=== PATIENT | female | born 1950 | race Caucasian/White ===

== ENCOUNTER 2022-03-19 15:45 | Emergency (ER) | payer MEDICARE, SELFPAY ==
--- NOTE | ~2022-03-19 | XR_ITS ---
XR knee LT 3V 03/19/2022 17:13 Indication: Left knee pain after fall Procedure: 3 views left knee Comparison: No prior studies for comparison. Findings: No acute fracture or traumatic malalignment. There is severe osteoarthritis of the left kne e, most advanced in the patellofemoral and lateral compartments. There is a large amount of soft tiss ue swelling anteriorly above the knee. There is extensive atherosclerosis. Impression: 1: No acute fracture. Reviewed, dictated and finalized at location A. Impression: 1: No acute fracture.
[2022-03-19 15:51] VITALS: BP 132/83; PULSE 108; RESP 14; TEMP 36.2; O2SAT 100
--- NOTE | 2022-03-19 16:53 | ED.LOWEXIN ---
HPI - Extremity Injury (Lower) General Chief Complaint: Extremity Injury, Lower Stated Complaint: Left Knee Pain Time Seen by Provider: 03/19/22 16:51 Source: patient and family Mode of arrival: ambulatory Limitations: no limitations History of Present Illness HPI Narrative: Patient is 71 years old white female presents to the ED with left knee pain started last night. Patient reports having a fall off a rolling chair 1 week ago, flipped over and landed on her left knee. Patient denies other injuries. Related Data Allergies Allergy/AdvReac Type Severity Reaction Status Date / Time No Known Allergies Allergy Verified 07/13/21 10:15 Review of Systems Review of Systems: All systems reviewed & are unremarkable except as noted in HPI and below PMFSH Past Medical History Medical History Age-related macular degeneration Essential (primary) hypertension Psychophysiological insomnia Type 2 diabetes mellitus with hyperglycemia Vitamin D deficiency, unspecified Surgical History Surgical History H/O hysterectomy for benign disease Hx of cholecystectomy Family History Family History Mother Hypertension Family history of Alzheimer's disease Family history of type 1 diabetes mellitus Father Family history of lymphoma History of kidney disease Social History Social History Social History: Second hand tobacco smoke exposure: No Alcohol intake: never Substance use: never Substance use type: does not use Additional living arrangements comments: pt lives with granddaughter and granddaughter Gender identity (if verbalized by the patient): Female Sexual Orientation (if Verbalized by the Patient): Straight or Heterosexual Exam Narrative: General appearance: Well-developed, well-nourished Skin: Normal color Head: Normocephalic, nontraumatic Eyes: Clear conjunctiva Vascular: Normal peripheral pulses, normal capillary refill. Musculoskeletal: Normal range of motion, nontender back Neurologic: Alert and oriented ?3, Course Course Emergency Course: X-ray showed no acute abnormality, left knee sprain/strain is my concern. Vital Signs Vital signs: Vital Signs Temperature 36.2 C L 03/19/22 15:51 Pulse Rate 108 H 03/19/22 15:51 Respiratory Rate 14 03/19/22 15:51 Blood Pressure 132/83 03/19/22 15:51 Pulse Oximetry 100 03/19/22 15:51 Oxygen Delivery Room Air 03/19/22 15:51 Temperature 36.2 C L 03/19/22 15:51 Pulse Rate 108 H 03/19/22 15:51 Respiratory Rate 14 03/19/22 15:51 Blood Pressure 132/83 03/19/22 15:51 Pulse Oximetry 100 03/19/22 15:51 Oxygen Delivery Room Air 03/19/22 15:51 MDM - Extremity Injury (Lower) Differential Diagnosis Differential diagnosis: Likely ankle sprain and strain and acute internal derangement of knee Imaging Data Radiologist's impression: Impressions Knee X-Ray 03/19/22 17:13 Impression: 1: No acute fracture. Critical Care Time Critical Care Time Critical Care Time: No Discharge Plan Discharge Clinical Impression: Sprain of knee Patient Disposition: Home, Self-Care Condition: Stable Instructions: Antibiotic Form, Knee Sprain (DC), Knee Immobilizer (ED) Additional Instructions: Return if symptoms are worsening , call your family physician for appointment, take Tylenol as as needed for aches and pain, continue home medications. Prescriptions: New meloxicam 7.5 mg tablet 7.5 mg PO DAILY Qty: 10 0RF No Action alprazolam 0.5 mg tablet 0.5 mg PO DAILY Qty: 30 2RF am
[2022-03-19] MEDS: HYDROcodone/acetaminophen (*CRX) 5-325 MG TABLET 1 TAB PO (17:26)
[2022-03-19 18:31] VITALS: BP 144/62; PULSE 79; RESP 18; O2SAT 97
== END 2022-03-19 18:34 | disposition home or self-care (01) ==
PROVIDERS: Emergency Provider Emergency Medicine; PCP Family Medicine
DX: S83.92XA Sprain of unspecified site of left knee, initial encounter (principal); I10 Essential (primary) hypertension; E11.9 Type 2 diabetes mellitus without complications; W07.XXXA Fall from chair, initial encounter
CPT/HCPCS: 73562; 99283; A9270

== ENCOUNTER 2022-11-23 09:44 | Emergency (ER) | payer MEDICARE, SELFPAY ==
[2022-11-23 09:48] VITALS: BP 148/62; PULSE 112; RESP 16; TEMP 36.1; O2SAT 99
--- NOTE | 2022-11-23 10:41 | ED.EXTPRO ---
HPI - Extremity Problem General Chief complaint: Extremity Problem,Nontraumatic Stated complaint: blister, hx of DM Time Seen by Provider: 11/23/22 10:30 History of Present Illness HPI Narrative: 72-year-old female with a history of diabetes, on metformin and glipizide, here for evaluation of a area of skin breakdown to her left lateral foot that she first noticed 2 days ago. Denies trauma to the foot. She has covered the area with a Band-Aid without improvement.. PCP is Dr. Holliday. Denies fevers, chills, nausea, vomiting or systemic symptoms. Denies history of neuropathy. Related Data Allergies Allergy/AdvReac Type Severity Reaction Status Date / Time No Known Allergies Allergy Verified 11/08/22 10:30 Review of Systems Review of Systems: Gen.: Denies fevers or chills Eyes: Denies eye pain or visual change ENT: Denies congestion Respiratory: Denies shortness of breath or cough CV: Denies chest pain or palpitations GI: Denies abdominal pain nausea, emesis or diarrhea denies burning, urgency, frequency or hematuria Musculoskeletal: Denies back pain or muscle pain Neuro: Denies numbness, tingling, weakness or focal weakness Skin: Reports ulcer to left foot. Except as documented, all other systems reviewed and negative [facility] Past Medical History Medical History Age-related macular degeneration Essential (primary) hypertension Psychophysiological insomnia Type 2 diabetes mellitus with hyperglycemia Vitamin D deficiency, unspecified Surgical History Surgical History H/O hysterectomy for benign disease Hx of cholecystectomy Family History Family History Mother Hypertension Family history of Alzheimer's disease Family history of type 1 diabetes mellitus Diabetes mellitus Father Family history of lymphoma History of kidney disease Hypertension Grandparent Breast cancer Social History Social History Social History: Smoking status: Never smoker Second hand tobacco smoke exposure: No Alcohol intake: never Substance use: never Substance use type: does not use Living arrangements: with family Additional living arrangements comments: pt lives with granddaughter and granddaughter Occupation/Education: retired Gender identity (if verbalized by the patient): Female Sexual Orientation (if Verbalized by the Patient): Straight or Heterosexual Exam Narrative: Gen: Alert, oriented, no acute distress. Eyes: EOMI, no icterus Pulm: Respirations even and unlabored, symmetric thorax expansion, no audible stridor or visible cyanosis CV: Strong DP and PT pulses bilaterally. GI: No distension, no voluntary/involuntary guarding Neuro: AOx4, moves all extremities without apparent difficulty or weakness, follows commands MSK: Sensation intact to entirety of foot. Full range of motion. Skin: Patient has a 1 x 1 cm ulceration with pink granulation tissue present to the lateral aspect of the left fifth digit of the foot with no surrounding erythema, no malodorous discharge. She does have a small area of skin breakdown to the plantar aspect of her left left fifth digit. Psych: Normal mood/affect, insight/judgement good, adequate fund of knowledge, recent/remote memory intact Course Vital Signs Vital signs: Vital Signs Temperature 97.0 F L 11/23/22 09:48 Pulse Rate 112 H 11/23/22 09:48 Respiratory Rate 16 11/23/22 09:48 Blood Pressure 148/62 H 11/23/22 09:48 Pulse Oximetry 99 11/23/22 09:48 Oxygen Delivery Room Air 11/23/22 09:48 Temperature 97.0 F L 11/23/22 09:48 Pulse Rate 112 H 11/23/22 09:48 Respiratory Rate 16 11/23/22 09:48 Blood Pressure 148/62 H 11/23/22 09:48 Pulse Oximetry 99 11/23/22 09:48 Oxygen Delivery R
[2022-11-23 10:48] LABS: Glucose Point of Care 114 mg/dl (65-105)
--- NOTE | 2022-11-23 11:32 | PC.NURSE ---
called pharmacy for topical medication ordered
[2022-11-23] MEDS: SILVERGEL (ELTA) 45 ML 1 APPLIC TOPICAL (11:56)
== END 2022-11-23 12:00 | disposition home or self-care (01) ==
PROVIDERS: Emergency Provider Physician Assistant; PCP Family Medicine
DX: E11.621 Type 2 diabetes mellitus with foot ulcer (principal); L97.521 Non-pressure chronic ulcer of other part of left foot limited to breakdown of skin; H35.30 Unspecified macular degeneration; I10 Essential (primary) hypertension; E55.9 Vitamin D deficiency, unspecified; Z90.710 Acquired absence of both cervix and uterus; Z79.84 Long term (current) use of oral hypoglycemic drugs
CPT/HCPCS: 82948; 99283; A9270

== ENCOUNTER 2025-01-03 17:14 | Emergency (ER) | payer MEDICARE, SELFPAY ==
--- NOTE | ~2025-01-03 | XR_ITS ---
CHEST RADIOGRAPH CLINICAL HISTORY: fatigue . COMPARISON: 10/02/2011 TECHNIQUE: Single portable view of the chest. FINDINGS The cardiomediastinal silhouette is unremarkable. Blunting of the bilateral costophrenic sulci identified suggesting small bilateral pleural effusions. Increased interstitial markings are identified bilaterally, findings suggesting mild pulmonary vascul ar congestion. The lungs are otherwise clear. IMPRESSION: Mild pulmonary vascular congestion with small bilateral pleural effusions Reviewed, dictated and finalized at location A.
[2025-01-03 17:24] VITALS: BP 128/61; PULSE 140; RESP 18; TEMP 36; O2SAT 99
--- NOTE | 2025-01-03 17:28 | ECG_ITS ---
Test Date: 2025-01-03 20:11:46 Measurements Intervals Nunda Rate: 114 P: -13 IN: 162 QRS: -11 QRSD: 79 T: 45 QT: 301 QTc: 415 Interpretive Statements SINUS TACHYCARDIA LOW QRS VOLTAGE IN PRECORDIAL LEADS [QRS DEFLECTION < 1.0 mV IN CHEST LEADS] POSSIBLE ANTERIOR MYOCARDIAL INFARCTION , PROBABLY OLD [30 ms Q WAVE IN V3/V4, OR R < 0.2 mV IN V4] INFERIOR MYOCARDIAL INFARCTION , PROBABLY OLD [40+ ms Q WAVE AND/OR ST/T ABNORMALITY IN II/aVF] No previous ECG available for comparison Electronically Signed On 01-04-2025 16:50:40 CDT by Mallory Quick M.D.
--- NOTE | 2025-01-03 17:29 | ED.GENADULT ---
HPI - General Adult General Chief complaint: Unspecified <Marily Carranza PA-C - Last Filed: 01/03/25 17:30> Stated complaint: Nauseated, feeling very tired, sugars high <Marily Carranza PA-C - Last Filed: 01/03/25 17:30> Time Seen by Provider: 01/03/25 20:18 <Marily Carranza PA-C - Last Filed: 01/03/25 17:30> Focused HPI: 74-year-old female with history of diabetes and hypertension presents with her daughter at bedside for 1 month of fatigue, nausea and dry heaving. Over the past few days symptoms have worsened which is why the patient presented to the ER today. She reports decreased p.o. intake. Also having rhinorrhea. Denies fever, cough or congestion, chest pain or shortness of breath, abdominal pain, diarrhea, dysuria or hematuria. Does have bilateral lower extremity edema but states this is unchanged from baseline. Denies history of CHF. GENERAL: Well-appearing, well-nourished, and in no acute distress. HEAD: Normocephalic, atraumatic. CHEST: Clear to auscultation. ?No respiratory distress. Bilateral lower extremity edema HEART: Regular rate and rhythm.? NEURO: ?Alert and oriented x3. Patient screened in triage and initial orders placed.? ?Additional care and disposition to be based upon?diagnostic testing and treatment. <Marily Carranza PA-C - Last Filed: 01/03/25 17:30> History of Present Illness HPI narrative: Agree with the HPI above and also like to add that patient recently had medication changes including previously being on Tuesday RO in September for last few months and then switch to Jardiance 2 weeks ago as she was not tolerating the nauseousness and epigastric burning pain with GERD. She states that she feels like she is nauseous all the time and her regular doctor ordered labs yesterday which show iron deficiency anemia for which she was started iron supplements. Has a PCP appointment tomorrow morning. <Bahman Turner MD - Last Filed: 01/03/25 23:26> Related Data Allergies/adverse reactions: Allergies Allergy/AdvReac Type Severity Reaction Status Date / Time No Known Allergies Allergy Verified 01/03/25 17:17 <Marily Carranza PA-C - Last Filed: 01/03/25 17:30> Review of Systems Review of Systems: As reviewed above in HPI <Bahman Turner MD - Last Filed: 01/03/25 23:26> [facility] Past Medical History Medical History: Medical History Age-related macular degeneration Essential (primary) hypertension Psychophysiological insomnia Type 2 diabetes mellitus with hyperglycemia Vitamin D deficiency, unspecified <Marily Carranza PA-C - Last Filed: 01/03/25 17:30> Surgical History Surgical History: Surgical History Hx of cholecystectomy H/O hysterectomy for benign disease <Marily Carranza PA-C - Last Filed: 01/03/25 17:30> Family History Family History: Family History Mother Hypertension Family history of Alzheimer's disease Family history of type 1 diabetes mellitus Diabetes mellitus Father Family history of lymphoma History of kidney disease Hypertension Grandparent Breast cancer <Marily Carranza PA-C - Last Filed: 01/03/25 17:30> Social History Social History: Social History Social History: Smoking status: Never smoker Second hand tobacco smoke exposure: No Alcohol intake: never Substance use: never Substance use type: does not use Do You Feel Safe in your Home?: Yes Lack of Transportation: No Lack of Food: Never True Current Housing: I Have Housing Concerned About Future Housing: No Difficulty Paying Gas/Electric Bills: No Difficulty Paying for Meds: No Currently Unemployed: YES Education: Don't Know Difficulty w/ Childcare or Family Care: No Living arrangements: with family Additional living arrangements comments: pt lives with granddaughter and granddaughter Occupation/Education: retired Gender identity (if verbalized by the patient): Female Sexual Orientation (if Verbalized by the Patient): Straight or Heterosexual <Marily Carranza PA-C - Last Filed: 01/03/25 17:30> Exam Narrative: GENERAL: Overall well-appearing, not in any distress, well nourished. HEAD: [Normocephalic, atraumatic.] EYES: [PERRLA and EOMI.] ENT: Nares clear, no rhinorrhea or epistaxis. Mucous membranes moist. NECK: Supple. CHEST: [Clear to auscultation. No respiratory distress.] HEART: [Regular rate and rhythm]. No murmur heard. [Normal peripheral pulses.] ABDOMEN: [Soft, nondistended], [nontender], [No rigidity or guarding] EXTREMITIES: Normal range of motion. [No edema.] SKIN: Warm, dry, no rash. NEURO: [No focal deficits]. Alert and oriented [x3.] PSYCH: [Normal mood and affect.] <Bahman Turner MD - Last Filed: 01/03/25 23:26> Course Vital Signs Vital signs: Vital Signs Temperature 36.0 C L 01/03/25 17:24 Pulse Rate 140 H 01/03/25 17:24 Respiratory Rate 18 01/03/25 17:24 Blood Pressure 128/61 01/03/25 17:24 Pulse Oximetry 99 01/03/25 17:24 Oxygen Delivery Room Air 01/03/25 17:24 Temperature 36.0 C L 01/03/25 17:24 Pulse Rate 95 01/03/25 20:04 Respiratory Rate 20 01/03/25 20:05 Blood Pressure 111/66 01/03/25 20:04 Pulse Oximetry 98 01/03/25 20:33 Oxygen Delivery Room Air 01/03/25 20:33 <Marily Carranza PA-C - Last Filed: 01/03/25 17:30> Vital Signs Temperature 36.0 C L 01/03/25 17:24 Pulse Rate 140 H 01/03/25 17:24 Respiratory Rate 18 01/03/25 17:24 Blood Pressure 128/61 01/03/25 17:24 Pulse Oximetry 99 01/03/25 17:24 Oxygen Delivery Room Air 01/03/25 17:24 Temperature 36.0 C L 01/03/25 17:24 Pulse Rate 95 01/03/25 20:04 Respiratory Rate 20 01/03/25 20:05 Blood Pressure 111/66 01/03/25 20:04 Pulse Oximetry 98 01/03/25 20:33 Oxygen Delivery Room Air 01/03/25 20:33 <Bahman Turner MD - Last Filed: 01/03/25 23:26> Medical Decision Making MDM Narrative Medical decision making narrative: 74-year-old female presenting to the emergency department for ?feeling like crap ?patient states that she has been feeling tired these last few months and recently had medication changes including previously being on Mon General for several months and then switch to Jardiance as she was not tolerating the side effects. She had outpatient labs done 2 days ago by her PCP that shows an MADY and anemia that she was prescribed iron pills for. She has an outpatient PCP appointment tomorrow morning. Patient came to the ER today as she wanted to make sure she was okay. Patient has no specific complaints aside from some mild nausea but she states she has been constantly nauseous for months. Denies any vomiting, abdominal pain, back pain, fever, chills, chest pain, shortness a breath, worsening leg swelling. Only medication change has been the Jardiance recently. No urinary complaints or diarrhea. Suspect probably that patient has some component of intolerance to medications as is her Jardiance in could be having MADY versus urinary tract infection. Electrolyte disturbances or anemia could also be causing this. Workup ordered including CBC, CMP, EKG, chest x-ray. BNP and flu swabs were obtained. Chest x-ray ordered. Patient was given a fluid bolus and 4 Zofran. Workup shows a leukocytosis of 16.8 which is slightly higher than 2 days ago on outpatient labs. Hemoglobin has improved to 11.2 with normal platelets. Electrolyte panel shows some dehydration and MADY from her labs several days ago. She has chronic kidney disease at baseline and slight worsening today with an elevated BUN of 58 and creatinine 2.34. No urinary complaints and she still urinating easily. Likely secondary to from Jardiance and intravascular depletion. She was given a fluid bolus and re-evaluated. Glucose acceptable 174. LFTs mildly elevated. Negative viral panel. Chest x-ray shows no pneumonia, mild small pleural effusions noted. EKG shows no evidence of hyperkalemia, no ectopy or acute occlusive event. Given patient is overall very well-appearing with normal vital signs without any tachycardia, fever or hypoxia and her historical features consistent with an MADY likely secondary to medication such as Jardiance I believe she can be safely discharged home especially given that she has a PCP appointment tomorrow morning who can evaluate her closely and provide further input and recommendations for care. Patient felt comfortable with this plan of care, urinalysis pending and she will be discharged home with close follow-up instructions and return precautions. Urinalysis shows urinary infection however patient is presently asymptomatic. Will treat with oral antibiotics. patient started on Bactrim and sent home with prescription medications and instructions to follow-up with the doctor in the morning. <Bahman Turner MD - Last Filed: 01/03/25 23:26> Medical Records Medical records reviewed: Yes I reviewed the external patient's medical records. <Bahman Turner MD - Last Filed: 01/03/25 23:26> Vital Signs Vital Signs: Vital Signs Temperature 36.0 C L 01/03/25 17:24 Pulse Rate 140 H 01/03/25 17:24 Respiratory Rate 18 01/03/25 17:24 Blood Pressure 128/61 01/03/25 17:24 Pulse Oximetry 99 01/03/25 17:24 Oxygen Delivery Room Air 01/03/25 17:24 Temperature 36.0 C L 01/03/25 17:24 Pulse Rate 95 01/03/25 20:04 Respiratory Rate 20 01/03/25 20:05 Blood Pressure 111/66 01/03/25 20:04 Pulse Oximetry 98 01/03/25 20:33 Oxygen Delivery Room Air 01/03/25 20:33 <Marily Carranza PA-C - Last Filed: 01/03/25 17:30> Vital Signs Temperature 36.0 C L 01/03/25 17:24 Pulse Rate 140 H 01/03/25 17:24 Respiratory Rate 18 01/03/25 17:24 Blood Pressure 128/61 01/03/25 17:24 Pulse Oximetry 99 01/03/25 17:24 Oxygen Delivery Room Air 01/03/25 17:24 Temperature 36.0 C L 01/03/25 17:24 Pulse Rate 95 01/03/25 20:04 Respiratory Rate 20 01/03/25 20:05 Blood Pressure 111/66 01/03/25 20:04 Pulse Oximetry 98 01/03/25 20:33 Oxygen Delivery Room Air 01/03/25 20:33 <Bahman Turner MD - Last Filed: 01/03/25 23:26> Lab Data Lab results reviewed: Yes I reviewed the patient's lab results. <Bahman Turner MD - Last Filed: 01/03/25 23:26> Result diagrams: 01/03/25 20:32 01/03/25 20:32 <Marily Carranza PA-C - Last Filed: 01/03/25 17:30> Labs: Lab Results 01/03/25 01/03/25 01/03/25 Range/Units 19:55 20:32 22:34 WBC 16.8 H (4.5-10.0) K/mm3 RBC 4.22 (4.2-5.4) M/mm3 Hgb 11.2 L (12.0-15.0) g/dL Hct 35.1 L (37.0-47.0) % MCV 83.2 (80-100) fl MCH 26.5 (26-34) pg MCHC 31.9 L (32-36) g/dl RDW 22.0 H (11.5-14.5) % Plt Count 372 (150-375) k/mm3 MPV 11.1 H (7.4-10.4) fl Immature Gran % (Auto) 0.6 H (0-0.5) % Neut % (Auto) 90.7 H (45.5-73.1) % Lymph % (Auto) 3.7 L (18.3-44.2) % [place] % (Auto) 4.8 (2.6-8.5) % Eos % (Auto) 0.0 (0-4.4) % Baso % (Auto) 0.2 (0.2-1.2) % Lymph # (Auto) 0.62 L (0.9-3.2) K/mm3 [place] # (Auto) 0.8 H (0.1-0.6) K/mm3 Eos # (Auto) 0.0 (0-0.3) K/mm3 Baso # (Auto) 0.0 (0.0-0.1) K/mm3 Abs Immat Gran (auto) 0.10 H (0.00-0.031) K/mm3 Absolute Neuts (auto) 15.3 H (1.3-6.7) K/mm3 Absolute Nucleated RBC 0.000 (0.0-0.012) K/mm3 Nucleated RBC % 0.0 (0.0-0.2) % Sodium 133 L (137-145) mmol/L Potassium 5.3 H (3.4-5.0) mmol/L Chloride 103 (98-107) mmol/L Carbon Dioxide 18 L (22-30) mmol/L Anion Gap 12 (4-12) mmol/L BUN 58 H (7-17) mg/dL Creatinine 2.34 H (0.7-1.0) mg/dL Estim Creat Clear Calc 28 ml/min Estimated GFR 20 L (59 - ) Glucose 174 H (65-110) mg/dL Calcium 8.9 (8.4-10.2) mg/dL Magnesium 1.5 L (1.6-2.3) mg/dL Total Bilirubin 1.5 H (0.2-1.3) mg/dL AST 83 H (14-36) U/L ALT 29 (6-35) U/L Alkaline Phosphatase 345 H (38-126) U/L NT-Pro-B Natriuret Pep 2320 H (19.9-100) pg/mL Total Protein 7.0 (6.3-8.2) g/dL Albumin 3.5 (3.5-5.1) g/dL Urine Color Yellow (Yellow) Urine Appearance Cloudy H (Clear) Urine pH 5.0 (5.0-9.0) Ur Specific [place] 1.015 (1.001-1.035) Urine Protein Trace (Negative) mg/dL Urine Glucose (UA) 1+ H (Negative) mg/dL Urine Ketones Trace H (Negative) mg/dL Ur Blood (Man) Negative (Negative) Urine Nitrate Negative (Negative) Urine Bilirubin Negative (Negative) Urine Urobilinogen 1.0 (<2.0) mg/dL Leukocyte Esterase Rfl 3+ H (Negative) ABE/UL Urine RBC 0-2 (0-2) /hpf Urine WBC 51-100 H (0-3) /hpf Ur Squamous Epith Cells Moderate (Few) /hpf Urine Bacteria 2+ H /hpf Urine Casts 3-5 Influenza A (RT-PCR) Negative (Negative) Influenza B (RT-PCR) Negative (Negative) RSV (RT-PCR) Negative (Negative) SARS-CoV-2 RNA (RT-PCR) Negative (Negative) <Marily Carranza PA-C - Last Filed: 01/03/25 17:30> Lab Results 01/03/25 01/03/25 01/03/25 Range/Units 19:55 20:32 22:34 WBC 16.8 H (4.5-10.0) K/mm3 RBC 4.22 (4.2-5.4) M/mm3 Hgb 11.2 L (12.0-15.0) g/dL Hct 35.1 L (37.0-47.0) % MCV 83.2 (80-100) fl MCH 26.5 (26-34) pg MCHC 31.9 L (32-36) g/dl RDW 22.0 H (11.5-14.5) % Plt Count 372 (150-375) k/mm3 MPV 11.1 H (7.4-10.4) fl Immature Gran % (Auto) 0.6 H (0-0.5) % Neut % (Auto) 90.7 H (45.5-73.1) % Lymph % (Auto) 3.7 L (18.3-44.2) % [place] % (Auto) 4.8 (2.6-8.5) % Eos % (Auto) 0.0 (0-4.4) % Baso % (Auto) 0.2 (0.2-1.2) % Lymph # (Auto) 0.62 L (0.9-3.2) K/mm3 [place] # (Auto) 0.8 H (0.1-0.6) K/mm3 Eos # (Auto) 0.0 (0-0.3) K/mm3 Baso # (Auto) 0.0 (0.0-0.1) K/mm3 Abs Immat Gran (auto) 0.10 H (0.00-0.031) K/mm3 Absolute Neuts (auto) 15.3 H (1.3-6.7) K/mm3 Absolute Nucleated RBC 0.000 (0.0-0.012) K/mm3 Nucleated RBC % 0.0 (0.0-0.2) % Sodium 133 L (137-145) mmol/L Potassium 5.3 H (3.4-5.0) mmol/L Chloride 103 (98-107) mmol/L Carbon Dioxide 18 L (22-30) mmol/L Anion Gap 12 (4-12) mmol/L BUN 58 H (7-17) mg/dL Creatinine 2.34 H (0.7-1.0) mg/dL Estim Creat Clear Calc 28 ml/min Estimated GFR 20 L (59 - ) Glucose 174 H (65-110) mg/dL Calcium 8.9 (8.4-10.2) mg/dL Magnesium 1.5 L (1.6-2.3) mg/dL Total Bilirubin 1.5 H (0.2-1.3) mg/dL AST 83 H (14-36) U/L ALT 29 (6-35) U/L Alkaline Phosphatase 345 H (38-126) U/L NT-Pro-B Natriuret Pep 2320 H (19.9-100) pg/mL Total Protein 7.0 (6.3-8.2) g/dL Albumin 3.5 (3.5-5.1) g/dL Urine Color Yellow (Yellow) Urine Appearance Cloudy H (Clear) Urine pH 5.0 (5.0-9.0) Ur Specific [place] 1.015 (1.001-1.035) Urine Protein Trace (Negative) mg/dL Urine Glucose (UA) 1+ H (Negative) mg/dL Urine Ketones Trace H (Negative) mg/dL Ur Blood (Man) Negative (Negative) Urine Nitrate Negative (Negative) Urine Bilirubin Negative (Negative) Urine Urobilinogen 1.0 (<2.0) mg/dL Leukocyte Esterase Rfl 3+ H (Negative) ABE/UL Urine RBC 0-2 (0-2) /hpf Urine WBC 51-100 H (0-3) /hpf Ur Squamous Epith Cells Moderate (Few) /hpf Urine Bacteria 2+ H /hpf Urine Casts 3-5 Influenza A (RT-PCR) Negative (Negative) Influenza B (RT-PCR) Negative (Negative) RSV (RT-PCR) Negative (Negative) SARS-CoV-2 RNA (RT-PCR) Negative (Negative) <Bahman Turner MD - Last Filed: 01/03/25 23:26> Imaging Data Attestation: I personally reviewed and interpreted this imaging study as follows: <Bahman Turner MD - Last Filed: 01/03/25 23:26> My impression: Impressions Chest X-Ray 01/03/25 18:06 IMPRESSION: Mild pulmonary vascular congestion with small bilateral pleural effusions <Bahman Turner MD - Last Filed: 01/03/25 23:26> Discharge Plan Discharge Clinical Impression: Acute kidney injury, Urinary tract infection <Marily Carranza PA-C - Last Filed: 01/03/25 17:30> Patient Disposition: Home, Self-Care <Marily Carranza PA-C - Last Filed: 01/03/25 17:30> Condition: Stable <Marily Carranza PA-C - Last Filed: 01/03/25 17:30> Instructions: Antibiotic Form, Acute Kidney Injury (DC), Urinary Tract Infection in Older Adults (ED) <aMrily Carranza PA-C - Last Filed: 01/03/25 17:30> Additional Instructions: You have an acute kidney injury which is likely secondary to your medication use and a combination of potential dehydration. Jardiance is known for causing kidney injuries as well as urinary infections in diabetic patients. We will treat you for a UTI with Bactrim. If you start developing any fevers, back pain, lightheadedness, dizziness, abdominal pain or any other concerns return to the emergency department otherwise keep your appointment tomorrow morning with your doctor for further discussion and recommendations on medication changes and treatment plans. <Marily Carranza PA-C - Last Filed: 01/03/25 17:30> Patient Language: Algerian <Marily Carranza PA-C - Last Filed: 01/03/25 17:30> Prescriptions: New sulfamethoxazole-trimethoprim [Bactrim DS] 800-160 mg tablet 1 tablet PO Q12H Qty: 14 0RF No Action amlodipine 10 mg tablet 10 mg PO DAILY Qty: 90 3RF chlorthalidone 25 mg tablet 25 mg PO DAILY Qty: 90 3RF glipizide 5 mg tablet 10 mg PO BID 90 Days Qty: 360 3RF lisinopril 40 mg tablet 40 mg PO DAILY Qty: 90 3RF tramadol 50 mg tablet 50 mg PO Q6H PRN (Reason: pain) Qty: 20 0RF alprazolam 0.5 mg tablet 0.25 mg PO DAILY Qty: 90 1RF ondansetron HCl 4 mg tablet 4 mg PO Q8H PRN (Reason: nausea and vomiting) Qty: 20 2RF metformin 1,000 mg tablet 500 mg PO BID Qty: 90 1RF Jardiance 10 mg tablet 10 mg PO DAILY Qty: 90 2RF tizanidine 4 mg tablet 4 mg PO TID PRN (Reason: muscle spasticity) Qty: 30 1RF <Marily Carranza PA-C - Last Filed: 01/03/25 17:30> Follow-up/Referrals: Ayah Carver, [facility] [Primary Care Provider] - <Marily Carranza PA-C - Last Filed: 01/03/25 17:30> Time of Disposition: 23:25 <Marily Carranza PA-C - Last Filed: 01/03/25 17:30> 23:25 <Bahman Turner MD - Last Filed: 01/03/25 23:26>
[2025-01-03 20:04] VITALS: BP 111/66; PULSE 95; RESP 20; O2SAT 98
[2025-01-03 20:05] VITALS: RESP 20; O2SAT 98
[2025-01-03 20:33] VITALS: O2SAT 98
[2025-01-03 20:37] LABS: Influenza A QL RT-PCR Negative (Negative); Influenza B QL RT-PCR Negative (Negative); RSV RNA, RT-PCR Negative (Negative); SARS-CoV-2 RNA PCR Negative (Negative)
[2025-01-03 20:39] LABS: Basophils Percent Auto 0.2 % (0.2-1.2); Hematocrit 35.1 % (37.0-47.0); Hemoglobin 11.2 g/dL (12.0-15.0); Immature Granulocyte Percent A 0.6 % (0-0.5); Lymphocytes Absolute Auto 0.62 K/mm3 (0.9-3.2); Lymphocytes Percent Auto 3.7 % (18.3-44.2); Mean Corpuscular HGB Conc 31.9 g/dl (32-36); Mean Corpuscular Hemoglobin 26.5 pg (26-34); Mean Corpuscular Volume 83.2 fl (80-100); Mean Platelet Volume 11.1 fl (7.4-10.4); Monocytes Absolute Auto 0.8 K/mm3 (0.1-0.6); Monocytes Percent Auto 4.8 % (2.6-8.5); Neutrophils Absolute Auto 15.3 K/mm3 (1.3-6.7); Neutrophils Percent Auto 90.7 % (45.5-73.1); Platelet Count Result 372 k/mm3 (150-375); Red Blood Count 4.22 M/mm3 (4.2-5.4); White Blood Count 16.8 K/mm3 (4.5-10.0)
[2025-01-03 20:50] LABS: Alanine Aminotransferase 29 U/L (6-35); Albumin Level 3.5 g/dL (3.5-5.1); Alkaline Phosphatase 345 U/L (38-126); Anion Gap 12 mmol/L (4-12); Aspartate Amino Transferase 83 U/L (14-36); Bilirubin,Total 1.5 mg/dL (0.2-1.3); Blood Urea Nitrogen 58 mg/dL (7-17); Calcium 8.9 mg/dL (8.4-10.2); Carbon Dioxide 18 mmol/L (22-30); Chloride 103 mmol/L (98-107); Estimated CRCL calculation 28 ml/min; Estimated Glomerular Filt Rate 20; Glucose 174 mg/dL (65-110); Magnesium 1.5 mg/dL (1.6-2.3); Potassium 5.3 mmol/L (3.4-5.0); Sodium 133 mmol/L (137-145)
[2025-01-03 20:58] LABS: NT Pro B Type Natriuretic Pept 2320 pg/mL (19.9-100)
[2025-01-03] MEDS: ONDANSETRON INJ 4 MG/2 ML VIAL IV PUSH (21:43)
[2025-01-03] MEDS: LACTATED RINGERS 1,000 ML 999 ML IV CONT (21:44)
[2025-01-03 22:45] LABS: Add Urine Microscopic? YES; Appearance Urine Cloudy (Clear); Bacteria Urine 2+ /hpf; Bilirubin Urine Negative (Negative); Blood Urine Negative (Negative); Color Urine Yellow (Yellow); Glucose Urine UA 1+ mg/dL (Negative); Ketones Urine Trace mg/dL (Negative); Leukocyte Esterase Ur 3+ LEU/UL (Negative); Nitrate Urine Negative (Negative); Protein Urine Trace mg/dL (Negative); RBC Urine 0-2 /hpf (0-2); Specific Grav Ur 1.015 (1.001-1.035); Squamous Epithelial Cell Urine Moderate /hpf (Few); WBC Urine 51-100 /hpf (0-3)
[2025-01-03] MEDS: SULFAMETHOXAZOLE/TRIMETHOPRIM 800/160 MG DS TABLET 1 TAB PO (23:33)
[2025-01-03] MEDS: ONDANSETRON HCL ODT 4 MG TABLET PO (23:37)
== END 2025-01-04 00:14 | disposition home or self-care (01) ==
PROVIDERS: Physician Assistant; Emergency Provider Student in an Organized Health Care Education/Training Program; PCP Nurse Practitioner Family
DX: N17.9 Acute kidney failure, unspecified (principal); N39.0 Urinary tract infection, site not specified; Z20.822 Contact with and (suspected) exposure to COVID-19; I12.9 Hypertensive chronic kidney disease with stage 1 through stage 4 chronic kidney disease, or unspecified chronic kidney disease; E11.22 Type 2 diabetes mellitus with diabetic chronic kidney disease; N18.9 Chronic kidney disease, unspecified; E55.9 Vitamin D deficiency, unspecified; D50.9 Iron deficiency anemia, unspecified; H35.30 Unspecified macular degeneration; Z79.84 Long term (current) use of oral hypoglycemic drugs; Z79.899 Other long term (current) drug therapy; R00.0 Tachycardia, unspecified; R94.31 Abnormal electrocardiogram [ECG] [EKG]
CPT/HCPCS: 36415; 71045; 80053; 81001; 83735; 83880; 85025; 87637; 93005; 96361; 96374; 96376; 99284; A9270; J2405; J7120

== ENCOUNTER 2025-01-04 11:26 | Observation (INO) | payer MEDICARE, SELFPAY ==
[2025-01-04] VITALS (10 sets, daily range): BP systolic 123–155; BP diastolic 52–70; PULSE 94–111; RESP 14–20; TEMP 36.4–36.6; O2SAT 94–97; BMI 46.0
--- NOTE | ~2025-01-04 | US_ITS ---
Limited Abdominal Sonogram: Real-time sonographic imaging of the right upper quadrant was performed. Clinical History: Transaminitis Findings: The liver appears markedly heterogeneous, with somewhat nodular contour. Main portal vein demonstrates normal direction of flow. The gallbladder is absent, compatible prior cholecystectomy. T he common bile duct measures 8 mm. The visualized pancreas, aorta, and IVC are unremarkable. Impression: Markedly heterogeneous hepatic parenchyma with subtle nodular contour. Findings could reflect cirrhos is, however underlying mass lesions are not excluded. Recommend contrast enhanced CT or hepatic MR to better assess for possibility of underlying hepatic neoplastic/metastatic disease. Reviewed, dictated and finalized at [facility]. Impression: Markedly heterogeneous hepatic parenchyma with subtle nodular contour. Findings could reflect cirrhosis, however underlying mass lesions are not excluded. Rec ommend contrast enhanced CT or hepatic MR to better assess for possibility of u nderlying hepatic neoplastic/metastatic disease.
--- NOTE | ~2025-01-04 | XR_ITS ---
EXAMINATION: XR chest 2V DATE: 01/04/2025 15:17 INDICATION: Weakness. TECHNIQUE: Frontal and lateral views of the chest were obtained on 3 radiographs. COMPARISON: Chest single view 01/03/2025, CT abdomen and pelvis 10/03/2011 FINDINGS: Sensitivity is decreased by obesity. There is no pneumonia, pleural effusion, or pneumothor ax. The heart size is normal. There are prominent pericardial fat pads. IMPRESSION: 1. No acute cardiopulmonary disease. Reviewed, dictated and finalized at location [facility].
--- NOTE | 2025-01-04 14:41 | ED_ITS ---
HPI - Recheck/Abnormal Lab/Rx General Chief Complaint: Recheck/Abnormal Lab/Rx <Emily Gayle PA-C - Last Filed: 01/04/25 18:26> Stated Complaint: cough, weakness, abnormal labs <Emily Gayle PA-C - Last Filed: 01/04/25 18:26> Time Seen by Provider: 01/04/25 14:41 <Emily Gayle PA-C - Last Filed: 01/04/25 18:26> Focused HPI: This is a 74 year old female that presents to the ER for fatigue. This has been worsening over the last week. She was seen in the ER last night and diagnosed with a UTI. She followed up with her PCP who prompted her to be seen in the ER again. GENERAL: Well-appearing, well-nourished, and in no acute distress. HEAD: Normocephalic, atraumatic. CHEST: Clear to auscultation. ?No respiratory distress. HEART: Regular rate and rhythm.? NEURO: ?Alert and oriented x3. Patient screened in triage and initial orders placed.? ?Additional care and disposition to be based upon?diagnostic testing and treatment. <Emily Gayle PA-C - Last Filed: 01/04/25 18:26> Source: patient and family <Dirk Ramsay MD - Last Filed: 01/04/25 17:42> Mode of arrival: wheelchair <Dirk Ramsay MD - Last Filed: 01/04/25 17:42> Limitations: no limitations <Dirk Ramsay MD - Last Filed: 01/04/25 17:42> History of Present Illness HPI narrative: 74-year-old with a history of hypertension, hypertension, CKD here with the complaints of generalized weakness, nausea which is been ongoing for quite some time. Patient was seen last night in the ER and was diagnosed with urinary tract infection. Patient daughter who the the bedside states that they did see her primary doctor this morning for a follow-up and was advised to go to the ER as she has fluid buildup in her lungs and her legs. Patient however denies having any shortness of breath or chest pain. <Dirk Ramsay MD - Last Filed: 01/04/25 17:42> Related Data Allergies/Adverse Reactions: Allergies Allergy/AdvReac Type Severity Reaction Status Date / Time No Known Allergies Allergy Verified 01/04/25 11:28 <Emily Gayle PA-C - Last Filed: 01/04/25 18:26> Review of Systems 2 Review of Systems: All systems reviewed & are unremarkable except as noted in HPI and below <Dirk Ramsay MD - Last Filed: 01/04/25 17:42> Constitutional: Constitutional: Reports no additional constitutional complaints <Dirk Ramsay MD - Last Filed: 01/04/25 17:42> Eyes: Eyes: Reports no additional eye complaints <Dirk Ramsay MD - Last Filed: 01/04/25 17:42> ENT: Reports system reviewed and no additional complaints, except as documented <Dirk Ramsay MD - Last Filed: 01/04/25 17:42> Cardiovascular: Cardiovascular: Reports no additional cardiovascular complaints <Dirk Ramsay MD - Last Filed: 01/04/25 17:42> Respiratory: Respiratory: Reports no additional respiratory complaints < Dirk Ramsay MD - Last Filed: 01/04/25 17:42> Gastrointestinal: Gastrointestinal: Reports no additional gastrointestinal complaints <Dirk Ramsay MD - Last Filed: 01/04/25 17:42> Musculoskeletal: Musculoskeletal: Reports no additional musculoskeletal complaints <Dirk Ramsay MD - Last Filed: 01/04/25 17:42> Integumentary/Breasts: Skin/Breast: Reports system reviewed and no additional complaints, except as docu <Dirk Ramsay MD - Last Filed: 01/04/25 17:42> Neurologic: Reports system reviewed and no additional complaints, except as documented <Dirk Ramsay MD - Last Filed: 01/04/25 17:42> Psychiatric: Psychiatric: Reports no additional psychiatric complaints < Dirk Ramsay MD - Last Filed: 01/04/25 17:42> PMFSH Past Medical History Medical History: Medical History Age-related macular degeneration Essential (primary) hypertension Psychophysiological insomnia Type 2 diabetes mellitus with hyperglycemia Vitamin D deficiency, unspecified <Emily Gayle PA-C - Last Filed: 01/04/25 18:26> Surgical History Surgical History: Surgical History Hx of cholecystectomy H/O hysterectomy for benign disease <Emily Gayle PA-C - Last Filed: 01/04/25 18:26> Family History Family History: Family History Mother Hypertension Family history of Alzheimer's disease Family history of type 1 diabetes mellitus Diabetes mellitus Father Family history of lymphoma History of kidney disease Hypertension Grandparent Breast cancer <Emily Gayle PA-C - Last Filed: 01/04/25 18:26> Social History Social History: Social History Social History: Smoking status: Never smoker Second hand tobacco smoke exposure: No Alcohol intake: never Substance use: never Substance use type: does not use Do You Feel Safe in your Home?: Yes Lack of Transportation: No Lack of Food: Never True Current Housing: I Have Housing Concerned About Future Housing: No Difficulty Paying Gas/Electric Bills: No Difficulty Paying for Meds: No Currently Unemployed: YES Education: Don't Know Difficulty w/ Childcare or Family Care: No Living arrangements: with family Additional living arrangements comments: pt lives with granddaughter and granddaughter Occupation/Education: retired Gender identity (if verbalized by the patient): Female Sexual Orientation (if Verbalized by the Patient): Straight or Heterosexual <Emily Gayle PA-C - Last Filed: 01/04/25 18:26> Exam 2 Narrative: GENERAL: Well-appearing, well-nourished, and in no acute distress. HEAD: Normocephalic, atraumatic. EYES: PERRLA and EOMI. ENT: Nares clear, no rhinorrhea or epistaxis. Mucous membranes moist. NECK: Supple. CHEST: Clear to auscultation. No respiratory distress. HEART: Regular rate and rhythm. No murmur heard. Normal peripheral pulses. ABDOMEN: Soft, nontender, nondistended, normal active bowel sounds. EXTREMITIES: Normal range of motion. No edema. SKIN: Warm, dry, no rash. NEURO: No focal deficits. Alert and oriented x3. PSYCH: Normal mood and affect. <Dirk Ramsay MD - Last Filed: 01/04/25 17:42> Course Course Emergency Course: Informed patient about the lab work. Agreeable with admission. Discussed with the hospitalist accepted the patient <Dirk Ramsay MD - Last Filed: 01/04/25 17:42> Vital Signs Vital signs: Vital Signs Temperature 97.7 F 01/04/25 11:32 Pulse Rate 108 H 01/04/25 11:32 Respiratory Rate 20 01/04/25 11:32 Blood Pressure 148/52 H 01/04/25 11:32 Pulse Oximetry 97 01/04/25 11:32 Oxygen Delivery Room Air 01/04/25 11:32 Temperature 97.6 F 01/04/25 17:46 Pulse Rate 98 01/04/25 18:01 Respiratory Rate 14 01/04/25 18:01 Blood Pressure 126/52 L 01/04/25 18:01 Pulse Oximetry 96 01/04/25 18:01 Oxygen Delivery Room Air 01/04/25 11:32 <Emily Gayle PA-C - Last Filed: 01/04/25 18:26> Vital Signs Temperature 97.7 F 01/04/25 11:32 Pulse Rate 108 H 01/04/25 11:32 Respiratory Rate 20 01/04/25 11:32 Blood Pressure 148/52 H 01/04/25 11:32 Pulse Oximetry 97 01/04/25 11:32 Oxygen Delivery Room Air 01/04/25 11:32 Temperature 97.6 F 01/04/25 17:46 Pulse Rate 98 01/04/25 18:01 Respiratory Rate 14 01/04/25 18:01 Blood Pressure 126/52 L 01/04/25 18:01 Pulse Oximetry 96 01/04/25 18:01 Oxygen Delivery Room Air 01/04/25 11:32 <Dirk Ramsay MD - Last Filed: 01/04/25 17:42> MDM - Recheck/Abnormal Lab/Rx Medical Records Attestation: I reviewed the patient's medical records. <Dirk Ramsay MD - Last Filed: 01/04/25 17:42> Lab Data Attestation: I reviewed the patient's lab results. <Dirk Ramsay MD - Last Filed: 01/04/25 17:42> Result diagrams: 01/04/25 15:58 01/04/25 15:58 <Emily Gayle PA-C - Last Filed: 01/04/25 18:26> Labs: Lab Results 01/04/25 01/04/25 Range/Units 15:58 18:22 WBC 16.3 H (4.5-10.0) K/mm3 RBC 4.23 (4.2-5.4) M/mm3 Hgb 11.0 L (12.0-15.0) g/dL Hct 35.2 L (37.0-47.0) % MCV 83.2 (80-100) fl MCH 26.0 (26-34) pg MCHC 31.3 L (32-36) g/dl RDW 22.3 H (11.5-14.5) % Plt Count 382 H (150-375) k/mm3 MPV 11.2 H (7.4-10.4) fl Immature Gran % (Auto) 0.5 (0-0.5) % Neut % (Auto) 87.7 H (45.5-73.1) % Lymph % (Auto) 5.5 L (18.3-44.2) % [place] % (Auto) 6.0 (2.6-8.5) % Eos % (Auto) 0.1 (0-4.4) % Baso % (Auto) 0.2 (0.2-1.2) % Lymph # (Auto) 0.89 L (0.9-3.2) K/mm3 [place] # (Auto) 1.0 H (0.1-0.6) K/mm3 Eos # (Auto) 0.0 (0-0.3) K/mm3 Baso # (Auto) 0.0 (0.0-0.1) K/mm3 Abs Immat Gran (auto) 0.08 H (0.00-0.031) K/mm3 Absolute Neuts (auto) 14.3 H (1.3-6.7) K/mm3 Absolute Nucleated RBC 0.000 (0.0-0.012) K/mm3 Band Neutrophils % Not Reportable Nucleated RBC % 0.0 (0.0-0.2) % Platelet Estimate Adequate (Adequate) Hypochromasia 2+ Anisocytosis 1+ Target Cells 1+ Schistocytes None seen Sodium 135 L (137-145) mmol/L Potassium 5.1 H (3.4-5.0) mmol/L Chloride 104 (98-107) mmol/L Carbon Dioxide 17 L (22-30) mmol/L Anion Gap 14 H (4-12) mmol/L BUN 53 H (7-17) mg/dL Creatinine 2.35 H (0.7-1.0) mg/dL Estim Creat Clear Calc 27 ml/min Estimated GFR 20 L (59 - ) Glucose 127 H (65-110) mg/dL POC Capillary Glucose 114 H (65-105) mg/dl Calcium 9.0 (8.4-10.2) mg/dL Total Bilirubin 2.0 H (0.2-1.3) mg/dL AST 103 H (14-36) U/L ALT 36 H (6-35) U/L Alkaline Phosphatase 360 H (38-126) U/L NT-Pro-B Natriuret Pep 2020 H (19.9-100) pg/mL Total Protein 7.0 (6.3-8.2) g/dL Albumin 3.4 L (3.5-5.1) g/dL <Emily Gayle PA-C - Last Filed: 01/04/25 18:26> Lab Results 01/04/25 01/04/25 Range/Units 15:58 18:22 WBC 16.3 H (4.5-10.0) K/mm3 RBC 4.23 (4.2-5.4) M/mm3 Hgb 11.0 L (12.0-15.0) g/dL Hct 35.2 L (37.0-47.0) % MCV 83.2 (80-100) fl MCH 26.0 (26-34) pg MCHC 31.3 L (32-36) g/dl RDW 22.3 H (11.5-14.5) % Plt Count 382 H (150-375) k/mm3 MPV 11.2 H (7.4-10.4) fl Immature Gran % (Auto) 0.5 (0-0.5) % Neut % (Auto) 87.7 H (45.5-73.1) % Lymph % (Auto) 5.5 L (18.3-44.2) % [place] % (Auto) 6.0 (2.6-8.5) % Eos % (Auto) 0.1 (0-4.4) % Baso % (Auto) 0.2 (0.2-1.2) % Lymph # (Auto) 0.89 L (0.9-3.2) K/mm3 [place] # (Auto) 1.0 H (0.1-0.6) K/mm3 Eos # (Auto) 0.0 (0-0.3) K/mm3 Baso # (Auto) 0.0 (0.0-0.1) K/mm3 Abs Immat Gran (auto) 0.08 H (0.00-0.031) K/mm3 Absolute Neuts (auto) 14.3 H (1.3-6.7) K/mm3 Absolute Nucleated RBC 0.000 (0.0-0.012) K/mm3 Band Neutrophils % Not Reportable Nucleated RBC % 0.0 (0.0-0.2) % Platelet Estimate Adequate (Adequate) Hypochromasia 2+ Anisocytosis 1+ Target Cells 1+ Schistocytes None seen Sodium 135 L (137-145) mmol/L Potassium 5.1 H (3.4-5.0) mmol/L Chloride 104 (98-107) mmol/L Carbon Dioxide 17 L (22-30) mmol/L Anion Gap 14 H (4-12) mmol/L BUN 53 H (7-17) mg/dL Creatinine 2.35 H (0.7-1.0) mg/dL Estim Creat Clear Calc 27 ml/min Estimated GFR 20 L (59 - ) Glucose 127 H (65-110) mg/dL POC Capillary Glucose 114 H (65-105) mg/dl Calcium 9.0 (8.4-10.2) mg/dL Total Bilirubin 2.0 H (0.2-1.3) mg/dL AST 103 H (14-36) U/L ALT 36 H (6-35) U/L Alkaline Phosphatase 360 H (38-126) U/L NT-Pro-B Natriuret Pep 2020 H (19.9-100) pg/mL Total Protein 7.0 (6.3-8.2) g/dL Albumin 3.4 L (3.5-5.1) g/dL <Dirk Ramsay MD - Last Filed: 01/04/25 17:42> Imaging Data Radiologist's impression: ITS Impressions Chest X-Ray 01/04/25 15:23 IMPRESSION: 1. No acute cardiopulmonary disease. <Emily Gayle PA-C - Last Filed: 01/04/25 18:26> ECG Data EKG #1: ECG completion date: 01/04/25 <Dirk Ramsay MD - Last Filed: 01/04/25 17:42> ECG completion time: 16:43 <Dirk Ramsay MD - Last Filed: 01/04/25 17:42> EKG Interpretation: bradycardia, no ectopy, non-specific ST changes, no ST changes, normal QRS and normal QT <Dirk Ramsay MD - Last Filed: 01/04/25 17:42> Critical Care Time Critical Care Time Critical Care Time: Yes <Emily Gayle PA-C - Last Filed: 01/04/25 18:26> Total Critical Care Time: 35 <Emily Gayle PA-C - Last Filed: 01/04/25 18:26> Discharge Plan Discharge Clinical Impression: Acute kidney injury <Emily Gayle PA-C - Last Filed: 01/04/25 18:26> Patient Disposition: Still a Patient <CHRIS Edge Last Filed: 01/04/25 18:26> Condition: Stable <CHRIS Edge Last Filed: 01/04/25 18:26> Patient Language: [place] <CHRIS Edge Last Filed: 01/04/25 18:26> Prescriptions: No Action amlodipine 10 mg tablet 10 mg PO DAILY Qty: 90 3RF chlorthalidone 25 mg tablet 25 mg PO DAILY Qty: 90 3RF glipizide 5 mg tablet 10 mg PO BID 90 Days Qty: 360 3RF lisinopril 40 mg tablet 40 mg PO DAILY Qty: 90 3RF sulfamethoxazole-trimethoprim [Bactrim DS] 800-160 mg tablet 1 tablet PO Q12H Qty: 14 0RF alprazolam 0.5 mg tablet 0.25 mg PO DAILY Qty: 90 1RF ondansetron HCl 4 mg tablet 4 mg PO Q8H PRN (Reason: nausea and vomiting) Qty: 20 2RF metformin 1,000 mg tablet 500 mg PO BID Qty: 90 1RF Jardiance 10 mg tablet 10 mg PO DAILY Qty: 90 2RF tizanidine 4 mg tablet 4 mg PO TID PRN (Reason: muscle spasticity) Qty: 30 1RF <Emily Gayle PA-C - Last Filed: 01/04/25 18:26> Follow-up/Referrals: Ayah Carver, [facility] [Primary Care Provider] - <Emily Gayle PA-C - Last Filed: 01/04/25 18:26> Time of Disposition: 17:41 <Emily Gayle PA-C - Last Filed: 01/04/25 18:26> 17:41 <Dirk Ramsay MD - Last Filed: 01/04/25 17:42>
--- NOTE | 2025-01-04 14:43 | ECG_ITS ---
Test Date: 2025-01-04 16:43:28 Measurements Intervals [place] Rate: 100 P: 15 AR: 151 QRS: 24 QRSD: 75 T: 60 QT: 314 QTc: 407 Interpretive Statements SINUS TACHYCARDIA LOW QRS VOLTAGE IN PRECORDIAL LEADS POSSIBLE ANTERIOR MYOCARDIAL INFARCTION , AGE INDETERMINATE Electronically Signed On 01-06-2025 13:51:51 CDT by Duke Snyder D.O
[2025-01-04 16:04] LABS: Basophils Percent Auto 0.2 % (0.2-1.2); Eosinophils Percent Auto 0.1 % (0-4.4); Hematocrit 35.2 % (37.0-47.0); Immature Granulocyte Absolute 0.08 K/mm3 (0.00-0.031); Immature Granulocyte Percent A 0.5 % (0-0.5); Lymphocytes Absolute Auto 0.89 K/mm3 (0.9-3.2); Lymphocytes Percent Auto 5.5 % (18.3-44.2); Mean Corpuscular HGB Conc 31.3 g/dl (32-36); Mean Corpuscular Volume 83.2 fl (80-100); Mean Platelet Volume 11.2 fl (7.4-10.4); Neutrophils Absolute Auto 14.3 K/mm3 (1.3-6.7); Neutrophils Percent Auto 87.7 % (45.5-73.1); Platelet Count Result 382 k/mm3 (150-375); Red Blood Count 4.23 M/mm3 (4.2-5.4); Red Cell Distribution Width 22.3 % (11.5-14.5); White Blood Count 16.3 K/mm3 (4.5-10.0)
[2025-01-04 16:16] LABS: Alanine Aminotransferase 36 U/L (6-35); Albumin Level 3.4 g/dL (3.5-5.1); Alkaline Phosphatase 360 U/L (38-126); Anion Gap 14 mmol/L (4-12); Aspartate Amino Transferase 103 U/L (14-36); Blood Urea Nitrogen 53 mg/dL (7-17); Carbon Dioxide 17 mmol/L (22-30); Chloride 104 mmol/L (98-107); Estimated CRCL calculation 27 ml/min; Estimated Glomerular Filt Rate 20; Glucose 127 mg/dL (65-110); Potassium 5.1 mmol/L (3.4-5.0); Sodium 135 mmol/L (137-145)
[2025-01-04 16:23] LABS: Platelet Estimate Adequate (Adequate)
[2025-01-04 16:24] LABS: Anisocytosis 1+; Hypochromasia 2+; NT Pro B Type Natriuretic Pept 2020 pg/mL (19.9-100); Schistocytes None Seen; Target Cells 1+
[2025-01-04 18:24] LABS: Glucose Point of Care 114 mg/dl (65-105)
[2025-01-04] MEDS: FUROSEMIDE INJ 40 MG/4 ML VIAL IV PUSH (18:47)
--- NOTE | 2025-01-04 19:56 | ADMGEN ---
This patient, Nikki Don, was admitted to Medical Room 258-. Patient/family oriented to hospital policies and general routines including ID bracelet, bed and alarms, visiting hours, pain management, procedures, bathroom and other care routines, personal items, smoking policy, room service/diet, and visiting hours. Information on how to activate the Rapid Response Team has been discussed. Patient/Family are encouraged to report perceived risks to care and to ask questions if they do not understand what they are told or what they should do.
--- NOTE | 2025-01-04 20:28 | P.HP_ITS ---
H&P: HPI History of Present Illness Date/Time: 01/05/25 03:30 Chief Complaint: Primary provider sent in for diuresis Narrative: 74-year-old female with a past medical history of essential hypertension, chronic kidney disease stage 3, type 2 diabetes mellitus, and morbid obesity who presented to the ER initially on the due to fatigue, nausea and dry heaves. She was diagnosed with UTI and them returned today after visiting primary care physician's office to be evaluated for suspected CHF. However the patient was not good historian and tells me that her symptoms actually started when her diabetic medications were changed. She stated that she used to be on metformin and glipizide for her diabetes. But in October she was tried Wegovy. She reported that she developed severe heartburn and nausea with this. After about a month of trying this her symptoms did not improve and her sugars actually climbed. Her metformin was cut in half at the same time. She did not like the side effects of the medication and was subsequently switched to Jardiance in addition to her metformin and glipizide. However she reported that she did not like how she felt on the Jardiance either and was still having high sugars. She reported that ever since she had been feeling weaker than usual. She reports that she has not had much appetite. She reports resolution of her heartburn symptoms with stopping the G LP 1 medication. But her appetite just has not improved. On her labs on the her UA that was cloudy in appearance with trace ketones 3+ leukocyte esterase 51-100 wbc's moderate squamous cells in 3-5 casts. She was not having any increased urinary frequency urgency or dysuria. Patient's labs at that time demonstrated acute on chronic kidney injury and leukocytosis with white count of 16.8. Patient received 1 L IV fluids, Zofran and 1 dose of Bactrim p.o.. Patient was subsequently discharged on Bactrim. Patient's urine culture unfortunately did not reflux due to moderate squamous cells. The patient went to her primary care physician's office for follow-up and was still complaining of fatigue that it worsened over the last week. With persistent generalized weakness and nausea is been going on for quite some time. Primary care prior felt the patient had full fluid buildup in her lungs and increased lower extremity edema. However patient denied having actual shortness of breath or chest pain. Her BMP was around 2000. EKG yesterday demonstrates sinus tachycardia with rate 114 with normal intervals with low voltage QRS in precordial leads possible anterior VT probably old inferior VT probably. EKG demonstrated improved rate of 100 with low-voltage QRS in precordial leads and possible inferior VT probably old. In the ER patient received 1 dose of IV Lasix and chest x-ray although limited study due to the patient's body habitus demonstrated no acute process. She denies any respiratory symptoms. She denies palpitations. She she has chronic lower extremity edema that is unchanged from baseline. She denies dyspnea on exertion. In the ER she had received 1 dose of IV Lasix but then was subsequently placed on normal saline at 75 mL an hour. She reports that since the IV fluids have been started she actually feels significantly better than she has in quite a long time. She thinks that she would feel better if she could have a full meal but she did not get to eat anything yesterday because she was in the ER all day. Information was obtained from review of past medical records and from patient and ER report. Patient is extremely good historian. Review of Systems 2 Review of Systems: 12 systems were reviewed with pertinent positives and negatives per HPI. Except as documented in the HPI, all other systems were reviewed and are negative. [facility] Past Medical History Medical History (Updated 01/05/25 @ 00:00 by Marissa Rasheed) Dyslipidemia CKD (chronic kidney disease) Type 2 diabetes mellitus Age-related macular degeneration Essential (primary) hypertension Psychophysiological insomnia Vitamin D deficiency, unspecified Surgical History Surgical History (Updated 01/05/25 @ 04:20 by Johana Howell DO) Status post cataract extraction of both eyes with insertion of intraocular lens Hx of cholecystectomy H/O hysterectomy for benign disease Family History Family History Mother Hypertension Family history of Alzheimer's disease Family history of type 1 diabetes mellitus Diabetes mellitus Father Family history of lymphoma History of kidney disease Hypertension Grandparent Breast cancer Social History Social History (Updated 01/05/25 @ 04:19 by Johana Howell DO) Social History: She is . She recently saw older home of 50 or 50 years to her granddaughter and grandson in law. But she now lives with them and takes care of her [id number] great grandchild 5 days a week. She states she will drink 1 beer about every other month. She is a lifelong nonsmoker and does not use illicit substances. She ambulates with a walker. 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 Code status: Full code Surrogate decision maker: Jenn France (daughter) Smoking status: Never smoker Second hand tobacco smoke exposure: No Alcohol intake: current Drinks per week: 1 Substance use: never Substance use type: does not use Do You Feel Safe in your Home?: Yes Lack of Transportation: No Lack of Food: Never True Current Housing: I Have Housing Concerned About Future Housing: No Difficulty Paying Gas/Electric Bills: No Difficulty Paying for Meds: No Currently Unemployed: No Education: High School Diploma/GED Difficulty w/ Childcare or Family Care: No Living arrangements: with family Additional living arrangements comments: pt lives with granddaughter and granddaughter Occupation/Education: retired Gender identity (if verbalized by the patient): Female Sexual Orientation (if Verbalized by the Patient): Straight or Heterosexual Spiritual care concerns: No Meds Home Medications and Allergies Home Medications ?Medication ?Instructions ?Recorded ?Confirmed ?Type amlodipine 10 mg tablet 10 mg PO DAILY #90 tabs 05/29/24 01/04/25 Rx chlorthalidone 25 mg tablet 25 mg PO DAILY #90 tabs 05/29/24 01/04/25 Rx glipizide 5 mg tablet 10 mg (2 x 5 mg) PO BID 90 days 05/29/24 01/04/25 Rx #360 tabs lisinopril 40 mg tablet 40 mg PO DAILY #90 tabs 05/29/24 01/04/25 Rx ondansetron HCl 4 mg tablet 4 mg PO Q8H PRN nausea and 10/22/24 01/04/25 Rx vomiting #20 tabs metformin 1,000 mg tablet 500 mg (1/2 x 1,000 mg) PO BID #90 11/15/24 01/04/25 Rx tabs tizanidine 4 mg tablet 4 mg PO TID PRN muscle spasticity 12/28/24 01/04/25 Rx #30 tabs sulfamethoxazole 800 1 tablet PO Q12H #14 tabs 01/03/25 01/04/25 Rx mg-trimethoprim 160 mg tablet (Bactrim DS) alprazolam 0.5 mg tablet 0.25 mg PO HS insomnia 01/04/25 01/04/25 History Allergies Allergy/AdvReac Type Severity Reaction Status Date / Time No Known Allergies Allergy Verified 01/04/25 11:28 Vital Signs Vital Signs - 24 hr 01/04/25 11:32 01/04/25 16:02 01/04/25 16:24 Temperature 97.7 F Pulse Rate 108 H 96 Respiratory Rate 20 16 15 Blood Pressure 148/52 H 124/70 Pulse Oximetry 97 95 97 Oxygen Delivery Room Air 01/04/25 16:31 01/04/25 17:30 01/04/25 17:46 Temperature 97.8 F 97.7 F 97.6 F Pulse Rate 94 97 95 Respiratory Rate 14 17 16 Blood Pressure 123/59 L 124/64 126/58 L Pulse Oximetry 94 96 97 Oxygen Delivery 01/04/25 18:01 01/04/25 18:16 Temperature 97.9 F Pulse Rate 98 96 Respiratory Rate 14 14 Blood Pressure 126/52 L 126/56 L Pulse Oximetry 96 96 Oxygen Delivery Exam 2 Narrative: Weight 133.5 kg BMI 46.1 Const: Other: Morbidly obese, no acute distress, appears stated age HENMT: Other: Mucous membranes are moist, no oral pharyngeal erythema, crowded posterior oropharynx Eyes: Other: Pupils are equal and reactive, evidence of bilateral lens replacement, no scleral icterus Neck: Other: Large neck circumference, no JVD Resp: Other: Clear to auscultation bilaterally, no increased work of breathing Cardio: Other: Regular rate, regular rhythm, 2+ bilateral radial pedal pulses GI: Other: Soft, obese, nontender, normoactive bowel sounds Skin: Other: No pallor, non jaundice, normal temperature to touch Neuro: Other: Alert oriented, speech is clear, no facial asymmetry, patient was able to sit up in bed stand at bedside in ambulate with her walker unassisted, no localizing neurologic deficits noted during conversation Extrem: Other: 1+ pitting edema at ankles, 5/5 strength bilateral upper and lower extremities Psych: Other: Appropriate mood and affect, pleasant and cooperative, judgment and insight intact H&P: Results Labs Labs: Laboratory Tests 01/04/25 15:58 01/04/25 15:58 01/04/25 01/04/25 15:58 18:22 WBC 16.3 H RBC 4.23 Hgb 11.0 L Hct 35.2 L MCV 83.2 MCH 26.0 MCHC 31.3 L RDW 22.3 H Plt Count 382 H MPV 11.2 H Immature Gran % (Auto) 0.5 Neut % (Auto) 87.7 H Lymph % (Auto) 5.5 L Storey % (Auto) 6.0 Eos % (Auto) 0.1 Baso % (Auto) 0.2 Lymph # (Auto) 0.89 L [place]y # (Auto) 1.0 H Eos # (Auto) 0.0 Baso # (Auto) 0.0 Abs Immat Gran (auto) 0.08 H Absolute Neuts (auto) 14.3 H Absolute Nucleated RBC 0.000 Band Neutrophils % Not Reportable Nucleated RBC % 0.0 Platelet Estimate Adequate Hypochromasia 2+ Anisocytosis 1+ Target Cells 1+ Schistocytes None seen Sodium 135 L Potassium 5.1 H Chloride 104 Carbon Dioxide 17 L Anion Gap 14 H BUN 53 H Creatinine 2.35 H Estim Creat Clear Calc 27 Estimated GFR 20 L Glucose 127 H POC Capillary Glucose 114 H Calcium 9.0 Total Bilirubin 2.0 H AST 103 H ALT 36 H Alkaline Phosphatase 360 H NT-Pro-B Natriuret Pep 2020 H Total Protein 7.0 Albumin 3.4 L Impressions Chest X-Ray 01/04/25 15:23 IMPRESSION: 1. No acute cardiopulmonary disease. EKG: Personally reviewed All imaging and EKGs personally reviewed and interpreted. And unless stated otherwise agree with radiologic and cardiology interpretation. Assessment and Plan Assessment and plan (1) Acute kidney injury superimposed on stage 3b chronic kidney disease: Code(s): N17.9 - Acute kidney failure, unspecified; N18.32 - Chronic kidney disease, stage 3b Status: Acute (2) Transaminitis: Code(s): R74.01 - Elevation of levels of liver transaminase levels Status: Acute (3) Leukocytosis: Qualifiers: Leukocytosis type: unspecified Qualified Code(s): D72.829 - Elevated white blood cell count, unspecified Code(s): D72.829 - Elevated white blood cell count, unspecified Status: Acute (4) Hypomagnesemia: Code(s): E83.42 - Hypomagnesemia Status: Acute (5) Acute hyperkalemia: Code(s): E87.5 - Hyperkalemia Status: Acute (6) Abnormal urinalysis: Code(s): R82.90 - Unspecified abnormal findings in urine Status: Acute Plan Patient presents with generalized weakness likely due to acute on chronic kidney injury which I suspect is due to combination of recent changes in diabetes medications. If patient likely has some intravascular volume depletion evidence by ketones in her urine on the . She has associated mild hyperkalemia and low serum bicarb as well as mild hyponatremia. Will continue gentle IV fluid hydration and repeat electrolyte panel in a.m.. Patient also had some hypo magnesium in noted on labs from the . 2 g magnesium sulfate rider was provided will repeat magnesium level in a.m.. Will stop Lasix that was initiated in the ER. Will also hold the patient's home chlorthalidone and lisinopril as well as metformin and the addition of recent Bactrim. Patient did receive 2 doses of Bactrim however she denies any actual urinary symptoms at all and her UA was contaminated with squamous cells. I did order a repeat UA with straight catheterization UA WITH REFLUX BUT THIS IS EVIDENTLY CANCELED BY THE LAB as the specimen from the other day had been contaminated with squamous cells and was not eligible for actual culture given the length of time from initial CT collection is specially in the setting of being contaminated with squamous cells. I am going to hold off on giving the patient any antibiotics given her lack of symptoms besides generalized weakness and mild leukocytosis. Will repeat CBC and CMP in a.m.. Will obtain a right upper quadrant ultrasound as a suspect that the transaminitis could be due to medication effect but also given the patient's body habitus there could be a component of hepatic steatosis. Will also check acute hepatitis AB and C panel to rule out the much less likely viral hepatitis. Will continue patient's home glipizide. Will place patient on sliding scale insulin with Accu-Cheks a.c. HS and p.r.n. hypoglycemia protocol. Plan of care was discussed with the patient including fact that she may need to stay for greater than 24 hours but the patient is adamant that she will be going home today because she feels so much better. Patient has been admitted as observation status. Quality VTE Prophylaxis VTE prophylaxis: pharmacologic ordered (Lovenox 30 mg subQ daily.) Hospitalist [facility] Advance Care Plan I have confirmed that the patient's Advanced Care Plan is present, code status is documented, or surrogate decision maker is listed in patient medical record.: Yes Medication Reconciliation I have utilized all available resources to obtain, update and review the patients current medications (includes all prescriptions, OTC, herbals, cannabis, and nutritional supplements).: Yes
[2025-01-04] MEDS: ALPRAZolam (*CRX) 0.25 MG TABLET PO (22:09)
[2025-01-04] MEDS: MAGNESIUM SULF 2 GM/WATER 50ML 2 GM/50 ML BAG IVPB (22:09)
[2025-01-04] MEDS: SODIUM CHLORIDE 0.9% IV 1,000 ML 75 ML IV CONT (22:10)
--- NOTE | 2025-01-05 | ECHO_ITS ---
Patient Info Name: Nikki Don Age: 74 years : 1950 Gender: Female Ht: 67 in Wt: 287 lbs BSA: 2.55 m2 HR: 107 bpm BP: 149 / 61 mmHg Heart Rhythm: Tachycardia Technical Quality: Fair Exam Date: 01/05/2025 12:48 PM Exam Location: Echo Lab Patient Status: Inpatient Admit Date: 01/04/2025 Staff Ordering Physician: Kristan Reeves APRN [employer] Crewmember: Chelsie Hansen RDCS Attending Provider: Luke Garcia MD Referring Physician: Lala TRAYLOR; Exam Type: CA echo doppler color flow Study Info Indications - Elevated BNP. - Lower extremity edema. Complete two-dimensional, color flow and Doppler transthoracic echocardiogram is performed. Summary 1. Complete two-dimensional, color flow and Doppler transthoracic echocardiogram is performed. Recommendations * Suboptimal image quality. Normal LV size, mild LVH, hyperdynamic LV systolic function, ejection fraction more than 70%. Grade 1 diastolic dysfunction. Normal RV size and systolic function. Mild left atrial enlargement. Normal mitral valve structure, no significant MR. Aortic valve not well visualized, no hemodynamically significant stenosis. Unable to assess RVSP due to inadequate TR jet. Left Ventricle Left ventricular chamber dimension is normal. Left ventricular systolic function is normal, estimated at >70%. There is mildly increased left ventricular wall thickness. The left ventricular diastolic function is grade I diastolic dysfunction. Right Ventricle Right ventricular chamber dimension is normal. Right ventricular systolic function is normal. Left Atria Left atrial chamber dimension is mildly enlarged. Right Atria Right atrial chamber dimension is normal. Aortic Valve The aortic valve is normal. There is no aortic valve stenosis. Pulmonic Valve The pulmonic valve is not well visualized. Mitral Valve The mitral valve has normal leaflets. Tricuspid Valve The tricuspid valve leaflets are not well visualized. Pericardium/Pleural The pericardium appears epicardial fat pad. There is trivial pericardial effusion. Inferior Vena Cava Normal inferior vena cava with >50% collapse upon inspiration consistent with normal right atrial pressure, Empty. Aorta The aortic root size at the sinus of Valsalva is normal. Left Ventricular Outflow Tract Name Value Normal LVOT 2D LVOT Diameter 1.9 cm LVOT Doppler LVOT Peak Gradient 4 mmHg LVOT Mean Gradient 2 mmHg LVOT VTI 17 cm LVOT VTI/AV VTI Ratio 0.8 LVOT Stroke Volume 47 ml LVOT CO 4.8 l/min LVOT CI 1.9 l/min/m2 Mitral Valve Name Value Normal MV Doppler MV Decel [place] 311 cm/s2 MV PHT 63 ms MV Area (PHT) 3.5 cm2 4.0-5.0 MV Diastolic Function MV E Peak Velocity 67 cm/s MV A Peak Velocity 107 cm/s MV E/A 0.6 MV Decel Time 216 ms MV Annular TDI MV E/e' (Septal) 6.8 <=8.0 MV E/e' (Lateral) 8.7 <=8.0 MV E/e' (Average) 7.7 Aortic Valve Name Value Normal AV Doppler AV Peak Velocity 123 cm/s AV Peak Gradient 6 mmHg AV Mean Gradient 3 mmHg AV VTI 21 cm AV Area (Cont Eq VTI) 2.3 cm2 >=3.0 AV Area (Cont Eq Art) 2.2 cm2 AV Regurgitation 2D LVOT Area 2.9 cm2 Ventricles Name Value Normal LV Dimensions 2D/MM IVS Diastolic Thickness (2D) 1.1 cm 0.6-1.0 LVID Diastole (2D) 4.4 cm 3.8-5.2 LVIW Diastolic Thickness (2D) 1.0 cm 0.6-0.9 LVID Systole (2D) 3.0 cm 2.2-3.5 LVOT Diameter 1.9 cm LV Mass (2D Cubed) 164.38 g 67.00-162.00 LV Mass Index (2D Cubed) 64 g/m2 43-95 Relative Wall Thickness (2D) 0.46 LV Fractional Shortening/Ejection Fraction 2D/MM LV Fractional Shortening (2D) 33 % 27-45 LV EF (2D Teicholz) 62 % 54-74 LV Diastolic Volume (4C MOD) 79 ml LV EF (4C MOD) 72 % LV Diastolic Volume (2C MOD) 82 ml LV EF (2C MOD) 63 % LV Diastolic Volume (BP MOD) 83 ml 46-106 LV Diastolic Volume Index (BP MOD) 33 ml/m2 29-61 LV Systolic Volume (BP MOD) 27 ml 14-42 LV Systolic Volume Index (BP MOD) 11 ml/m2 8-24 LV EF (BP MOD) 67 % 54-74 LV Diastolic Length (4C) 7.3 cm LV Systolic Length (4C) 5.2 cm LV Stroke Volume (4C MOD) 57 ml Atria Name Value Normal LA Dimensions LA Volume (4C A-L) 95 ml LA Volume (BP A-L) 67 ml RA Dimensions RA Area (4C) 16.5 cm2 <=18.0 Report Signatures
[2025-01-05 02:08] LABS: Glucose Point of Care 189 mg/dl (65-105)
[2025-01-05 04:21] VITALS: BP 149/61; PULSE 107; RESP 20; TEMP 36.8; O2SAT 95
[2025-01-05 04:53] LABS: Add Urine Microscopic? YES; Appearance Urine Clear (Clear); Bacteria Urine None Seen /hpf; Bilirubin Urine Negative (Negative); Blood Urine Non-Hemolyzed Trace (Negative); Color Urine Yellow (Yellow); Glucose Urine UA Negative (Negative); Ketones Urine Negative (Negative); Leukocyte Esterase Ur 1+ LEU/UL (Negative); Need Manual Microscopic Reviewed; Nitrate Urine Negative (Negative); Protein Urine Negative (Negative); RBC Urine 0-2 /hpf (0-2); Specific Grav Ur 1.007 (1.001-1.035); Squamous Epithelial Cell Urine None Seen /hpf (Few); Urobilinogen Urine 0.2 mg/dL (<2.0); WBC Urine 0-5 /hpf (0-3)
[2025-01-05 05:39] LABS: Basophils Percent Auto 0.2 % (0.2-1.2); Eosinophils Percent Auto 0.1 % (0-4.4); Hematocrit 30.2 % (37.0-47.0); Hemoglobin 9.7 g/dL (12.0-15.0); Immature Granulocyte Absolute 0.08 K/mm3 (0.00-0.031); Immature Granulocyte Percent A 0.6 % (0-0.5); Lymphocytes Absolute Auto 0.91 K/mm3 (0.9-3.2); Lymphocytes Percent Auto 6.5 % (18.3-44.2); Mean Corpuscular HGB Conc 32.1 g/dl (32-36); Mean Corpuscular Hemoglobin 26.8 pg (26-34); Mean Corpuscular Volume 83.4 fl (80-100); Monocytes Percent Auto 6.8 % (2.6-8.5); Neutrophils Absolute Auto 12.1 K/mm3 (1.3-6.7); Neutrophils Percent Auto 85.8 % (45.5-73.1); Platelet Count Result 331 k/mm3 (150-375); Red Blood Count 3.62 M/mm3 (4.2-5.4); Red Cell Distribution Width 22.1 % (11.5-14.5); White Blood Count 14.1 K/mm3 (4.5-10.0)
[2025-01-05 05:55] LABS: Alanine Aminotransferase 33 U/L (6-35); Alkaline Phosphatase 313 U/L (38-126); Anion Gap 11 mmol/L (4-12); Aspartate Amino Transferase 82 U/L (14-36); Bilirubin,Total 1.8 mg/dL (0.2-1.3); Blood Urea Nitrogen 53 mg/dL (7-17); Calcium 8.4 mg/dL (8.4-10.2); Carbon Dioxide 19 mmol/L (22-30); Chloride 105 mmol/L (98-107); Estimated CRCL calculation 26 ml/min; Estimated Glomerular Filt Rate 20; Glucose 137 mg/dL (65-110); Potassium 4.8 mmol/L (3.4-5.0); Sodium 135 mmol/L (137-145)
[2025-01-05 06:17] LABS: Anisocytosis 1+; Hypochromasia 2+; Ovalocytes 1+; Platelet Estimate Adequate (Adequate); Target Cells 1+
[2025-01-05 06:18] LABS: Burr Cells 1+; Schistocytes None Seen
[2025-01-05 06:26] LABS: Hepatitis B Surface Antigen Negative (Negative)
[2025-01-05 06:32] LABS: HAV RESULT Negative (Negative); Hepatitis B Core IgM Result Negative (Negative)
[2025-01-05 06:44] LABS: Hepatitis C Virus Antibody Negative (Negative)
[2025-01-05 08:00] VITALS: BP 148/64; PULSE 100; RESP 19; TEMP 36.6; O2SAT 95
[2025-01-05] MEDS: glipiZIDE 5 MG TABLET 10 MG PO ×2 (08:22→17:20)
[2025-01-05] MEDS: ENOXAPARIN 30 MG/0.3 ML SYRINGE SUB-Q (08:23)
[2025-01-05] MEDS: amLODIPine BESYLATE 10 MG TABLET PO (08:23)
[2025-01-05 08:35] LABS: Glucose Point of Care 143 mg/dl (65-105)
[2025-01-05 12:09] LABS: Glucose Point of Care 177 mg/dl (65-105)
[2025-01-05 14:00] VITALS: BP 145/66; PULSE 99; RESP 20; TEMP 36.6; O2SAT 94
--- NOTE | 2025-01-05 14:48 | P.PNIM_ITS ---
Progress Note: A&P Assessment and Plan (1) Acute kidney injury superimposed on stage 3b chronic kidney disease: Code(s): N17.9 - Acute kidney failure, unspecified; N18.32 - Chronic kidney disease, stage 3b Status: Acute (2) Transaminitis: Code(s): R74.01 - Elevation of levels of liver transaminase levels Status: Acute (3) Leukocytosis: Qualifiers: Leukocytosis type: unspecified Qualified Code(s): D72.829 - Elevated white blood cell count, unspecified Code(s): D72.829 - Elevated white blood cell count, unspecified Status: Acute (4) Hypomagnesemia: Code(s): E83.42 - Hypomagnesemia Status: Acute (5) Acute hyperkalemia: Code(s): E87.5 - Hyperkalemia Status: Acute (6) Abnormal urinalysis: Code(s): R82.90 - Unspecified abnormal findings in urine Status: Acute Plan Patient presents with generalized weakness likely due to acute on chronic kidney injury which I suspect is due to combination of recent changes in diabetes medications. If patient likely has some intravascular volume depletion evidence by ketones in her urine on the . She has associated mild hyperkalemia and low serum bicarb as well as mild hyponatremia. Will continue gentle IV fluid hydration and repeat electrolyte. Patient also had some hypo magnesium in noted on labs from the . 2 g magnesium sulfate rider was provided will repeat magnesium level in a.m.. Will stop Lasix that was initiated in the ER. Will also hold the patient's home chlorthalidone and lisinopril as well as metformin and the addition of recent Bactrim. Patient did receive 2 doses of Bactrim however she denies any actual urinary symptoms at all and her UA was contaminated with squamous cells. UA with straight catheterization -right upper quadrant ultrasound as a suspect that the transaminitis could be due to medication effect but also given the patient's body habitus there could be a component of hepatic steatosis. - ambulate with nursing, up to the chair tid with meals. Subjective Date/time seen: 01/05/25 14:48 Interval history: 74-year-old female with a past medical history of essential hypertension, chronic kidney disease stage 3, type 2 diabetes mellitus, and morbid obesity who presented to the ER initially on the due to fatigue, nausea and dry heaves. She was diagnosed with UTI and them returned today after visiting primary care physician's office to be evaluated for suspected CHF. Pt is seen and examined. She is determined that she feels better and wants to go home. She is agreable to stay and have IV fluids and echo completed. Denies any acute issues. Review of Systems Review of Systems: 12 systems were reviewed with pertinent positives and negatives per HPI. Except as documented in the HPI, all other systems were reviewed and are negative. Exam Narrative: Weight 133.5 kg BMI 46.1 Const: Other: Morbidly obese, no acute distress, appears stated age HENMT: Other: Mucous membranes are moist, no oral pharyngeal erythema, crowded posterior oropharynx Eyes: Other: Pupils are equal and reactive, evidence of bilateral lens replacement, no scleral icterus Neck: Other: Large neck circumference, no JVD Resp: Other: Clear to auscultation bilaterally, no increased work of breathing Cardio: Other: Regular rate, regular rhythm, 2+ bilateral radial pedal pulses GI: Other: Soft, obese, nontender, normoactive bowel sounds Skin: Other: No pallor, non jaundice, normal temperature to touch Neuro: Other: Alert oriented, speech is clear, no facial asymmetry, patient was able to sit up in bed stand at bedside in ambulate with her walker unassisted, no localizing neurologic deficits noted during conversation Extrem: Other: 1+ pitting edema at ankles, 5/5 strength bilateral upper and lower extremities Psych: Other: Appropriate mood and affect, pleasant and cooperative, judgment and insight intact Objective Data Vital Signs Vital Signs: Vital Signs - 24 hr 01/04/25 16:02 01/04/25 16:24 01/04/25 16:31 Temperature 97.8 F Pulse Rate 96 94 Respiratory Rate 16 15 14 Blood Pressure 124/70 123/59 L Pulse Oximetry 95 97 94 01/04/25 17:30 01/04/25 17:46 01/04/25 18:01 Temperature 97.7 F 97.6 F Pulse Rate 97 95 98 Respiratory Rate 17 16 14 Blood Pressure 124/64 126/58 L 126/52 L Pulse Oximetry 96 97 96 01/04/25 18:16 01/04/25 20:53 01/04/25 23:32 Temperature 97.9 F 97.7 F 97.7 F Pulse Rate 96 111 H 111 H Respiratory Rate 14 20 20 Blood Pressure 126/56 L 155/59 H 155/59 H Pulse Oximetry 96 96 96 01/05/25 04:21 01/05/25 08:00 Temperature 98.2 F 98 F Pulse Rate 107 H 100 Respiratory Rate 20 19 Blood Pressure 149/61 H 148/64 H Pulse Oximetry 95 95 Intake/Output Intake/Output: Intake & Output 01/02/25 01/03/25 01/04/25 01/05/25 23:59 23:59 23:59 23:59 Intake Total 870 Balance 870 Meds/Results Medications: Active Medications Generic Name Dose Route Start Last Admin Trade Name Freq PRN Reason Stop Dose Admin Acetaminophen 650 mg 01/04/25 17:43 Acetaminophen 325 Mg Tablet PO Q4H PRN Mild Pain (1-3) or Fever Alprazolam 0.25 mg 01/04/25 21:00 01/04/25 22:09 Alprazolam (*Crx) 0.25 Mg Tablet PO 0.25 mg HS MAREK Administration Amlodipine Besylate 10 mg 01/05/25 09:00 01/05/25 08:23 Amlodipine Besylate 10 Mg Tablet PO 10 mg DAILY MAREK Administration Dextrose 12.5 gm 01/04/25 20:50 Dextrose 50% 25 Gm/50 Ml Syringe IV PUSH PRN PRN Hypoglycemia Protocol Enoxaparin Sodium 30 mg 01/05/25 09:00 01/05/25 08:23 Enoxaparin 30 Mg/0.3 Ml Syringe SUB-Q 30 mg DAILY MAREK Administration Glipizide 10 mg 01/05/25 09:00 01/05/25 08:22 Glipizide 5 Mg Tablet PO 10 mg BID MAREK Administration Glucagon 1 mg 01/04/25 20:50 Glucagon For Inj 1 Mg Vial IM PRN PRN Hypoglycemia Protocol Glucose 15 gm 01/04/25 20:50 Glucose Oral Gel 15 Gm Of Glucse In 37.5 Gm Tube PO PRN PRN Hypoglycemia Protocol Sodium Chloride 1,000 mls @ 75 mls/hr 01/04/25 17:45 01/04/25 22:10 Normal Saline Iv IV CONT 75 mls/hr .[id number] MAREK Administration Dextrose 1,000 mls @ 100 mls/hr 01/04/25 20:50 Dextrose 5% 1,000 Ml IVPB PRN PRN Hypoglycemia Protocol Insulin Aspart 2 - 5 units 01/05/25 08:00 01/05/25 12:34 Insulin Aspart (*Bkc) 100 Units/Ml SUB-Q Not Given TIDWM MAREK Protocol Ondansetron HCl 4 mg 01/04/25 17:43 Ondansetron Inj 4 Mg/2 Ml Vial IV PUSH Q4H PRN Nausea Perflutren Lipid Microsphere 0 ml 01/04/25 17:52 Perflutren Lipid Microspheres 1.5 Ml Vial Diluted To 10 Ml Total Volume IV PUSH 01/07/25 17:52 ONCE PRN adequate visualization Protocol Tizanidine HCl 4 mg 01/04/25 20:25 Tizanidine Hcl 4 Mg Tablet PO TID PRN muscle spasticity Radiology Results: ITS Impressions Chest X-Ray 01/04/25 15:23 IMPRESSION: 1. No acute cardiopulmonary disease. Upper Quadrant Ultrasound 01/05/25 09:17 Impression: Markedly heterogeneous hepatic parenchyma with subtle nodular contour. Findings could reflect cirrhosis, however underlying mass lesions are not excluded. Recommend contrast enhanced CT or hepatic MR to better assess for possibility of underlying hepatic neoplastic/metastatic disease. Labs Labs: Laboratory Results - last 24 hr 01/04/25 01/04/25 01/04/25 15:58 18:22 21:17 WBC 16.3 H RBC 4.23 Hgb 11.0 L Hct 35.2 L MCV 83.2 MCH 26.0 MCHC 31.3 L RDW 22.3 H Plt Count 382 H MPV 11.2 H Immature Gran % (Auto) 0.5 Neut % (Auto) 87.7 H Lymph % (Auto) 5.5 L [place] % (Auto) 6.0 Eos % (Auto) 0.1 Baso % (Auto) 0.2 Lymph # (Auto) 0.89 L [place] # (Auto) 1.0 H Eos # (Auto) 0.0 Baso # (Auto) 0.0 Abs Immat Gran (auto) 0.08 H Absolute Neuts (auto) 14.3 H Absolute Nucleated RBC 0.000 Band Neutrophils % Not Reportable Nucleated RBC % 0.0 Platelet Estimate Adequate Hypochromasia 2+ Anisocytosis 1+ Target Cells 1+ Ovalocytes [place] Cells Schistocytes None seen Sodium 135 L Potassium 5.1 H Chloride 104 Carbon Dioxide 17 L Anion Gap 14 H BUN 53 H Creatinine 2.35 H Estim Creat Clear Calc 27 Estimated GFR 20 L Glucose 127 H POC Capillary Glucose 114 H Calcium 9.0 Magnesium Total Bilirubin 2.0 H AST 103 H ALT 36 H Alkaline Phosphatase 360 H NT-Pro-B Natriuret Pep 2020 H Total Protein 7.0 Albumin 3.4 L Urine Color Yellow Urine Appearance Clear Urine pH 5.0 Ur Specific [place] 1.007 Urine Protein Negative Urine Glucose (UA) Negative Urine Ketones Negative Ur Blood (Man) Non-hemolyzed trace H Urine Nitrate Negative Urine Bilirubin Negative Urine Urobilinogen 0.2 Add Ur Microanalysis Reviewed Leukocyte Esterase Rfl 1+ H Urine RBC 0-2 Urine WBC 0-5 Ur Squamous Epith Cells None seen Urine Bacteria None seen Urine Casts 3-5 Hepatitis A IgM Ab Hep Bs Antigen Hep B Core IgM Ab Hepatitis C Ab Screen 01/04/25 01/05/25 01/05/25 23:32 05:16 08:21 WBC 14.1 H RBC 3.62 L Hgb 9.7 L Hct 30.2 L MCV 83.4 MCH 26.8 MCHC 32.1 RDW 22.1 H Plt Count 331 MPV 11.0 H Immature Gran % (Auto) 0.6 H Neut % (Auto) 85.8 H Lymph % (Auto) 6.5 L [place] % (Auto) 6.8 Eos % (Auto) 0.1 Baso % (Auto) 0.2 Lymph # (Auto) 0.91 [place] # (Auto) 1.0 H Eos # (Auto) 0.0 Baso # (Auto) 0.0 Abs Immat Gran (auto) 0.08 H Absolute Neuts (auto) 12.1 H Absolute Nucleated RBC 0.000 Band Neutrophils % Not Reportable Nucleated RBC % 0.0 Platelet Estimate Adequate Hypochromasia 2+ Anisocytosis 1+ Target Cells 1+ Ovalocytes 1+ [place] Cells 1+ Schistocytes None seen Sodium 135 L Potassium 4.8 Chloride 105 Carbon Dioxide 19 L Anion Gap 11 BUN 53 H Creatinine 2.37 H Estim Creat Clear Calc 26 Estimated GFR 20 L Glucose 137 H POC Capillary Glucose 189 H 143 H Calcium 8.4 Magnesium 2.0 Total Bilirubin 1.8 H AST 82 H ALT 33 Alkaline Phosphatase 313 H NT-Pro-B Natriuret Pep Total Protein 6.0 L Albumin 3.0 L Urine Color Urine Appearance Urine pH Ur Specific [place] Urine Protein Urine Glucose (UA) Urine Ketones Ur Blood (Man) Urine Nitrate Urine Bilirubin Urine Urobilinogen Add Ur Microanalysis Leukocyte Esterase Rfl Urine RBC Urine WBC Ur Squamous Epith Cells Urine Bacteria Urine Casts Hepatitis A IgM Ab Negative Hep Bs Antigen Negative Hep B Core IgM Ab Negative Hepatitis C Ab Screen Negative 01/05/25 11:57 WBC RBC Hgb Hct MCV MCH MCHC RDW Plt Count MPV Immature Gran % (Auto) Neut % (Auto) Lymph % (Auto) [place] % (Auto) Eos % (Auto) Baso % (Auto) Lymph # (Auto) [place] # (Auto) Eos # (Auto) Baso # (Auto) Abs Immat Gran (auto) Absolute Neuts (auto) Absolute Nucleated RBC Band Neutrophils % Nucleated RBC % Platelet Estimate Hypochromasia Anisocytosis Target Cells Ovalocytes [place] Cells Schistocytes Sodium Potassium Chloride Carbon Dioxide Anion Gap BUN Creatinine Estim Creat Clear Calc Estimated GFR Glucose POC Capillary Glucose 177 H Calcium Magnesium Total Bilirubin AST ALT Alkaline Phosphatase NT-Pro-B Natriuret Pep Total Protein Albumin Urine Color Urine Appearance Urine pH Ur Specific [place] Urine Protein Urine Glucose (UA) Urine Ketones Ur Blood (Man) Urine Nitrate Urine Bilirubin Urine Urobilinogen Add Ur Microanalysis Leukocyte Esterase Rfl Urine RBC Urine WBC Ur Squamous Epith Cells Urine Bacteria Urine Casts Hepatitis A IgM Ab Hep Bs Antigen Hep B Core IgM Ab Hepatitis C Ab Screen Quality VTE Prophylaxis VTE prophylaxis: pharmacologic ordered (Lovenox 30 mg subQ daily.)
[2025-01-05 16:00] VITALS: BP 121/58; PULSE 97; RESP 19; TEMP 36.4; O2SAT 96
[2025-01-05 17:13] LABS: Glucose Point of Care 245 mg/dl (65-105)
[2025-01-05] MEDS: INSULIN ASPART (*BKC) 100 UNITS/ML SUB-Q (17:20)
[2025-01-05] MEDS: SODIUM CHLORIDE 0.9% IV 1,000 ML 75 ML IV CONT (17:21)
[2025-01-05 19:41] LABS: Glucose Point of Care 222 mg/dl (65-105)
[2025-01-05 20:00] VITALS: PULSE 97; RESP 19; O2SAT 96
[2025-01-05] MEDS: ALPRAZolam (*CRX) 0.25 MG TABLET PO (21:07)
[2025-01-05 22:00] VITALS: BP 130/44; PULSE 90; RESP 18; TEMP 36.8; O2SAT 95
[2025-01-06] VITALS: BP 139/68; PULSE 133; RESP 18; TEMP 36.4; O2SAT 93
[2025-01-06 06:00] VITALS: BP 121/43; PULSE 86; RESP 18; TEMP 36.8; O2SAT 92
[2025-01-06] MEDS: SODIUM CHLORIDE 0.9% IV 1,000 ML 75 ML IV CONT (06:32)
[2025-01-06 08:00] VITALS: BP 128/74; PULSE 70; RESP 17; TEMP 36.5; O2SAT 96
[2025-01-06] MEDS: amLODIPine BESYLATE 10 MG TABLET PO (08:15)
[2025-01-06] MEDS: ENOXAPARIN 30 MG/0.3 ML SYRINGE SUB-Q (08:15)
[2025-01-06] MEDS: glipiZIDE 5 MG TABLET 10 MG PO (08:15)
[2025-01-06 08:19] LABS: Glucose Point of Care 133 mg/dl (65-105)
[2025-01-06 08:30] LABS: Hemoglobin 9.5 g/dL (12.0-15.0); Mean Corpuscular HGB Conc 31.7 g/dl (32-36); Mean Corpuscular Hemoglobin 26.8 pg (26-34); Mean Corpuscular Volume 84.7 fl (80-100); Platelet Count Result 316 k/mm3 (150-375); Red Blood Count 3.54 M/mm3 (4.2-5.4); Red Cell Distribution Width 22.2 % (11.5-14.5); White Blood Count 13.1 K/mm3 (4.5-10.0)
[2025-01-06 08:41] LABS: Alanine Aminotransferase 35 U/L (6-35); Albumin Level 2.7 g/dL (3.5-5.1); Alkaline Phosphatase 307 U/L (38-126); Anion Gap 7 mmol/L (4-12); Aspartate Amino Transferase 78 U/L (14-36); Bilirubin,Total 1.9 mg/dL (0.2-1.3); Blood Urea Nitrogen 46 mg/dL (7-17); Calcium 8.1 mg/dL (8.4-10.2); Carbon Dioxide 22 mmol/L (22-30); Chloride 107 mmol/L (98-107); Estimated CRCL calculation 30 ml/min; Estimated Glomerular Filt Rate 23; Glucose 138 mg/dL (65-110); Potassium 4.8 mmol/L (3.4-5.0); Sodium 136 mmol/L (137-145)
--- NOTE | 2025-01-06 09:44 | PM.DS ---
DS: Admitting Diagnosis Discharge Date 01/06 Admitting Diagnosis need for diuresis DS: Discharge Diagnosis Discharge Diagnosis (1) Acute kidney injury superimposed on stage 3b chronic kidney disease: Code(s): N17.9 - Acute kidney failure, unspecified; N18.32 - Chronic kidney disease, stage 3b Status: Acute (2) Transaminitis: Code(s): R74.01 - Elevation of levels of liver transaminase levels Status: Acute (3) Leukocytosis: Qualifiers: Leukocytosis type: unspecified Qualified Code(s): D72.829 - Elevated white blood cell count, unspecified Code(s): D72.829 - Elevated white blood cell count, unspecified Status: Acute (4) Hypomagnesemia: Code(s): E83.42 - Hypomagnesemia Status: Acute (5) Acute hyperkalemia: Code(s): E87.5 - Hyperkalemia Status: Acute (6) Abnormal urinalysis: Code(s): R82.90 - Unspecified abnormal findings in urine Status: Acute DS: Summary Hospital Course Hospital Course: 74-year-old female with a past medical history of essential hypertension, chronic kidney disease stage 3, type 2 diabetes mellitus, and morbid obesity who presented to the ER initially on the due to fatigue, nausea and dry heaves. She was diagnosed with UTI and them returned today after visiting primary care physician's office to be evaluated for suspected CHF. Patient presents with generalized weakness likely due to acute on chronic kidney injury which is probably due to combination of recent changes in diabetes medications. If patient likely has some intravascular volume depletion evidence by ketones in her urine on the . She has associated mild hyperkalemia and low serum bicarb as well as mild hyponatremia. She received gentle IV fluid hydration and repeat electrolyte. Patient also had some hypo magnesium in noted on labs from the . 2 g magnesium sulfate rider was provided will repeat magnesium level in a.m. We held her Lasix that was initiated in the ER. Will also hold the patient's home chlorthalidone and lisinopril as well as metformin and the addition of recent Bactrim. Patient did receive 2 doses of Bactrim however she denies any actual urinary symptoms at all and her UA was contaminated with squamous cells. UA with straight catheterization -right upper quadrant ultrasound as a suspect that the transaminitis could be due to medication effect but also given the patient's body habitus there could be a component of hepatic steatosis. - ambulate with nursing, up to the chair tid with meals. We ordered Echo-and it was completed. She wants to discuss further diabetic management with her pcp. Her cr/bun improved- so she definitely wants to go home and agreeable to have labs repeated within a week to ensure kidney continues to improve. She will be referred to nephrologists as an oupt for further work up. Abd ultrasound was done: Markedly heterogeneous hepatic parenchyma with subtle nodular contour. Findings could reflect cirrhosis, however underlying mass lesions are not excluded. Recommend contrast enhanced CT or hepatic MR to better assess for possibility of underlying hepatic neoplastic/metastatic disease. she will need to f/u with pcp for furtehr work up as she is not wishing to stay any longer in [facility] for any other work up. Status at Discharge Functional status at discharge: independent ambulation Overall status at discharge: patient is progressing back to baseline Time Spent with Patient Time attestation: Total time spent providing and/or coordinating discharge services: Time spent: Greater than 30 minutes Exam Narrative: Weight 133.5 kg BMI 46.1 Const: Other: Morbidly obese, no acute distress, appears stated age HENMT: Other: Mucous membranes are moist, no oral pharyngeal erythema, crowded posterior oropharynx Eyes: Other: Pupils are equal and reactive, evidence of bilateral lens replacement, no scleral icterus Neck: Other: Large neck circumference, no JVD Resp: Other: Clear to auscultation bilaterally, no increased work of breathing Cardio: Other: Regular rate, regular rhythm, 2+ bilateral radial pedal pulses GI: Other: Soft, obese, nontender, normoactive bowel sounds Skin: Other: No pallor, non jaundice, normal temperature to touch Neuro: Other: Alert oriented, speech is clear, no facial asymmetry, patient was able to sit up in bed stand at bedside in ambulate with her walker unassisted, no localizing neurologic deficits noted during conversation Extrem: Other: 1+ pitting edema at ankles, 5/5 strength bilateral upper and lower extremities Psych: Other: Appropriate mood and affect, pleasant and cooperative, judgment and insight intact DS: Data Data Completed and Pending Completed studies during hospitalization: echo Labs on day of discharge: Labs from last 24 hours 01/06/25 01/06/25 01/05/25 08:18 08:02 19:33 WBC 13.1 H RBC 3.54 L Hgb 9.5 L Hct 30.0 L MCV 84.7 MCH 26.8 MCHC 31.7 L RDW 22.2 H Plt Count 316 MPV 11.0 H Sodium 136 L Potassium 4.8 Chloride 107 Carbon Dioxide 22 Anion Gap 7 BUN 46 H Creatinine 2.10 H Estim Creat Clear Calc 30 Estimated GFR 23 L Glucose 138 H POC Capillary Glucose 133 H 222 H Calcium 8.1 L Total Bilirubin 1.9 H AST 78 H ALT 35 Alkaline Phosphatase 307 H Total Protein 6.0 L Albumin 2.7 L 01/05/25 01/05/25 16:59 11:57 WBC RBC Hgb Hct MCV MCH MCHC RDW Plt Count MPV Sodium Potassium Chloride Carbon Dioxide Anion Gap BUN Creatinine Estim Creat Clear Calc Estimated GFR Glucose POC Capillary Glucose 245 H 177 H Calcium Total Bilirubin AST ALT Alkaline Phosphatase Total Protein Albumin Discharge Plan Discharge Attending physician on discharge: Juan R Love Discharging Clinician: Laura France Patient Disposition: Home, Self-Care Activity: may shower Diet: diabetic Discharge Instructions: You were admitted for acute on chronic kidney injury which is probably due to combination of recent changes in diabetes medications. You also had mild hyperkalemia and low serum bicarb as well as mild hyponatremia- general electrolyte imbalance that could be a result of dehydration, decreased appetite. We were holding your lisinopril and chlorthalidone since your kidney numbers were not at the baseline. Please hold medications for now and have labs repeated and f/u with pcp on further instructions about when to restart meds. Check our BP every morning and keep log. If your BP starts getting worse, please let your PCP know right away. She received gentle IV fluid hydration and repeated electrolyte. We ordered Echo-and it was completed. If results are abnormal- i will call you and let you know. Otherwise, your PCP can request results for review. Please discuss further diabetic management with your pcp. YOur cr/bun (kidney function) improved. However, please have labs repeated within a week to ensure kidney continues to improve. we will refer you to nephrologists as an oupt for further work up. Abd ultrasound was done: Markedly heterogeneous hepatic parenchyma with subtle nodular contour. Findings could reflect cirrhosis, however underlying mass lesions are not excluded. Recommend contrast enhanced CT or hepatic MR to better assess for possibility of underlying hepatic neoplastic/metastatic disease. She will need to f/u with pcp for further work up as she is not wishing to stay any longer in the hospital for any other work up. Patient Instructions: Antibiotic Form Patient Language: Tongan Stand Alone Forms: General Discharge Information Follow-up/Referrals: Ayah Carver, [employer] [Primary Care Provider] - 2 Weeks Jose Astorga MD [Physician] - 2 Weeks (please f/u with nephrology here or any [facility] of your choice) Discharge Medications: Continued amlodipine 10 mg tablet 10 mg PO DAILY Qty: 90 3RF glipizide 5 mg tablet 10 mg PO BID 90 Days Qty: 360 3RF alprazolam 0.5 mg tablet 0.25 mg PO HS Patient Comments: pt. takes at night ondansetron HCl 4 mg tablet 4 mg PO Q8H PRN (Reason: nausea and vomiting) Qty: 20 2RF metformin 1,000 mg tablet 500 mg PO BID Qty: 90 1RF tizanidine 4 mg tablet 4 mg PO TID PRN (Reason: muscle spasticity) Qty: 30 1RF Held chlorthalidone 25 mg tablet 25 mg PO DAILY Qty: 90 3RF Hold Instructions: Resume on 01/13/25. please hold until kidney function improves. pLease f/u with pcp on when to restart. lisinopril 40 mg tablet 40 mg PO DAILY Qty: 90 3RF Hold Instructions: Resume on 01/13/25. hold until your kidney functions improve- please make sure you see PCP for further instructions Discontinued sulfamethoxazole-trimethoprim [Bactrim DS] 800-160 mg tablet 1 tablet PO Q12H Qty: 14 0RF Other Ambulatory Orders: Comprehensive Metabolic Panel (Routine) Timeframe: 1 Week Location: Determined by Patient Ordered By: Laura France Date of admission: 01/04/25 17:43 Primary Care Provider: Ayah Carver Admitting Provider: Luke Garcia Attending physician on admission: Luke Garcia Condition: Stable Quality VTE Prophylaxis VTE prophylaxis: pharmacologic ordered (Lovenox 30 mg subQ daily.) Hospitalist MIPS Heart Failure (Exclusion) Patient has history of Heart Transplant or Left Ventricular Assistive Device?: No IF YES, STOP HERE Heart Failure (Qualifier) Patient has current or prior documentation of LVEF less than or equal to 40%, or mod/servere depressed LVSF?: No IF NO, STOP HERE
== END 2025-01-06 11:45 | disposition home or self-care (01) ==
LOC: ANHED 17:42 → ANH2MED 01-06 10:25
PROVIDERS: Internal Medicine; Nurse Practitioner; Physician Assistant; Admitting Provider Hospitalist; Emergency Provider Family Medicine; PCP Nurse Practitioner Family; Visit Provider General Practice
DX: N17.9 Acute kidney failure, unspecified (principal); E11.22 Type 2 diabetes mellitus with diabetic chronic kidney disease; I12.9 Hypertensive chronic kidney disease with stage 1 through stage 4 chronic kidney disease, or unspecified chronic kidney disease; N18.32 Chronic kidney disease, stage 3b; R82.90 Unspecified abnormal findings in urine; R74.01 Elevation of levels of liver transaminase levels; D72.829 Elevated white blood cell count, unspecified; E87.5 Hyperkalemia; E87.1 Hypo-osmolality and hyponatremia; E83.42 Hypomagnesemia; E66.01 Morbid (severe) obesity due to excess calories; Z68.42 Body mass index [BMI] 45.0-49.9, adult; E78.5 Hyperlipidemia, unspecified; R60.0 Localized edema; H35.30 Unspecified macular degeneration; F51.04 Psychophysiologic insomnia; Z79.84 Long term (current) use of oral hypoglycemic drugs; Z79.899 Other long term (current) drug therapy; Z90.710 Acquired absence of both cervix and uterus; Z90.49 Acquired absence of other specified parts of digestive tract; Z96.1 Presence of intraocular lens; Z98.42 Cataract extraction status, left eye; Z98.41 Cataract extraction status, right eye
CPT/HCPCS: 36415; 71046; 76705; 80053; 80074; 81001; 82948; 83735; 83880; 85025; 85027; 87086; 93005; 93306; 96361; 96365; 96366; 96372; 96375; 99285; A9270; G0378; J1650; J1815; J1940; J3475; J7030

== ENCOUNTER 2025-01-15 13:36 | Inpatient (IN) | payer MEDICARE, SELFPAY ==
[2025-01-15] VITALS (8 sets, daily range): BP systolic 85–124; BP diastolic 43–63; PULSE 84–128; RESP 16–24; TEMP 36.4–36.6; O2SAT 95–99; BMI 47.5
--- NOTE | ~2025-01-15 | NM_ITS ---
EXAMINATION: NM lung vent and perfusion DATE: 01/18/2025 15:26 INDICATION: Tachycardia TECHNIQUE: 38.0 mCi xenon-133 by inhalation and 5.5 mCi Tc-99m MAA by intravenous route. Scintigraph ic images of the chest were obtained. COMPARISON: Chest radiograph dated 01/15/2025 FINDINGS: Assessment on the ventilation images is limited by patient's inability to lay flat in supine position with limited visualization of the left lung. There is relatively homogeneous decreased perfusion act ivity throughout the right lung on the ventilation images with some air trapping at the right lung ba se consistent with obstructive pulmonary disease. There is a moderate-sized perfusion defect at the p osterior basilar segment of the right lower lobe which appears unmatched. There is significant decrea sed activity throughout the right lung on the anterior left anterior oblique projections without evid ent correlate on the remaining projections which appears to correspond to the presence of a large rig ht paracardial fat pad and right anterior mediastinal lipomatosis on CT dated 01/16/2025. No other per fusion defects identified. IMPRESSION: 1. Intermediate probability for pulmonary embolism. Reviewed, dictated and finalized at location B.
--- NOTE | ~2025-01-15 | XR_ITS ---
EXAMINATION: XR chest 2V DATE: 01/15/2025 14:43 INDICATION: Shortness of breath. TECHNIQUE: Frontal and lateral views of the chest were obtained. COMPARISON: Chest 2 views 01/04/2025, CT abdomen and pelvis 10/03/2011 FINDINGS: Sensitivity is decreased by obesity. There is blunting of the posterior costophrenic angles . No pneumothorax. Cardiomegaly is noted. There are prominent pericardial fat pads. IMPRESSION: 1. Blunting of the posterior costophrenic angles, which may be prominent extrapleural fat or tiny ple ural effusions. Reviewed, dictated and finalized at location A. IMPRESSION: 1. Blunting of the posterior costophrenic angles, which may be prominent extrap leural fat or tiny pleural effusions.
--- NOTE | ~2025-01-15 | CT_ITS ---
CT abdomen pelvis wo con Ordering provider: Bib Dumont MD History: 74 years Female with . possible liver lesion . Comparison: October 03, 2011 Technique: CT abdomen and pelvis without IV and without oral contrast. Automated exposure control and iterative reconstruction technique were employed. The dose-length product was 1933.32 mGy-cm. Findings: VISUALIZED LOWER CHEST: Right-sided pleural effusion with adjacent atelectasis. 3 Lymph nodes are see n to the right side of the heart with the largest measures 1.5 cm. UPPER ABDOMINAL ORGANS: Liver: Hepatomegaly. Multiple hypodensities are seen in the liver suggestive of metastatic lesions. T he largest seen in the right lobe of the liver inferiorly. Fluid is seen around the liver. Gallbladder: Status post cholecystectomy. Spleen: Normal. Stomach/duodenum: Normal. Pancreas: Normal. Adrenals: Normal. Kidneys: Normal. PELVIC ORGANS: The bladder is normal. BOWEL AND MESENTERY: Colon: No evidence of diverticulitis. No definite mass is seen.. The appendix is not demonstrated.. Small Bowel: Normal. No obstruction. Peritoneum/mesentery: No free air. Free fluid is seen around the liver, right colic gutter and in the pelvis. Minimal fluid seen around the spleen. No mesenteric lymphadenopathy. RETROPERITONEUM: Mild atheromatous disease of the abdominal aorta. IVC is collapsed which may indicate hypotension. Clinical correlation advised. No retroperitoneal lym phadenopathy. MUSCULOSKELETAL: Superficial soft tissues: Edema in the subcutaneous tissues in the area of the pelvis otherwise, The superficial soft tissues are normal. Bones: Age appropriate degenerative changes of the spine. IMPRESSION: 1. Hepatomegaly with multiple hypodensities suggestive of metastatic lesions. Further evaluation adv ised. 2. Ascites. 3. Small caliber IVC. Clinical correlation for hypotension advised. 4. Minimal right-sided pleural effusion with adjacent atelectasis. Reviewed, dictated and finalized at location A. IMPRESSION: 1. Hepatomegaly with multiple hypodensities suggestive of metastatic lesions. Further evaluation advised. 2. Ascites. 3. Small caliber IVC. Clinical correlation for hypotension advised. 4. Minimal right-sided pleural effusion with adjacent atelectasis.
--- NOTE | ~2025-01-15 | US_ITS ---
EXAMINATION: US biopsy liver DATE: 01/21/2025 14:43 INDICATION: Liver masses. TECHNIQUE: The procedure including the risks, benefits, and alternatives was discussed with the patie nt. Risks discussed included bleeding and infection. The patient understood the risks and agreed to p roceed. The skin overlying the left hepatic lobe was prepped and draped in usual sterile fashion. An esthetic was administered with 1% lidocaine subcutaneously. An 18 gauge core biopsy needle was then used to obtain 3 core biopsy specimens under continuous sonographic guidance. The entry site was lan jamarcus and dressed. There were no immediate complications. FINDINGS: Ultrasound images demonstrate the needle in hypoechoic masses in left hepatic lobe. IMPRESSION: 1. Ultrasound-guided core needle biopsy of hypoechoic masses in left hepatic lobe. Reviewed, dictated and finalized at location A. IMPRESSION: 1. Ultrasound-guided core needle biopsy of hypoechoic masses in left hepatic lo be.
--- NOTE | ~2025-01-15 | US_ITS ---
EXAMINATION: US paracentesis abd w/image DATE: 01/18/2025 14:57 INDICATION: Ascites. TECHNIQUE: The procedure and its risks, benefits, and alternatives were discussed with the patient. P otential risks discussed included bleeding and infection. The skin was prepped and draped in sterile fashion. 1% lidocaine was used for local anesthesia. Under ultrasound guidance, a 5 Fr catheter with trochar was advanced into the ascites in the right lower quadrant. Fluid was aspirated. The catheter was removed, and a dressing was applied. There were no immediate complications. FINDINGS: Ultrasound images demonstrate ascites and the catheter within the fluid. IMPRESSION: 1. Successful ultrasound-guided paracentesis yielding 2000 mL of ubaldo-colored fluid. Reviewed, dictated and finalized at location A.
--- NOTE | ~2025-01-15 | US_ITS ---
EXAMINATION:US venous doppler LE BI INDICATION:Tachycardia TECHNIQUE: Multiple grayscale, color flow and Doppler images of the right and left lower extremity de ep venous systems were obtained and reviewed. COMPARISON:No prior studies for comparison. FINDINGS: The common femoral, superficial femoral and popliteal veins demonstrate normal respiratory variation, augmentation and compressibility. Color flow is also seen within the posterior tibial, pe roneal, greater saphenous and profunda veins. IMPRESSION: 1: No lower extremity deep venous thrombosis. Reviewed, dictated and finalized at location A.
--- NOTE | ~2025-01-15 | US_ITS ---
EXAMINATION: US renal BI DATE: 01/15/2025 20:08 INDICATION: MADY TECHNIQUE: Multiple grayscale and Doppler ultrasound images of the kidneys were obtained. COMPARISON: Ultrasound right upper quadrant 01/05/2025; CT abdomen pelvis 10/03/2011. FINDINGS: The right kidney is difficult to visualize. The right kidney measures 12.4 x 5.9 x 6.0 cm. The left k idney measures 10.6 x 5.0 x 4.4 cm. The kidneys demonstrate normal parenchymal echogenicity. There is no hydronephrosis. The bladder is poorly visualized. Heterogeneous liver parenchyma. IMPRESSION: No hydronephrosis. Somewhat limited visualization of the right kidney. The bladder was not visualized . Heterogeneous liver, liver masses not excluded, recommend contrast CT or hepatic MRI for further gilma acterization. Reviewed, dictated and finalized at [facility]. IMPRESSION: No hydronephrosis. Somewhat limited visualization of the right kidney. The blad jefferson was not visualized. Heterogeneous liver, liver masses not excluded, recommend contrast CT or hepati c MRI for further characterization.
--- NOTE | 2025-01-15 13:43 | ECG_ITS ---
Test Date: 2025-01-15 14:03:31 Measurements Intervals [place] Rate: 87 P: -9 ME: 156 QRS: 8 QRSD: 70 T: 30 QT: 336 QTc: 405 Interpretive Statements SINUS RHYTHM POSSIBLE ANTERIOR MYOCARDIAL INFARCTION , PROBABLY OLD [30 ms Q WAVE IN V3/V4, OR R < 0.2 mV IN V4] Compared to ECG 01/04/2025 16:43:28 Sinus tachycardia no longer present Electronically Signed On 01-15-2025 16:47:02 CDT by Mallory Quick M.D.
--- NOTE | 2025-01-15 13:48 | ED_ITS ---
HPI - Weakness General Chief complaint: Weakness <Connie Palmer APRN - Last Filed: 01/15/25 13:51> Stated complaint: Feeling sick -discharged 01/06/25 Kidney issues <Connie Palmer APRN - Last Filed: 01/15/25 13:51> Time Seen by Provider: 01/15/25 14:33 <Connie Palmer APRN - Last Filed: 01/15/25 13:51> Focused HPI: Patient is a 74 year female presents to the ER with complaints of weakness, fatigue, and dizziness. She reports she was recently admitted to the hospital between January 04 and January 06. Patient reports her kidney levels were in the 20s at that time and she was advised to follow up Nephrology outpatient. She has an outpatient appointment scheduled for February 14, 2025. Patient reports I can not wait that long to feel better. I feel worse every day. She endorses a history of diabetes and high blood pressure. Patient denies chest pain, recent fevers, back pain. GENERAL: Well-appearing, well-nourished, and in no acute distress. HEAD: Normocephalic, atraumatic. CHEST: Clear to auscultation. ?No respiratory distress. HEART: Regular rate and rhythm.? NEURO: ?Alert and oriented x3. Patient screened in triage and initial orders placed.? ?Additional care and disposition to be based upon?diagnostic testing and treatment. <Connie Palmer APRN - Last Filed: 01/15/25 13:51> History of Present Illness HPI Narrative: Agree with the HPI above. Patient has been seen several times these last few weeks for issues with her kidney function and liver function. <Bahman Turner MD - Last Filed: 01/15/25 19:13> Related Data Home medications: Home Medications ?Medication ?Instructions ?Recorded ?Confirmed ?Last Taken ?Type alprazolam 0.5 mg tablet 0.25 mg PO HS insomnia 01/04/25 01/04/25 01/03/25 History <Connie Palmer APRN - Last Filed: 01/15/25 13:51> Allergies/Adverse reactions: Allergies Allergy/AdvReac Type Severity Reaction Status Date / Time No Known Allergies Allergy Verified 01/15/25 13:38 <Connie Palmer APRN - Last Filed: 01/15/25 13:51> Review of Systems 2 Review of Systems: As reviewed above in HPI <Bahman Turner MD - Last Filed: 01/15/25 19:13> [facility] Past Medical History Medical History: Medical History Vitamin D deficiency, unspecified CHF (congestive heart failure) Dyslipidemia CKD (chronic kidney disease) Type 2 diabetes mellitus Age-related macular degeneration Essential (primary) hypertension Psychophysiological insomnia <Connie Palmer APRN - Last Filed: 01/15/25 13:51> Surgical History Surgical History: Surgical History History of tonsillectomy Status post cataract extraction of both eyes with insertion of intraocular lens Hx of cholecystectomy H/O hysterectomy for benign disease <Connie Palmer APRN - Last Filed: 01/15/25 13:51> Family History Family History: Family History Mother Hypertension Family history of Alzheimer's disease Family history of type 1 diabetes mellitus Diabetes mellitus Father Family history of lymphoma History of kidney disease Hypertension Grandparent Breast cancer <Connie Palmer APRN - Last Filed: 01/15/25 13:51> Social History Social History: Social History Social History: She is . She recently saw older home of 50 or 50 years to her granddaughter and grandson in law. But she now lives with them and takes care of her [id number] great grandchild 5 days a week. She states she will drink 1 beer about every other month. She is a lifelong nonsmoker and does not use illicit substances. She ambulates with a walker. 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 Code status: Full code Surrogate decision maker: Jenn France (daughter) Smoking status: Never smoker Second hand tobacco smoke exposure: No Alcohol intake: current Drinks per week: 1 Substance use: never Substance use type: does not use Do You Feel Safe in your Home?: Yes Lack of Transportation: No Lack of Food: Never True Current Housing: I Have Housing Concerned About Future Housing: No Difficulty Paying Gas/Electric Bills: No Difficulty Paying for Meds: No Currently Unemployed: No Education: High School Diploma/GED Difficulty w/ Childcare or Family Care: No Living arrangements: with family Additional living arrangements comments: pt lives with granddaughter and granddaughter Occupation/Education: retired Gender identity (if verbalized by the patient): Female Sexual Orientation (if Verbalized by the Patient): Straight or Heterosexual Spiritual care concerns: No <Connie Palmer APRN - Last Filed: 01/15/25 13:51> Exam 2 Narrative: GENERAL: Obese, not ill-appearing, answer all questions appropriately. HEAD: [Normocephalic, atraumatic.] EYES: [PERRLA and EOMI.] ENT: Nares clear, no rhinorrhea or epistaxis. Mucous membranes moist. NECK: Supple. CHEST: [Clear to auscultation. No respiratory distress.] HEART: [Regular rate and rhythm]. No murmur heard. [Normal peripheral pulses.] ABDOMEN: [Soft, nondistended], [nontender], [No rigidity or guarding] EXTREMITIES: Normal range of motion. [No edema.] SKIN: Warm, dry, no rash. NEURO: [No focal deficits]. Alert and oriented [x3.] PSYCH: [Normal mood and affect.] <Bahman Turner MD - Last Filed: 01/15/25 19:13> Course Vital Signs Vital signs: Vital Signs Temperature 36.6 C 01/15/25 13:42 Pulse Rate 89 01/15/25 13:42 Respiratory Rate 20 01/15/25 13:42 Blood Pressure 85/45 L 01/15/25 13:42 Pulse Oximetry 98 01/15/25 13:42 Oxygen Delivery Room Air 01/15/25 13:42 Temperature 36.6 C 01/15/25 13:42 Pulse Rate 85 01/15/25 18:55 Respiratory Rate 18 01/15/25 18:55 Blood Pressure 98/43 L 01/15/25 18:55 Pulse Oximetry 98 01/15/25 18:55 Oxygen Delivery Room Air 01/15/25 13:42 <Connie Palmer APRN - Last Filed: 01/15/25 13:51> Vital Signs Temperature 36.6 C 01/15/25 13:42 Pulse Rate 89 01/15/25 13:42 Respiratory Rate 20 01/15/25 13:42 Blood Pressure 85/45 L 01/15/25 13:42 Pulse Oximetry 98 01/15/25 13:42 Oxygen Delivery Room Air 01/15/25 13:42 Temperature 36.6 C 01/15/25 13:42 Pulse Rate 85 01/15/25 18:55 Respiratory Rate 18 01/15/25 18:55 Blood Pressure 98/43 L 01/15/25 18:55 Pulse Oximetry 98 01/15/25 18:55 Oxygen Delivery Room Air 01/15/25 13:42 <Bahman Turner MD - Last Filed: 01/15/25 19:13> MDM - Weakness MDM Narrative Medical decision making narrative: 74-year-old female with history of type 2 diabetes, chronic kidney disease, hypertension. She presents today with fatigue and weakness. She was recently hospitalized with renal failure last week. Had improvement after fluids and was discharged home with Nephrology follow-up. Patient was not able to make this appointment yet and today she feels worse. She presents for re- evaluation. She is noted to be slightly hypotensive with blood pressure 85/45. No tachycardia, fever or hypoxia. She is not ill appearing and not any acute distress. She does appear dehydrated and clinically hypovolemic. This could be the source for low blood pressure as she had improvement to the low 100 systolic range with a L of fluid. Laboratory studies were obtained to assess for renal function to make sure that she is not hyperkalemic or having any signs of new renal failure any other electrolyte disturbances, organ injury. Chest x-ray was obtained. EKG ordered. Workup shows a leukocytosis of 14.6 which appears about baseline and in her normal range for the last several evaluations this past few weeks. Hemoglobin of 10.6 was also around her baseline level. Normal platelet count. Coagulation panel within normal limits. Hyperkalemic at 6.1, BUN elevated 62, creatinine 2.23. GFR is low at 21. Glucose 96. LFTs are elevated similar to her prior levels several weeks ago. Negative troponin. Mildly elevated BNP with a low albumin. She was provided fluid bolus and albumin infusion for potential hypovolemia and 3rd spacing. Hyperkalemia cocktail was ordered including insulin, dextrose, calcium gluconate Lokelma. Bicarbonate was also administered. Repeat BM P obtained which shows improvement her potassium to 5.1, BUN improved after fluid resuscitation but she was slightly hypoglycemic at this time without any mental status changes. She was provided ampules of glucose with improvement to 86. Chest x-ray shows some blunting of the costophrenic angles which could be tiny effusions. EKG shows sinus rhythm, no signs of hyperkalemic T-waves or interval anomalies. Patient was frequent re-evaluated and doing better after fluid resuscitation and treatment of her potassium. Spoke to the rodent control worker on-call doctor Guari who agreed with management and will be evaluating her on inpatient basis and also raised concern for potential hepatorenal syndrome given her cirrhosis on previous ultrasound and elevated LFTs with renal dysfunction now. Spoke to the hospitalist turn being covered by the midlevel provider Dottie who accepted the patient to IMU monitored bed. Patient was made aware of the plan as well as family at bedside. <Bahman Turner MD - Last Filed: 01/15/25 19:13> Medical Records Attestation: I reviewed the patient's medical records. <Bahman Turner MD - Last Filed: 01/15/25 19:13> Lab Data Attestation: I reviewed the patient's lab results. <Bahman Turner MD - Last Filed: 01/15/25 19:13> Result diagrams: 01/15/25 14:10 01/15/25 17:17 <Connie Palmer APRN - Last Filed: 01/15/25 13:51> Labs: Lab Results 01/15/25 01/15/25 01/15/25 Range/Units 13:54 14:10 16:12 WBC 14.6 H (4.5-10.0) K/mm3 RBC 3.91 L (4.2-5.4) M/mm3 Hgb 10.6 L (12.0-15.0) g/dL Hct 33.8 L (37.0-47.0) % MCV 86.4 (80-100) fl MCH 27.1 (26-34) pg MCHC 31.4 L (32-36) g/dl RDW 23.6 H (11.5-14.5) % Plt Count 309 (150-375) k/mm3 MPV 10.9 H (7.4-10.4) fl Immature Gran % (Auto) 0.6 H (0-0.5) % Neut % (Auto) 87.1 H (45.5-73.1) % Lymph % (Auto) 5.6 L (18.3-44.2) % Moody % (Auto) 6.3 (2.6-8.5) % Eos % (Auto) 0.3 (0-4.4) % Baso % (Auto) 0.1 L (0.2-1.2) % Lymph # (Auto) 0.82 L (0.9-3.2) K/mm3 Moody # (Auto) 0.9 H (0.1-0.6) K/mm3 Eos # (Auto) 0.0 (0-0.3) K/mm3 Baso # (Auto) 0.0 (0.0-0.1) K/mm3 Abs Immat Gran (auto) 0.09 H (0.00-0.031) K/mm3 Absolute Neuts (auto) 12.7 H (1.3-6.7) K/mm3 Absolute Nucleated RBC 0.000 (0.0-0.012) K/mm3 Band Neutrophils % Not Reportable Nucleated RBC % 0.0 (0.0-0.2) % Platelet Estimate Adequate (Adequate) Anisocytosis 1+ Target Cells 1+ Schistocytes None seen PT 16.1 H (11.1-14.7) Seconds INR 1.2 APTT 31.7 (22.3-36.8) Seconds Sodium 133 L (137-145) mmol/L Potassium 6.1 H* (3.4-5.0) mmol/L Chloride 104 (98-107) mmol/L Carbon Dioxide 17 L (22-30) mmol/L Anion Gap 12 (4-12) mmol/L BUN 62 H D (7-17) mg/dL Creatinine 2.23 H (0.7-1.0) mg/dL Estim Creat Clear Calc 28 ml/min Estimated GFR 21 L (59 - ) Glucose 96 (65-110) mg/dL POC Capillary Glucose 89 75 (65-105) mg/dl Calcium 8.9 (8.4-10.2) mg/dL Magnesium 1.9 (1.6-2.3) mg/dL Total Bilirubin 3.6 H (0.2-1.3) mg/dL AST 105 H (14-36) U/L ALT 34 (6-35) U/L Alkaline Phosphatase 473 H (38-126) U/L Troponin I < 0.012 (0.000-0.034) ng/mL NT-Pro-B Natriuret Pep 1240 H (19.9-100) pg/mL Total Protein 6.0 L (6.3-8.2) g/dL Albumin 2.9 L (3.5-5.1) g/dL <Connie Palmer, SWAGING MACHINE OPERATOR - Last Filed: 01/15/25 13:51> Lab Results 01/15/25 01/15/25 01/15/25 Range/Units 13:54 14:10 16:12 WBC 14.6 H (4.5-10.0) K/mm3 RBC 3.91 L (4.2-5.4) M/mm3 Hgb 10.6 L (12.0-15.0) g/dL Hct 33.8 L (37.0-47.0) % MCV 86.4 (80-100) fl MCH 27.1 (26-34) pg MCHC 31.4 L (32-36) g/dl RDW 23.6 H (11.5-14.5) % Plt Count 309 (150-375) k/mm3 MPV 10.9 H (7.4-10.4) fl Immature Gran % (Auto) 0.6 H (0-0.5) % Neut % (Auto) 87.1 H (45.5-73.1) % Lymph % (Auto) 5.6 L (18.3-44.2) % Moody % (Auto) 6.3 (2.6-8.5) % Eos % (Auto) 0.3 (0-4.4) % Baso % (Auto) 0.1 L (0.2-1.2) % Lymph # (Auto) 0.82 L (0.9-3.2) K/mm3 Moody # (Auto) 0.9 H (0.1-0.6) K/mm3 Eos # (Auto) 0.0 (0-0.3) K/mm3 Baso # (Auto) 0.0 (0.0-0.1) K/mm3 Abs Immat Gran (auto) 0.09 H (0.00-0.031) K/mm3 Absolute Neuts (auto) 12.7 H (1.3-6.7) K/mm3 Absolute Nucleated RBC 0.000 (0.0-0.012) K/mm3 Band Neutrophils % Not Reportable Nucleated RBC % 0.0 (0.0-0.2) % Platelet Estimate Adequate (Adequate) Anisocytosis 1+ Target Cells 1+ Schistocytes None seen PT 16.1 H (11.1-14.7) Seconds INR 1.2 APTT 31.7 (22.3-36.8) Seconds Sodium 133 L (137-145) mmol/L Potassium 6.1 H* (3.4-5.0) mmol/L Chloride 104 (98-107) mmol/L Carbon Dioxide 17 L (22-30) mmol/L Anion Gap 12 (4-12) mmol/L BUN 62 H D (7-17) mg/dL Creatinine 2.23 H (0.7-1.0) mg/dL Estim Creat Clear Calc 28 ml/min Estimated GFR 21 L (59 - ) Glucose 96 (65-110) mg/dL POC Capillary Glucose 89 75 (65-105) mg/dl Calcium 8.9 (8.4-10.2) mg/dL Magnesium 1.9 (1.6-2.3) mg/dL Total Bilirubin 3.6 H (0.2-1.3) mg/dL AST 105 H (14-36) U/L ALT 34 (6-35) U/L Alkaline Phosphatase 473 H (38-126) U/L Troponin I < 0.012 (0.000-0.034) ng/mL NT-Pro-B Natriuret Pep 1240 H (19.9-100) pg/mL Total Protein 6.0 L (6.3-8.2) g/dL Albumin 2.9 L (3.5-5.1) g/dL <Bahman Turner MD - Last Filed: 01/15/25 19:13> Imaging Data Attestation: I personally reviewed and interpreted this imaging study as follows: < Bahman Turner MD - Last Filed: 01/15/25 19:13> My impression: Impressions Chest X-Ray 01/15/25 14:46 IMPRESSION: 1. Blunting of the posterior costophrenic angles, which may be prominent extrapleural fat or tiny pleural effusions. <Bahman Turner MD - Last Filed: 01/15/25 19:13> Critical Care Time Critical Care Time Critical Care Time: Yes <Bahman Turner MD - Last Filed: 01/15/25 19:13> Total Critical Care Time: 35 <Bahman Turner MD - Last Filed: 01/15/25 19:13> Discharge Plan Discharge Clinical Impression: Renal failure, Acute hyperkalemia, Hepatorenal failure, Low serum albumin <Connie Palmer APRN - Last Filed: 01/15/25 13:51> Patient Disposition: Still a Patient <Connie Palmer APRN - Last Filed: 01/15/25 13:51> Condition: Stable <Connie Palmer APRN - Last Filed: 01/15/25 13:51>
[2025-01-15 14:08] LABS: Glucose Point of Care 89 mg/dl (65-105)
[2025-01-15 14:17] LABS: Basophils Percent Auto 0.1 % (0.2-1.2); Eosinophils Percent Auto 0.3 % (0-4.4); Hematocrit 33.8 % (37.0-47.0); Hemoglobin 10.6 g/dL (12.0-15.0); Immature Granulocyte Absolute 0.09 K/mm3 (0.00-0.031); Immature Granulocyte Percent A 0.6 % (0-0.5); Lymphocytes Absolute Auto 0.82 K/mm3 (0.9-3.2); Lymphocytes Percent Auto 5.6 % (18.3-44.2); Mean Corpuscular HGB Conc 31.4 g/dl (32-36); Mean Corpuscular Hemoglobin 27.1 pg (26-34); Mean Corpuscular Volume 86.4 fl (80-100); Mean Platelet Volume 10.9 fl (7.4-10.4); Monocytes Absolute Auto 0.9 K/mm3 (0.1-0.6); Monocytes Percent Auto 6.3 % (2.6-8.5); Neutrophils Absolute Auto 12.7 K/mm3 (1.3-6.7); Neutrophils Percent Auto 87.1 % (45.5-73.1); Platelet Count Result 309 k/mm3 (150-375); Red Blood Count 3.91 M/mm3 (4.2-5.4); Red Cell Distribution Width 23.6 % (11.5-14.5); White Blood Count 14.6 K/mm3 (4.5-10.0)
[2025-01-15 14:35] LABS: Alanine Aminotransferase 34 U/L (6-35); Albumin Level 2.9 g/dL (3.5-5.1); Alkaline Phosphatase 473 U/L (38-126); Anion Gap 12 mmol/L (4-12); Aspartate Amino Transferase 105 U/L (14-36); Bilirubin,Total 3.6 mg/dL (0.2-1.3); Blood Urea Nitrogen 62 mg/dL (7-17); Calcium 8.9 mg/dL (8.4-10.2); Carbon Dioxide 17 mmol/L (22-30); Chloride 104 mmol/L (98-107); Estimated CRCL calculation 28 ml/min; Estimated Glomerular Filt Rate 21; Glucose 96 mg/dL (65-110); Magnesium 1.9 mg/dL (1.6-2.3); Potassium 6.1 mmol/L (3.4-5.0); Sodium 133 mmol/L (137-145)
[2025-01-15 14:39] LABS: NT Pro B Type Natriuretic Pept 1240 pg/mL (19.9-100); Troponin I < 0.012 ng/mL (0.000-0.034)
[2025-01-15 14:41] LABS: Platelet Estimate Adequate (Adequate)
[2025-01-15 14:42] LABS: Anisocytosis 1+; INR 1.2; Prothrombin Time 16.1 Seconds (11.1-14.7); Schistocytes None Seen; Target Cells 1+
[2025-01-15 14:43] LABS: Partial Thromboplastin Time 31.7 Seconds (22.3-36.8)
[2025-01-15] MEDS: LACTATED RINGERS 1,000 ML 999 ML IV CONT ×2 (14:58)
[2025-01-15] MEDS: SODIUM BICARBONATE 8.4% 50 MEQ/50 ML SYRINGE IV PUSH (16:09)
[2025-01-15] MEDS: DEXTROSE 50% 25 GM/50 ML SYRINGE IV PUSH ×2 (16:09→17:40)
[2025-01-15] MEDS: INSULIN HUMAN REGULAR (*BKC) 100 UNITS/ML 10 UNITS IV PUSH (16:10)
[2025-01-15] MEDS: CALCIUM GLUC 1,000 MG/NS 50 ML 1,000 MG/50 ML BAG 100 MG IVPB (16:10)
[2025-01-15 16:17] LABS: Glucose Point of Care 75 mg/dl (65-105)
[2025-01-15 17:36] LABS: Anion Gap 12 mmol/L (4-12); Blood Urea Nitrogen 59 mg/dL (7-17); Calcium 8.9 mg/dL (8.4-10.2); Carbon Dioxide 18 mmol/L (22-30); Chloride 105 mmol/L (98-107); Estimated CRCL calculation 28 ml/min; Estimated Glomerular Filt Rate 21; Glucose 31 mg/dL (65-110); Potassium 5.1 mmol/L (3.4-5.0); Sodium 135 mmol/L (137-145)
[2025-01-15] MEDS: DEXTROSE 50% 25 GM/50 ML SYRINGE (17:41)
--- NOTE | 2025-01-15 17:44 | PC.NURSE ---
Pt glucose 31, pt denies any c/o remains A/O x4. informed and verbal order received
[2025-01-15 18:06] LABS: Add Urine Microscopic? YES; Appearance Urine Cloudy (Clear); Bacteria Urine 3+ /hpf; Bilirubin Urine 1+ (Negative); Blood Urine Negative (Negative); Color Urine Dark Yellow (Yellow); Glucose Urine UA Negative (Negative); Ketones Urine Trace mg/dL (Negative); Leukocyte Esterase Ur 2+ LEU/UL (Negative); Need Manual Microscopic Reviewed; Nitrate Urine Negative (Negative); Non Pathogenic Casts >20; Protein Urine Trace mg/dL (Negative); Specific Grav Ur 1.017 (1.001-1.035); Squamous Epithelial Cell Urine Moderate /hpf (Few); WBC Urine 21-50 /hpf (0-3)
--- NOTE | 2025-01-15 18:11 | PM.IMHP ---
H&P: HPI History of Present Illness Date/Time: 01/15/25 18:11 Chief Complaint: Fatigue, Weakness Narrative: 74 y/o F presents here with fatigue and generalized weakness with PMH of hypertension, dyslipidemia, DM2, and CKD stage 3. The patient presents here from home for further evaluation of generalized weakness and fatigue. She reports this has been ongoing since she had diabetes medication changes in October. She was initially trialed on Wegovy but developed severe heartburn, this resolved with cessation. Then was placed on Jardiance and has developed fatigue since then. She denies accompanying chest pain, nausea, vomiting, diarrhea, dizziness, shortness of breath, dark tarry stools, abdominal pain, urinary symptoms. The patient felt she was too weak to go home. The patient was also recently admitted from 01/04/25-01/06/25 for MADY superimposed on CKD. The patient's lisinopril and chlorthalidone were held and remain on hold. Initial VS at presentation: 97.9? F, HR 89, R 20, 85/45, and 98% on RA. ED workup showed: WBC 14.6, hemoglobin 10.6, INR 1.2, sodium 135, potassium 6.1 (repeat 5.1 post interventions), creatinine 2.23 and GFR 21, magnesium 1.9, CK less than 20, CRP 20.3, albumin 2.9, and UA equivocal for UTI given moderate epithelial cells. CXR showed blunting of the posterior costophrenic angles which may represent prominent extrapleural fat or tiny pleural effusions. Review of Systems Review of Systems: All systems reviewed & are unremarkable except as noted in HPI and below [facility] Past Medical History Medical History Vitamin D deficiency, unspecified CHF (congestive heart failure) Dyslipidemia CKD (chronic kidney disease) Type 2 diabetes mellitus Age-related macular degeneration Essential (primary) hypertension Psychophysiological insomnia Surgical History Surgical History History of tonsillectomy Status post cataract extraction of both eyes with insertion of intraocular lens Hx of cholecystectomy H/O hysterectomy for benign disease Family History Family History Mother Hypertension Family history of Alzheimer's disease Family history of type 1 diabetes mellitus Diabetes mellitus Father Family history of lymphoma History of kidney disease Hypertension Grandparent Breast cancer Social History Social History Social History: She is . She recently saw older home of 50 or 50 years to her granddaughter and grandson in law. But she now lives with them and takes care of her [id number] great grandchild 5 days a week. She states she will drink 1 beer about every other month. She is a lifelong nonsmoker and does not use illicit substances. She ambulates with a walker. 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 Code status: Full code Surrogate decision maker: Jenn France (daughter) Smoking status: Never smoker Second hand tobacco smoke exposure: No Alcohol intake: never Drinks per week: 1 Substance use: never Substance use type: does not use Do You Feel Safe in your Home?: Yes Lack of Transportation: No Lack of Food: Never True Current Housing: I Have Housing Concerned About Future Housing: No Difficulty Paying Gas/Electric Bills: No Difficulty Paying for Meds: No Currently Unemployed: No Education: High School Diploma/GED Difficulty w/ Childcare or Family Care: No Living arrangements: with family Additional living arrangements comments: pt lives with granddaughter and granddaughter Occupation/Education: retired Gender identity (if verbalized by the patient): Female Sexual Orientation (if Verbalized by the Patient): Straight or Heterosexual Spiritual care concerns: No Meds Home Medications and Allergies Home Medications ?Medication ?Instructions ?Recorded ?Confirmed ?Type amlodipine 10 mg tablet 10 mg PO DAILY #90 tabs 05/29/24 01/15/25 Rx chlorthalidone 25 mg tablet 25 mg PO DAILY #90 tabs 05/29/24 01/15/25 Rx glipizide 5 mg tablet 10 mg (2 x 5 mg) PO BID 90 days 05/29/24 01/15/25 Rx #360 tabs lisinopril 40 mg tablet 40 mg PO DAILY #90 tabs 05/29/24 01/15/25 Rx ondansetron HCl 4 mg tablet 4 mg PO Q8H PRN nausea and 10/22/24 01/15/25 Rx vomiting #20 tabs metformin 1,000 mg tablet 500 mg (2 x 1,000 mg) PO BID #90 11/15/24 01/15/25 Rx tabs tizanidine 4 mg tablet 4 mg PO TID PRN muscle spasticity 12/28/24 01/15/25 Rx #30 tabs alprazolam 0.5 mg tablet 0.25 mg PO HS insomnia 01/04/25 01/15/25 History trazodone 50 mg tablet 50 mg PO QHS PRN sleep #60 tabs 01/09/25 01/15/25 Rx Allergies Allergy/AdvReac Type Severity Reaction Status Date / Time No Known Allergies Allergy Verified 01/15/25 13:38 Vital Signs Vital Signs - 24 hr 01/15/25 13:42 01/15/25 13:57 01/15/25 16:50 Temperature 97.9 F Pulse Rate 89 92 Respiratory Rate 20 18 16 Blood Pressure 85/45 L 100/53 L Pulse Oximetry 98 95 98 Oxygen Delivery Room Air Exam Const: General: comfortable and no acute distress Other: , female, obese body habitus HENMT: Face/Nose/Sinus: Normal nares present Mouth: Yes moist mucous membranes Eyes: General: appearance normal, both eyes and all related structures Sclera: sclerae normal Pupils: Equal, round and reactive pupils present EOM: EOMs intact bilaterally Resp: Effort & Inspection: normal respiratory effort Auscultation: clear to auscultation bilaterally Cardio: Rate: regular rate Rhythm: regular rhythm Other: S1-S2 present without murmur, rub, ectopy GI: Other: Abdomen rounded, soft, nontender. Normoactive bowel sounds in all quadrants. Skin: General skin exam: normal color and no rashes or lesions noted Wounds: no wounds Neuro: Speech: normal speech Motor exam (neuro): 5/5 motor strength present throughout Sensory Exam: normal sensation Other: A&O x4 Extrem: General: normal to inspection Psych: Mental Status: mental status grossly normal Affect: normal affect Other: Fair insight and judgment, pleasant H&P: Results Labs Labs: Short CBC 01/15/25 Range/Units 14:10 WBC 14.6 H (4.5-10.0) K/mm3 Hgb 10.6 L (12.0-15.0) g/dL Hct 33.8 L (37.0-47.0) % Plt Count 309 (150-375) k/mm3 BMP 01/15/25 01/15/25 14:10 17:17 Sodium 133 L 135 L Potassium 6.1 H* 5.1 H Chloride 104 105 Carbon Dioxide 17 L 18 L BUN 62 H D 59 H Creatinine 2.23 H 2.23 H Glucose 96 31 L* Calcium 8.9 8.9 Cardiac Enzymes 01/15/25 Range/Units 14:10 Troponin I < 0.012 (0.000-0.034) ng/mL Liver Function 01/15/25 Range/Units 14:10 Total Bilirubin 3.6 H (0.2-1.3) mg/dL AST 105 H (14-36) U/L ALT 34 (6-35) U/L Alkaline Phosphatase 473 H (38-126) U/L Albumin 2.9 L (3.5-5.1) g/dL Urine 01/15/25 Range/Units 17:10 Urine Color Dark yellow (Yellow) Urine Appearance Cloudy H (Clear) Urine pH 5.0 (5.0-9.0) Ur Specific [place] 1.017 (1.001-1.035) Urine Protein Trace (Negative) mg/dL Urine Glucose (UA) Negative (Negative) mg/dL Assessment and Plan Assessment and plan (1) Acute kidney injury superimposed on stage 3b chronic kidney disease: Code(s): N17.9 - Acute kidney failure, unspecified; N18.32 - Chronic kidney disease, stage 3b Status: Acute Assessment and Plan: - labs: Creatinine in 2022 and 2023 ranged from 1.21 to 1.57. Peak creatinine during most recent admission was 2.37 on 01/05. 10/02/2024: Creatinine 1.57, GFR 34, BUN 22 01/01/2025: Creatinine 2.04, GFR 25, BUN 56 01/15/2025: Creatinine 2.23, GFR 21, BUN 62 - check renal ultrasound - add CK, urine sodium, total protein creatinine, urea, urine sodium, CRP - hepatitis panel negative on 01/05/25 - UA equivocal for infection and trace protein, recent UC on 01/04 showed no growth. No current urinary symptoms, reporting fatigue. - bladder scan for postvoid residual - monitor I&Os - continue to hold lisinopril and chlorthalidone, have been held since 01/04 - nephrology consultation, awaiting recs (2) Acute hyperkalemia: Code(s): E87.5 - Hyperkalemia Status: Acute Assessment and Plan: - K 6.1 -> 5.1 In ED given: 2L bolus, calcium, insulin/dextrose, sodium bicarb, and Lokelma - continue to trend (3) Type 2 diabetes mellitus: Qualifiers: Diabetes mellitus complication status: with other specified complication Diabetes mellitus usp insulin use: without usp use Qualified Code(s): E11.69 - Type 2 diabetes mellitus with other specified complication Code(s): E11.9 - Type 2 diabetes mellitus without complications Status: Acute Assessment and Plan: The patient had a hypoglycemic event on 01/15, glucose was noted to be 31 on repeat BMP. Given dextrose 50% 25G with improvement to 86. Unclear if the hypoglycemic event secondary to insulin/dextrose administration for hyperkalemia verses low due to home medications. Most recent medication change in October, initially trialed on Wegovy but developed severe heartburn and nausea. Exchanged to Jardiance, reports fatigue/weakness/poor appetite since initiation. Heartburn resolved with cessation of Wegovy. She reports she stopped taking the Jardiance within the last week. Unsure if she has still been taking her Metformin. - hypoglycemia protocol - POC blood glucose ACHS - home medication: Hold metformin and glipizide in case of need for contrast and patient was hypoglycemic in the ED. Patient did not list Jardiance as a current medication. - correct regimen ordered - high dose TIDWM, based off BMI - A1C 6.1% on 01/01/2025 (4) Essential (primary) hypertension: Code(s): I10 - Essential (primary) hypertension Status: Chronic Assessment and Plan: - chronic, currently soft at 91/61 - hold home medication: amlodipine. Patient has not resumed lisinopril or chlorthalidone, will continue to hold. - monitor Plan Diet: Renal GI Prophylaxis: Not currently indicated DVT Prophylaxis: Lovenox SQ Lines: Peripheral Code Status: Full code Quality VTE Prophylaxis VTE prophylaxis: pharmacologic ordered Hospitalist [facility] Advance Care Plan I have confirmed that the patient's Advanced Care Plan is present, code status is documented, or surrogate decision maker is listed in patient medical record.: Yes Medication Reconciliation I have utilized all available resources to obtain, update and review the patients current medications (includes all prescriptions, OTC, herbals, cannabis, and nutritional supplements).: Yes
[2025-01-15] MEDS: LACTATED RINGERS 1,000 ML 125 ML IV CONT (18:17)
[2025-01-15] MEDS: ALBUMIN HUMAN 25% 25 GM/100 ML 100 ML IVPB (18:17)
[2025-01-15 18:39] LABS: Glucose Point of Care 86 mg/dl (65-105)
[2025-01-15 19:33] LABS: Glucose Point of Care 69 mg/dl (65-105)
[2025-01-15 20:34] LABS: Glucose Point of Care 55 mg/dl (65-105)
[2025-01-15 21:04] LABS: CRP 20.3 mg/dL (<1.0); Creatine Kinase < 20 U/L (30-135)
--- NOTE | 2025-01-15 21:13 | PC.NURSE ---
Daughter Jenn France [phone] Updated on room assignment
[2025-01-15 21:18] LABS: Glucose Point of Care 90 mg/dl (65-105)
--- NOTE | 2025-01-15 21:44 | ADMGEN ---
This patient, Nikki Don, was admitted to IMU Room 214-01. Patient/family oriented to hospital policies and general routines including ID bracelet, bed and alarms, visiting hours, pain management, procedures, bathroom and other care routines, personal items, smoking policy, room service/diet, and visiting hours. Information on how to activate the Rapid Response Team has been discussed. Patient/Family are encouraged to report perceived risks to care and to ask questions if they do not understand what they are told or what they should do.
[2025-01-15 22:04] LABS: Total Protein Urine Random 12 mg/dL; Ur Ttl Prot Creatinine Ratio 0.09 mg/mg (0-0.20)
[2025-01-15 22:07] LABS: Sodium Urine Random 26 meq/L
[2025-01-15 22:14] LABS: Glucose Point of Care 136 mg/dl (65-105)
[2025-01-16] VITALS (16 sets, daily range): BP systolic 96–137; BP diastolic 35–63; PULSE 92–135; RESP 18–24; TEMP 36.4–37; O2SAT 92–98; BMI 47.7
[2025-01-16] MEDS: ALBUMIN HUMAN 25% 25 GM/100 ML 100 ML IVPB ×3 (00:56→12:15)
[2025-01-16] MEDS: traZODone HCL 50 MG TABLET PO ×2 (00:59→20:37)
[2025-01-16 04:37] LABS: Basophils Percent Auto 0.1 % (0.2-1.2); Eosinophils Absolute Auto 0.1 K/mm3 (0-0.3); Eosinophils Percent Auto 0.5 % (0-4.4); Hematocrit 26.6 % (37.0-47.0); Hemoglobin 8.4 g/dL (12.0-15.0); Immature Granulocyte Percent A 0.7 % (0-0.5); Lymphocytes Absolute Auto 1.01 K/mm3 (0.9-3.2); Lymphocytes Percent Auto 7.2 % (18.3-44.2); Mean Corpuscular HGB Conc 31.6 g/dl (32-36); Mean Corpuscular Hemoglobin 27.2 pg (26-34); Mean Corpuscular Volume 86.1 fl (80-100); Mean Platelet Volume 10.9 fl (7.4-10.4); Monocytes Absolute Auto 0.9 K/mm3 (0.1-0.6); Monocytes Percent Auto 6.2 % (2.6-8.5); Neutrophils Percent Auto 85.3 % (45.5-73.1); Platelet Count Result 249 k/mm3 (150-375); Red Blood Count 3.09 M/mm3 (4.2-5.4); Red Cell Distribution Width 23.4 % (11.5-14.5); White Blood Count 14.1 K/mm3 (4.5-10.0)
[2025-01-16 04:52] LABS: Alanine Aminotransferase 27 U/L (6-35); Albumin Level 2.8 g/dL (3.5-5.1); Alkaline Phosphatase 395 U/L (38-126); Anion Gap 10 mmol/L (4-12); Aspartate Amino Transferase 82 U/L (14-36); Bilirubin,Total 3.9 mg/dL (0.2-1.3); Blood Urea Nitrogen 58 mg/dL (7-17); Carbon Dioxide 18 mmol/L (22-30); Chloride 106 mmol/L (98-107); Estimated CRCL calculation 30 ml/min; Estimated Glomerular Filt Rate 22; Glucose 96 mg/dL (65-110); Potassium 5.3 mmol/L (3.4-5.0); Sodium 134 mmol/L (137-145)
[2025-01-16 05:02] LABS: Band Neutrophils Percent 0 % (0-6); Hypochromasia 1+; Platelet Estimate Adequate (Adequate)
[2025-01-16 05:03] LABS: Schistocytes None Seen; Target Cells 1+
[2025-01-16] MEDS: LACTATED RINGERS 1,000 ML 125 ML IV CONT ×2 (05:24→16:36)
[2025-01-16] MEDS: SODIUM ZIRCONIUM CYCLOSILICATE 10 GM POWD.PACK PO (09:19)
[2025-01-16] MEDS: ENOXAPARIN 30 MG/0.3 ML SYRINGE SUB-Q (09:19)
[2025-01-16 09:30] LABS: Glucose Point of Care 91 mg/dl (65-105)
[2025-01-16 12:03] LABS: Glucose Point of Care 101 mg/dl (65-105)
--- NOTE | 2025-01-16 12:56 | P.CONNP_ITS ---
Assessment and Plan Assessment and plan (1) Acute kidney injury: Code(s): N17.9 - Acute kidney failure, unspecified Status: Acute Assessment and Plan: * as noted this year... * creatinine running ~ 1.4 - 1.6mg/dl (in 2022 - 2023) * creatinine ~ 1.2 - 1.3mg/dl (in 2019) * creatinine running 2.0 - 2.4mg/dl since early December 2024 * admission creatinine 2.23mg/dl * possibly related to liver cirrhosis/physiology: * decreased effective circulating volume leading to chronic prerenal azotemia worsened by ascites and need for diuretic therapy... * evaluation to date noted: * renal ultrasound without hydro but limited visualization of right kidney * CPK low * prerenal urine electrolytes * no significant proteinuria * UA suggestive of infection (but culture negative) * lisinopril and chlorthalidone on hold * some improvement noted with trial of IVFs * follow trend of repeat labs and UOP (2) Chronic kidney disease, stage 3b: Code(s): N18.32 - Chronic kidney disease, stage 3b Status: Chronic Assessment and Plan: * creatinine was running ~ 1.4 - 1.6mg/dl (in 2022) and ~ 1.2 - 1.3mg/dl (in 2019) * suspect underlying CKD due to diabetes, hypertension, and age-related change (3) Acute hyperkalemia: Code(s): E87.5 - Hyperkalemia Status: Acute Assessment and Plan: * as noted on admission - K+ 6.1 * s/p medical management (IVF, IV calcium, D50 + IV insulin, IV bicarb and lokelma) * remains on lokelma at this time * follow trend of repeat K+ levels (4) Cirrhosis: Code(s): K74.60 - Unspecified cirrhosis of liver Status: Acute Assessment and Plan: * as suggested by imaging to date: * RUQ showing possible cirrhosis but can not excluding underlying mass (as noted on last hospitalization) * CT of A/P ordered for further evaluation * etiology not clear * possible etiology for #1 (?) * hepatitis panel negative (last hospitalization) * follow-up on pending imaging (5) Liver mass: Code(s): R16.0 - Hepatomegaly, not elsewhere classified Status: Acute Assessment and Plan: * noted/suggested by RUQ ultrasound imaging on last hospitalization * CT imaging ordered for further assessment (6) Anemia: Code(s): D64.9 - Anemia, unspecified Status: Acute Assessment and Plan: * drop in H/H noted * partly related to due to MADY and CKD as well as acute illness * possibly related to IVFs/dilution * previous anemia studies (last admission) with iron deficiency * follow trend of H/H (7) Essential (primary) hypertension: Code(s): I10 - Essential (primary) hypertension Status: Chronic Assessment and Plan: * reasonable control noted * KAMILA-I and chlorthalidone remains on hold * follow trend of hemodynamics (8) Type 2 diabetes mellitus: Qualifiers: Diabetes mellitus complication status: with other specified complication Diabetes mellitus meterman insulin use: without meterman use Qualified Code(s): E11.69 - Type 2 diabetes mellitus with other specified complication Code(s): E11.9 - Type 2 diabetes mellitus without complications Status: Chronic Assessment and Plan: * follow accu-cheks * issues with hypoglycemia noted since hospitalization * recent medication changes noted prior to admission * glycemic control per hospitalist I will continue to follow the patient with you while she remains hospitalized and make further recommendations as deemed necessary. Thank you for allowing me to participate in the care of this patient. L History of Present Illness Reason for Consult Consult date: 01/16/25 Reason for consult: acute renal failure (on chronic kidney versus progression of CKD) Chief Complaint Chief complaint: Fatigue and weakness History of Present Illness Narrative: The patient is a 74-year-old female with a past medical history as outlined below who presented to [facility] emergency her with complaints of weakness and fatigue. It should be noted patient was just recently hospitalized about a week to 10 days ago for similar symptoms thought to be related to her acute kidney injury/acute renal failure on top of her baseline chronic kidney disease as well as concerns for possible new onset liver cirrhosis/liver disease. Her symptoms apparently approved with supportive therapy in the form of IV fluids and medication adjustments although her renal function did not normalize to its baseline and there were some concerns with regard to her underlying liver disease. However, she requested discharge and the tentative plan was for outpatient follow-up with regard to these issues. However, the symptoms seem to recur over the last few days which led to her repeat presentation to the ER. From review of her records and discussion with the patient, she reports the symptoms initially started when she had her diabetes medications adjusted in October of this year. She was initially tried on will go V but developed severe heartburn and this apparently resolved with discontinuation of this medication. And she was placed on Jardiance but then developed the symptoms of fatigue fatigue and weakness that have persisted even after discontinuation of this medication. Her symptoms briefly improved during her hospitalization about 10 days ago with IV fluids and discontinuation of her lisinopril and chlorthalidone. she denies any symptoms of chest pain, shortness of breath, nausea, vomiting, dizziness, lightheadedness, hematochezia, melena, abdominal pain, or dysuria. Workup and evaluation emergency room demonstrated relative hypotension with a systolic BP in the mid 80s otherwise no evidence of tachycardia, tachypnea, or fever. Routine blood tests were significant for white blood cell count of 14.6, hemoglobin 10.6, potassium of 6.1 (which improved to 5.1 with medical management ), creatinine 2.23, magnesium 1.9, CRP of 20.3, albumin of 2.9, and a UA that was somewhat concerning for possible urinary tract infection. Her chest x-ray showed blunting the posterior costophrenic angles which may represent prominent extrapleural fat or tiny pleural effusions. She received 2 L of IV fluids with improvement in her blood pressure and given her constellation of symptoms as well her recent hospitalization little over week ago in association with ongoing evidence of renal dysfunction on top of her baseline kidney disease + recently diagnosed liver issues, she was admitted to the hospital for further evaluation and therapy. Since her admission, her renal function is slightly better but still not back to baseline and she continues to have slightly higher potassium than normal despite ongoing medical therapy. Renal consultation was requested due to her acute kidney injury/acute renal failure on top of her baseline chronic kidney disease. From review of her records, she has had some degree of renal insufficiency that dates back as far as 2019 if not longer. Her creatinine was running around 1.2 - 1.3 mg/dL in then worsened to 1.4 - 1.6 mg/dL in with her most recent labs in December of this year showing a creatinine around 2.0 - 2.4 mg/dL. as already mentioned, this hospital admission was complicated by evidence of hyperkalemia on presentation and even with medical therapy, her potassium still is running on the higher side of. She denies any issues or problems with hematuria or dysuria or CVA/flank pain. Presumably, her underlying renal insufficiency is probably related to her diabetes and hypertension as well as age although the recent deterioration in her kidney function beginning earlier this month is not entirely clear. Currently, at the time my evaluation, she does not appear to be in any acute distress. Review of Systems 2 Review of Systems: As per HPI. [facility] Past Medical History Medical History (Updated 01/27/25 @ 13:31 by Jose Astorga MD) CHF (congestive heart failure) Dyslipidemia Type 2 diabetes mellitus CKD (chronic kidney disease) Age-related macular degeneration Essential (primary) hypertension Psychophysiological insomnia Vitamin D deficiency, unspecified Surgical History Surgical History History of tonsillectomy Status post cataract extraction of both eyes with insertion of intraocular lens Hx of cholecystectomy H/O hysterectomy for benign disease Family History Family History Mother Hypertension Family history of Alzheimer's disease Family history of type 1 diabetes mellitus Diabetes mellitus Father Family history of lymphoma History of kidney disease Hypertension Grandparent Breast cancer Social History Social History Social History: She is . She recently saw older home of 50 or 50 years to her granddaughter and grandson in law. But she now lives with them and takes care of her [id number] great grandchild 5 days a week. She states she will drink 1 beer about every other month. She is a lifelong nonsmoker and does not use illicit substances. She ambulates with a walker. 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 Code status: Full code Surrogate decision maker: Jenn France (daughter) Smoking status: Never smoker Second hand tobacco smoke exposure: No Alcohol intake: never Drinks per week: 1 Substance use: current Substance use type: does not use Other substance usage details: once every 3-4 months Do You Feel Safe in your Home?: Yes Lack of Transportation: No Lack of Food: Never True Current Housing: I Have Housing Concerned About Future Housing: No Difficulty Paying Gas/Electric Bills: No Difficulty Paying for Meds: No Currently Unemployed: No Education: High School Diploma/GED Difficulty w/ Childcare or Family Care: No Living arrangements: with family Additional living arrangements comments: pt lives with granddaughter and granddaughter Occupation/Education: retired Gender identity (if verbalized by the patient): Female Sexual Orientation (if Verbalized by the Patient): Straight or Heterosexual Spiritual care concerns: No Meds Home Medications and Allergies Home Medications ?Medication ?Instructions ?Recorded ?Confirmed ?Type chlorthalidone 25 mg tablet 25 mg PO DAILY #90 tabs 05/29/24 01/26/25 Rx glipizide 5 mg tablet 10 mg (2 x 5 mg) PO BID 90 days 05/29/24 01/26/25 Rx #360 tabs ondansetron HCl 4 mg tablet 4 mg PO Q8H PRN nausea and 10/22/24 01/26/25 Rx vomiting #20 tabs metformin 1,000 mg tablet 500 mg (1/2 x 1,000 mg) PO BID #90 11/15/24 01/26/25 Rx tabs tizanidine 4 mg tablet 4 mg PO TID PRN muscle spasticity 12/28/24 01/26/25 Rx #30 tabs alprazolam 0.5 mg tablet 0.25 mg PO HS insomnia 01/04/25 01/26/25 History trazodone 50 mg tablet 50 mg PO QHS PRN sleep #60 tabs 01/09/25 01/26/25 Rx metoprolol tartrate 25 mg tablet 12.5 mg (1/2 x 25 mg) PO BID #90 01/24/25 01/26/25 Rx tabs docusate sodium 100 mg capsule 100 mg PO DAILY 01/26/25 01/26/25 History ergocalciferol (vitamin D2) 1,250 1,250 mcg PO WEEKLY 01/26/25 01/26/25 History mcg (50,000 unit) capsule (Vitamin D2) polyethylene glycol 3350 17 gram 17 g PO DAILY PRN constipation 01/26/25 01/26/25 History oral powder packet (Miralax) warfarin 3 mg tablet 3 mg PO QPM 01/26/25 01/26/25 History Allergies Allergy/AdvReac Type Severity Reaction Status Date / Time No Known Allergies Allergy Verified 01/15/25 13:38 Vital Signs Vital Signs Temp Pulse Resp BP Pulse Ox O2 Del Method 01/16/25 12:00 135 H 01/16/25 11:38 98.2 F 105 H 22 H 137/57 L 98 01/16/25 10:00 110 H 01/16/25 08:00 104 H 01/16/25 07:32 98.5 F 103 H 18 96/35 L 97 01/16/25 06:00 102 H 01/16/25 04:00 100 01/16/25 03:57 98.3 F 99 22 H 105/44 L 95 01/16/25 03:38 Room Air 01/16/25 02:00 98 01/16/25 00:00 92 01/16/25 00:00 Room Air 01/16/25 00:00 97.6 F 93 22 H 108/40 L 98 01/15/25 22:36 Room Air 01/15/25 22:26 97.5 F L 124 H 24 H 118/56 L 95 01/15/25 22:00 128 H 01/15/25 21:14 116 H 124/63 01/15/25 18:55 85 18 98/43 L 98 01/15/25 18:14 84 16 91/61 L 99 01/15/25 16:50 92 16 100/53 L 98 Exam 2 Narrative: GENERAL APPEARANCE: well developed well nourished female in no acute distress HEENT: normocephalic, atraumatic, normal conjunctiva and sclera, nares patient NECK: no lymphadenopathy, thyromegaly, or JVD MOUTH: normal lips, teeth, and gums CARDIOVASCULAR: RRR, normal S1 and S2, no rub RESPIRATORY: clear to auscultation bilaterally ABDOMEN: obese but soft, nontender, nondistended, positive bowel sounds present EXTREMITIES: no evidence of cyanosis, clubbing, or edema NEUROLOGICAL: alert and oriented x 3; CN II - XII intact bilaterally; no focal deficits noted Results Lab Results 01/22/25 05:05 01/23/25 05:13 Lab results: Most recent lab results Calcium 9.0 mg/dL (8.4-10.2) 01/16/25 04:21 Magnesium 1.9 mg/dL (1.6-2.3) 01/15/25 14:10 Urine Creatinine 135.0 mg/dL 01/15/25 17:10
--- NOTE | 2025-01-16 16:40 | P.PNIM_ITS ---
Progress Note: A&P Assessment and Plan (1) Acute kidney injury superimposed on stage 3b chronic kidney disease: Code(s): N17.9 - Acute kidney failure, unspecified; N18.32 - Chronic kidney disease, stage 3b Status: Acute Assessment and Plan: - labs: Creatinine in 2022 and 2023 ranged from 1.21 to 1.57. Peak creatinine during most recent admission was 2.37 on 01/05. 10/02/2024: Creatinine 1.57, GFR 34, BUN 22 01/01/2025: Creatinine 2.04, GFR 25, BUN 56 01/15/2025: Creatinine 2.23, GFR 21, BUN 62 - Total CK normal. Pamela 26. UA consistent with UTI with 3+ bacteria, 21-50WBC and LE+. - hepatitis panel negative on 01/05/25 - UCx pending. Recent UC on 01/04 showed no growth. No current urinary symptoms, reporting fatigue. - Renal US - showing no hydronephrosis with somewhat limited visualization of the right kidney; bladder not seen. - monitor I&Os - continue to hold lisinopril and chlorthalidone, have been held since 01/04 - nephrology consultation (2) Acute hyperkalemia: Code(s): E87.5 - Hyperkalemia Status: Acute Assessment and Plan: - K 6.1 -> 5.1 In ED given: 2L bolus, calcium, insulin/dextrose, sodium bicarb, and Lokelma Lokelma continued. Continue to trend (3) Type 2 diabetes mellitus: Qualifiers: Diabetes mellitus complication status: with other specified complication Diabetes mellitus long-term insulin use: without long-term use Qualified Code(s): E11.69 - Type 2 diabetes mellitus with other specified complication Code(s): E11.9 - Type 2 diabetes mellitus without complications Status: Acute Assessment and Plan: The patient had a hypoglycemic event on 01/15, glucose was noted to be 31 on repeat BMP. Given dextrose 50% 25G with improvement to 86. Unclear if the hypoglycemic event secondary to insulin/dextrose administration for hyperkalemia verses low due to home medications. Most recent medication change in October, initially trialed on Wegovy but developed severe heartburn and nausea. Exchanged to Jardiance, reports fatigue/weakness/poor appetite since initiation. Heartburn resolved with cessation of Wegovy. She reports she stopped taking the Jardiance within the last week. Unsure if she has still been taking her Metformin. - hypoglycemia protocol - POC blood glucose ACHS - home medication: Hold metformin and glipizide in case of need for contrast and patient was hypoglycemic in the ED. Patient did not list Jardiance as a current medication. - correct regimen ordered - high dose TIDWM, based off BMI - A1C 6.1% on 01/01/2025 (4) Essential (primary) hypertension: Code(s): I10 - Essential (primary) hypertension Status: Chronic Assessment and Plan: - chronic - hold home medication: amlodipine. Patient has not resumed lisinopril or chlorthalidone, will continue to hold. - monitor Plan Possible cirrhosis - RUQ showing possible cirrhosis but can not excluding underlying mass. Can not do CT with contrast so proceed with CT without since she did not want MRI. May need MRI liver to see if she has a mass. DVT Prophylaxis: Lovenox SQ Code Status: Full code Subjective Date/time seen: 01/16/25 16:40 Interval history: 74yo female with CHF, CKD and HTN here for fatigue and weakness. Patient feels better today. No history of alcohol use. No history of blood exposure. She did have blood transfusion in 2010 but nothing prior. Her urine output is still decreased. She denies confusion. No foamy urine. Exam Narrative: AF 98.6 132/63 93 24 98% ra Gen - NARD Chest - CTA bilaterally, nml RR CV - RRR S1/S2. Telemetry showing 1 episode of brief run of SVT versus atrial tachycardia Abd - Soft, NT/ND, Positive BS Ext - +pedal edema. Negative Homans Neuro - Alert and orientedx4. Nonfocal exam. Psych - Nml mood and affect Skin - Warm and dry Objective Data Vital Signs Vital Signs: Vital Signs - 24 hr 01/15/25 16:50 01/15/25 18:14 01/15/25 18:55 Temperature Pulse Rate 92 84 85 Respiratory Rate 16 16 18 Blood Pressure 100/53 L 91/61 L 98/43 L Pulse Oximetry 98 99 98 Oxygen Delivery 01/15/25 21:14 01/15/25 22:00 01/15/25 22:26 Temperature 97.5 F L Pulse Rate 116 H 128 H 124 H Respiratory Rate 24 H Blood Pressure 124/63 118/56 L Pulse Oximetry 95 Oxygen Delivery 01/15/25 22:36 01/16/25 00:00 01/16/25 00:00 Temperature 97.6 F Pulse Rate 93 Respiratory Rate 22 H Blood Pressure 108/40 L Pulse Oximetry 98 Oxygen Delivery Room Air Room Air 01/16/25 00:00 01/16/25 02:00 01/16/25 03:38 Temperature Pulse Rate 92 98 Respiratory Rate Blood Pressure Pulse Oximetry Oxygen Delivery Room Air 01/16/25 03:57 01/16/25 04:00 01/16/25 06:00 Temperature 98.3 F Pulse Rate 99 100 102 H Respiratory Rate 22 H Blood Pressure 105/44 L Pulse Oximetry 95 Oxygen Delivery 01/16/25 07:32 01/16/25 08:00 01/16/25 10:00 Temperature 98.5 F Pulse Rate 103 H 104 H 110 H Respiratory Rate 18 Blood Pressure 96/35 L Pulse Oximetry 97 Oxygen Delivery 01/16/25 11:38 01/16/25 12:00 01/16/25 14:00 Temperature 98.2 F Pulse Rate 105 H 135 H 99 Respiratory Rate 22 H Blood Pressure 137/57 L Pulse Oximetry 98 Oxygen Delivery 01/16/25 16:00 Temperature 98.6 F Pulse Rate 93 Respiratory Rate 24 H Blood Pressure 132/63 Pulse Oximetry 98 Oxygen Delivery Intake/Output Intake/Output: Intake & Output 01/13/25 01/14/25 01/15/25 01/16/25 23:59 23:59 23:59 23:59 Intake Total 2150 2990 Output Total 400 500 Balance 1750 2490 Meds/Results Medications: Active Medications Generic Name Dose Route Start Last Admin Trade Name Freq PRN Reason Stop Dose Admin Alprazolam 0.25 mg 01/16/25 21:00 Alprazolam (*Crx) 0.25 Mg Tablet PO HS MAREK Dextrose 12.5 gm 01/15/25 18:12 Dextrose 50% 25 Gm/50 Ml Syringe IV PUSH PRN PRN Hypoglycemia Protocol Enoxaparin Sodium 30 mg 01/16/25 09:00 01/16/25 09:19 Enoxaparin 30 Mg/0.3 Ml Syringe SUB-Q 30 mg DAILY MAREK Administration Glucagon 1 mg 01/15/25 18:12 Glucagon For Inj 1 Mg Vial IM PRN PRN Hypoglycemia Protocol Glucose 15 gm 01/15/25 18:12 Glucose Oral Gel 15 Gm Of Glucse In 37.5 Gm Tube PO PRN PRN Hypoglycemia Protocol Lactated Ringer's 1,000 mls @ 75 mls/hr 01/15/25 17:05 01/16/25 16:36 Lr - Lactated Ringers Iv IV CONT 125 mls/hr .[id number] MAREK Administration Dextrose 1,000 mls @ 100 mls/hr 01/15/25 18:12 Dextrose 5% 1,000 Ml IVPB PRN PRN Hypoglycemia Protocol Insulin Aspart 4 - 8 units 01/16/25 08:00 01/16/25 12:15 Insulin Aspart (*Bkc) 100 Units/Ml SUB-Q Not Given TIDWM [facility] Protocol Ondansetron HCl 4 mg 01/15/25 17:04 Ondansetron Inj 4 Mg/2 Ml Vial IV PUSH Q4H PRN Nausea Sodium Zirconium Cyclosilicate 10 gm 01/16/25 10:00 01/16/25 09:19 Sodium Zirconium Cyclosilicate 10 Gm Powd.Pack PO 10 gm DAILY@1000 MAREK Administration Trazodone HCl 50 mg 01/16/25 00:01 01/16/25 00:59 Trazodone Hcl 50 Mg Tablet PO 50 mg QHS PRN Administration sleep Radiology Results: ITS Impressions Chest X-Ray 01/15/25 14:46 IMPRESSION: 1. Blunting of the posterior costophrenic angles, which may be prominent extrapleural fat or tiny pleural effusions. Renal Ultrasound 01/15/25 20:46 IMPRESSION: No hydronephrosis. Somewhat limited visualization of the right kidney. The bladder was not visualized. Heterogeneous liver, liver masses not excluded, recommend contrast CT or hepatic MRI for further characterization. Labs Labs: Laboratory Results - last 24 hr 01/15/25 01/15/25 01/15/25 17:10 17:17 18:15 WBC RBC Hgb Hct MCV MCH MCHC RDW Plt Count MPV Immature Gran % (Auto) Neut % (Auto) Lymph % (Auto) [place] % (Auto) Eos % (Auto) Baso % (Auto) Lymph # (Auto) [place] # (Auto) Eos # (Auto) Baso # (Auto) Abs Immat Gran (auto) Absolute Neuts (auto) Absolute Nucleated RBC Band Neutrophils % Nucleated RBC % Platelet Estimate Hypochromasia Target Cells Schistocytes Sodium 135 L Potassium 5.1 H Chloride 105 Carbon Dioxide 18 L Anion Gap 12 BUN 59 H Creatinine 2.23 H Estim Creat Clear Calc 28 Estimated GFR 21 L Glucose 31 L* POC Capillary Glucose 86 Calcium 8.9 Total Bilirubin AST ALT Alkaline Phosphatase Total Creatine Kinase < 20 L C-Reactive Protein 20.3 H Total Protein Albumin Urine Color Dark yellow Urine Appearance Cloudy H Urine pH 5.0 Ur Specific [place] 1.017 Urine Protein Trace Urine Glucose (UA) Negative Urine Ketones Trace H Ur Blood (Man) Negative Urine Nitrate Negative Urine Bilirubin 1+ H Urine Urobilinogen 2.0 H Add Ur Microanalysis Reviewed Leukocyte Esterase Rfl 2+ H Urine RBC 6-10 H Urine WBC 21-50 H Ur Squamous Epith Cells Moderate Urine Bacteria 3+ H Urine Casts >20 U Random Total Protein 12 Ur Random Sodium 26 Urine Creatinine 135.0 Protein/Creat Ratio 2 0.09 01/15/25 01/15/25 01/15/25 19:25 20:32 21:15 WBC RBC Hgb Hct MCV MCH MCHC RDW Plt Count MPV Immature Gran % (Auto) Neut % (Auto) Lymph % (Auto) [place] % (Auto) Eos % (Auto) Baso % (Auto) Lymph # (Auto) [place] # (Auto) Eos # (Auto) Baso # (Auto) Abs Immat Gran (auto) Absolute Neuts (auto) Absolute Nucleated RBC Band Neutrophils % Nucleated RBC % Platelet Estimate Hypochromasia Target Cells Schistocytes Sodium Potassium Chloride Carbon Dioxide Anion Gap BUN Creatinine Estim Creat Clear Calc Estimated GFR Glucose POC Capillary Glucose 69 55 L* 90 Calcium Total Bilirubin AST ALT Alkaline Phosphatase Total Creatine Kinase C-Reactive Protein Total Protein Albumin Urine Color Urine Appearance Urine pH Ur Specific [place] Urine Protein Urine Glucose (UA) Urine Ketones Ur Blood (Man) Urine Nitrate Urine Bilirubin Urine Urobilinogen Add Ur Microanalysis Leukocyte Esterase Rfl Urine RBC Urine WBC Ur Squamous Epith Cells Urine Bacteria Urine Casts U Random Total Protein Ur Random Sodium Urine Creatinine Protein/Creat Ratio 2 01/15/25 01/16/25 01/16/25 22:10 04:21 07:31 WBC 14.1 H RBC 3.09 L Hgb 8.4 L Hct 26.6 L MCV 86.1 MCH 27.2 MCHC 31.6 L RDW 23.4 H Plt Count 249 MPV 10.9 H Immature Gran % (Auto) 0.7 H Neut % (Auto) 85.3 H Lymph % (Auto) 7.2 L [place] % (Auto) 6.2 Eos % (Auto) 0.5 Baso % (Auto) 0.1 L Lymph # (Auto) 1.01 [place] # (Auto) 0.9 H Eos # (Auto) 0.1 Baso # (Auto) 0.0 Abs Immat Gran (auto) 0.10 H Absolute Neuts (auto) 12.0 H Absolute Nucleated RBC 0.000 Band Neutrophils % 0 Nucleated RBC % 0.0 Platelet Estimate Adequate Hypochromasia 1+ Target Cells 1+ Schistocytes None seen Sodium 134 L Potassium 5.3 H Chloride 106 Carbon Dioxide 18 L Anion Gap 10 BUN 58 H Creatinine 2.17 H Estim Creat Clear Calc 30 Estimated GFR 22 L Glucose 96 POC Capillary Glucose 136 H 91 Calcium 9.0 Total Bilirubin 3.9 H AST 82 H ALT 27 Alkaline Phosphatase 395 H Total Creatine Kinase C-Reactive Protein Total Protein 6.0 L Albumin 2.8 L Urine Color Urine Appearance Urine pH Ur Specific [place] Urine Protein Urine Glucose (UA) Urine Ketones Ur Blood (Man) Urine Nitrate Urine Bilirubin Urine Urobilinogen Add Ur Microanalysis Leukocyte Esterase Rfl Urine RBC Urine WBC Ur Squamous Epith Cells Urine Bacteria Urine Casts U Random Total Protein Ur Random Sodium Urine Creatinine Protein/Creat Ratio 2 01/16/25 11:36 WBC RBC Hgb Hct MCV MCH MCHC RDW Plt Count MPV Immature Gran % (Auto) Neut % (Auto) Lymph % (Auto) [place] % (Auto) Eos % (Auto) Baso % (Auto) Lymph # (Auto) [place] # (Auto) Eos # (Auto) Baso # (Auto) Abs Immat Gran (auto) Absolute Neuts (auto) Absolute Nucleated RBC Band Neutrophils % Nucleated RBC % Platelet Estimate Hypochromasia Target Cells Schistocytes Sodium Potassium Chloride Carbon Dioxide Anion Gap BUN Creatinine Estim Creat Clear Calc Estimated GFR Glucose POC Capillary Glucose 101 Calcium Total Bilirubin AST ALT Alkaline Phosphatase Total Creatine Kinase C-Reactive Protein Total Protein Albumin Urine Color Urine Appearance Urine pH Ur Specific [place] Urine Protein Urine Glucose (UA) Urine Ketones Ur Blood (Man) Urine Nitrate Urine Bilirubin Urine Urobilinogen Add Ur Microanalysis Leukocyte Esterase Rfl Urine RBC Urine WBC Ur Squamous Epith Cells Urine Bacteria Urine Casts U Random Total Protein Ur Random Sodium Urine Creatinine Protein/Creat Ratio 2
[2025-01-16 17:04] LABS: Glucose Point of Care 104 mg/dl (65-105)
[2025-01-16 17:29] LABS: Anion Gap 10 mmol/L (4-12); Blood Urea Nitrogen 56 mg/dL (7-17); Calcium 9.2 mg/dL (8.4-10.2); Carbon Dioxide 18 mmol/L (22-30); Chloride 106 mmol/L (98-107); Estimated CRCL calculation 31 ml/min; Estimated Glomerular Filt Rate 23; Glucose 108 mg/dL (65-110); Potassium 5.4 mmol/L (3.4-5.0); Sodium 134 mmol/L (137-145)
[2025-01-16] MEDS: ALPRAZolam (*CRX) 0.25 MG TABLET PO (20:37)
[2025-01-16 21:20] LABS: Glucose Point of Care 139 mg/dl (65-105)
[2025-01-17] VITALS (20 sets, daily range): BP systolic 102–143; BP diastolic 48–70; PULSE 72–141; RESP 22–26; TEMP 36.4–37; O2SAT 94–97
[2025-01-17] MEDS: LACTATED RINGERS 1,000 ML 125 ML IV CONT ×3 (00:44→16:22)
[2025-01-17 04:45] LABS: Basophils Percent Auto 0.1 % (0.2-1.2); Eosinophils Percent Auto 0.3 % (0-4.4); Hematocrit 26.9 % (37.0-47.0); Hemoglobin 8.6 g/dL (12.0-15.0); Immature Granulocyte Absolute 0.09 K/mm3 (0.00-0.031); Immature Granulocyte Percent A 0.6 % (0-0.5); Lymphocytes Absolute Auto 0.82 K/mm3 (0.9-3.2); Lymphocytes Percent Auto 5.7 % (18.3-44.2); Mean Corpuscular Hemoglobin 27.7 pg (26-34); Mean Corpuscular Volume 86.8 fl (80-100); Mean Platelet Volume 10.8 fl (7.4-10.4); Monocytes Absolute Auto 0.9 K/mm3 (0.1-0.6); Monocytes Percent Auto 6.4 % (2.6-8.5); Neutrophils Absolute Auto 12.5 K/mm3 (1.3-6.7); Neutrophils Percent Auto 86.9 % (45.5-73.1); Platelet Count Result 216 k/mm3 (150-375); Red Cell Distribution Width 23.7 % (11.5-14.5); White Blood Count 14.4 K/mm3 (4.5-10.0)
[2025-01-17 05:09] LABS: Anisocytosis 1+; Platelet Estimate Adequate (Adequate); Schistocytes Rare; Target Cells 1+
[2025-01-17 05:24] LABS: Ammonia 35 umol/L (9-30)
[2025-01-17 05:26] LABS: Alanine Aminotransferase 26 U/L (6-35); Albumin Level 2.8 g/dL (3.5-5.1); Alkaline Phosphatase 361 U/L (38-126); Anion Gap 10 mmol/L (4-12); Aspartate Amino Transferase 76 U/L (14-36); Bilirubin Indirect 1.2 mg/dL (0-1.1); Bilirubin,Total 4.7 mg/dL (0.2-1.3); Blood Urea Nitrogen 54 mg/dL (7-17); Calcium 8.8 mg/dL (8.4-10.2); Carbon Dioxide 16 mmol/L (22-30); Chloride 108 mmol/L (98-107); Estimated CRCL calculation 32 ml/min; Estimated Glomerular Filt Rate 24; Glucose 123 mg/dL (65-110); Magnesium 1.7 mg/dL (1.6-2.3); Phosphorus 3.5 mg/dL (2.5-4.5); Potassium 5.2 mmol/L (3.4-5.0); Sodium 134 mmol/L (137-145)
[2025-01-17 06:19] LABS: Vitamin B12 > 1000.0 pg/mL (239-931)
[2025-01-17 08:00] LABS: Glucose Point of Care 98 mg/dl (65-105)
[2025-01-17 08:15] LABS: Eosinophil Urine None Seen % (None Seen)
[2025-01-17] MEDS: SODIUM BICARBONATE TAB 650 MG TABLET 1300 MG PO ×2 (08:20→16:20)
[2025-01-17] MEDS: SODIUM ZIRCONIUM CYCLOSILICATE 10 GM POWD.PACK PO (08:26)
[2025-01-17] MEDS: ENOXAPARIN 30 MG/0.3 ML SYRINGE SUB-Q (08:26)
[2025-01-17 08:28] LABS: Urine Eos QC 2nd Tech Confirmed
[2025-01-17 09:19] LABS: Carcinoembryonic Antigen 29.8 ng/mL (0.0-3.0)
--- NOTE | 2025-01-17 10:07 | P.PNIM_ITS ---
Progress Note: A&P Assessment and Plan (1) Acute kidney injury superimposed on stage 3b chronic kidney disease: Code(s): N17.9 - Acute kidney failure, unspecified; N18.32 - Chronic kidney disease, stage 3b Status: Acute Assessment and Plan: Patient presents with weakness and found to have MADY. Baseline Cr 1.21 to 1.57. 01/15/2025: Creatinine 2.23, GFR 21, BUN 62 Total CK normal. Pamela 26. UA consistent with UTI with 3+ bacteria, 21-50WBC and LE+. UCx negative. Nephrology consulted and appreciate their input Renal US showing no hydronephrosis with somewhat limited visualization of the right kidney; bladder not seen. Holding lisinopril and chlorthalidone (have been held since 01/04) Started on IV fluids. Cr better at 2.0 but becoming fluid overloaded. Metabolic acidosis noted and oral NaBicarb started. Monitor UOP, renal fxn and electrolytes. (2) Acute hyperkalemia: Code(s): E87.5 - Hyperkalemia Status: Acute Assessment and Plan: Potassium 6.1. In ED given: 2L bolus, calcium, insulin/dextrose, sodium bicarb, and Lokelma with benefit. Lokelma continued. Potassium mildly elevated and stable Continue to trend (3) Type 2 diabetes mellitus: Qualifiers: Diabetes mellitus complication status: with other specified complication Diabetes mellitus intermediate school teacher insulin use: without intermediate school teacher use Qualified Code(s): E11.69 - Type 2 diabetes mellitus with other specified complication Code(s): E11.9 - Type 2 diabetes mellitus without complications Status: Acute Assessment and Plan: The patient had a hypoglycemic event on 01/15, glucose was noted to be 31 on repeat BMP. Given dextrose 50% 25G with improvement to 86. Unclear if the hypoglycemic event secondary to insulin/dextrose administration for hyperkalemia verses low due to home medications. Most recent medication change in October, initially trialed on Wegovy but developed severe heartburn and nausea. Exchanged to Jardiance, reports fatigue/weakness/poor appetite since initiation. Heartburn resolved with cessation of Wegovy. She reports she stopped taking the Jardiance within the last week. Unsure if she has still been taking her Metformin. A1c 6.1%. Continue hypoglycemia protocol POC blood glucose ACHS and high dose sliding scale Home medication of metformin and glipizide on hold Follow (4) Essential (primary) hypertension: Code(s): I10 - Essential (primary) hypertension Status: Chronic Assessment and Plan: Patient's blood pressure was reviewed on 01/17 Blood pressure remains well controlled. Will continue to monitor (5) Liver mass: Code(s): R16.0 - Hepatomegaly, not elsewhere classified Status: Acute Assessment and Plan: RUQ showing possible cirrhosis but can not excluding underlying mass. CT without contrast showing hepatomegaly with multiple hypodensities suggestive of metastatic lesions, ascites, small caliber IVC and minimal right-sided pleural effusion with adjacent atelectasis. Small caliber IVC but doubt dehydrated since receiving IV fluids, appears fluid overload and with positive fluid balance. Consider LE DVT decreasing venous return but LE venous doppler negative for DVT. Hepatitis panel negative on 01/05/25 CEA 30. ALP level pending. GI consulted and discussed. Did not recommend colonoscopy but felt MRI of the liver should be the next test. Patient did not want MRI and not sure she would fit in scanner. Will speak with radiology about a CT guided liver biopsy. (6) Cirrhosis: Code(s): K74.60 - Unspecified cirrhosis of liver Status: Acute Assessment and Plan: As above (7) Morbid (severe) obesity due to excess calories: Code(s): E66.01 - Morbid (severe) obesity due to excess calories Status: Acute Assessment and Plan: BMI 48. This is negatively contributing to her evaluation. Plan DVT Prophylaxis: Lovenox SQ Code Status: Full code Subjective Date/time seen: 01/17/25 10:07 Interval history: 74yo female with CHF, CKD and HTN here for fatigue and weakness. No chest pain or shortness of breath. No abd pain. No change in her UOP. No hx of AFib/AFlutter. Left hand edema but had an IV in that arm and was replacd. Colonoscopy in 2010 that was negative but nothing since. Exam Narrative: AF 98.3 124/62 112 24 97% ra Gen - NARD Chest - CTA bilaterally, nml RR CV - Regular, tachycardic. Telemetry showing sinus tachycardia Abd - Soft, obese, NT, +BS Ext - ++pedal edema. 1+ LUE edema Psych - Nml mood and affect Skin - Warm and dry Objective Data Vital Signs Vital Signs: Vital Signs - 24 hr 01/16/25 11:38 01/16/25 12:00 01/16/25 14:00 Temperature 98.2 F Pulse Rate 105 H 135 H 99 Respiratory Rate 22 H Blood Pressure 137/57 L Pulse Oximetry 98 Oxygen Delivery 01/16/25 16:00 01/16/25 16:00 01/16/25 18:00 Temperature 98.6 F Pulse Rate 93 93 100 Respiratory Rate 24 H Blood Pressure 132/63 Pulse Oximetry 98 Oxygen Delivery 01/16/25 20:00 01/16/25 20:00 01/16/25 20:17 Temperature 98.2 F Pulse Rate 127 H 127 H Respiratory Rate 22 H Blood Pressure 131/60 Pulse Oximetry 92 Oxygen Delivery Room Air 01/16/25 22:00 01/17/25 00:00 01/17/25 00:00 Temperature Pulse Rate 114 H 117 H Respiratory Rate Blood Pressure Pulse Oximetry Oxygen Delivery Room Air 01/17/25 00:08 01/17/25 02:00 01/17/25 03:11 Temperature 98.2 F 98.4 F Pulse Rate 117 H 117 H 117 H Respiratory Rate 22 H 22 H Blood Pressure 143/70 H 102/50 L Pulse Oximetry 97 94 Oxygen Delivery 01/17/25 04:00 01/17/25 04:00 01/17/25 06:00 Temperature Pulse Rate 124 H 109 H Respiratory Rate Blood Pressure Pulse Oximetry Oxygen Delivery Room Air 01/17/25 08:00 01/17/25 08:00 Temperature 98.3 F Pulse Rate 135 H 112 H Respiratory Rate 24 H Blood Pressure 124/62 Pulse Oximetry 97 Oxygen Delivery Intake/Output Intake/Output: Intake & Output 01/14/25 01/15/25 01/16/25 01/17/25 23:59 23:59 23:59 23:59 Intake Total 2150 3230 2063.8 Output Total 400 800 350 Balance 1750 2430 1713.8 Meds/Results Medications: Active Medications Generic Name Dose Route Start Last Admin Trade Name Freq PRN Reason Stop Dose Admin Alprazolam 0.25 mg 01/16/25 21:00 01/16/25 20:37 Alprazolam (*Crx) 0.25 Mg Tablet PO 0.25 mg HS MAREK Administration Dextrose 12.5 gm 01/15/25 18:12 Dextrose 50% 25 Gm/50 Ml Syringe IV PUSH PRN PRN Hypoglycemia Protocol Enoxaparin Sodium 30 mg 01/16/25 09:00 01/17/25 08:26 Enoxaparin 30 Mg/0.3 Ml Syringe SUB-Q 30 mg DAILY MAREK Administration Glucagon 1 mg 01/15/25 18:12 Glucagon For Inj 1 Mg Vial IM PRN PRN Hypoglycemia Protocol Glucose 15 gm 01/15/25 18:12 Glucose Oral Gel 15 Gm Of Glucse In 37.5 Gm Tube PO PRN PRN Hypoglycemia Protocol Lactated Ringer's 1,000 mls @ 75 mls/hr 01/15/25 17:05 01/17/25 08:17 Lr - Lactated Ringers Iv IV CONT 125 mls/hr .[id number] MAREK Administration Dextrose 1,000 mls @ 100 mls/hr 01/15/25 18:12 Dextrose 5% 1,000 Ml IVPB PRN PRN Hypoglycemia Protocol Insulin Aspart 4 - 8 units 01/16/25 08:00 01/17/25 08:26 Insulin Aspart (*Bkc) 100 Units/Ml SUB-Q Not Given TIDWM [facility] Protocol Ondansetron HCl 4 mg 01/15/25 17:04 Ondansetron Inj 4 Mg/2 Ml Vial IV PUSH Q4H PRN Nausea Sodium Bicarbonate 1,300 mg 01/17/25 09:00 01/17/25 08:20 Sodium Bicarbonate Tab 650 Mg Tablet PO 1,300 mg BID MAREK Administration Sodium Zirconium Cyclosilicate 10 gm 01/16/25 10:00 01/17/25 08:26 Sodium Zirconium Cyclosilicate 10 Gm Powd.Pack PO 10 gm DAILY@1000 MAREK Administration Trazodone HCl 50 mg 01/16/25 00:01 01/16/25 20:37 Trazodone Hcl 50 Mg Tablet PO 50 mg QHS PRN Administration sleep Radiology Results: ITS Impressions Chest X-Ray 01/15/25 14:46 IMPRESSION: 1. Blunting of the posterior costophrenic angles, which may be prominent extrapleural fat or tiny pleural effusions. Renal Ultrasound 01/15/25 20:46 IMPRESSION: No hydronephrosis. Somewhat limited visualization of the right kidney. The bladder was not visualized. Heterogeneous liver, liver masses not excluded, recommend contrast CT or hepatic MRI for further characterization. Abdomen/Pelvis CT 01/16/25 23:06 IMPRESSION: 1. Hepatomegaly with multiple hypodensities suggestive of metastatic lesions. Further evaluation advised. 2. Ascites. 3. Small caliber IVC. Clinical correlation for hypotension advised. 4. Minimal right-sided pleural effusion with adjacent atelectasis. Labs Labs: Laboratory Results - last 24 hr 01/16/25 01/16/25 01/16/25 11:36 16:47 17:09 WBC RBC Hgb Hct MCV MCH MCHC RDW Plt Count MPV Immature Gran % (Auto) Neut % (Auto) Lymph % (Auto) [place] % (Auto) Eos % (Auto) Baso % (Auto) Lymph # (Auto) [place] # (Auto) Eos # (Auto) Baso # (Auto) Abs Immat Gran (auto) Absolute Neuts (auto) Absolute Nucleated RBC Band Neutrophils % Nucleated RBC % Platelet Estimate Anisocytosis Target Cells Schistocytes Sodium 134 L Potassium 5.4 H Chloride 106 Carbon Dioxide 18 L Anion Gap 10 BUN 56 H Creatinine 2.08 H Estim Creat Clear Calc 31 Estimated GFR 23 L Glucose 108 POC Capillary Glucose 101 104 Calcium 9.2 Phosphorus Magnesium Total Bilirubin Indirect Bilirubin AST ALT Alkaline Phosphatase Ammonia Total Protein Albumin Carcinoembryonic Ag Vitamin B12 Random Cortisol Urine Eosinophils 01/16/25 01/17/25 01/17/25 20:35 04:23 04:30 WBC 14.4 H RBC 3.10 L Hgb 8.6 L Hct 26.9 L MCV 86.8 MCH 27.7 MCHC 32.0 RDW 23.7 H Plt Count 216 MPV 10.8 H Immature Gran % (Auto) 0.6 H Neut % (Auto) 86.9 H Lymph % (Auto) 5.7 L [place] % (Auto) 6.4 Eos % (Auto) 0.3 Baso % (Auto) 0.1 L Lymph # (Auto) 0.82 L [place] # (Auto) 0.9 H Eos # (Auto) 0.0 Baso # (Auto) 0.0 Abs Immat Gran (auto) 0.09 H Absolute Neuts (auto) 12.5 H Absolute Nucleated RBC 0.000 Band Neutrophils % Not Reportable Nucleated RBC % 0.0 Platelet Estimate Adequate Anisocytosis 1+ Target Cells 1+ Schistocytes Rare Sodium 134 L Potassium 5.2 H Chloride 108 H Carbon Dioxide 16 L Anion Gap 10 BUN 54 H Creatinine 2.03 H Estim Creat Clear Calc 32 Estimated GFR 24 L Glucose 123 H POC Capillary Glucose 139 H Calcium 8.8 Phosphorus 3.5 Magnesium 1.7 Total Bilirubin 4.7 H Indirect Bilirubin 1.2 H AST 76 H ALT 26 Alkaline Phosphatase 361 H Ammonia 35 H Total Protein 5.0 L Albumin 2.8 L Carcinoembryonic Ag 29.8 H Vitamin B12 > 1000.0 H Random Cortisol 26.40 Urine Eosinophils 01/17/25 01/17/25 06:24 07:31 WBC RBC Hgb Hct MCV MCH MCHC RDW Plt Count MPV Immature Gran % (Auto) Neut % (Auto) Lymph % (Auto) [place] % (Auto) Eos % (Auto) Baso % (Auto) Lymph # (Auto) [place] # (Auto) Eos # (Auto) Baso # (Auto) Abs Immat Gran (auto) Absolute Neuts (auto) Absolute Nucleated RBC Band Neutrophils % Nucleated RBC % Platelet Estimate Anisocytosis Target Cells Schistocytes Sodium Potassium Chloride Carbon Dioxide Anion Gap BUN Creatinine Estim Creat Clear Calc Estimated GFR Glucose POC Capillary Glucose 98 Calcium Phosphorus Magnesium Total Bilirubin Indirect Bilirubin AST ALT Alkaline Phosphatase Ammonia Total Protein Albumin Carcinoembryonic Ag Vitamin B12 Random Cortisol Urine Eosinophils None seen
--- NOTE | 2025-01-17 10:07 | ECG_ITS ---
Test Date: 2025-01-17 12:10:25 Measurements Intervals Justin Rate: 102 P: 16 TN: 148 QRS: 39 QRSD: 88 T: 56 QT: 320 QTc: 419 Interpretive Statements SINUS TACHYCARDIA LOW QRS VOLTAGE IN PRECORDIAL LEADS [QRS DEFLECTION < 1.0 mV IN CHEST LEADS] POSSIBLE ANTERIOR MYOCARDIAL INFARCTION , PROBABLY OLD [30 ms Q WAVE IN V3/V4, OR R < 0.2 mV IN V4] ABNORMAL RHYTHM ECG Compared to ECG 01/15/2025 14:03:31 Low QRS voltage now present Sinus rhythm no longer present Myocardial infarct finding still present Electronically Signed On 01-17-2025 14:36:25 CDT by Cyrus John M.D.
[2025-01-17 11:43] LABS: Glucose Point of Care 97 mg/dl (65-105)
--- NOTE | 2025-01-17 13:48 | P.PNNP_ITS ---
Progress Note: A&P Assessment and Plan (1) Acute kidney injury: Code(s): N17.9 - Acute kidney failure, unspecified Status: Acute Assessment and Plan: * as noted this year... * creatinine running ~ 1.4 - 1.6mg/dl (in 2022 - 2023) * creatinine ~ 1.2 - 1.3mg/dl (in 2019) * creatinine running 2.0 - 2.4mg/dl since early December 2024 * admission creatinine 2.23mg/dl * possibly related to liver cirrhosis/physiology: * decreased effective circulating volume leading to chronic prerenal azotemia worsened by ascites and need for diuretic therapy... * evaluation to date noted: * renal ultrasound without hydro but limited visualization of right kidney * CPK low * prerenal urine electrolytes * no significant proteinuria * UA suggestive of infection (but culture negative) * lisinopril and chlorthalidone on hold * some improvement noted with trial of IVFs * metabolic acidosis noted - attempting to compensate with sodium bicarbonate * follow trend of repeat labs and UOP (2) Chronic kidney disease, stage 3b: Code(s): N18.32 - Chronic kidney disease, stage 3b Status: Chronic Assessment and Plan: * creatinine was running ~ 1.4 - 1.6mg/dl (in 2022 - 2023) and ~ 1.2 - 1.3mg/dl (in 2019) * suspect underlying CKD due to diabetes, hypertension, and age-related change (3) Acute hyperkalemia: Code(s): E87.5 - Hyperkalemia Status: Acute Assessment and Plan: * as noted on admission - K+ 6.1 * s/p medical management (IVF, IV calcium, D50 + IV insulin, IV bicarb and lokelma) * remains on lokelma at this time * follow trend of repeat K+ levels (4) Cirrhosis: Code(s): K74.60 - Unspecified cirrhosis of liver Status: Acute Assessment and Plan: * as suggested by imaging to date: * RUQ showing possible cirrhosis but can not excluding underlying mass (as noted on last hospital stay) * CT A/P (on 01/16) showing hepatomegaly with multiple hypodensities suggestive of metastatic lesions, ascites, small caliber IVC and minimal right-sided pleural effusion with adjacent atelectasis * etiology not clear * possible etiology for #1 (?) * hepatitis panel negative * GI consultation for further assessment (5) Liver mass: Code(s): R16.0 - Hepatomegaly, not elsewhere classified Status: Acute Assessment and Plan: * noted by imaging (see #4) * GI consultation * further imaging needed versus need for liver biopsy? (6) Anemia: Code(s): D64.9 - Anemia, unspecified Status: Acute Assessment and Plan: * drop in H/H noted * partly related to due to MADY and CKD as well as acute illness * possibly related to IVFs/dilution * previous anemia studies (last admission) with iron deficiency * follow trend of H/H (7) Essential (primary) hypertension: Code(s): I10 - Essential (primary) hypertension Status: Chronic Assessment and Plan: * reasonable control noted * KAMILA-I and chlorthalidone remains on hold * follow trend of hemodynamics (8) Type 2 diabetes mellitus: Qualifiers: Diabetes mellitus complication status: with other specified complication Diabetes mellitus group 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 L Subjective Date/time seen: 01/17/25 13:48 Interval history: Follow-up for acute kidney injury/acute renal failure on chronic kidney disease versus progression of CKD. No acute complaints voiced at the time of my visit other than just not feeling great. No issues/events overnight or earlier this morning; renal function/creatinine a tad better in the last 24 hours although potassium remains slightly elevated; no apparent distress to report. Exam 2 Narrative: General: elderly but WD/WN female in NAD Heart: tachycardic, normal S1 and S2; no rub Lungs: clear anteriorly Abdomen: obese but soft, nontender, nondistended, positive bowel sounds Extremities: no cyanosis or clubbing; 2+ edema Skin: warm and dry Objective Data Vital Signs Vital Signs: Vital Signs Temp Pulse Resp BP Pulse Ox O2 Del Method 01/17/25 12:00 100 01/17/25 11:46 97.8 F 118 H 24 H 128/51 L 96 01/17/25 10:00 119 H 01/17/25 08:00 112 H 01/17/25 08:00 98.3 F 135 H 24 H 124/62 97 01/17/25 06:00 109 H 01/17/25 04:00 124 H 01/17/25 04:00 Room Air 01/17/25 03:11 98.4 F 117 H 22 H 102/50 L 94 01/17/25 02:00 117 H 01/17/25 00:08 98.2 F 117 H 22 H 143/70 H 97 01/17/25 00:00 117 H 01/17/25 00:00 Room Air 01/16/25 22:00 114 H 01/16/25 20:17 98.2 F 127 H 22 H 131/60 92 01/16/25 20:00 127 H 01/16/25 20:00 Room Air Intake/Output Intake/Output: Intake & Output 01/14/25 01/15/25 01/16/25 01/17/25 23:59 23:59 23:59 23:59 Intake Total 2150 3230 3463.8 Output Total 400 800 900 Balance 1750 2430 2563.8 Meds/Results Medications: Active Medications Generic Name Dose Route Start Last Admin Trade Name Freq PRN Reason Stop Dose Admin Alprazolam 0.25 mg 01/16/25 21:00 01/16/25 20:37 Alprazolam (*Crx) 0.25 Mg Tablet PO 0.25 mg HS MAREK Administration Dextrose 12.5 gm 01/15/25 18:12 Dextrose 50% 25 Gm/50 Ml Syringe IV PUSH PRN PRN Hypoglycemia Protocol Enoxaparin Sodium 30 mg 01/16/25 09:00 01/17/25 08:26 Enoxaparin 30 Mg/0.3 Ml Syringe SUB-Q 30 mg DAILY MAREK Administration Glucagon 1 mg 01/15/25 18:12 Glucagon For Inj 1 Mg Vial IM PRN PRN Hypoglycemia Protocol Glucose 15 gm 01/15/25 18:12 Glucose Oral Gel 15 Gm Of Glucse In 37.5 Gm Tube PO PRN PRN Hypoglycemia Protocol Lactated Ringer's 1,000 mls @ 75 mls/hr 01/15/25 17:05 01/17/25 16:22 Lr - Lactated Ringers Iv IV CONT 125 mls/hr .[id number] MAREK Administration Dextrose 1,000 mls @ 100 mls/hr 01/15/25 18:12 Dextrose 5% 1,000 Ml IVPB PRN PRN Hypoglycemia Protocol Insulin Aspart 4 - 8 units 01/16/25 08:00 01/17/25 16:26 Insulin Aspart (*Bkc) 100 Units/Ml SUB-Q Not Given TIDWM MAREK Protocol Ondansetron HCl 4 mg 01/15/25 17:04 Ondansetron Inj 4 Mg/2 Ml Vial IV PUSH Q4H PRN Nausea Sodium Bicarbonate 1,300 mg 01/17/25 09:00 01/17/25 16:20 Sodium Bicarbonate Tab 650 Mg Tablet PO 1,300 mg BID MAREK Administration Sodium Zirconium Cyclosilicate 10 gm 01/16/25 10:00 01/17/25 08:26 Sodium Zirconium Cyclosilicate 10 Gm Powd.Pack PO 10 gm DAILY@1000 MAREK Administration Trazodone HCl 50 mg 01/16/25 00:01 01/16/25 20:37 Trazodone Hcl 50 Mg Tablet PO 50 mg QHS PRN Administration sleep Radiology Results: ITS Impressions Chest X-Ray 01/15/25 14:46 IMPRESSION: 1. Blunting of the posterior costophrenic angles, which may be prominent extrapleural fat or tiny pleural effusions. Renal Ultrasound 01/15/25 20:46 IMPRESSION: No hydronephrosis. Somewhat limited visualization of the right kidney. The bladder was not visualized. Heterogeneous liver, liver masses not excluded, recommend contrast CT or hepatic MRI for further characterization. Abdomen/Pelvis CT 01/16/25 23:06 IMPRESSION: 1. Hepatomegaly with multiple hypodensities suggestive of metastatic lesions. Further evaluation advised. 2. Ascites. 3. Small caliber IVC. Clinical correlation for hypotension advised. 4. Minimal right-sided pleural effusion with adjacent atelectasis. Venous Doppler Study 01/17/25 11:17 IMPRESSION: 1: No lower extremity deep venous thrombosis. Labs Labs: Laboratory Tests 01/17/25 04:30 01/17/25 04:30 Calcium 8.8 Phosphorus 3.5 Magnesium 1.7 Total Bilirubin 4.7 H Indirect Bilirubin 1.2 H AST 76 H ALT 26 Alkaline Phosphatase 361 H Ammonia 35 H Total Protein 5.0 L Albumin 2.8 L Microbiology 01/15/25 17:10 Unspecified Urine Urine Culture - Final
[2025-01-17 15:30] LABS: Glucose Point of Care 113 mg/dl (65-105)
--- NOTE | 2025-01-17 19:36 | P.CONGI_ITS ---
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 Her MELD 3.0 score of 26 reflects a significantly poor prognosis. Imaging is crucial to evaluate for hepatocellular carcinoma which is highly suspected based on her clinical context. Given the renal impairment, a contrast-enhanced CT was not possible. An MRI with contrast is the preferred imaging modality to assess for classic HCC washout patterns. AFP is pending, but its potential for false negatives (up to 40%) must be considered. Elevated CEA is noted, but it lacks specificity for gastrointestinal adenocarcinoma in this patient. We have considered the limitations of MRI due to potential physical constraints or claustrophobia. If MRI is not achievable, a CT-guided biopsy by Interventional Radiology may be considered. However, it is essential to know that the patient's underlying liver dysfunction portends a poor prognosis, regardless of HCC confirmation. Therefore, the primary purpose of a biopsy would be academic. The patient's multifocal malignancy, superimposed on severe cirrhosis, carries a poor prognosis, with limited therapeutic options. Furthermore, her renal failure complicates ascites management, precluding diuretic use. Large-volume paracentesis with albumin replacement is the only palliative strategy for symptomatic ascites in her particlar case. GI Consult Note Consult date/time: 01/17/25 19:36 Reason for consult: Cirrhosis with focal masses HPI: Nikki Don is a 74 year old female with longstanding diabetes, morbid obesity, who was admitted on 01/15 for weakness and fatigue. She is known to have acute on chronic renal failure. an ultrasound performed on 01/05 showed a liver with nodular contour and a CT scan without contrast done on 01/16 due to the presence of renal failure, showed a nodule liver, with moderate ascites, minimal right pleural effusion and multiple hypodense lesions in the liver. Review of Systems 2 Review of Systems: All systems reviewed & are unremarkable except as noted in HPI and below PMFSH Past Medical History Medical History Vitamin D deficiency, unspecified CHF (congestive heart failure) Dyslipidemia CKD (chronic kidney disease) Type 2 diabetes mellitus Age-related macular degeneration Essential (primary) hypertension Psychophysiological insomnia Surgical History Surgical History History of tonsillectomy Status post cataract extraction of both eyes with insertion of intraocular lens Hx of cholecystectomy H/O hysterectomy for benign disease Family History Family History Mother Hypertension Family history of Alzheimer's disease Family history of type 1 diabetes mellitus Diabetes mellitus Father Family history of lymphoma History of kidney disease Hypertension Grandparent Breast cancer Social History Social History Social History: She is . She recently saw older home of 50 or 50 years to her granddaughter and grandson in law. But she now lives with them and takes care of her [id number] great grandchild 5 days a week. She states she will drink 1 beer about every other month. She is a lifelong nonsmoker and does not use illicit substances. She ambulates with a walker. 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 Code status: Full code Surrogate decision maker: Jenn France (daughter) Smoking status: Never smoker Second hand tobacco smoke exposure: No Alcohol intake: never Drinks per week: 1 Substance use: never Substance use type: does not use Do You Feel Safe in your Home?: Yes Lack of Transportation: No Lack of Food: Never True Current Housing: I Have Housing Concerned About Future Housing: No Difficulty Paying Gas/Electric Bills: No Difficulty Paying for Meds: No Currently Unemployed: No Education: High School Diploma/GED Difficulty w/ Childcare or Family Care: No Living arrangements: with family Additional living arrangements comments: pt lives with granddaughter and granddaughter Occupation/Education: retired Gender identity (if verbalized by the patient): Female Sexual Orientation (if Verbalized by the Patient): Straight or Heterosexual Spiritual care concerns: No Meds Home Medications and Allergies Home Medications ?Medication ?Instructions ?Recorded ?Confirmed ?Type amlodipine 10 mg tablet 10 mg PO DAILY #90 tabs 05/29/24 01/15/25 Rx chlorthalidone 25 mg tablet 25 mg PO DAILY #90 tabs 05/29/24 01/15/25 Rx glipizide 5 mg tablet 10 mg (2 x 5 mg) PO BID 90 days 05/29/24 01/15/25 Rx #360 tabs lisinopril 40 mg tablet 40 mg PO DAILY #90 tabs 05/29/24 01/15/25 Rx ondansetron HCl 4 mg tablet 4 mg PO Q8H PRN nausea and 10/22/24 01/15/25 Rx vomiting #20 tabs metformin 1,000 mg tablet 500 mg (1/2 x 1,000 mg) PO BID #90 11/15/24 01/15/25 Rx tabs tizanidine 4 mg tablet 4 mg PO TID PRN muscle spasticity 12/28/24 01/15/25 Rx #30 tabs alprazolam 0.5 mg tablet 0.25 mg PO HS insomnia 01/04/25 01/15/25 History trazodone 50 mg tablet 50 mg PO QHS PRN sleep #60 tabs 01/09/25 01/15/25 Rx Allergies Allergy/AdvReac Type Severity Reaction Status Date / Time No Known Allergies Allergy Verified 01/15/25 13:38 Vital Signs Vital Signs - 24 hr 01/16/25 20:00 01/16/25 20:00 01/16/25 20:17 Temperature 98.2 F Pulse Rate 127 H 127 H Respiratory Rate 22 H Blood Pressure 131/60 Pulse Oximetry 92 Oxygen Delivery Room Air 01/16/25 22:00 01/17/25 00:00 01/17/25 00:00 Temperature Pulse Rate 114 H 117 H Respiratory Rate Blood Pressure Pulse Oximetry Oxygen Delivery Room Air 01/17/25 00:08 01/17/25 02:00 01/17/25 03:11 Temperature 98.2 F 98.4 F Pulse Rate 117 H 117 H 117 H Respiratory Rate 22 H 22 H Blood Pressure 143/70 H 102/50 L Pulse Oximetry 97 94 Oxygen Delivery 01/17/25 04:00 01/17/25 04:00 01/17/25 06:00 Temperature Pulse Rate 124 H 109 H Respiratory Rate Blood Pressure Pulse Oximetry Oxygen Delivery Room Air 01/17/25 08:00 01/17/25 08:00 01/17/25 10:00 Temperature 98.3 F Pulse Rate 135 H 112 H 119 H Respiratory Rate 24 H Blood Pressure 124/62 Pulse Oximetry 97 Oxygen Delivery 01/17/25 11:46 01/17/25 12:00 01/17/25 14:00 Temperature 97.8 F Pulse Rate 118 H 100 95 Respiratory Rate 24 H Blood Pressure 128/51 L Pulse Oximetry 96 Oxygen Delivery 01/17/25 16:00 01/17/25 16:00 01/17/25 18:00 Temperature 97.5 F L Pulse Rate 132 H 138 H 72 Respiratory Rate 26 H Blood Pressure 125/53 L Pulse Oximetry 97 Oxygen Delivery Exam 2 Narrative: Alert and oriented x3, cooperative. Morbidly obese with a very prominent abdominal wall. Unable to palpate any masses due to massive obesity. Extremities: 2+ pedal edema. rest of the examination within normal Results Labs 01/17/25 04:30 01/17/25 04:30 Labs: Short CBC 01/17/25 Range/Units 04:30 WBC 14.4 H (4.5-10.0) K/mm3 Hgb 8.6 L (12.0-15.0) g/dL Hct 26.9 L (37.0-47.0) % Plt Count 216 (150-375) k/mm3 BMP 01/17/25 04:30 Sodium 134 L Potassium 5.2 H Chloride 108 H Carbon Dioxide 16 L BUN 54 H Creatinine 2.03 H Glucose 123 H Calcium 8.8 Liver Function 01/17/25 Range/Units 04:30 Total Bilirubin 4.7 H (0.2-1.3) mg/dL AST 76 H (14-36) U/L ALT 26 (6-35) U/L Alkaline Phosphatase 361 H (38-126) U/L Albumin 2.8 L (3.5-5.1) g/dL
[2025-01-17 20:37] LABS: Glucose Point of Care 111 mg/dl (65-105)
[2025-01-17] MEDS: ALPRAZolam (*CRX) 0.25 MG TABLET PO (20:46)
[2025-01-17 23:56] LABS: Alanine Aminotransferase 29 U/L (6-35); Albumin Level 2.8 g/dL (3.5-5.1); Alkaline Phosphatase 356 U/L (38-126); Anion Gap 9 mmol/L (4-12); Aspartate Amino Transferase 81 U/L (14-36); Blood Urea Nitrogen 52 mg/dL (7-17); Calcium 8.7 mg/dL (8.4-10.2); Carbon Dioxide 20 mmol/L (22-30); Chloride 106 mmol/L (98-107); Estimated CRCL calculation 33 ml/min; Estimated Glomerular Filt Rate 25; Glucose 84 mg/dL (65-110); Potassium 4.7 mmol/L (3.4-5.0); Sodium 135 mmol/L (137-145)
[2025-01-18] VITALS (14 sets, daily range): BP systolic 100–107; BP diastolic 47–53; PULSE 80–141; RESP 16–22; TEMP 36.3–37; O2SAT 94–99; BMI 47.6
--- NOTE | 2025-01-18 | P.PNCROSS_ITS ---
Event Note Event Note Event Note: Event: Was called by bedside nursing that patient's heart rate jumped up to 140s and is sustained. We went ahead and got an EKG which showed sinus tach in the 140s. Review of chart shown that patient has MADY superimposed on chronic kidney disease. Nephrology is following. Lisinopril and Chlorthalidone have been on hold. She does have a low Bicarb level and is currently getting sodium bicarb. She also has been treated for hyperkalemia earlier today. Her potassium level was 6.1 and she was given Lokelma today. Repeat K+ was 5.2. On assessment she denies any shortness of breath or chest pain. She is on room air. She denies any pain in lower extremities with dorsiflexion that would point me in the direction of PE. GI is also on board for workup of potential hepatocellular carcinoma. Exam: General: In no acute distress, well nourished Head: atraumatic, no encephalopathy Neck: supple, no JVD, no adenopathy, trachea midline Cardiac: Normal S1 and S2. Sinus tachycardia on the monitor, No murmur, gallops or friction rubs, peripheral pulses intact. Denies chest pain Respiratory: Lungs clear to auscultation, no adventitious lung sounds, currently on room air, no acute respiratory distress, no use of accessory muscles Gastrointestinal: soft, non-distended, non-tender, normoactive bowel sounds. : voiding without difficulty. Extremities: moves all extremities well, bilateral lower extremity edema left greater than right Skin: clean, dry, intact. No wounds or lesions. Neuro: Alert to voice and oriented x4 Psych: Agitated-likely from awakening her, interactive Plan: * Potassium on lab was 4.7 * Started Metoprolol 12.5mg BID for rate control, first dose now. Reassessment at 0445 AM: * HR now 84-97 * OK to now move out of IMU to med/surg with tele
[2025-01-18] MEDS: METOPROLOL TARTRATE INJ 5 MG/5 ML VIAL IV PUSH (00:25)
[2025-01-18] MEDS: METOPROLOL TARTRATE 12.5 MG TABLET PO ×3 (03:19→20:45)
[2025-01-18 03:53] LABS: Glucose Point of Care 67 mg/dl (65-105)
[2025-01-18 03:53] LABS: Glucose Point of Care 93 mg/dl (65-105)
--- NOTE | 2025-01-18 04:20 | PC.NURSE ---
This patient was transferred to room 259 via bed. All belongings sent with the patient and all questions answered. Report called to Desiree SHERMAN.
[2025-01-18 05:58] LABS: Basophils Percent Auto 0.1 % (0.2-1.2); Eosinophils Absolute Auto 0.1 K/mm3 (0-0.3); Eosinophils Percent Auto 0.4 % (0-4.4); Hematocrit 28.1 % (37.0-47.0); Hemoglobin 8.8 g/dL (12.0-15.0); Immature Granulocyte Absolute 0.13 K/mm3 (0.00-0.031); Immature Granulocyte Percent A 0.9 % (0-0.5); Lymphocytes Absolute Auto 0.88 K/mm3 (0.9-3.2); Lymphocytes Percent Auto 5.9 % (18.3-44.2); Mean Corpuscular HGB Conc 31.3 g/dl (32-36); Mean Corpuscular Hemoglobin 27.3 pg (26-34); Mean Corpuscular Volume 87.3 fl (80-100); Mean Platelet Volume 10.8 fl (7.4-10.4); Monocytes Absolute Auto 1.1 K/mm3 (0.1-0.6); Neutrophils Absolute Auto 12.8 K/mm3 (1.3-6.7); Neutrophils Percent Auto 85.7 % (45.5-73.1); Platelet Count Result 218 k/mm3 (150-375); Red Blood Count 3.22 M/mm3 (4.2-5.4); Red Cell Distribution Width 24.2 % (11.5-14.5); White Blood Count 14.9 K/mm3 (4.5-10.0)
[2025-01-18 06:07] LABS: Alanine Aminotransferase 30 U/L (6-35); Albumin Level 2.7 g/dL (3.5-5.1); Alkaline Phosphatase 366 U/L (38-126); Anion Gap 11 mmol/L (4-12); Aspartate Amino Transferase 84 U/L (14-36); Bilirubin,Total 5.4 mg/dL (0.2-1.3); Blood Urea Nitrogen 49 mg/dL (7-17); Calcium 8.4 mg/dL (8.4-10.2); Carbon Dioxide 19 mmol/L (22-30); Chloride 104 mmol/L (98-107); Estimated CRCL calculation 31 ml/min; Estimated Glomerular Filt Rate 23; Glucose 100 mg/dL (65-110); Magnesium 1.6 mg/dL (1.6-2.3); Phosphorus 3.7 mg/dL (2.5-4.5); Potassium 4.8 mmol/L (3.4-5.0); Sodium 134 mmol/L (137-145)
[2025-01-18] MEDS: LACTATED RINGERS 1,000 ML 75 ML IV CONT (06:08)
[2025-01-18 06:45] LABS: Anisocytosis 1+; Hypochromasia 1+; Ovalocytes 1+; Platelet Estimate Adequate (Adequate); Schistocytes Rare; Target Cells 1+
[2025-01-18 07:58] LABS: Glucose Point of Care 107 mg/dl (65-105)
[2025-01-18] MEDS: SODIUM BICARBONATE TAB 650 MG TABLET 1300 MG PO ×2 (09:24→17:28)
[2025-01-18] MEDS: SODIUM ZIRCONIUM CYCLOSILICATE 10 GM POWD.PACK PO (09:24)
--- NOTE | 2025-01-18 12:21 | P.PNIM_ITS ---
Progress Note: A&P Assessment and Plan (1) Acute kidney injury superimposed on stage 3b chronic kidney disease: Code(s): N17.9 - Acute kidney failure, unspecified; N18.32 - Chronic kidney disease, stage 3b Status: Acute Assessment and Plan: Patient presents with weakness and found to have MADY. Baseline Cr 1.21 to 1.57. 01/15/2025: Creatinine 2.23, GFR 21, BUN 62 Total CK normal. Pamela 26. UA consistent with UTI but UCx negative. Nephrology consulted and appreciate their input Renal US showing no hydronephrosis with somewhat limited visualization of the right kidney; bladder not seen. Holding lisinopril and chlorthalidone (have been held since 01/04) Started on IV fluids. Cr better at 2.0 but becoming fluid overloaded. Metabolic acidosis noted and oral NaBicarb started. Stop IV fluids. Lasix? Monitor UOP, renal fxn and electrolytes. (2) Acute hyperkalemia: Code(s): E87.5 - Hyperkalemia Status: Acute Assessment and Plan: Potassium 6.1. In ED given: 2L bolus, calcium, insulin/dextrose, sodium bicarb, and Lokelma with benefit. Lokelma continued. Potassium normal now. Stop Lokelma Continue to trend (3) Liver mass: Code(s): R16.0 - Hepatomegaly, not elsewhere classified Status: Acute Assessment and Plan: RUQ showing possible cirrhosis but can not excluding underlying mass. CT without contrast showing hepatomegaly with multiple hypodensities suggestive of metastatic lesions, ascites, small caliber IVC and minimal right-sided pleural effusion with adjacent atelectasis. Small caliber IVC but doubt dehydrated since receiving IV fluids, appears fluid overload and with positive fluid balance. Consider LE DVT decreasing venous return but LE venous doppler negative for DVT. Hepatitis panel negative on 01/05/25 CEA 30. ALP level pending. GI consulted and discussed. Did not recommend colonoscopy but felt MRI of the liver should be the next test. Patient did not want MRI and not sure she would fit in scanner. Spoke with radiology and reviewed literature about further evaluation. They did not feel findings consistent with HCC since no cirrhosis and multiple liver lesions. Radiology recommended paracentesis which we will order with appropriate testing including pathology. Radiology also recommended CT guided liver biopsy but ascites is a relative contraindication. Review of literature felt that it is not unreasonable to search for the primary since appearance of liver lesions consistent with mets and she has elevated CEA. Consider colonoscopy but radiology felt liver biopsy was possible despite her size. Discuss with GI about next steps if paracentesis fluid negative for malignancy. (4) Type 2 diabetes mellitus: Qualifiers: Diabetes mellitus complication status: with other specified complication Diabetes mellitus long lines operator insulin use: without assisted use Qualified Code(s): E11.69 - Type 2 diabetes mellitus with other specified complication Code(s): E11.9 - Type 2 diabetes mellitus without complications Status: Acute Assessment and Plan: The patient had a hypoglycemic event on 01/15, glucose was noted to be 31 on repeat BMP. Given dextrose 50% 25G with improvement to 86. Unclear if the hypoglycemic event secondary to insulin/dextrose administration for hyperkalemia verses low due to home medications. Most recent medication change in October, initially trialed on Wegovy but developed severe heartburn and nausea. Exchanged to Jardiance, reports fatigue/weakness/poor appetite since initiation. Heartburn resolved with cessation of Wegovy. She reports she stopped taking the Jardiance within the last week. Unsure if she has still been taking her Met formin. A1c 6.1%. Home medication of metformin and glipizide on hold The patient's blood glucose was reviewed on 01/18 Glucose remains well controlled. Continue AccuCheks covering with sliding scale. Hypoglycemia protocol available as needed. Continue to follow (5) Essential (primary) hypertension: Code(s): I10 - Essential (primary) hypertension Status: Chronic Assessment and Plan: Patient's blood pressure was reviewed on 01/18 Blood pressure remains well controlled. Will continue to monitor (6) Cirrhosis: Code(s): K74.60 - Unspecified cirrhosis of liver Status: Acute Assessment and Plan: Possible cirrhosis. Radiology felt imaging not consistent with cirrhosis. She definitely has evidence of liver dysfunction. (7) Morbid (severe) obesity due to excess calories: Code(s): E66.01 - Morbid (severe) obesity due to excess calories Status: Acute Assessment and Plan: BMI 48. This is negatively contributing to her evaluation. Plan Sinus tachycardia - Patient with episodes of tachycardia. EKG showing sinus tachycardia. Venous doppler negative of DVT in the lower extremity. VQ scan showing moderate sized perfusion defect at the posterior basilar segment RLL. PERC Rule can not exclude PE. Wells Score gives a moderate risk. EKG showing no S wave in I but shows Q wave and flat T wave in III. Echo 01/05/25 showing normal right sided findings. TSH normal. Will stop Lovenox and add Heparin drip. Check limited echo DVT Prophylaxis: Lovenox SQ Code Status: Full code Subjective Date/time seen: 01/18/25 12:21 Interval history: 74yo female with CHF, CKD and HTN here for fatigue and weakness. Sinus tachycardia overnight. Lopressor started. She feels tired. No SOB. No pleurtic CP. No n/v. Exam Narrative: AF 98.1 107/53 126 18 94% ra Gen - NARD Chest - CTA bilaterally, nml RR CV - Regular, tachycardic Abd - Soft, obese, NT, +BS Ext - ++pedal edema Psych - Nml mood and affect Skin - Warm and dry Objective Data Vital Signs Vital Signs: Vital Signs - 24 hr 01/17/25 14:00 01/17/25 16:00 01/17/25 16:00 Temperature 97.5 F L Pulse Rate 95 132 H 138 H Respiratory Rate 26 H Blood Pressure 125/53 L Pulse Oximetry 97 Oxygen Delivery Fraction of Inspired Oxygen 01/17/25 18:00 01/17/25 19:58 01/17/25 20:00 Temperature 98.6 F Pulse Rate 72 99 Respiratory Rate 22 H Blood Pressure 119/48 L Pulse Oximetry 96 Oxygen Delivery Room Air Fraction of Inspired Oxygen 01/17/25 20:00 01/17/25 20:47 01/17/25 21:08 Temperature Pulse Rate 97 125 H Respiratory Rate Blood Pressure Pulse Oximetry 96 Oxygen Delivery Room Air Fraction of Inspired Oxygen 21 01/17/25 22:00 01/17/25 22:30 01/17/25 23:17 Temperature Pulse Rate 98 136 H 141 H Respiratory Rate Blood Pressure Pulse Oximetry Oxygen Delivery Fraction of Inspired Oxygen 01/18/25 00:00 01/18/25 00:25 01/18/25 03:19 Temperature Pulse Rate 141 H 138 H 118 H Respiratory Rate Blood Pressure Pulse Oximetry Oxygen Delivery Fraction of Inspired Oxygen 01/18/25 04:00 01/18/25 04:03 01/18/25 04:18 Temperature 98.6 F Pulse Rate 140 H 119 H 84 Respiratory Rate 22 H Blood Pressure 101/47 L Pulse Oximetry 99 Oxygen Delivery Fraction of Inspired Oxygen 01/18/25 06:00 01/18/25 08:00 01/18/25 09:24 Temperature 98.1 F Pulse Rate 114 H 87 126 H Respiratory Rate 18 Blood Pressure 107/53 L Pulse Oximetry 94 Oxygen Delivery Fraction of Inspired Oxygen Intake/Output Intake/Output: Intake & Output 01/15/25 01/16/25 01/17/25 01/18/25 23:59 23:59 23:59 23:59 Intake Total 2150 3230 4158.0 1455.8 Output Total 400 800 900 450 Balance 1750 2430 3258.0 1005.8 Meds/Results Medications: Active Medications Generic Name Dose Route Start Last Admin Trade Name Freq PRN Reason Stop Dose Admin Alprazolam 0.25 mg 01/16/25 21:00 01/17/25 20:46 Alprazolam (*Crx) 0.25 Mg Tablet PO 0.25 mg HS MAREK Administration Dextrose 12.5 gm 01/15/25 18:12 Dextrose 50% 25 Gm/50 Ml Syringe IV PUSH PRN PRN Hypoglycemia Protocol Enoxaparin Sodium 30 mg 01/16/25 09:00 01/17/25 08:26 Enoxaparin 30 Mg/0.3 Ml Syringe SUB-Q 30 mg DAILY MAREK Administration Glucagon 1 mg 01/15/25 18:12 Glucagon For Inj 1 Mg Vial IM PRN PRN Hypoglycemia Protocol Glucose 15 gm 01/15/25 18:12 Glucose Oral Gel 15 Gm Of Glucse In 37.5 Gm Tube PO PRN PRN Hypoglycemia Protocol Lactated Ringer's 1,000 mls @ 75 mls/hr 01/15/25 17:05 01/18/25 06:08 Lr - Lactated Ringers Iv IV CONT 75 mls/hr .[id number] MAREK Administration Dextrose 1,000 mls @ 100 mls/hr 01/15/25 18:12 Dextrose 5% 1,000 Ml IVPB PRN PRN Hypoglycemia Protocol Insulin Aspart 4 - 8 units 01/16/25 08:00 01/18/25 10:34 Insulin Aspart (*Bkc) 100 Units/Ml SUB-Q Not Given TIDWM MAREK Protocol Metoprolol Tartrate 12.5 mg 01/18/25 01:35 01/18/25 09:24 Metoprolol Tartrate 12.5 Mg Tablet PO 12.5 mg Q12HR MAREK Administration Ondansetron HCl 4 mg 01/15/25 17:04 Ondansetron Inj 4 Mg/2 Ml Vial IV PUSH Q4H PRN Nausea Sodium Bicarbonate 1,300 mg 01/17/25 09:00 01/18/25 09:24 Sodium Bicarbonate Tab 650 Mg Tablet PO 1,300 mg BID MAREK Administration Sodium Zirconium Cyclosilicate 10 gm 01/16/25 10:00 01/18/25 09:24 Sodium Zirconium Cyclosilicate 10 Gm Powd.Pack PO 10 gm DAILY@1000 MAREK Administration Trazodone HCl 50 mg 01/16/25 00:01 01/16/25 20:37 Trazodone Hcl 50 Mg Tablet PO 50 mg QHS PRN Administration sleep Radiology Results: ITS Impressions Chest X-Ray 01/15/25 14:46 IMPRESSION: 1. Blunting of the posterior costophrenic angles, which may be prominent extrapleural fat or tiny pleural effusions. Renal Ultrasound 01/15/25 20:46 IMPRESSION: No hydronephrosis. Somewhat limited visualization of the right kidney. The bladder was not visualized. Heterogeneous liver, liver masses not excluded, recommend contrast CT or hepatic MRI for further characterization. Abdomen/Pelvis CT 01/16/25 23:06 IMPRESSION: 1. Hepatomegaly with multiple hypodensities suggestive of metastatic lesions. Further evaluation advised. 2. Ascites. 3. Small caliber IVC. Clinical correlation for hypotension advised. 4. Minimal right-sided pleural effusion with adjacent atelectasis. Venous Doppler Study 01/17/25 11:17 IMPRESSION: 1: No lower extremity deep venous thrombosis. Labs Labs: Laboratory Results - last 24 hr 01/17/25 01/17/25 01/17/25 15:14 20:19 23:41 WBC RBC Hgb Hct MCV MCH MCHC RDW Plt Count MPV Immature Gran % (Auto) Neut % (Auto) Lymph % (Auto) [place] % (Auto) Eos % (Auto) Baso % (Auto) Lymph # (Auto) [place] # (Auto) Eos # (Auto) Baso # (Auto) Abs Immat Gran (auto) Absolute Neuts (auto) Absolute Nucleated RBC Band Neutrophils % Nucleated RBC % Platelet Estimate Hypochromasia Anisocytosis Target Cells Ovalocytes Schistocytes Sodium 135 L Potassium 4.7 Chloride 106 Carbon Dioxide 20 L Anion Gap 9 BUN 52 H Creatinine 1.98 H Estim Creat Clear Calc 33 Estimated GFR 25 L Glucose 84 POC Capillary Glucose 113 H 111 H Calcium 8.7 Phosphorus Magnesium Total Bilirubin 5.0 H AST 81 H ALT 29 Alkaline Phosphatase 356 H Total Protein 5.0 L Albumin 2.8 L 01/18/25 01/18/25 01/18/25 03:23 03:47 05:50 WBC 14.9 H RBC 3.22 L Hgb 8.8 L Hct 28.1 L MCV 87.3 MCH 27.3 MCHC 31.3 L RDW 24.2 H Plt Count 218 MPV 10.8 H Immature Gran % (Auto) 0.9 H Neut % (Auto) 85.7 H Lymph % (Auto) 5.9 L [place] % (Auto) 7.0 Eos % (Auto) 0.4 Baso % (Auto) 0.1 L Lymph # (Auto) 0.88 L [place] # (Auto) 1.1 H Eos # (Auto) 0.1 Baso # (Auto) 0.0 Abs Immat Gran (auto) 0.13 H Absolute Neuts (auto) 12.8 H Absolute Nucleated RBC 0.000 Band Neutrophils % Not Reportable Nucleated RBC % 0.0 Platelet Estimate Adequate Hypochromasia 1+ Anisocytosis 1+ Target Cells 1+ Ovalocytes 1+ Schistocytes Rare Sodium 134 L Potassium 4.8 Chloride 104 Carbon Dioxide 19 L Anion Gap 11 BUN 49 H Creatinine 2.09 H Estim Creat Clear Calc 31 Estimated GFR 23 L Glucose 100 POC Capillary Glucose 67 93 Calcium 8.4 Phosphorus 3.7 Magnesium 1.6 Total Bilirubin 5.4 H AST 84 H ALT 30 Alkaline Phosphatase 366 H Total Protein 5.0 L Albumin 2.7 L 01/18/25 07:54 WBC RBC Hgb Hct MCV MCH MCHC RDW Plt Count MPV Immature Gran % (Auto) Neut % (Auto) Lymph % (Auto) [place] % (Auto) Eos % (Auto) Baso % (Auto) Lymph # (Auto) [place] # (Auto) Eos # (Auto) Baso # (Auto) Abs Immat Gran (auto) Absolute Neuts (auto) Absolute Nucleated RBC Band Neutrophils % Nucleated RBC % Platelet Estimate Hypochromasia Anisocytosis Target Cells Ovalocytes Schistocytes Sodium Potassium Chloride Carbon Dioxide Anion Gap BUN Creatinine Estim Creat Clear Calc Estimated GFR Glucose POC Capillary Glucose 107 H Calcium Phosphorus Magnesium Total Bilirubin AST ALT Alkaline Phosphatase Total Protein Albumin
--- NOTE | 2025-01-18 12:44 | P.PNNP_ITS ---
Progress Note: A&P Assessment and Plan (1) Acute kidney injury: Code(s): N17.9 - Acute kidney failure, unspecified Status: Acute Assessment and Plan: * relatively stable * as noted this year... * creatinine running ~ 1.4 - 1.6mg/dl (in 2022 - 2023) * creatinine ~ 1.2 - 1.3mg/dl (in 2019) * creatinine running 2.0 - 2.4mg/dl since early December 2024 * admission creatinine 2.23mg/dl * suspect possibly related to recent findings of liver cirrhosis (and associated physiology): * decreased effective circulating volume leading to chronic prerenal azotemia worsened by ascites and need for diuretic therapy... * evaluation to date noted: * renal ultrasound without hydro but limited visualization of right kidney * CPK low * prerenal urine electrolytes * no significant proteinuria * UA suggestive of infection (but culture negative) * lisinopril and chlorthalidone on hold * off IVFs due to concern of volume overload * metabolic acidosis better with sodium bicarbonate * follow trend of repeat labs and UOP (2) Chronic kidney disease, stage 3b: Code(s): N18.32 - Chronic kidney disease, stage 3b Status: Chronic Assessment and Plan: * creatinine was running ~ 1.4 - 1.6mg/dl (in 2022 - 2023) and ~ 1.2 - 1.3mg/dl (in 2019) * suspect underlying CKD due to diabetes, hypertension, and age-related change (3) Acute hyperkalemia: Code(s): E87.5 - Hyperkalemia Status: Acute Assessment and Plan: * as noted on admission - K+ 6.1 * s/p medical management (IVF, IV calcium, D50 + IV insulin, IV bicarb and lokelma) * follow trend of repeat K+ levels (4) Cirrhosis: Code(s): K74.60 - Unspecified cirrhosis of liver Status: Acute Assessment and Plan: * as suggested by imaging to date: * RUQ showing possible cirrhosis but can not excluding underlying mass (as noted on last hospital stay) * CT A/P (on 01/16) showing hepatomegaly with multiple hypodensities suggestive of metastatic lesions, ascites, small caliber IVC and minimal right-sided pleural effusion with adjacent atelectasis * etiology not clear * possible etiology for #1 (?) * hepatitis panel negative * GI following with recommendations noted (5) Liver mass: Code(s): R16.0 - Hepatomegaly, not elsewhere classified Status: Acute Assessment and Plan: * noted by imaging (see #4) * GI following with recommendations noted * follow-up on paracentesis results * if MRI not feasible, possible liver biopsy for definitive diagnosis (6) Anemia: Code(s): D64.9 - Anemia, unspecified Status: Acute Assessment and Plan: * drop in H/H noted * partly related to due to MADY and CKD as well as acute illness * possibly related to IVFs/dilution * previous anemia studies (last admission) with iron deficiency * follow trend of H/H (7) Essential (primary) hypertension: Code(s): I10 - Essential (primary) hypertension Status: Chronic Assessment and Plan: * reasonable control noted * KAMILA-I and chlorthalidone remains on hold * follow trend of hemodynamics (8) Type 2 diabetes mellitus: Qualifiers: Diabetes mellitus jail insulin use: without jail use Diabetes mellitus complication status: with other specified complication Qualified Code(s): E11.69 - Type 2 diabetes mellitus with other specified complication Code(s): E11.9 - Type 2 diabetes mellitus without complications Status: Chronic Assessment and Plan: * follow accu-cheks * issues with hypoglycemia noted since hospitalization * recent medication changes noted prior to admission * glycemic control per hospitalist Will continue to follow. L Subjective Date/time seen: 01/18/25 12:44 Interval history: Follow-up for acute kidney injury/acute renal failure on chronic kidney disease versus progression of CKD. Renal function/creatinine seems relatively stable with improvement in potassium and metabolic acidosis as noted by trend of labs; issues with tachycardia last night with better control with addition of beta ge/metoprolol therapy; results of CT of A/P yesterday noted with plan for ultrasound guided paracentesis (not sure she can get MRI of abdomen given body habitus) and V/Q scan this afternoon; no apparent distress noted at the time of my visit. Exam 2 Narrative: General: elderly but WD/WN female in NAD Heart: tachycardic at times, normal S1 and S2; no rub Lungs: clear anteriorly Abdomen: obese but soft, nontender, nondistended, positive bowel sounds Extremities: no cyanosis or clubbing; 1 - 2+ edema Skin: warm and intact Objective Data Vital Signs Vital Signs: Vital Signs Temp Pulse Resp BP Pulse Ox O2 Del Method FiO2 01/18/25 12:00 97.4 F L 84 16 100/47 L 99 01/18/25 09:24 126 H 01/18/25 08:00 87 01/18/25 06:00 98.1 F 114 H 18 107/53 L 94 01/18/25 04:18 84 01/18/25 04:03 98.6 F 119 H 22 H 101/47 L 99 01/18/25 04:00 140 H 01/18/25 03:19 118 H 01/18/25 00:25 138 H 01/18/25 00:00 141 H 01/17/25 23:17 141 H 01/17/25 22:30 136 H 01/17/25 22:00 98 01/17/25 21:08 125 H 01/17/25 20:47 96 Room Air 21 01/17/25 20:00 97 01/17/25 20:00 Room Air 01/17/25 19:58 98.6 F 99 22 H 119/48 L 96 01/17/25 18:00 72 Intake/Output Intake/Output: Intake & Output 01/15/25 01/16/25 01/17/25 01/18/25 23:59 23:59 23:59 23:59 Intake Total 2150 3230 4158.0 1695.8 Output Total 400 379 561 5710 Balance 1750 2430 3258.0 -754.2 Meds/Results Medications: Active Medications Generic Name Dose Route Start Last Admin Trade Name Freq PRN Reason Stop Dose Admin Alprazolam 0.25 mg 01/16/25 21:00 01/17/25 20:46 Alprazolam (*Crx) 0.25 Mg Tablet PO 0.25 mg HS MAREK Administration Dextrose 12.5 gm 01/15/25 18:12 Dextrose 50% 25 Gm/50 Ml Syringe IV PUSH PRN PRN Hypoglycemia Protocol Enoxaparin Sodium 30 mg 01/16/25 09:00 01/17/25 08:26 Enoxaparin 30 Mg/0.3 Ml Syringe SUB-Q 30 mg DAILY MAREK Administration Glucagon 1 mg 01/15/25 18:12 Glucagon For Inj 1 Mg Vial IM PRN PRN Hypoglycemia Protocol Glucose 15 gm 01/15/25 18:12 Glucose Oral Gel 15 Gm Of Glucse In 37.5 Gm Tube PO PRN PRN Hypoglycemia Protocol Dextrose 1,000 mls @ 100 mls/hr 01/15/25 18:12 Dextrose 5% 1,000 Ml IVPB PRN PRN Hypoglycemia Protocol Insulin Aspart 4 - 8 units 01/16/25 08:00 01/18/25 16:50 Insulin Aspart (*Bkc) 100 Units/Ml SUB-Q Not Given TIDWM MAREK Protocol Metoprolol Tartrate 12.5 mg 01/18/25 01:35 01/18/25 09:24 Metoprolol Tartrate 12.5 Mg Tablet PO 12.5 mg Q12HR MAREK Administration Ondansetron HCl 4 mg 01/15/25 17:04 Ondansetron Inj 4 Mg/2 Ml Vial IV PUSH Q4H PRN Nausea Sodium Bicarbonate 1,300 mg 01/17/25 09:00 01/18/25 09:24 Sodium Bicarbonate Tab 650 Mg Tablet PO 1,300 mg BID MAREK Administration Sodium Zirconium Cyclosilicate 10 gm 01/16/25 10:00 01/18/25 09:24 Sodium Zirconium Cyclosilicate 10 Gm Powd.Pack PO 10 gm DAILY@1000 MAREK Administration Trazodone HCl 50 mg 01/16/25 00:01 01/16/25 20:37 Trazodone Hcl 50 Mg Tablet PO 50 mg QHS PRN Administration sleep Radiology Results: ITS Impressions Chest X-Ray 01/15/25 14:46 IMPRESSION: 1. Blunting of the posterior costophrenic angles, which may be prominent extrapleural fat or tiny pleural effusions. Renal Ultrasound 01/15/25 20:46 IMPRESSION: No hydronephrosis. Somewhat limited visualization of the right kidney. The bladder was not visualized. Heterogeneous liver, liver masses not excluded, recommend contrast CT or hepatic MRI for further characterization. Abdomen/Pelvis CT 01/16/25 23:06 IMPRESSION: 1. Hepatomegaly with multiple hypodensities suggestive of metastatic lesions. Further evaluation advised. 2. Ascites. 3. Small caliber IVC. Clinical correlation for hypotension advised. 4. Minimal right-sided pleural effusion with adjacent atelectasis. Venous Doppler Study 01/17/25 11:17 IMPRESSION: 1: No lower extremity deep venous thrombosis. Paracentesis Ultrasound 01/18/25 15:00 IMPRESSION: 1. Successful ultrasound-guided paracentesis yielding 2000 mL of ubaldo-colored fluid. Pulmonary Perfusion Imaging 01/18/25 16:03 IMPRESSION: 1. Intermediate probability for pulmonary embolism. Labs Labs: Laboratory Tests 01/18/25 05:50 01/18/25 05:50 Calcium 8.4 Phosphorus 3.7 Magnesium 1.6 Total Bilirubin 5.4 H AST 84 H ALT 30 Alkaline Phosphatase 366 H Total Protein 5.0 L Albumin 2.7 L Microbiology 01/15/25 17:10 Unspecified Urine Urine Culture - Final
[2025-01-18 15:29] LABS: Appearance Peritoneal Fluid Cloudy (Clear); Color Peritoneal Fluid Other (Colorless); Source Peritoneal Fluid Peritoneal Fluid
[2025-01-18 15:46] LABS: Nucleated Cells Peritoneal Flu 585 /uL (0-500)
[2025-01-18 15:47] LABS: Eosinophils Peritoneal Fluid 0 %; Lymphocytes Peritoneal Fluid 15 %; Macrophages Peritoneal Fluid 7 %; Mesothelial Cells Peritoneal Fluid 5 %; Monocytes Peritoneal Fluid 9 %; Neutrophils Peritoneal Fluid 64 % (0-25); RBC Peritoneal Fluid 15000 /uL (0-10000)
[2025-01-18 16:50] LABS: Glucose Point of Care 95 mg/dl (65-105)
[2025-01-18] MEDS: HEPARIN SODIUM 5,000 UNITS/ML VIAL 7500 UNITS IV PUSH (18:32)
[2025-01-18] MEDS: HEPARIN SOD/D5W 100 UNITS/ML 25,000 UNITS/250 ML BAG 15 UNITS IV CONT (18:33)
[2025-01-18 18:58] LABS: INR 1.6
[2025-01-18 18:59] LABS: Partial Thromboplastin Time 46.2 Seconds (22.3-36.8)
--- NOTE | 2025-01-18 19:03 | P.PNGI_ITS ---
Progress Note: A&P Assessment and Plan (1) Spontaneous bacterial peritonitis: Code(s): K65.2 - Spontaneous bacterial peritonitis Status: Acute Assessment and Plan: The patient presents with decompensated cirrhosis complicated by ascites and a superimposed spsontaneous bacterial peritonitis . Management will focus on treating the acute infection and managing the ascites. Ceftriaxone 2g IV every 24 hours will be initiated for a 5-day course, along with albumin 1.5 g/kg (maximum 100g) on day 1 and day 3. A repeat paracentesis is planned for day 3, to assess treatment response . Will closely monitor renal function. Given the patient's instability and planned anticoagulation, further diagnostic evaluation of the focal hepatic masses via liver biopsy is currently non viable; this will be re-evaluated after stabilization, but, as discussed yesterday, will not offer therapeutic options even if a neoplasm is diagnosed. Again, at this stage the main goal is to deal with the complications of her liver disease and not with the possible neoplastic component. Subjective Date/time seen: 01/18/25 19:03 Interval history: MRI was tried this morning but patient did not fit in the machine. She had an episode of tachycardia and decompensation, and a pulmonary CT was obtained showing intermediate probability for pulmonary embolism. She is starting heparin drip today. Additionally, she underwent paracentesis, obtaining fluid cellularity fitting criteria for spontaneous bacterial peritonitis (374 PMN/mm3). Exam Narrative: unchanged from yesterday. Objective Data Vital Signs Vital Signs: Vital Signs - 24 hr 01/17/25 19:58 01/17/25 20:00 01/17/25 20:00 Temperature 98.6 F Pulse Rate 99 97 Respiratory Rate 22 H Blood Pressure 119/48 L Pulse Oximetry 96 Oxygen Delivery Room Air Fraction of Inspired Oxygen 01/17/25 20:47 01/17/25 21:08 01/17/25 22:00 Temperature Pulse Rate 125 H 98 Respiratory Rate Blood Pressure Pulse Oximetry 96 Oxygen Delivery Room Air Fraction of Inspired Oxygen 21 01/17/25 22:30 01/17/25 23:17 01/18/25 00:00 Temperature Pulse Rate 136 H 141 H 141 H Respiratory Rate Blood Pressure Pulse Oximetry Oxygen Delivery Fraction of Inspired Oxygen 01/18/25 00:25 01/18/25 03:19 01/18/25 04:00 Temperature Pulse Rate 138 H 118 H 140 H Respiratory Rate Blood Pressure Pulse Oximetry Oxygen Delivery Fraction of Inspired Oxygen 01/18/25 04:03 01/18/25 04:18 01/18/25 06:00 Temperature 98.6 F 98.1 F Pulse Rate 119 H 84 114 H Respiratory Rate 22 H 18 Blood Pressure 101/47 L 107/53 L Pulse Oximetry 99 94 Oxygen Delivery Fraction of Inspired Oxygen 01/18/25 08:00 01/18/25 09:24 01/18/25 14:00 Temperature 97.4 F L Pulse Rate 87 126 H 84 Respiratory Rate 16 Blood Pressure 100/47 L Pulse Oximetry 99 Oxygen Delivery Fraction of Inspired Oxygen 01/18/25 16:00 Temperature Pulse Rate 80 Respiratory Rate Blood Pressure Pulse Oximetry Oxygen Delivery Fraction of Inspired Oxygen Intake/Output Intake/Output: Intake & Output 01/15/25 01/16/25 01/17/25 01/18/25 23:59 23:59 23:59 23:59 Intake Total 2150 3230 4158.0 1815.8 Output Total 400 930 401 9881 Balance 1750 2430 3258.0 -634.2 Meds/Results Medications: Active Medications Generic Name Dose Route Start Last Admin Trade Name Freq PRN Reason Stop Dose Admin Alprazolam 0.25 mg 01/16/25 21:00 01/17/25 20:46 Alprazolam (*Crx) 0.25 Mg Tablet PO 0.25 mg HS MAREK Administration Dextrose 12.5 gm 01/15/25 18:12 Dextrose 50% 25 Gm/50 Ml Syringe IV PUSH PRN PRN Hypoglycemia Protocol Glucagon 1 mg 01/15/25 18:12 Glucagon For Inj 1 Mg Vial IM PRN PRN Hypoglycemia Protocol Glucose 15 gm 01/15/25 18:12 Glucose Oral Gel 15 Gm Of Glucse In 37.5 Gm Tube PO PRN PRN Hypoglycemia Protocol Heparin Sodium (Porcine) 7,500 units 01/18/25 18:14 Heparin Sodium 5,000 Units/Ml Vial IV PUSH PRN PRN aPTT less than 55 seconds Heparin Sodium (Porcine) 3,500 units 01/18/25 18:14 Heparin Sodium 5,000 Units/Ml Vial IV PUSH PRN PRN aPTT 55 - 70 seconds Dextrose 1,000 mls @ 100 mls/hr 01/15/25 18:12 Dextrose 5% 1,000 Ml IVPB PRN PRN Hypoglycemia Protocol Heparin Sodium/Dextrose 25,000 units in 250 mls @ 15 mls/hr 01/18/25 18:15 01/18/25 18:33 Heparin Sodium/D5w 100 Units/Ml IV CONT 1,500 units/hr .[id number] MAREK 15 mls/hr Administration Protocol 1,500 UNITS/HR Ceftriaxone Sodium 2 gm in 100 mls @ 200 mls/hr 01/18/25 19:00 Rocephin 2 Gm/Ns 100 Ml IVPB Q24H [facility] Insulin Aspart 4 - 8 units 01/16/25 08:00 01/18/25 16:50 Insulin Aspart (*Bkc) 100 Units/Ml SUB-Q Not Given TIDWM [facility] Protocol Metoprolol Tartrate 12.5 mg 01/18/25 01:35 01/18/25 09:24 Metoprolol Tartrate 12.5 Mg Tablet PO 12.5 mg Q12HR MAREK Administration Ondansetron HCl 4 mg 01/15/25 17:04 Ondansetron Inj 4 Mg/2 Ml Vial IV PUSH Q4H PRN Nausea Perflutren Lipid Microsphere 0 ml 01/18/25 18:16 Perflutren Lipid Microspheres 1.5 Ml Vial Diluted To 10 Ml Total Volume IV PUSH 01/21/25 18:17 ONCE PRN adequate visualization Protocol Sodium Bicarbonate 1,300 mg 01/17/25 09:00 01/18/25 17:28 Sodium Bicarbonate Tab 650 Mg Tablet PO 1,300 mg BID MAREK Administration Trazodone HCl 50 mg 01/16/25 00:01 01/16/25 20:37 Trazodone Hcl 50 Mg Tablet PO 50 mg QHS PRN Administration sleep Radiology Results: ITS Impressions Chest X-Ray 01/15/25 14:46 IMPRESSION: 1. Blunting of the posterior costophrenic angles, which may be prominent extrapleural fat or tiny pleural effusions. Renal Ultrasound 01/15/25 20:46 IMPRESSION: No hydronephrosis. Somewhat limited visualization of the right kidney. The bladder was not visualized. Heterogeneous liver, liver masses not excluded, recommend contrast CT or hepatic MRI for further characterization. Abdomen/Pelvis CT 01/16/25 23:06 IMPRESSION: 1. Hepatomegaly with multiple hypodensities suggestive of metastatic lesions. Further evaluation advised. 2. Ascites. 3. Small caliber IVC. Clinical correlation for hypotension advised. 4. Minimal right-sided pleural effusion with adjacent atelectasis. Venous Doppler Study 01/17/25 11:17 IMPRESSION: 1: No lower extremity deep venous thrombosis. Paracentesis Ultrasound 01/18/25 15:00 IMPRESSION: 1. Successful ultrasound-guided paracentesis yielding 2000 mL of ubaldo-colored fluid. Pulmonary Perfusion Imaging 01/18/25 16:03 IMPRESSION: 1. Intermediate probability for pulmonary embolism. Labs Labs: Laboratory Results - last 24 hr 01/17/25 01/17/25 01/18/25 20:19 23:41 03:23 WBC RBC Hgb Hct MCV MCH MCHC RDW Plt Count MPV Immature Gran % (Auto) Neut % (Auto) Lymph % (Auto) [place] % (Auto) Eos % (Auto) Baso % (Auto) Lymph # (Auto) [place] # (Auto) Eos # (Auto) Baso # (Auto) Abs Immat Gran (auto) Absolute Neuts (auto) Absolute Nucleated RBC Band Neutrophils % Nucleated RBC % Platelet Estimate Hypochromasia Anisocytosis Target Cells Ovalocytes Schistocytes Sodium 135 L Potassium 4.7 Chloride 106 Carbon Dioxide 20 L Anion Gap 9 BUN 52 H Creatinine 1.98 H Estim Creat Clear Calc 33 Estimated GFR 25 L Glucose 84 POC Capillary Glucose 111 H 67 Calcium 8.7 Phosphorus Magnesium Total Bilirubin 5.0 H AST 81 H ALT 29 Alkaline Phosphatase 356 H Total Protein 5.0 L Albumin 2.8 L Peritoneal Source Peritoneal Color Peritoneal Appearance Peritoneal RBC Periton Nuc Cells Periton Neutrophils Periton Lymphocytes Peritoneal Monocytes Peritoneal Eosinophils Periton Mesothelial Periton Macrophages 01/18/25 01/18/25 01/18/25 03:47 05:50 07:54 WBC 14.9 H RBC 3.22 L Hgb 8.8 L Hct 28.1 L MCV 87.3 MCH 27.3 MCHC 31.3 L RDW 24.2 H Plt Count 218 MPV 10.8 H Immature Gran % (Auto) 0.9 H Neut % (Auto) 85.7 H Lymph % (Auto) 5.9 L [place] % (Auto) 7.0 Eos % (Auto) 0.4 Baso % (Auto) 0.1 L Lymph # (Auto) 0.88 L [place] # (Auto) 1.1 H Eos # (Auto) 0.1 Baso # (Auto) 0.0 Abs Immat Gran (auto) 0.13 H Absolute Neuts (auto) 12.8 H Absolute Nucleated RBC 0.000 Band Neutrophils % Not Reportable Nucleated RBC % 0.0 Platelet Estimate Adequate Hypochromasia 1+ Anisocytosis 1+ Target Cells 1+ Ovalocytes 1+ Schistocytes Rare Sodium 134 L Potassium 4.8 Chloride 104 Carbon Dioxide 19 L Anion Gap 11 BUN 49 H Creatinine 2.09 H Estim Creat Clear Calc 31 Estimated GFR 23 L Glucose 100 POC Capillary Glucose 93 107 H Calcium 8.4 Phosphorus 3.7 Magnesium 1.6 Total Bilirubin 5.4 H AST 84 H ALT 30 Alkaline Phosphatase 366 H Total Protein 5.0 L Albumin 2.7 L Peritoneal Source Peritoneal Color Peritoneal Appearance Peritoneal RBC Periton Nuc Cells Periton Neutrophils Periton Lymphocytes Peritoneal Monocytes Peritoneal Eosinophils Periton Mesothelial Periton Macrophages 01/18/25 01/18/25 14:40 16:47 WBC RBC Hgb Hct MCV MCH MCHC RDW Plt Count MPV Immature Gran % (Auto) Neut % (Auto) Lymph % (Auto) [place] % (Auto) Eos % (Auto) Baso % (Auto) Lymph # (Auto) [place] # (Auto) Eos # (Auto) Baso # (Auto) Abs Immat Gran (auto) Absolute Neuts (auto) Absolute Nucleated RBC Band Neutrophils % Nucleated RBC % Platelet Estimate Hypochromasia Anisocytosis Target Cells Ovalocytes Schistocytes Sodium Potassium Chloride Carbon Dioxide Anion Gap BUN Creatinine Estim Creat Clear Calc Estimated GFR Glucose POC Capillary Glucose 95 Calcium Phosphorus Magnesium Total Bilirubin AST ALT Alkaline Phosphatase Total Protein Albumin Peritoneal Source Peritoneal fluid Peritoneal Color Other Peritoneal Appearance Cloudy [place]itoneal RBC [address]28 H Periton Nuc Cells 585 H Periton Neutrophils 64 H Periton Lymphocytes 15 Peritoneal Monocytes 9 Peritoneal Eosinophils 0 Periton Mesothelial 5 Periton Macrophages 7
[2025-01-18] MEDS: cefTRIAXone 2 GM/NS 100 ML 2 GM/100 ML BAG IVPB (19:38)
[2025-01-18] MEDS: ALPRAZolam (*CRX) 0.25 MG TABLET PO (20:44)
[2025-01-18] MEDS: ALBUMIN HUMAN IVPB (20:52)
[2025-01-18 21:00] LABS: Glucose Point of Care 76 mg/dl (65-105)
--- NOTE | 2025-01-18 23:10 | ECG_ITS ---
Test Date: 2025-01-17 23:17:11 Measurements Intervals [place] Rate: 138 P: -51 IN: 137 QRS: 23 QRSD: 85 T: 30 QT: 273 QTc: 415 Interpretive Statements SINUS TACHYCARDIA LOW QRS VOLTAGE IN PRECORDIAL LEADS [QRS DEFLECTION < 1.0 mV IN CHEST LEADS] POSSIBLE ANTERIOR MYOCARDIAL INFARCTION [30 ms Q WAVE IN V3/V4, OR R < 0.2 mV IN V4], PROBABLY OLD Compared to ECG 01/17/2025 12:10:25 No significant changes Electronically Signed On 01-18-2025 10:43:01 CDT by Mallory Quick M.D.
[2025-01-19] VITALS (10 sets, daily range): BP systolic 112–119; BP diastolic 50–55; PULSE 74–115; RESP 18; TEMP 36.4–37.1; O2SAT 98
--- NOTE | 2025-01-19 | ECHOL_ITS ---
Patient Info Name: Nikki Don Age: 74 years : 1950 Gender: Female Ht: 67 in Wt: 304 lbs BSA: 2.63 m2 HR: 84 bpm BP: 112 / 50 mmHg Heart Rhythm: Sinus Rhythm Technical Quality: Fair Exam Date: 01/19/2025 11:15 AM Exam Location: Echo Lab Patient Status: Inpatient Admit Date: 01/15/2025 Staff Ordering Physician: Bib Dumont MD Certified Paralegal: Chelsie Hansen RDCS Attending Provider: Luke Garcia MD Exam Type: CA echo limited Study Info Indications - Possible PE Limited two-dimensional transthoracic echocardiogram is performed. Summary 1. Left ventricular chamber dimension is normal. 2. Left ventricular systolic function is normal, estimated at 65-70%. 3. There is mildly increased left ventricular wall thickness. 4. The left ventricular diastolic function is grade I diastolic dysfunction. 5. Right ventricular chamber dimension is mildly enlarged. 6. Left atrial chamber dimension is mildly enlarged. 7. There is mild tricuspid valve regurgitation. Left Ventricle Left ventricular chamber dimension is normal. Left ventricular systolic function is normal, estimated at 65-70%. There is mildly increased left ventricular wall thickness. The left ventricular diastolic function is grade I diastolic dysfunction. Right Ventricle Right ventricular chamber dimension is mildly enlarged. Right ventricular systolic function is normal. Left Atria Left atrial chamber dimension is mildly enlarged. Right Atria Right atrial chamber dimension is normal. Atrial Septum Intact interatrial septum visualized by color flow imaging. Aortic Valve There is mild aortic valve sclerosis. There is no aortic valve stenosis. There is trace aortic valve regurgitation. Pulmonic Valve The pulmonic valve is normal. There is no pulmonic valve stenosis. There is trace pulmonic regurgitation. Mitral Valve The mitral valve has thickened leaflets. There is no mitral valve stenosis. There is trace mitral valve regurgitation. Tricuspid Valve The tricuspid valve leaflets are normal. There is no significant tricuspid valve stenosis. There is mild tricuspid valve regurgitation. Pericardium/Pleural The pericardium appears normal. There is no pericardial effusion. Aorta The aortic root size at the sinus of Valsalva is normal. Pulmonic Valve Name Value Normal RVOT Doppler RVOT Peak Gradient 3 mmHg PV Doppler PV Peak Gradient 3 mmHg Tricuspid Valve Name Value Normal TV Regurgitation Doppler TR Peak Velocity 167 cm/s TR Peak Gradient 11 mmHg Ventricles Name Value Normal LV Dimensions 2D/MM IVS Diastolic Thickness (2D) 1.0 cm 0.6-1.0 LVID Diastole (2D) 4.5 cm 3.8-5.2 LVIW Diastolic Thickness (2D) 1.1 cm 0.6-0.9 LVID Systole (2D) 2.8 cm 2.2-3.5 LV Mass (2D Cubed) 169.32 g 67.00-162.00 LV Mass Index (2D Cubed) 64 g/m2 43-95 Relative Wall Thickness (2D) 0.50 LV Fractional Shortening/Ejection Fraction 2D/MM LV Fractional Shortening (2D) 36 % 27-45 LV EF (2D Teicholz) 66 % 54-74 Atria Name Value Normal LA Dimensions LA Volume (4C A-L) 53 ml RA Dimensions RA Area (4C) 17.8 cm2 <=18.0 Report Signatures
[2025-01-19 00:31] LABS: Glucose Point of Care 103 mg/dl (65-105)
[2025-01-19 01:35] LABS: Partial Thromboplastin Time 45.3 Seconds (22.3-36.8)
[2025-01-19] MEDS: HEPARIN SODIUM 5,000 UNITS/ML VIAL 7500 UNITS IV PUSH (01:46)
[2025-01-19 07:03] LABS: Basophils Percent Auto 0.2 % (0.2-1.2); Eosinophils Absolute Auto 0.1 K/mm3 (0-0.3); Eosinophils Percent Auto 0.8 % (0-4.4); Hemoglobin 8.2 g/dL (12.0-15.0); Immature Granulocyte Absolute 0.09 K/mm3 (0.00-0.031); Immature Granulocyte Percent A 0.7 % (0-0.5); Lymphocytes Absolute Auto 1.19 K/mm3 (0.9-3.2); Mean Corpuscular HGB Conc 31.5 g/dl (32-36); Mean Corpuscular Hemoglobin 27.6 pg (26-34); Mean Corpuscular Volume 87.5 fl (80-100); Mean Platelet Volume 10.8 fl (7.4-10.4); Monocytes Absolute Auto 0.8 K/mm3 (0.1-0.6); Monocytes Percent Auto 6.3 % (2.6-8.5); Platelet Count Result 195 k/mm3 (150-375); Red Blood Count 2.97 M/mm3 (4.2-5.4); Red Cell Distribution Width 23.5 % (11.5-14.5); White Blood Count 13.3 K/mm3 (4.5-10.0)
[2025-01-19 07:26] LABS: Partial Thromboplastin Time 90.7 Seconds (22.3-36.8)
[2025-01-19 07:27] LABS: Alanine Aminotransferase 25 U/L (6-35); Albumin Level 3.1 g/dL (3.5-5.1); Alkaline Phosphatase 279 U/L (38-126); Anion Gap 9 mmol/L (4-12); Aspartate Amino Transferase 68 U/L (14-36); Blood Urea Nitrogen 49 mg/dL (7-17); Calcium 8.3 mg/dL (8.4-10.2); Carbon Dioxide 22 mmol/L (22-30); Chloride 106 mmol/L (98-107); Estimated CRCL calculation 32 ml/min; Estimated Glomerular Filt Rate 24; Glucose 49 mg/dL (65-110); Magnesium 1.6 mg/dL (1.6-2.3); Phosphorus 3.7 mg/dL (2.5-4.5); Potassium 4.3 mmol/L (3.4-5.0); Sodium 137 mmol/L (137-145)
[2025-01-19] MEDS: DEXTROSE 50% 25 GM/50 ML SYRINGE IV PUSH ×2 (07:33→08:41)
[2025-01-19 07:36] LABS: Glucose Point of Care 63 mg/dl (65-105)
[2025-01-19 08:07] LABS: Anisocytosis 2+; Hypochromasia 2+; Platelet Estimate Adequate (Adequate); Schistocytes None Seen; Stomatocytes 1+; Target Cells 2+
[2025-01-19 08:37] LABS: Glucose Point of Care 66 mg/dl (65-105)
[2025-01-19] MEDS: METOPROLOL TARTRATE 12.5 MG TABLET PO ×2 (08:43→21:13)
[2025-01-19] MEDS: SODIUM BICARBONATE TAB 650 MG TABLET 1300 MG PO (08:43)
[2025-01-19 09:39] LABS: Glucose Point of Care 128 mg/dl (65-105)
[2025-01-19] MEDS: HEPARIN SOD/D5W 100 UNITS/ML 25,000 UNITS/250 ML BAG 19 UNITS IV CONT (10:00)
--- NOTE | 2025-01-19 11:57 | P.PNNP_ITS ---
Progress Note: A&P Assessment and Plan (1) Acute kidney injury: Code(s): N17.9 - Acute kidney failure, unspecified Status: Acute Assessment and Plan: * relatively stable * as noted this year... * creatinine running ~ 1.4 - 1.6mg/dl (in 2022 - 2023) * creatinine ~ 1.2 - 1.3mg/dl (in 2019) * creatinine running 2.0 - 2.4mg/dl since early December 2024 * admission creatinine 2.23mg/dl * suspect possibly related to recent findings of liver cirrhosis (and associated physiology): * decreased effective circulating volume leading to chronic prerenal azotemia worsened by ascites and need for diuretic therapy... * evaluation to date noted: * renal ultrasound without hydro but limited visualization of right kidney * CPK low * prerenal urine electrolytes * no significant proteinuria * UA suggestive of infection (but culture negative) * lisinopril and chlorthalidone on hold * off IVFs due to concern of volume overload * metabolic acidosis better with sodium bicarbonate * follow trend of repeat labs and UOP (2) Chronic kidney disease, stage 3b: Code(s): N18.32 - Chronic kidney disease, stage 3b Status: Chronic Assessment and Plan: * creatinine was running ~ 1.4 - 1.6mg/dl (in 2022 - 2023) and ~ 1.2 - 1.3mg/dl (in 2019) * suspect underlying CKD due to diabetes, hypertension, and age-related change (3) Acute hyperkalemia: Code(s): E87.5 - Hyperkalemia Status: Acute Assessment and Plan: * resolved/resolving * as noted on admission - K+ 6.1 * s/p medical management (IVF, IV calcium, D50 + IV insulin, IV bicarb and lokelma) * follow trend of repeat K+ levels (4) Cirrhosis: Code(s): K74.60 - Unspecified cirrhosis of liver Status: Acute Assessment and Plan: * as suggested by imaging to date: * RUQ showing possible cirrhosis but can not excluding underlying mass (as noted on last hospital stay) * CT A/P (on 01/16) showing hepatomegaly with multiple hypodensities suggestive of metastatic lesions, ascites, small caliber IVC and minimal right-sided pleural effusion with adjacent atelectasis * etiology not clear * possible etiology for #1 (?) * hepatitis panel negative * GI following with recommendations noted (5) Spontaneous bacterial peritonitis: Code(s): K65.2 - Spontaneous bacterial peritonitis Status: Acute Assessment and Plan: * s/p ultrasound guided paracentesis (on 01/18): * removal of 2 L ascitic fluid * fluid was cloudy with 15K red cells and 585 WBC, 64% PMNs (374) * Gram stain showing no organisms or white blood cells * fluid cultures and cytology pending * remains asymptomatic * on IV antibiotics (6) Pulmonary embolism: Code(s): I26.99 - Other pulmonary embolism without acute cor pulmonale Status: Acute Assessment and Plan: * high suspicion * noted episodes of sinus tachycardia -- iniital EKG showing sinus tachycardia * venous doppler negative of DVT in the lower extremities * VQ scan showing moderate sized perfusion defect at the posterior basilar segment RLL - intermediate probability for PE [place] * Echo on 01/05/25 showing normal right sided findings; repeat limited Echo pending * on heparin gtt (7) Liver mass: Code(s): R16.0 - Hepatomegaly, not elsewhere classified Status: Acute Assessment and Plan: * noted by imaging (see #4) * GI following with recommendations noted * s/p paracentesis with results noted (see #5) * since MRI not feasible, tentatively planning biopsy of hepatic masses for definitive diagnosis (8) Anemia: Code(s): D64.9 - Anemia, unspecified Status: Acute Assessment and Plan: * drop in H/H noted since admission (but has been stable) * partly related to due to MADY and CKD as well as acute illness * possibly related to IVFs/dilution * previous anemia studies (last admission) with iron deficiency * follow trend of H/H (9) Essential (primary) hypertension: Code(s): I10 - Essential (primary) hypertension Status: Chronic Assessment and Plan: * reasonable control noted * KAMILA-I and chlorthalidone remains on hold * follow trend of hemodynamics (10) Type 2 diabetes mellitus: 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 L Subjective Date/time seen: 01/19/25 11:57 Interval history: Follow-up for acute kidney injury/acute renal failure on chronic kidney disease. Renal function/creatinine remains relatively stable with ongoing improvement in potassium and metabolic acidosis; results of paracentesis as well as V/Q noted/reviewed; on heparin gtt and antibiotics as noted; no acute distress noted at the time of my visit. Exam 2 Narrative: General: elderly but WD/WN female in NAD Heart: tachycardic at times, normal S1 and S2; no rub Lungs: clear anteriorly; decrease at bases Abdomen: obese but soft, nontender, nondistended, positive bowel sounds Extremities: no cyanosis or clubbing; 1 - 2+ edema Skin: no rash Objective Data Vital Signs Vital Signs: Vital Signs Temp Pulse Resp BP Pulse Ox O2 Del Method 01/19/25 11:00 76 01/19/25 08:43 115 H 01/19/25 08:00 83 01/19/25 05:34 97.6 F 84 18 112/50 L 98 01/19/25 04:00 82 01/19/25 00:00 77 01/18/25 21:09 98.4 F 91 18 105/51 L 96 01/18/25 20:45 94 01/18/25 20:00 128 H 01/18/25 20:00 Room Air 01/18/25 16:00 80 Intake/Output Intake/Output: Intake & Output 01/16/25 01/17/25 01/18/25 01/19/25 23:59 23:59 23:59 23:59 Intake Total 3230 4158.0 1915.8 1349.5 Output Total 349 606 4878 Balance 2430 3258.0 -534.2 1349.5 Meds/Results Medications: Active Medications Generic Name Dose Route Start Last Admin Trade Name Freq PRN Reason Stop Dose Admin Alprazolam 0.25 mg 01/16/25 21:00 01/18/25 20:44 Alprazolam (*Crx) 0.25 Mg Tablet PO 0.25 mg HS MAREK Administration Dextrose 12.5 gm 01/15/25 18:12 01/19/25 08:41 Dextrose 50% 25 Gm/50 Ml Syringe IV PUSH 12.5 gm PRN PRN Administration Hypoglycemia Protocol Glucagon 1 mg 01/15/25 18:12 Glucagon For Inj 1 Mg Vial IM PRN PRN Hypoglycemia Protocol Glucose 15 gm 01/15/25 18:12 Glucose Oral Gel 15 Gm Of Glucse In 37.5 Gm Tube PO PRN PRN Hypoglycemia Protocol Heparin Sodium (Porcine) 7,500 units 01/18/25 18:14 01/19/25 01:46 Heparin Sodium 5,000 Units/Ml Vial IV PUSH 7,500 units PRN PRN Administration aPTT less than 55 seconds Heparin Sodium (Porcine) 3,500 units 01/18/25 18:14 01/19/25 14:11 Heparin Sodium 5,000 Units/Ml Vial IV PUSH 3,500 units PRN PRN Administration aPTT 55 - 70 seconds Dextrose 1,000 mls @ 100 mls/hr 01/15/25 18:12 Dextrose 5% 1,000 Ml IVPB PRN PRN Hypoglycemia Protocol Heparin Sodium/Dextrose 25,000 units in 250 mls @ 21 mls/hr 01/18/25 18:15 01/19/25 14:11 Heparin Sodium/D5w 100 Units/Ml IV CONT 2,100 units/hr .[id number] MAREK 21 mls/hr Titration Protocol 2,100 UNITS/HR Ceftriaxone Sodium 2 gm in 100 mls @ 200 mls/hr 01/18/25 19:00 01/18/25 20:08 Rocephin 2 Gm/Ns 100 Ml IVPB Infused Q24H MAREK Infusion Albumin Human 400 mls @ 60 mls/hr 01/20/25 21:00 Albutein IVPB 01/21/25 03:39 ONCE ONE Insulin Aspart 4 - 8 units 01/16/25 08:00 01/19/25 12:37 Insulin Aspart (*Bkc) 100 Units/Ml SUB-Q Not Given TIDWM MAREK Protocol Metoprolol Tartrate 12.5 mg 01/18/25 01:35 01/19/25 08:43 Metoprolol Tartrate 12.5 Mg Tablet PO 12.5 mg Q12HR MAREK Administration Ondansetron HCl 4 mg 01/15/25 17:04 Ondansetron Inj 4 Mg/2 Ml Vial IV PUSH Q4H PRN Nausea Perflutren Lipid Microsphere 0 ml 01/18/25 18:16 Perflutren Lipid Microspheres 1.5 Ml Vial Diluted To 10 Ml Total Volume IV PUSH 01/21/25 18:17 ONCE PRN adequate visualization Protocol Trazodone HCl 50 mg 01/16/25 00:01 01/16/25 20:37 Trazodone Hcl 50 Mg Tablet PO 50 mg QHS PRN Administration sleep Radiology Results: ITS Impressions Chest X-Ray 01/15/25 14:46 IMPRESSION: 1. Blunting of the posterior costophrenic angles, which may be prominent extrapleural fat or tiny pleural effusions. Renal Ultrasound 01/15/25 20:46 IMPRESSION: No hydronephrosis. Somewhat limited visualization of the right kidney. The bladder was not visualized. Heterogeneous liver, liver masses not excluded, recommend contrast CT or hepatic MRI for further characterization. Abdomen/Pelvis CT 01/16/25 23:06 IMPRESSION: 1. Hepatomegaly with multiple hypodensities suggestive of metastatic lesions. Further evaluation advised. 2. Ascites. 3. Small caliber IVC. Clinical correlation for hypotension advised. 4. Minimal right-sided pleural effusion with adjacent atelectasis. Venous Doppler Study 01/17/25 11:17 IMPRESSION: 1: No lower extremity deep venous thrombosis. Paracentesis Ultrasound 01/18/25 15:00 IMPRESSION: 1. Successful ultrasound-guided paracentesis yielding 2000 mL of ubaldo-colored fluid. Pulmonary Perfusion Imaging 01/18/25 16:03 IMPRESSION: 1. Intermediate probability for pulmonary embolism. Labs Labs: Laboratory Tests 01/19/25 06:54 01/19/25 06:54 Calcium 8.3 L Phosphorus 3.7 Magnesium 1.6 Total Bilirubin 5.0 H AST 68 H ALT 25 Alkaline Phosphatase 279 H Total Protein 6.0 L Albumin 3.1 L Microbiology 01/18/25 14:37 Ascites Fluid Gram Stain - Final 01/18/25 14:37 Ascites Fluid Anaerobic Culture - Preliminary
[2025-01-19 12:19] LABS: Glucose Point of Care 99 mg/dl (65-105)
--- NOTE | 2025-01-19 13:43 | WPDGIPROGNO ---
Progress Note: A&P Assessment and Plan (1) Cirrhosis: Code(s): K74.60 - Unspecified cirrhosis of liver Status: Acute Assessment and Plan: This patient with advanced cirrhosis is currently on day two of treatment for spontaneous bacterial peritonitis (SBP), receiving ceftriaxone 2g IV every 24 hours, with albumin administered on days 1 and 3. Due to a suspected pulmonary embolism heparin therapy was initiated last evening. We will continue to monitor for SBP response , a follow up paracentesis should be done between days 3 and 4. Cultures are still pending. As previously discussed, definitive diagnosis of hepatic lesions (metastasis vs. hepatocellular carcinoma) remains impossible due to the patient's elevated creatinine, not fitting in MRI, and anticoagulation, precluding liver biopsy. (2) Spontaneous bacterial peritonitis: Code(s): K65.2 - Spontaneous bacterial peritonitis Status: Acute Subjective Date/time seen: 01/19/25 13:43 Interval history: The patient is already on heparin drip and receiving antibiotics and albumin. No acute changes in her status compared to yesterday Exam Narrative: unchanged from ye Objective Data Vital Signs Vital Signs: Vital Signs - 24 hr 01/18/25 14:00 01/18/25 16:00 01/18/25 20:00 Temperature 97.4 F L Pulse Rate 84 80 Respiratory Rate 16 Blood Pressure 100/47 L Pulse Oximetry 99 Oxygen Delivery Room Air 01/18/25 20:00 01/18/25 20:45 01/18/25 21:09 Temperature 98.4 F Pulse Rate 128 H 94 91 Respiratory Rate 18 Blood Pressure 105/51 L Pulse Oximetry 96 Oxygen Delivery 01/19/25 00:00 01/19/25 04:00 01/19/25 05:34 Temperature 97.6 F Pulse Rate 77 82 84 Respiratory Rate 18 Blood Pressure 112/50 L Pulse Oximetry 98 Oxygen Delivery 01/19/25 08:00 01/19/25 08:43 01/19/25 12:00 Temperature Pulse Rate 83 115 H 76 Respiratory Rate Blood Pressure Pulse Oximetry Oxygen Delivery Intake/Output Intake/Output: Intake & Output 01/16/25 01/17/25 01/18/25 01/19/25 23:59 23:59 23:59 23:59 Intake Total 3230 4158.0 1915.8 790 Output Total 633 498 2538 Balance 2430 3258.0 -534.2 790 Meds/Results Medications: Active Medications Generic Name Dose Route Start Last Admin Trade Name Freq PRN Reason Stop Dose Admin Alprazolam 0.25 mg 01/16/25 21:00 01/18/25 20:44 Alprazolam (*Crx) 0.25 Mg Tablet PO 0.25 mg HS MAREK Administration Dextrose 12.5 gm 01/15/25 18:12 01/19/25 08:41 Dextrose 50% 25 Gm/50 Ml Syringe IV PUSH 12.5 gm PRN PRN Administration Hypoglycemia Protocol Glucagon 1 mg 01/15/25 18:12 Glucagon For Inj 1 Mg Vial IM PRN PRN Hypoglycemia Protocol Glucose 15 gm 01/15/25 18:12 Glucose Oral Gel 15 Gm Of Glucse In 37.5 Gm Tube PO PRN PRN Hypoglycemia Protocol Heparin Sodium (Porcine) 7,500 units 01/18/25 18:14 01/19/25 01:46 Heparin Sodium 5,000 Units/Ml Vial IV PUSH 7,500 units PRN PRN Administration aPTT less than 55 seconds Heparin Sodium (Porcine) 3,500 units 01/18/25 18:14 Heparin Sodium 5,000 Units/Ml Vial IV PUSH PRN PRN aPTT 55 - 70 seconds Dextrose 1,000 mls @ 100 mls/hr 01/15/25 18:12 Dextrose 5% 1,000 Ml IVPB PRN PRN Hypoglycemia Protocol Heparin Sodium/Dextrose 25,000 units in 250 mls @ 19 mls/hr 01/18/25 18:15 01/19/25 10:00 Heparin Sodium/D5w 100 Units/Ml IV CONT 1,900 units/hr .[id number] MAREK 19 mls/hr Administration Protocol 1,900 UNITS/HR Ceftriaxone Sodium 2 gm in 100 mls @ 200 mls/hr 01/18/25 19:00 01/18/25 20:08 Rocephin 2 Gm/Ns 100 Ml IVPB Infused Q24H MAREK Infusion Albumin Human 400 mls @ 60 mls/hr 01/20/25 21:00 Albutein IVPB 01/21/25 03:39 ONCE ONE Insulin Aspart 4 - 8 units 01/16/25 08:00 01/19/25 12:37 Insulin Aspart (*Bkc) 100 Units/Ml SUB-Q Not Given TIDWM MAREK Protocol Metoprolol Tartrate 12.5 mg 01/18/25 01:35 01/19/25 08:43 Metoprolol Tartrate 12.5 Mg Tablet PO 12.5 mg Q12HR MAREK Administration Ondansetron HCl 4 mg 01/15/25 17:04 Ondansetron Inj 4 Mg/2 Ml Vial IV PUSH Q4H PRN Nausea Perflutren Lipid Microsphere 0 ml 01/18/25 18:16 Perflutren Lipid Microspheres 1.5 Ml Vial Diluted To 10 Ml Total Volume IV PUSH 01/21/25 18:17 ONCE PRN adequate visualization Protocol Trazodone HCl 50 mg 01/16/25 00:01 01/16/25 20:37 Trazodone Hcl 50 Mg Tablet PO 50 mg QHS PRN Administration sleep Radiology Results: ITS Impressions Chest X-Ray 01/15/25 14:46 IMPRESSION: 1. Blunting of the posterior costophrenic angles, which may be prominent extrapleural fat or tiny pleural effusions. Renal Ultrasound 01/15/25 20:46 IMPRESSION: No hydronephrosis. Somewhat limited visualization of the right kidney. The bladder was not visualized. Heterogeneous liver, liver masses not excluded, recommend contrast CT or hepatic MRI for further characterization. Abdomen/Pelvis CT 01/16/25 23:06 IMPRESSION: 1. Hepatomegaly with multiple hypodensities suggestive of metastatic lesions. Further evaluation advised. 2. Ascites. 3. Small caliber IVC. Clinical correlation for hypotension advised. 4. Minimal right-sided pleural effusion with adjacent atelectasis. Venous Doppler Study 01/17/25 11:17 IMPRESSION: 1: No lower extremity deep venous thrombosis. Paracentesis Ultrasound 01/18/25 15:00 IMPRESSION: 1. Successful ultrasound-guided paracentesis yielding 2000 mL of ubaldo-colored fluid. Pulmonary Perfusion Imaging 01/18/25 16:03 IMPRESSION: 1. Intermediate probability for pulmonary embolism. Labs Labs: Laboratory Results - last 24 hr 01/18/25 01/18/25 01/18/25 14:40 16:47 18:42 WBC RBC Hgb Hct MCV MCH MCHC RDW Plt Count MPV Immature Gran % (Auto) Neut % (Auto) Lymph % (Auto) [place] % (Auto) Eos % (Auto) Baso % (Auto) Lymph # (Auto) [place] # (Auto) Eos # (Auto) Baso # (Auto) Abs Immat Gran (auto) Absolute Neuts (auto) Absolute Nucleated RBC Band Neutrophils % Nucleated RBC % Platelet Estimate Hypochromasia Anisocytosis Target Cells Stomatocytes Schistocytes PT 20.0 H D INR 1.6 APTT 46.2 H Sodium Potassium Chloride Carbon Dioxide Anion Gap BUN Creatinine Estim Creat Clear Calc Estimated GFR Glucose POC Capillary Glucose 95 Calcium Phosphorus Magnesium Total Bilirubin AST ALT Alkaline Phosphatase Total Protein Albumin Peritoneal Source Peritoneal fluid Peritoneal Color Other Peritoneal Appearance Cloudy A Peritoneal RBC 14688 H Periton Nuc Cells 585 H Periton Neutrophils 64 H Periton Lymphocytes 15 Peritoneal Monocytes 9 Peritoneal Eosinophils 0 Periton Mesothelial 5 Periton Macrophages 7 01/18/25 01/18/25 01/19/25 20:49 21:17 01:16 WBC RBC Hgb Hct MCV MCH MCHC RDW Plt Count MPV Immature Gran % (Auto) Neut % (Auto) Lymph % (Auto) [place] % (Auto) Eos % (Auto) Baso % (Auto) Lymph # (Auto) [place] # (Auto) Eos # (Auto) Baso # (Auto) Abs Immat Gran (auto) Absolute Neuts (auto) Absolute Nucleated RBC Band Neutrophils % Nucleated RBC % Platelet Estimate Hypochromasia Anisocytosis Target Cells Stomatocytes Schistocytes PT INR APTT 45.3 H Sodium Potassium Chloride Carbon Dioxide Anion Gap BUN Creatinine Estim Creat Clear Calc Estimated GFR Glucose POC Capillary Glucose 76 103 Calcium Phosphorus Magnesium Total Bilirubin AST ALT Alkaline Phosphatase Total Protein Albumin Peritoneal Source Peritoneal Color Peritoneal Appearance Peritoneal RBC Periton Nuc Cells Periton Neutrophils Periton Lymphocytes Peritoneal Monocytes Peritoneal Eosinophils Periton Mesothelial Periton Macrophages 01/19/25 01/19/25 01/19/25 06:54 07:32 08:15 WBC 13.3 H RBC 2.97 L Hgb 8.2 L Hct 26.0 L MCV 87.5 MCH 27.6 MCHC 31.5 L RDW 23.5 H Plt Count 195 MPV 10.8 H Immature Gran % (Auto) 0.7 H Neut % (Auto) 83.0 H Lymph % (Auto) 9.0 L [place] % (Auto) 6.3 Eos % (Auto) 0.8 Baso % (Auto) 0.2 Lymph # (Auto) 1.19 [place] # (Auto) 0.8 H Eos # (Auto) 0.1 Baso # (Auto) 0.0 Abs Immat Gran (auto) 0.09 H Absolute Neuts (auto) 11.0 H Absolute Nucleated RBC 0.000 Band Neutrophils % Not Reportable Nucleated RBC % 0.0 Platelet Estimate Adequate Hypochromasia 2+ Anisocytosis 2+ Target Cells 2+ Stomatocytes 1+ Schistocytes None seen PT INR APTT 90.7 H Sodium 137 Potassium 4.3 Chloride 106 Carbon Dioxide 22 Anion Gap 9 BUN 49 H Creatinine 1.99 H Estim Creat Clear Calc 32 Estimated GFR 24 L Glucose 49 L* POC Capillary Glucose 63 L 66 Calcium 8.3 L Phosphorus 3.7 Magnesium 1.6 Total Bilirubin 5.0 H AST 68 H ALT 25 Alkaline Phosphatase 279 H Total Protein 6.0 L Albumin 3.1 L Peritoneal Source Peritoneal Color Peritoneal Appearance Peritoneal RBC Periton Nuc Cells Periton Neutrophils Periton Lymphocytes Peritoneal Monocytes Peritoneal Eosinophils Periton Mesothelial Periton Macrophages 01/19/25 01/19/25 09:36 11:56 WBC RBC Hgb Hct MCV MCH MCHC RDW Plt Count MPV Immature Gran % (Auto) Neut % (Auto) Lymph % (Auto) [place] % (Auto) Eos % (Auto) Baso % (Auto) Lymph # (Auto) [place] # (Auto) Eos # (Auto) Baso # (Auto) Abs Immat Gran (auto) Absolute Neuts (auto) Absolute Nucleated RBC Band Neutrophils % Nucleated RBC % Platelet Estimate Hypochromasia Anisocytosis Target Cells Stomatocytes Schistocytes PT INR APTT Sodium Potassium Chloride Carbon Dioxide Anion Gap BUN Creatinine Estim Creat Clear Calc Estimated GFR Glucose POC Capillary Glucose 128 H 99 Calcium Phosphorus Magnesium Total Bilirubin AST ALT Alkaline Phosphatase Total Protein Albumin Peritoneal Source Peritoneal Color Peritoneal Appearance Peritoneal RBC Periton Nuc Cells Periton Neutrophils Periton Lymphocytes Peritoneal Monocytes Peritoneal Eosinophils Periton Mesothelial Periton Macrophages
[2025-01-19 13:56] LABS: Partial Thromboplastin Time 68.9 Seconds (22.3-36.8)
[2025-01-19] MEDS: HEPARIN SODIUM 5,000 UNITS/ML VIAL 3500 UNITS IV PUSH (14:11)
--- NOTE | 2025-01-19 15:40 | P.PNIM_ITS ---
Progress Note: A&P Assessment and Plan (1) Liver mass: Code(s): R16.0 - Hepatomegaly, not elsewhere classified Status: Acute Assessment and Plan: RUQ showing possible cirrhosis but can not exclude underlying mass. CT without contrast showing hepatomegaly with multiple hypodensities suggestive of metastatic lesions, ascites, small caliber IVC and minimal right-sided pleural effusion with adjacent atelectasis. Small caliber IVC but doubt dehydrated since receiving IV fluids, appears fluid overload and with positive fluid balance. LE venous doppler negative for DVT. Hepatitis panel negative on 01/05/25 CEA 30. ALP level pending. GI consulted and appreciate their input. Consider colonoscopy but radiology felt liver biopsy was possible despite her size. Plan for liver biopsy early next week. (2) Pulmonary embolism: Code(s): I26.99 - Other pulmonary embolism without acute cor pulmonale Status: Acute Assessment and Plan: Patient with episodes of sinus tachycardia. EKG showing sinus tachycardia. Venous doppler negative of DVT in the lower extremity. VQ scan showing moderate sized perfusion defect at the posterior basilar segment RLL. PERC Rule can not exclude PE. Wells Score gives a moderate risk. EKG showing no S wave in I but shows Q wave and flat T wave in III. Echo 01/05/25 showing normal right sided findings. TSH normal. Heparin drip started. Check limited echo to assess for right-sided strain. (3) Spontaneous bacterial peritonitis: Code(s): K65.2 - Spontaneous bacterial peritonitis Status: Acute Assessment and Plan: Patient underwent paracentesis 01/18/2025 with removal of 2 L. The fluid was cloudy with 15K red cells and 585 WBC, 64% PMNs (374). Rocephin 2gm started for 5 days. Gram stain showing no organisms or white blood cells. Cultures are pending. Patient remains asymptomatic. Continue IV antibiotics. (4) Acute kidney injury superimposed on stage 3b chronic kidney disease: Code(s): N17.9 - Acute kidney failure, unspecified; N18.32 - Chronic kidney disease, stage 3b Status: Acute Assessment and Plan: Patient presents with weakness and found to have MADY with Cr 2.23. Baseline Cr 1.2-1.6. Total CK normal. Pamela 26. UA consistent with UTI but UCx negative. Nephrology consulted and appreciate their input Renal US showing no hydronephrosis with somewhat limited visualization of the right kidney; bladder not seen. Holding lisinopril and chlorthalidone (have been held since 01/04) Started on IV fluids. Cr better at 2.0 but becoming fluid overloaded. Metabolic acidosis noted and oral NaBicarb started. Currently off IV fluids. Renal function stable with creatinine 2. Metabolic acidosis better. Monitor UOP, renal fxn and electrolytes. (5) Acute hyperkalemia: Code(s): E87.5 - Hyperkalemia Status: Acute Assessment and Plan: Potassium 6.1. In ED given: 2L bolus, calcium, insulin/dextrose, sodium bicarb, and Lokelma with benefit. Lokelma continued. Potassium normalized. Stop Lokelma Continue to trend (6) Type 2 diabetes mellitus: Qualifiers: Diabetes mellitus fpc insulin use: without fpc use Diabetes mellitus complication status: with other specified complication Qualified Code(s): E11.69 - Type 2 diabetes mellitus with other specified complication Code(s): E11.9 - Type 2 diabetes mellitus without complications Status: Acute Assessment and Plan: The patient is eating intermittently. She is glucose instability probably related to her liver disease. A1c 6.1%. Home medication of metformin and glipizide on hold The patient's blood glucose was reviewed on 01/19 and was low this morning at 49 Glucose was treated with hypoglycemia protocol Continue AccuCheks covering with sliding scale. Hypoglycemia protocol available as needed. Continue to follow (7) Essential (primary) hypertension: Code(s): I10 - Essential (primary) hypertension Status: Chronic Assessment and Plan: Patient's blood pressure was reviewed on 01/19 Blood pressure remains well controlled. Will continue to monitor (8) Cirrhosis: Code(s): K74.60 - Unspecified cirrhosis of liver Status: Acute Assessment and Plan: Possible cirrhosis. Radiology felt imaging not consistent with cirrhosis. She definitely has evidence of liver dysfunction. (9) Morbid (severe) obesity due to excess calories: Code(s): E66.01 - Morbid (severe) obesity due to excess calories Status: Acute Assessment and Plan: BMI 48. This is negatively contributing to her evaluation. Plan DVT Prophylaxis: Heparin gtt Code Status: Full code Subjective Date/time seen: 01/19/25 15:40 Interval history: 74yo female with CHF, CKD and HTN here for fatigue and weakness. No CP or palpitations. No abdominal pain. Nausea or vomiting. Not eating well. Exam Narrative: AF 97.6 112/50 76 18 98% ra Gen - NARD Chest - CTA bilaterally, nml RR CV -regular rate and rhythm. S1-S2 telemetry runs narrow complex tachycardia Abd - Soft, obese, NT, +BS Ext - ++pedal edema Psych - Nml mood and affect Skin - Warm and dry Objective Data Vital Signs Vital Signs: Vital Signs - 24 hr 01/18/25 16:00 01/18/25 20:00 01/18/25 20:00 Temperature Pulse Rate 80 128 H Respiratory Rate Blood Pressure Pulse Oximetry Oxygen Delivery Room Air 01/18/25 20:45 01/18/25 21:09 01/19/25 00:00 Temperature 98.4 F Pulse Rate 94 91 77 Respiratory Rate 18 Blood Pressure 105/51 L Pulse Oximetry 96 Oxygen Delivery 01/19/25 04:00 01/19/25 05:34 01/19/25 08:00 Temperature 97.6 F Pulse Rate 82 84 83 Respiratory Rate 18 Blood Pressure 112/50 L Pulse Oximetry 98 Oxygen Delivery 01/19/25 08:43 01/19/25 12:00 Temperature Pulse Rate 115 H 76 Respiratory Rate Blood Pressure Pulse Oximetry Oxygen Delivery Intake/Output Intake/Output: Intake & Output 01/16/25 01/17/25 01/18/25 01/19/25 23:59 23:59 23:59 23:59 Intake Total 3230 4158.0 1915.8 1349.5 Output Total 593 567 8089 Balance 2430 3258.0 -534.2 1349.5 Meds/Results Medications: Active Medications Generic Name Dose Route Start Last Admin Trade Name Freq PRN Reason Stop Dose Admin Alprazolam 0.25 mg 01/16/25 21:00 01/18/25 20:44 Alprazolam (*Crx) 0.25 Mg Tablet PO 0.25 mg HS MAREK Administration Dextrose 12.5 gm 01/15/25 18:12 01/19/25 08:41 Dextrose 50% 25 Gm/50 Ml Syringe IV PUSH 12.5 gm PRN PRN Administration Hypoglycemia Protocol Glucagon 1 mg 01/15/25 18:12 Glucagon For Inj 1 Mg Vial IM PRN PRN Hypoglycemia Protocol Glucose 15 gm 01/15/25 18:12 Glucose Oral Gel 15 Gm Of Glucse In 37.5 Gm Tube PO PRN PRN Hypoglycemia Protocol Heparin Sodium (Porcine) 7,500 units 01/18/25 18:14 01/19/25 01:46 Heparin Sodium 5,000 Units/Ml Vial IV PUSH 7,500 units PRN PRN Administration aPTT less than 55 seconds Heparin Sodium (Porcine) 3,500 units 01/18/25 18:14 01/19/25 14:11 Heparin Sodium 5,000 Units/Ml Vial IV PUSH 3,500 units PRN PRN Administration aPTT 55 - 70 seconds Dextrose 1,000 mls @ 100 mls/hr 01/15/25 18:12 Dextrose 5% 1,000 Ml IVPB PRN PRN Hypoglycemia Protocol Heparin Sodium/Dextrose 25,000 units in 250 mls @ 21 mls/hr 01/18/25 18:15 01/19/25 14:11 Heparin Sodium/D5w 100 Units/Ml IV CONT 2,100 units/hr .[id number] MAREK 21 mls/hr Titration Protocol 2,100 UNITS/HR Ceftriaxone Sodium 2 gm in 100 mls @ 200 mls/hr 01/18/25 19:00 01/18/25 20:08 Rocephin 2 Gm/Ns 100 Ml IVPB Infused Q24H MAREK Infusion Albumin Human 400 mls @ 60 mls/hr 01/20/25 21:00 Albutein IVPB 01/21/25 03:39 ONCE ONE Insulin Aspart 4 - 8 units 01/16/25 08:00 01/19/25 12:37 Insulin Aspart (*Bkc) 100 Units/Ml SUB-Q Not Given TIDWM MAREK Protocol Metoprolol Tartrate 12.5 mg 01/18/25 01:35 01/19/25 08:43 Metoprolol Tartrate 12.5 Mg Tablet PO 12.5 mg Q12HR MAREK Administration Ondansetron HCl 4 mg 01/15/25 17:04 Ondansetron Inj 4 Mg/2 Ml Vial IV PUSH Q4H PRN Nausea Perflutren Lipid Microsphere 0 ml 01/18/25 18:16 Perflutren Lipid Microspheres 1.5 Ml Vial Diluted To 10 Ml Total Volume IV PUSH 01/21/25 18:17 ONCE PRN adequate visualization Protocol Trazodone HCl 50 mg 01/16/25 00:01 01/16/25 20:37 Trazodone Hcl 50 Mg Tablet PO 50 mg QHS PRN Administration sleep Radiology Results: ITS Impressions Chest X-Ray 01/15/25 14:46 IMPRESSION: 1. Blunting of the posterior costophrenic angles, which may be prominent extrapleural fat or tiny pleural effusions. Renal Ultrasound 01/15/25 20:46 IMPRESSION: No hydronephrosis. Somewhat limited visualization of the right kidney. The bladder was not visualized. Heterogeneous liver, liver masses not excluded, recommend contrast CT or hepatic MRI for further characterization. Abdomen/Pelvis CT 01/16/25 23:06 IMPRESSION: 1. Hepatomegaly with multiple hypodensities suggestive of metastatic lesions. Further evaluation advised. 2. Ascites. 3. Small caliber IVC. Clinical correlation for hypotension advised. 4. Minimal right-sided pleural effusion with adjacent atelectasis. Venous Doppler Study 01/17/25 11:17 IMPRESSION: 1: No lower extremity deep venous thrombosis. Paracentesis Ultrasound 01/18/25 15:00 IMPRESSION: 1. Successful ultrasound-guided paracentesis yielding 2000 mL of ubaldo-colored fluid. Pulmonary Perfusion Imaging 01/18/25 16:03 IMPRESSION: 1. Intermediate probability for pulmonary embolism. Labs Labs: Laboratory Results - last 24 hr 01/18/25 01/18/25 01/18/25 14:40 16:47 18:42 WBC RBC Hgb Hct MCV MCH MCHC RDW Plt Count MPV Immature Gran % (Auto) Neut % (Auto) Lymph % (Auto) [place] % (Auto) Eos % (Auto) Baso % (Auto) Lymph # (Auto) [place] # (Auto) Eos # (Auto) Baso # (Auto) Abs Immat Gran (auto) Absolute Neuts (auto) Absolute Nucleated RBC Band Neutrophils % Nucleated RBC % Platelet Estimate Hypochromasia Anisocytosis Target Cells Stomatocytes Schistocytes PT 20.0 H D INR 1.6 APTT 46.2 H Sodium Potassium Chloride Carbon Dioxide Anion Gap BUN Creatinine Estim Creat Clear Calc Estimated GFR Glucose POC Capillary Glucose 95 Calcium Phosphorus Magnesium Total Bilirubin AST ALT Alkaline Phosphatase Total Protein Albumin Peritoneal [place] 05865 H Periton Nuc Cells 585 H Periton Neutrophils 64 H Periton Lymphocytes 15 Peritoneal Monocytes 9 Peritoneal Eosinophils 0 Periton Mesothelial 5 Periton Macrophages 7 01/18/25 01/18/25 01/19/25 20:49 21:17 01:16 WBC RBC Hgb Hct MCV MCH MCHC RDW Plt Count MPV Immature Gran % (Auto) Neut % (Auto) Lymph % (Auto) [place] % (Auto) Eos % (Auto) Baso % (Auto) Lymph # (Auto) [place] # (Auto) Eos # (Auto) Baso # (Auto) Abs Immat Gran (auto) Absolute Neuts (auto) Absolute Nucleated RBC Band Neutrophils % Nucleated RBC % Platelet Estimate Hypochromasia Anisocytosis Target Cells Stomatocytes Schistocytes PT INR APTT 45.3 H Sodium Potassium Chloride Carbon Dioxide Anion Gap BUN Creatinine Estim Creat Clear Calc Estimated GFR Glucose POC Capillary Glucose 76 103 Calcium Phosphorus Magnesium Total Bilirubin AST ALT Alkaline Phosphatase Total Protein Albumin Peritoneal RBC Periton Nuc Cells Periton Neutrophils Periton Lymphocytes Peritoneal Monocytes Peritoneal Eosinophils Periton Mesothelial Periton Macrophages 01/19/25 01/19/25 01/19/25 06:54 07:32 08:15 WBC 13.3 H RBC 2.97 L Hgb 8.2 L Hct 26.0 L MCV 87.5 MCH 27.6 MCHC 31.5 L RDW 23.5 H Plt Count 195 MPV 10.8 H Immature Gran % (Auto) 0.7 H Neut % (Auto) 83.0 H Lymph % (Auto) 9.0 L [place] % (Auto) 6.3 Eos % (Auto) 0.8 Baso % (Auto) 0.2 Lymph # (Auto) 1.19 [place] # (Auto) 0.8 H Eos # (Auto) 0.1 Baso # (Auto) 0.0 Abs Immat Gran (auto) 0.09 H Absolute Neuts (auto) 11.0 H Absolute Nucleated RBC 0.000 Band Neutrophils % Not Reportable Nucleated RBC % 0.0 Platelet Estimate Adequate Hypochromasia 2+ Anisocytosis 2+ Target Cells 2+ Stomatocytes 1+ Schistocytes None seen PT INR APTT 90.7 H Sodium 137 Potassium 4.3 Chloride 106 Carbon Dioxide 22 Anion Gap 9 BUN 49 H Creatinine 1.99 H Estim Creat Clear Calc 32 Estimated GFR 24 L Glucose 49 L* POC Capillary Glucose 63 L 66 Calcium 8.3 L Phosphorus 3.7 Magnesium 1.6 Total Bilirubin 5.0 H AST 68 H ALT 25 Alkaline Phosphatase 279 H Total Protein 6.0 L Albumin 3.1 L Peritoneal RBC Periton Nuc Cells Periton Neutrophils Periton Lymphocytes Peritoneal Monocytes Peritoneal Eosinophils Periton Mesothelial Periton Macrophages 01/19/25 01/19/25 01/19/25 09:36 11:56 13:36 WBC RBC Hgb Hct MCV MCH MCHC RDW Plt Count MPV Immature Gran % (Auto) Neut % (Auto) Lymph % (Auto) [place] % (Auto) Eos % (Auto) Baso % (Auto) Lymph # (Auto) [place] # (Auto) Eos # (Auto) Baso # (Auto) Abs Immat Gran (auto) Absolute Neuts (auto) Absolute Nucleated RBC Band Neutrophils % Nucleated RBC % Platelet Estimate Hypochromasia Anisocytosis Target Cells Stomatocytes Schistocytes PT INR APTT 68.9 H Sodium Potassium Chloride Carbon Dioxide Anion Gap BUN Creatinine Estim Creat Clear Calc Estimated GFR Glucose POC Capillary Glucose 128 H 99 Calcium Phosphorus Magnesium Total Bilirubin AST ALT Alkaline Phosphatase Total Protein Albumin Peritoneal RBC Periton Nuc Cells Periton Neutrophils Periton Lymphocytes Peritoneal Monocytes Peritoneal Eosinophils Periton Mesothelial Periton Macrophages
[2025-01-19 17:00] LABS: Glucose Point of Care 118 mg/dl (65-105)
[2025-01-19] MEDS: cefTRIAXone 2 GM/NS 100 ML 2 GM/100 ML BAG IVPB (18:44)
[2025-01-19 20:49] LABS: Partial Thromboplastin Time 136.4 Seconds (22.3-36.8)
[2025-01-19 20:51] LABS: Glucose Point of Care 193 mg/dl (65-105)
[2025-01-19] MEDS: ALPRAZolam (*CRX) 0.25 MG TABLET PO (21:13)
[2025-01-19] MEDS: HEPARIN SOD/D5W 100 UNITS/ML 25,000 UNITS/250 ML BAG 18 UNITS IV CONT (23:52)
[2025-01-20] VITALS (12 sets, daily range): BP systolic 101–120; BP diastolic 43–53; PULSE 72–102; RESP 17–22; TEMP 36.2–37.2; O2SAT 97–99
[2025-01-20 03:17] LABS: Basophils Percent Auto 0.1 % (0.2-1.2); Eosinophils Absolute Auto 0.1 K/mm3 (0-0.3); Hematocrit 26.9 % (37.0-47.0); Hemoglobin 8.5 g/dL (12.0-15.0); Immature Granulocyte Absolute 0.08 K/mm3 (0.00-0.031); Immature Granulocyte Percent A 0.6 % (0-0.5); Lymphocytes Absolute Auto 1.24 K/mm3 (0.9-3.2); Lymphocytes Percent Auto 8.8 % (18.3-44.2); Mean Corpuscular HGB Conc 31.6 g/dl (32-36); Mean Corpuscular Hemoglobin 27.6 pg (26-34); Mean Corpuscular Volume 87.3 fl (80-100); Mean Platelet Volume 10.9 fl (7.4-10.4); Monocytes Absolute Auto 0.9 K/mm3 (0.1-0.6); Neutrophils Absolute Auto 11.8 K/mm3 (1.3-6.7); Neutrophils Percent Auto 83.5 % (45.5-73.1); Platelet Count Result 176 k/mm3 (150-375); Red Blood Count 3.08 M/mm3 (4.2-5.4); Red Cell Distribution Width 23.6 % (11.5-14.5); White Blood Count 14.2 K/mm3 (4.5-10.0)
[2025-01-20 03:26] LABS: Alanine Aminotransferase 26 U/L (6-35); Albumin Level 2.9 g/dL (3.5-5.1); Alkaline Phosphatase 316 U/L (38-126); Anion Gap 11 mmol/L (4-12); Aspartate Amino Transferase 64 U/L (14-36); Bilirubin,Total 4.8 mg/dL (0.2-1.3); Blood Urea Nitrogen 48 mg/dL (7-17); Calcium 8.1 mg/dL (8.4-10.2); Carbon Dioxide 18 mmol/L (22-30); Chloride 104 mmol/L (98-107); Estimated CRCL calculation 33 ml/min; Estimated Glomerular Filt Rate 25; Glucose 100 mg/dL (65-110); Magnesium 1.7 mg/dL (1.6-2.3); Potassium 4.1 mmol/L (3.4-5.0); Sodium 133 mmol/L (137-145)
[2025-01-20 03:44] LABS: Partial Thromboplastin Time 70.3 Seconds (22.3-36.8)
[2025-01-20 03:47] LABS: Anisocytosis 2+; Platelet Estimate Adequate (Adequate)
[2025-01-20 03:48] LABS: Hypochromasia 2+
[2025-01-20 03:49] LABS: Target Cells 1+
[2025-01-20] MEDS: HEPARIN SODIUM 5,000 UNITS/ML VIAL 3500 UNITS IV PUSH (03:49)
[2025-01-20 03:52] LABS: Helmet Cells 1+
[2025-01-20 03:53] LABS: Schistocytes Rare
[2025-01-20 07:51] LABS: Glucose Point of Care 94 mg/dl (65-105)
[2025-01-20] MEDS: METOPROLOL TARTRATE 12.5 MG TABLET PO ×2 (09:30→21:21)
[2025-01-20 09:56] LABS: Partial Thromboplastin Time 89.2 Seconds (22.3-36.8)
[2025-01-20 11:52] LABS: Glucose Point of Care 140 mg/dl (65-105)
--- NOTE | 2025-01-20 12:25 | WPDGIPROGNO ---
Progress Note: A&P Assessment and Plan (1) Spontaneous bacterial peritonitis: Code(s): K65.2 - Spontaneous bacterial peritonitis Status: Acute Assessment and Plan: Treatment with ceftriaxone and albumin continues for spontaneous bacterial peritonitis, with the patient demonstrating clinical stability. Concurrent management includes anticoagulation for suspected pulmonary embolism, following an intermediate probability CT angiography. A CT-guided biopsy of a selected focal liver mass is planned, but without contrast administration due to renal insufficiency. This procedure will be performed after heparin discontinuation. The purpose of the biopsy is to elucidate the specific etiology of the multifocal hepatic masses, which are highly suspicious for malignancy, rather than to confirm the patient's existing diagnosis of cirrhosis. This information will help prognostication, given the patient's already compromised status due to advanced liver disease. If hepatocellular carcinoma is confirmed there is no treatment that can be offered to the patient given her compromised liver function. (2) Cirrhosis: Code(s): K74.60 - Unspecified cirrhosis of liver Status: Acute Subjective Date/time seen: 01/20/25 12:25 Interval history: Patient comfortable, no changes in her symptomatology. No shortness of breath. Exam Narrative: AF 97.6 112/50 76 18 98% ra Gen - NARD Chest - CTA bilaterally, nml RR CV -regular rate and rhythm. S1-S2 telemetry runs narrow complex tachycardia Abd - Soft, obese, NT, +BS Ext - ++pedal edema Psych - Nml mood and affect Skin - Warm and dry Objective Data Vital Signs Vital Signs: Vital Signs - 24 hr 01/19/25 16:00 01/19/25 20:00 01/19/25 20:00 Temperature Pulse Rate 74 81 Respiratory Rate Blood Pressure Pulse Oximetry Oxygen Delivery Room Air 01/19/25 21:13 01/19/25 21:16 01/20/25 00:00 Temperature 98.7 F Pulse Rate 74 81 72 Respiratory Rate 18 Blood Pressure 119/55 L Pulse Oximetry 98 Oxygen Delivery 01/20/25 04:00 01/20/25 04:25 01/20/25 08:00 Temperature 99 F Pulse Rate 72 72 75 Respiratory Rate 18 Blood Pressure 101/45 L Pulse Oximetry 99 Oxygen Delivery 01/20/25 09:29 01/20/25 09:30 01/20/25 09:30 Temperature Pulse Rate 87 90 Respiratory Rate 17 Blood Pressure 112/50 L Pulse Oximetry 98 Oxygen Delivery Room Air Intake/Output Intake/Output: Intake & Output 01/17/25 01/18/25 01/19/25 01/20/25 23:59 23:59 23:59 23:59 Intake Total 4158.0 1915.8 2650.0 571.4 Output Total 900 2450 1 1 Balance 3258.0 -534.2 2649.0 570.4 Meds/Results Medications: Active Medications Generic Name Dose Route Start Last Admin Trade Name [place] PRN Reason Stop Dose Admin Alprazolam 0.25 mg 01/16/25 21:00 01/19/25 21:13 Alprazolam (*Crx) 0.25 Mg Tablet PO 0.25 mg HS MAREK Administration Dextrose 12.5 gm 01/15/25 18:12 01/19/25 08:41 Dextrose 50% 25 Gm/50 Ml Syringe IV PUSH 12.5 gm PRN PRN Administration Hypoglycemia Protocol Glucagon 1 mg 01/15/25 18:12 Glucagon For Inj 1 Mg Vial IM PRN PRN Hypoglycemia Protocol Glucose 15 gm 01/15/25 18:12 Glucose Oral Gel 15 Gm Of Glucse In 37.5 Gm Tube PO PRN PRN Hypoglycemia Protocol Heparin Sodium (Porcine) 7,500 units 01/18/25 18:14 01/19/25 01:46 Heparin Sodium 5,000 Units/Ml Vial IV PUSH 7,500 units PRN PRN Administration aPTT less than 55 seconds Heparin Sodium (Porcine) 3,500 units 01/18/25 18:14 01/20/25 03:49 Heparin Sodium 5,000 Units/Ml Vial IV PUSH 3,500 units PRN PRN Administration aPTT 55 - 70 seconds Dextrose 1,000 mls @ 100 mls/hr 01/15/25 18:12 Dextrose 5% 1,000 Ml IVPB PRN PRN Hypoglycemia Protocol Heparin Sodium/Dextrose 25,000 units in 250 mls @ 20 mls/hr 01/18/25 18:15 01/20/25 10:36 Heparin Sodium/D5w 100 Units/Ml IV CONT 2,000 units/hr .[id number] MAREK 20 mls/hr Titration Protocol 2,000 UNITS/HR Ceftriaxone Sodium 2 gm in 100 mls @ 200 mls/hr 01/18/25 19:00 01/19/25 18:44 Rocephin 2 Gm/Ns 100 Ml IVPB 01/22/25 19:29 200 mls/hr Q24H MAREK Administration Albumin Human 400 mls @ 60 mls/hr 01/20/25 21:00 Albutein IVPB 01/21/25 03:39 ONCE ONE Insulin Aspart 4 - 8 units 01/16/25 08:00 01/20/25 12:22 Insulin Aspart (*Bkc) 100 Units/Ml SUB-Q Not Given TIDWM MAREK Protocol Metoprolol Tartrate 12.5 mg 01/18/25 01:35 01/20/25 09:30 Metoprolol Tartrate 12.5 Mg Tablet PO 12.5 mg Q12HR MAREK Administration Ondansetron HCl 4 mg 01/15/25 17:04 Ondansetron Inj 4 Mg/2 Ml Vial IV PUSH Q4H PRN Nausea Perflutren Lipid Microsphere 0 ml 01/18/25 18:16 Perflutren Lipid Microspheres 1.5 Ml Vial Diluted To 10 Ml Total Volume IV PUSH 01/21/25 18:17 ONCE PRN adequate visualization Protocol Trazodone HCl 50 mg 01/16/25 00:01 01/16/25 20:37 Trazodone Hcl 50 Mg Tablet PO 50 mg QHS PRN Administration sleep Radiology Results: ITS Impressions Chest X-Ray 01/15/25 14:46 IMPRESSION: 1. Blunting of the posterior costophrenic angles, which may be prominent extrapleural fat or tiny pleural effusions. Renal Ultrasound 01/15/25 20:46 IMPRESSION: No hydronephrosis. Somewhat limited visualization of the right kidney. The bladder was not visualized. Heterogeneous liver, liver masses not excluded, recommend contrast CT or hepatic MRI for further characterization. Abdomen/Pelvis CT 01/16/25 23:06 IMPRESSION: 1. Hepatomegaly with multiple hypodensities suggestive of metastatic lesions. Further evaluation advised. 2. Ascites. 3. Small caliber IVC. Clinical correlation for hypotension advised. 4. Minimal right-sided pleural effusion with adjacent atelectasis. Venous Doppler Study 01/17/25 11:17 IMPRESSION: 1: No lower extremity deep venous thrombosis. Paracentesis Ultrasound 01/18/25 15:00 IMPRESSION: 1. Successful ultrasound-guided paracentesis yielding 2000 mL of ubaldo-colored fluid. Pulmonary Perfusion Imaging 01/18/25 16:03 IMPRESSION: 1. Intermediate probability for pulmonary embolism. Labs Labs: Laboratory Results - last 24 hr 01/19/25 01/19/25 01/19/25 13:36 16:55 20:17 WBC RBC Hgb Hct MCV MCH MCHC RDW Plt Count MPV Immature Gran % (Auto) Neut % (Auto) Lymph % (Auto) [place] % (Auto) Eos % (Auto) Baso % (Auto) Lymph # (Auto) [place] # (Auto) Eos # (Auto) Baso # (Auto) Abs Immat Gran (auto) Absolute Neuts (auto) Absolute Nucleated RBC Band Neutrophils % Nucleated RBC % Platelet Estimate Hypochromasia Anisocytosis Target Cells Helmet Cells Schistocytes APTT 68.9 H 136.4 H Sodium Potassium Chloride Carbon Dioxide Anion Gap BUN Creatinine Estim Creat Clear Calc Estimated GFR Glucose POC Capillary Glucose 118 H Calcium Magnesium Total Bilirubin AST ALT Alkaline Phosphatase Total Protein Albumin 01/19/25 01/20/25 01/20/25 20:38 03:12 07:46 WBC 14.2 H RBC 3.08 L Hgb 8.5 L Hct 26.9 L MCV 87.3 MCH 27.6 MCHC 31.6 L RDW 23.6 H Plt Count 176 MPV 10.9 H Immature Gran % (Auto) 0.6 H Neut % (Auto) 83.5 H Lymph % (Auto) 8.8 L [place] % (Auto) 6.0 Eos % (Auto) 1.0 Baso % (Auto) 0.1 L Lymph # (Auto) 1.24 [place] # (Auto) 0.9 H Eos # (Auto) 0.1 Baso # (Auto) 0.0 Abs Immat Gran (auto) 0.08 H Absolute Neuts (auto) 11.8 H Absolute Nucleated RBC 0.000 Band Neutrophils % Not Reportable Nucleated RBC % 0.0 Platelet Estimate Adequate Hypochromasia 2+ Anisocytosis 2+ Target Cells 1+ Helmet Cells 1+ Schistocytes Rare APTT 70.3 H Sodium 133 L Potassium 4.1 Chloride 104 Carbon Dioxide 18 L Anion Gap 11 BUN 48 H Creatinine 1.96 H Estim Creat Clear Calc 33 Estimated GFR 25 L Glucose 100 POC Capillary Glucose 193 H 94 Calcium 8.1 L Magnesium 1.7 Total Bilirubin 4.8 H AST 64 H ALT 26 Alkaline Phosphatase 316 H Total Protein 6.0 L Albumin 2.9 L 01/20/25 01/20/25 09:37 11:49 WBC RBC Hgb Hct MCV MCH MCHC RDW Plt Count MPV Immature Gran % (Auto) Neut % (Auto) Lymph % (Auto) [place] % (Auto) Eos % (Auto) Baso % (Auto) Lymph # (Auto) [place] # (Auto) Eos # (Auto) Baso # (Auto) Abs Immat Gran (auto) Absolute Neuts (auto) Absolute Nucleated RBC Band Neutrophils % Nucleated RBC % Platelet Estimate Hypochromasia Anisocytosis Target Cells Helmet Cells Schistocytes APTT 89.2 H Sodium Potassium Chloride Carbon Dioxide Anion Gap BUN Creatinine Estim Creat Clear Calc Estimated GFR Glucose POC Capillary Glucose 140 H Calcium Magnesium Total Bilirubin AST ALT Alkaline Phosphatase Total Protein Albumin
--- NOTE | 2025-01-20 12:46 | P.PNNP_ITS ---
Progress Note: A&P Assessment and Plan (1) Acute kidney injury: Code(s): N17.9 - Acute kidney failure, unspecified Status: Acute Assessment and Plan: * relatively stable - suspect new baseline * as noted this year... * creatinine running ~ 1.4 - 1.6mg/dl (in 2022 - 2023) * creatinine ~ 1.2 - 1.3mg/dl (in 2019) * creatinine running 2.0 - 2.4mg/dl since early December 2024 * admission creatinine 2.23mg/dl * suspect possibly related to recent findings of liver cirrhosis (and associated physiology): * decreased effective circulating volume leading to chronic prerenal azotemia worsened by ascites and need for diuretic therapy... * evaluation to date noted: * renal ultrasound without hydro but limited visualization of right kidney * CPK low * prerenal urine electrolytes * no significant proteinuria * UA suggestive of infection (but culture negative) * lisinopril and chlorthalidone on hold * off IVFs due to concern of volume overload * metabolic acidosis better with sodium bicarbonate * follow trend of repeat labs and UOP (2) Chronic kidney disease, stage 3b: Code(s): N18.32 - Chronic kidney disease, stage 3b Status: Chronic Assessment and Plan: * creatinine was running ~ 1.4 - 1.6mg/dl (in 2022 - 2023) and ~ 1.2 - 1.3mg/dl (in 2019) * suspect underlying CKD due to diabetes, hypertension, and age-related change * recent issues with liver disease likely contributing now as well * suspect has new baseline creatinine around 1.9 - 2.1mg/dl (3) Acute hyperkalemia: Code(s): E87.5 - Hyperkalemia Status: Acute Assessment and Plan: * resolved/resolving * as noted on admission - K+ 6.1 * s/p medical management (IVF, IV calcium, D50 + IV insulin, IV bicarb and lokelma) * follow trend of repeat K+ levels (4) Cirrhosis: Code(s): K74.60 - Unspecified cirrhosis of liver Status: Acute Assessment and Plan: * as suggested by imaging to date: * RUQ showing possible cirrhosis but can not excluding underlying mass (as noted on last hospital stay) * CT A/P (on 01/16) showing hepatomegaly with multiple hypodensities suggestive of metastatic lesions, ascites, small caliber IVC and minimal right-sided pleural effusion with adjacent atelectasis * etiology not clear * possible etiology for #1 (?) * hepatitis panel negative * GI following with recommendations noted (5) Spontaneous bacterial peritonitis: Code(s): K65.2 - Spontaneous bacterial peritonitis Status: Acute Assessment and Plan: * s/p ultrasound guided paracentesis (on 01/18): * removal of 2 L ascitic fluid * fluid was cloudy with 15K red cells and 585 WBC, 64% PMNs (374) * Gram stain showing no organisms or white blood cells * fluid cultures and cytology pending * remains asymptomatic * on IV antibiotics (6) Pulmonary embolism: Code(s): I26.99 - Other pulmonary embolism without acute cor pulmonale Status: Acute Assessment and Plan: * high suspicion * noted episodes of sinus tachycardia -- iniital EKG showing sinus tachycardia * venous doppler negative of DVT in the lower extremities * VQ scan showing moderate sized perfusion defect at the posterior basilar segment RLL - intermediate probability for PE [place] * Echo on 01/05/25 showing normal right sided findings; repeat limited Echo pending * on heparin gtt with eventual transition to oral anticoagulation (7) Liver mass: Code(s): R16.0 - Hepatomegaly, not elsewhere classified Status: Acute Assessment and Plan: * noted by imaging (see #4) * GI following with recommendations noted * s/p paracentesis with results noted (see #5) * since MRI not feasible, planning biopsy of hepatic masses for definitive diagnosis (8) Anemia: Code(s): D64.9 - Anemia, unspecified Status: Acute Assessment and Plan: * drop in H/H noted since admission (but has been stable) * partly related to due to MADY and CKD as well as acute illness * possibly related to also IVFs/dilution as well * cannot discount underlying malignancy playing a role (see #7) * previous anemia studies (last admission) with iron deficiency * follow trend of H/H (9) Essential (primary) hypertension: Code(s): I10 - Essential (primary) hypertension Status: Chronic Assessment and Plan: * reasonable control noted * KAMILA-I and chlorthalidone remains on hold * follow trend of hemodynamics (10) Type 2 diabetes mellitus: Qualifiers: Diabetes mellitus terminal worker insulin use: without terminal worker use Diabetes mellitus complication status: with other specified complication Qualified Code(s): E11.69 - Type 2 diabetes mellitus with other specified complication Code(s): E11.9 - Type 2 diabetes mellitus without complications Status: Chronic Assessment and Plan: * follow accu-cheks * issues with hypoglycemia noted since hospitalization * recent medication changes noted prior to admission * glycemic control per hospitalist Will continue to follow. L Subjective Date/time seen: 01/20/25 12:46 Interval history: Follow-up for acute kidney injury/acute renal failure on chronic kidney disease. Renal function/creatinine remains relatively stable at this time (possible new baseline?); no other issues/events overnight or earlier this morning; did not sleep well last night; no other acute complaints voiced when seen. Exam 2 Narrative: General: elderly but WD/WN female in NAD Heart: tachycardic at times, normal S1 and S2; no rub Lungs: clear anteriorly; decrease at bases Abdomen: obese but soft, nontender, nondistended, positive bowel sounds Extremities: no cyanosis or clubbing; 1+ edema Skin: no nodules Objective Data Vital Signs Vital Signs: Vital Signs Temp Pulse Resp BP Pulse Ox O2 Del Method 01/20/25 12:00 75 01/20/25 09:30 Room Air 01/20/25 09:30 90 01/20/25 09:29 87 17 112/50 L 98 01/20/25 08:00 75 01/20/25 04:25 99 F 72 18 101/45 L 99 01/20/25 04:00 72 01/20/25 00:00 72 01/19/25 21:16 98.7 F 81 18 119/55 L 98 01/19/25 21:13 74 01/19/25 20:00 81 01/19/25 20:00 Room Air 01/19/25 16:00 74 Intake/Output Intake/Output: Intake & Output 01/17/25 01/18/25 01/19/25 01/20/25 23:59 23:59 23:59 23:59 Intake Total 4158.0 1915.8 2650.0 855.0 Output Total 900 2450 1 1 Balance 3258.0 -534.2 2649.0 854.0 Meds/Results Medications: Active Medications Generic Name Dose Route Start Last Admin Trade Name Freq PRN Reason Stop Dose Admin Alprazolam 0.25 mg 01/16/25 21:00 01/19/25 21:13 Alprazolam (*Crx) 0.25 Mg Tablet PO 0.25 mg HS MAREK Administration Dextrose 12.5 gm 01/15/25 18:12 01/19/25 08:41 Dextrose 50% 25 Gm/50 Ml Syringe IV PUSH 12.5 gm PRN PRN Administration Hypoglycemia Protocol Glucagon 1 mg 01/15/25 18:12 Glucagon For Inj 1 Mg Vial IM PRN PRN Hypoglycemia Protocol Glucose 15 gm 01/15/25 18:12 Glucose Oral Gel 15 Gm Of Glucse In 37.5 Gm Tube PO PRN PRN Hypoglycemia Protocol Heparin Sodium (Porcine) 7,500 units 01/18/25 18:14 01/19/25 01:46 Heparin Sodium 5,000 Units/Ml Vial IV PUSH 7,500 units PRN PRN Administration aPTT less than 55 seconds Heparin Sodium (Porcine) 3,500 units 01/18/25 18:14 01/20/25 03:49 Heparin Sodium 5,000 Units/Ml Vial IV PUSH 3,500 units PRN PRN Administration aPTT 55 - 70 seconds Dextrose 1,000 mls @ 100 mls/hr 01/15/25 18:12 Dextrose 5% 1,000 Ml IVPB PRN PRN Hypoglycemia Protocol Heparin Sodium/Dextrose 25,000 units in 250 mls @ 20 mls/hr 01/18/25 18:15 01/20/25 14:45 Heparin Sodium/D5w 100 Units/Ml IV CONT 2,000 units/hr .[id number] MAREK 20 mls/hr Administration Protocol 2,000 UNITS/HR Ceftriaxone Sodium 2 gm in 100 mls @ 200 mls/hr 01/18/25 19:00 01/19/25 18:44 Rocephin 2 Gm/Ns 100 Ml IVPB 01/22/25 19:29 200 mls/hr Q24H MAREK Administration Albumin Human 400 mls @ 60 mls/hr 01/20/25 21:00 Albutein IVPB 01/21/25 03:39 ONCE ONE Insulin Aspart 4 - 8 units 01/16/25 08:00 01/20/25 12:22 Insulin Aspart (*Bkc) 100 Units/Ml SUB-Q Not Given TIDWM MAREK Protocol Metoprolol Tartrate 12.5 mg 01/18/25 01:35 01/20/25 09:30 Metoprolol Tartrate 12.5 Mg Tablet PO 12.5 mg Q12HR MAREK Administration Ondansetron HCl 4 mg 01/15/25 17:04 Ondansetron Inj 4 Mg/2 Ml Vial IV PUSH Q4H PRN Nausea Perflutren Lipid Microsphere 0 ml 01/18/25 18:16 Perflutren Lipid Microspheres 1.5 Ml Vial Diluted To 10 Ml Total Volume IV PUSH 01/21/25 18:17 ONCE PRN adequate visualization Protocol Trazodone HCl 50 mg 01/16/25 00:01 01/16/25 20:37 Trazodone Hcl 50 Mg Tablet PO 50 mg QHS PRN Administration sleep Radiology Results: ITS Impressions Chest X-Ray 01/15/25 14:46 IMPRESSION: 1. Blunting of the posterior costophrenic angles, which may be prominent extrapleural fat or tiny pleural effusions. Renal Ultrasound 01/15/25 20:46 IMPRESSION: No hydronephrosis. Somewhat limited visualization of the right kidney. The bladder was not visualized. Heterogeneous liver, liver masses not excluded, recommend contrast CT or hepatic MRI for further characterization. Abdomen/Pelvis CT 01/16/25 23:06 IMPRESSION: 1. Hepatomegaly with multiple hypodensities suggestive of metastatic lesions. Further evaluation advised. 2. Ascites. 3. Small caliber IVC. Clinical correlation for hypotension advised. 4. Minimal right-sided pleural effusion with adjacent atelectasis. Venous Doppler Study 01/17/25 11:17 IMPRESSION: 1: No lower extremity deep venous thrombosis. Paracentesis Ultrasound 01/18/25 15:00 IMPRESSION: 1. Successful ultrasound-guided paracentesis yielding 2000 mL of ubaldo-colored fluid. Pulmonary Perfusion Imaging 01/18/25 16:03 IMPRESSION: 1. Intermediate probability for pulmonary embolism. Labs Labs: Laboratory Tests 01/20/25 03:12 01/20/25 03:12 Calcium 8.1 L Magnesium 1.7 Total Bilirubin 4.8 H AST 64 H ALT 26 Alkaline Phosphatase 316 H Total Protein 6.0 L Albumin 2.9 L Microbiology 01/18/25 14:37 Ascites Fluid Anaerobic Culture - Preliminary 01/18/25 14:37 Ascites Fluid Aerobic Culture - Preliminary 01/18/25 14:37 Ascites Fluid Gram Stain - Final
[2025-01-20] MEDS: HEPARIN SOD/D5W 100 UNITS/ML 25,000 UNITS/250 ML BAG 20 UNITS IV CONT (14:45)
[2025-01-20 17:01] LABS: Glucose Point of Care 187 mg/dl (65-105)
[2025-01-20] MEDS: cefTRIAXone 2 GM/NS 100 ML 2 GM/100 ML BAG IVPB (17:19)
[2025-01-20 18:33] LABS: Partial Thromboplastin Time 107.7 Seconds (22.3-36.8)
--- NOTE | 2025-01-20 19:41 | PM.IMPN ---
Progress Note: A&P Assessment and Plan (1) Liver mass: Code(s): R16.0 - Hepatomegaly, not elsewhere classified Status: Acute Assessment and Plan: RUQ showing possible cirrhosis but can not exclude underlying mass. CT without contrast showing hepatomegaly with multiple hypodensities suggestive of metastatic lesions, ascites, small caliber IVC and minimal right-sided pleural effusion with adjacent atelectasis. Small caliber IVC but doubt dehydrated since receiving IV fluids, appears fluid overload and with positive fluid balance. LE venous doppler negative for DVT. Hepatitis panel negative on 01/05/25 CEA 30. ALP level pending. GI consulted and appreciate their input. Consider colonoscopy but radiology felt liver biopsy was possible despite her size. Spoke with oncology who recommended trying to get biopsy this admission so will order for tomorrow. They will follow her in the clinic after discharge. (2) Pulmonary embolism: Code(s): I26.99 - Other pulmonary embolism without acute cor pulmonale Status: Acute Assessment and Plan: Patient with episodes of sinus tachycardia. EKG showing sinus tachycardia. Venous doppler negative of DVT in the lower extremity. VQ scan showing moderate sized perfusion defect at the posterior basilar segment RLL. PERC Rule can not exclude PE. Wells Score gives a moderate risk. EKG showing no S wave in I but shows Q wave and flat T wave in III. Echo 01/05/25 showing normal right sided findings but limited Echo this admission now showing mildly enlarged RV but normal systolic function. TSH normal. Heparin drip started. Transition to Eliquis when able. (3) Spontaneous bacterial peritonitis: Code(s): K65.2 - Spontaneous bacterial peritonitis Status: Acute Assessment and Plan: Patient underwent paracentesis 01/18/2025 with removal of 2 L. The fluid was cloudy with 15K red cells and 585 WBC, 64% PMNs (374). Rocephin 2gm started for 5 days. Gram stain showing no organisms or white blood cells. Cultures are pending. Patient remains asymptomatic. Continue IV antibiotics. (4) Acute kidney injury superimposed on stage 3b chronic kidney disease: Code(s): N17.9 - Acute kidney failure, unspecified; N18.32 - Chronic kidney disease, stage 3b Status: Acute Assessment and Plan: Patient presents with weakness and found to have MADY with Cr 2.23. Baseline Cr 1.2-1.6. Total CK normal. Pamela 26. UA consistent with UTI but UCx negative. Nephrology consulted and appreciate their input Renal US showing no hydronephrosis with somewhat limited visualization of the right kidney; bladder not seen. Holding lisinopril and chlorthalidone (have been held since 01/04) Started on IV fluids. Cr better at 2.0 but becoming fluid overloaded. Metabolic acidosis noted and oral NaBicarb started. Currently off IV fluids. Renal function stable with creatinine 2 - possibly new baseline. Metabolic acidosis better. Monitor UOP, renal fxn and electrolytes. (5) Acute hyperkalemia: Code(s): E87.5 - Hyperkalemia Status: Acute Assessment and Plan: Potassium 6.1. In ED given: 2L bolus, calcium, insulin/dextrose, sodium bicarb, and Lokelma with benefit. Lokelma continued. Potassium normalized so Lokelma stopped Continue to trend (6) Type 2 diabetes mellitus: Qualifiers: Diabetes mellitus rodent exterminator insulin use: without long-term use Diabetes mellitus complication status: with other specified complication Qualified Code(s): E11.69 - Type 2 diabetes mellitus with other specified complication Code(s): E11.9 - Type 2 diabetes mellitus without complications Status: Acute Assessment and Plan: The patient is eating intermittently. She is glucose instability probably related to her liver disease. A1c 6.1%. Home medication of metformin and glipizide on hold The patient's blood glucose was reviewed on 01/20 Glucose was treated with hypoglycemia protocol Continue AccuCheks covering with sliding scale. Hypoglycemia protocol available as needed. Continue to follow (7) Essential (primary) hypertension: Code(s): I10 - Essential (primary) hypertension Status: Chronic Assessment and Plan: Patient's blood pressure was reviewed on 01/20 Blood pressure remains well controlled. Will continue to monitor (8) Cirrhosis: Code(s): K74.60 - Unspecified cirrhosis of liver Status: Acute Assessment and Plan: Possible cirrhosis. Radiology felt imaging not consistent with cirrhosis. She definitely has evidence of liver dysfunction. (9) Morbid (severe) obesity due to excess calories: Code(s): E66.01 - Morbid (severe) obesity due to excess calories Status: Acute Assessment and Plan: BMI 48. This is negatively contributing to her evaluation. Plan DVT Prophylaxis: Heparin gtt Code Status: Full code Subjective Date/time seen: 01/20/25 19:41 Interval history: 74yo female with CHF, CKD and HTN here for fatigue and weakness. Slept poorly. No CP. No SOB. No problems overnight. No abd pain. Exam Narrative: AF 99.0 120/53 87 22 97% ra Gen - NARD Chest - CTA bilaterally, nml RR CV -regular rate and rhythm. Tele showing rare events of sinus tach Abd - Soft, obese, NT, +BS Ext - 2+ pedal edema Psych - Nml mood and affect Skin - Warm and dry Objective Data Vital Signs Vital Signs: Vital Signs - 24 hr 01/19/25 20:00 01/19/25 20:00 01/19/25 21:13 Temperature Pulse Rate 81 74 Respiratory Rate Blood Pressure Pulse Oximetry Oxygen Delivery Room Air 01/19/25 21:16 01/20/25 00:00 01/20/25 04:00 Temperature 98.7 F Pulse Rate 81 72 72 Respiratory Rate 18 Blood Pressure 119/55 L Pulse Oximetry 98 Oxygen Delivery 01/20/25 04:25 01/20/25 08:00 01/20/25 09:29 Temperature 99 F Pulse Rate 72 75 87 Respiratory Rate 18 17 Blood Pressure 101/45 L 112/50 L Pulse Oximetry 99 98 Oxygen Delivery 01/20/25 09:30 01/20/25 09:30 01/20/25 12:00 Temperature Pulse Rate 90 75 Respiratory Rate Blood Pressure Pulse Oximetry Oxygen Delivery Room Air 01/20/25 14:00 01/20/25 16:00 Temperature Pulse Rate 102 H 87 Respiratory Rate 22 H Blood Pressure 120/53 L Pulse Oximetry 97 Oxygen Delivery Intake/Output Intake/Output: Intake & Output 01/17/25 01/18/25 01/19/25 01/20/25 23:59 23:59 23:59 23:59 Intake Total 4158.0 1915.8 2750.0 2789.0 Output Total 900 2450 1 1 Balance 3258.0 -534.2 2749.0 2788.0 Meds/Results Medications: Active Medications Generic Name Dose Route Start Last Admin Trade Name Freq PRN Reason Stop Dose Admin Alprazolam 0.25 mg 01/16/25 21:00 01/19/25 21:13 Alprazolam (*Crx) 0.25 Mg Tablet PO 0.25 mg HS MAREK Administration Dextrose 12.5 gm 01/15/25 18:12 01/19/25 08:41 Dextrose 50% 25 Gm/50 Ml Syringe IV PUSH 12.5 gm PRN PRN Administration Hypoglycemia Protocol Glucagon 1 mg 01/15/25 18:12 Glucagon For Inj 1 Mg Vial IM PRN PRN Hypoglycemia Protocol Glucose 15 gm 01/15/25 18:12 Glucose Oral Gel 15 Gm Of Glucse In 37.5 Gm Tube PO PRN PRN Hypoglycemia Protocol Heparin Sodium (Porcine) 7,500 units 01/18/25 18:14 01/19/25 01:46 Heparin Sodium 5,000 Units/Ml Vial IV PUSH 7,500 units PRN PRN Administration aPTT less than 55 seconds Heparin Sodium (Porcine) 3,500 units 01/18/25 18:14 01/20/25 03:49 Heparin Sodium 5,000 Units/Ml Vial IV PUSH 3,500 units PRN PRN Administration aPTT 55 - 70 seconds Dextrose 1,000 mls @ 100 mls/hr 01/15/25 18:12 Dextrose 5% 1,000 Ml IVPB PRN PRN Hypoglycemia Protocol Heparin Sodium/Dextrose 25,000 units in 250 mls @ 18 mls/hr 01/18/25 18:15 01/20/25 19:27 Heparin Sodium/D5w 100 Units/Ml IV CONT 1,800 units/hr .[id number] MAREK 18 mls/hr Titration Protocol 1,800 UNITS/HR Ceftriaxone Sodium 2 gm in 100 mls @ 200 mls/hr 01/18/25 19:00 01/20/25 17:49 Rocephin 2 Gm/Ns 100 Ml IVPB 01/22/25 19:29 Infused Q24H MAREK Infusion Albumin Human 400 mls @ 60 mls/hr 01/20/25 21:00 Albutein IVPB 01/21/25 03:39 ONCE ONE Insulin Aspart 4 - 8 units 01/16/25 08:00 01/20/25 17:05 Insulin Aspart (*Bkc) 100 Units/Ml SUB-Q Not Given TIDWM MAREK Protocol Metoprolol Tartrate 12.5 mg 01/18/25 01:35 01/20/25 09:30 Metoprolol Tartrate 12.5 Mg Tablet PO 12.5 mg Q12HR MAREK Administration Ondansetron HCl 4 mg 01/15/25 17:04 Ondansetron Inj 4 Mg/2 Ml Vial IV PUSH Q4H PRN Nausea Perflutren Lipid Microsphere 0 ml 01/18/25 18:16 Perflutren Lipid Microspheres 1.5 Ml Vial Diluted To 10 Ml Total Volume IV PUSH 01/21/25 18:17 ONCE PRN adequate visualization Protocol Trazodone HCl 50 mg 01/16/25 00:01 01/16/25 20:37 Trazodone Hcl 50 Mg Tablet PO 50 mg QHS PRN Administration sleep Radiology Results: ITS Impressions Chest X-Ray 01/15/25 14:46 IMPRESSION: 1. Blunting of the posterior costophrenic angles, which may be prominent extrapleural fat or tiny pleural effusions. Renal Ultrasound 01/15/25 20:46 IMPRESSION: No hydronephrosis. Somewhat limited visualization of the right kidney. The bladder was not visualized. Heterogeneous liver, liver masses not excluded, recommend contrast CT or hepatic MRI for further characterization. Abdomen/Pelvis CT 01/16/25 23:06 IMPRESSION: 1. Hepatomegaly with multiple hypodensities suggestive of metastatic lesions. Further evaluation advised. 2. Ascites. 3. Small caliber IVC. Clinical correlation for hypotension advised. 4. Minimal right-sided pleural effusion with adjacent atelectasis. Venous Doppler Study 01/17/25 11:17 IMPRESSION: 1: No lower extremity deep venous thrombosis. Paracentesis Ultrasound 01/18/25 15:00 IMPRESSION: 1. Successful ultrasound-guided paracentesis yielding 2000 mL of ubaldo-colored fluid. Pulmonary Perfusion Imaging 01/18/25 16:03 IMPRESSION: 1. Intermediate probability for pulmonary embolism. Labs Labs: Laboratory Results - last 24 hr 01/19/25 01/19/25 01/20/25 20:17 20:38 03:12 WBC 14.2 H RBC 3.08 L Hgb 8.5 L Hct 26.9 L MCV 87.3 MCH 27.6 MCHC 31.6 L RDW 23.6 H Plt Count 176 MPV 10.9 H Immature Gran % (Auto) 0.6 H Neut % (Auto) 83.5 H Lymph % (Auto) 8.8 L [place] % (Auto) 6.0 Eos % (Auto) 1.0 Baso % (Auto) 0.1 L Lymph # (Auto) 1.24 [place] # (Auto) 0.9 H Eos # (Auto) 0.1 Baso # (Auto) 0.0 Abs Immat Gran (auto) 0.08 H Absolute Neuts (auto) 11.8 H Absolute Nucleated RBC 0.000 Band Neutrophils % Not Reportable Nucleated RBC % 0.0 Platelet Estimate Adequate Hypochromasia 2+ Anisocytosis 2+ Target Cells 1+ Helmet Cells 1+ Schistocytes Rare APTT 136.4 H 70.3 H Sodium 133 L Potassium 4.1 Chloride 104 Carbon Dioxide 18 L Anion Gap 11 BUN 48 H Creatinine 1.96 H Estim Creat Clear Calc 33 Estimated GFR 25 L Glucose 100 POC Capillary Glucose 193 H Calcium 8.1 L Magnesium 1.7 Total Bilirubin 4.8 H AST 64 H ALT 26 Alkaline Phosphatase 316 H Total Protein 6.0 L Albumin 2.9 L 01/20/25 01/20/25 01/20/25 07:46 09:37 11:49 WBC RBC Hgb Hct MCV MCH MCHC RDW Plt Count MPV Immature Gran % (Auto) Neut % (Auto) Lymph % (Auto) [place] % (Auto) Eos % (Auto) Baso % (Auto) Lymph # (Auto) [place] # (Auto) Eos # (Auto) Baso # (Auto) Abs Immat Gran (auto) Absolute Neuts (auto) Absolute Nucleated RBC Band Neutrophils % Nucleated RBC % Platelet Estimate Hypochromasia Anisocytosis Target Cells Helmet Cells Schistocytes APTT 89.2 H Sodium Potassium Chloride Carbon Dioxide Anion Gap BUN Creatinine Estim Creat Clear Calc Estimated GFR Glucose POC Capillary Glucose 94 140 H Calcium Magnesium Total Bilirubin AST ALT Alkaline Phosphatase Total Protein Albumin 01/20/25 01/20/25 16:53 18:12 WBC RBC Hgb Hct MCV MCH MCHC RDW Plt Count MPV Immature Gran % (Auto) Neut % (Auto) Lymph % (Auto) [place] % (Auto) Eos % (Auto) Baso % (Auto) Lymph # (Auto) [place] # (Auto) Eos # (Auto) Baso # (Auto) Abs Immat Gran (auto) Absolute Neuts (auto) Absolute Nucleated RBC Band Neutrophils % Nucleated RBC % Platelet Estimate Hypochromasia Anisocytosis Target Cells Helmet Cells Schistocytes APTT 107.7 H Sodium Potassium Chloride Carbon Dioxide Anion Gap BUN Creatinine Estim Creat Clear Calc Estimated GFR Glucose POC Capillary Glucose 187 H Calcium Magnesium Total Bilirubin AST ALT Alkaline Phosphatase Total Protein Albumin
[2025-01-20] MEDS: ALPRAZolam (*CRX) 0.25 MG TABLET PO (21:21)
--- NOTE | 2025-01-20 21:48 | PC.NURSE ---
RN unable to establish secondary IV access; traffic warehouse supervisor called to assist in establishing IV and was also unable to initiate access. Patient refusing to allow continued efforts to initiate access at this time and requests vascular access to use ultrasound to establish access. Unable to administer albumin as ordered r/t heparin drip infusing in existing IV port.
[2025-01-21] VITALS (11 sets, daily range): BP systolic 119–137; BP diastolic 44–59; PULSE 75–113; RESP 16–20; TEMP 36.2–36.8; O2SAT 93–98
[2025-01-21 01:50] LABS: Partial Thromboplastin Time 75.3 Seconds (22.3-36.8)
[2025-01-21] MEDS: HEPARIN SOD/D5W 100 UNITS/ML 25,000 UNITS/250 ML BAG 18 UNITS IV CONT (03:33)
[2025-01-21 04:10] LABS: Glucose Point of Care 201 mg/dl (65-105)
[2025-01-21 05:52] LABS: Glucose Point of Care 116 mg/dl (65-105)
[2025-01-21 06:54] LABS: Alpha Fetoprotein Tumor Marker 20.4 ng/mL
[2025-01-21 07:58] LABS: Basophils Percent Auto 0.2 % (0.2-1.2); Eosinophils Absolute Auto 0.1 K/mm3 (0-0.3); Eosinophils Percent Auto 0.8 % (0-4.4); Hematocrit 31.8 % (37.0-47.0); Immature Granulocyte Absolute 0.14 K/mm3 (0.00-0.031); Immature Granulocyte Percent A 0.8 % (0-0.5); Lymphocytes Absolute Auto 1.13 K/mm3 (0.9-3.2); Lymphocytes Percent Auto 6.8 % (18.3-44.2); Mean Corpuscular HGB Conc 31.4 g/dl (32-36); Mean Corpuscular Hemoglobin 27.2 pg (26-34); Mean Corpuscular Volume 86.6 fl (80-100); Mean Platelet Volume 10.8 fl (7.4-10.4); Monocytes Absolute Auto 1.1 K/mm3 (0.1-0.6); Monocytes Percent Auto 6.3 % (2.6-8.5); Neutrophils Absolute Auto 14.1 K/mm3 (1.3-6.7); Neutrophils Percent Auto 85.1 % (45.5-73.1); Platelet Count Result 208 k/mm3 (150-375); Red Blood Count 3.67 M/mm3 (4.2-5.4); Red Cell Distribution Width 23.9 % (11.5-14.5); White Blood Count 16.6 K/mm3 (4.5-10.0)
[2025-01-21 08:37] LABS: Anisocytosis 1+; Hypochromasia 1+; Platelet Estimate Adequate (Adequate); Stomatocytes 1+; Target Cells 1+
[2025-01-21 08:38] LABS: Schistocytes None Seen
[2025-01-21] MEDS: ALBUMIN HUMAN IVPB (08:45)
[2025-01-21 08:47] LABS: Partial Thromboplastin Time 35.3 Seconds (22.3-36.8)
[2025-01-21 09:09] LABS: Alanine Aminotransferase 31 U/L (6-35); Albumin Level 3.1 g/dL (3.5-5.1); Alkaline Phosphatase 449 U/L (38-126); Anion Gap 11 mmol/L (4-12); Aspartate Amino Transferase 64 U/L (14-36); Bilirubin,Total 5.9 mg/dL (0.2-1.3); Blood Urea Nitrogen 49 mg/dL (7-17); Calcium 8.9 mg/dL (8.4-10.2); Carbon Dioxide 21 mmol/L (22-30); Chloride 103 mmol/L (98-107); Estimated CRCL calculation 32 ml/min; Estimated Glomerular Filt Rate 24; Glucose 125 mg/dL (65-110); Sodium 135 mmol/L (137-145)
[2025-01-21 09:10] LABS: Potassium 4.3 mmol/L (3.4-5.0)
[2025-01-21] MEDS: METOPROLOL TARTRATE 12.5 MG TABLET PO ×2 (09:43→20:29)
--- NOTE | 2025-01-21 11:28 | P.PNNP_ITS ---
Progress Note: A&P Assessment and Plan (1) Acute kidney injury: Code(s): N17.9 - Acute kidney failure, unspecified Status: Acute Assessment and Plan: * relatively stable - suspect new baseline... * as noted this year... * creatinine running ~ 1.4 - 1.6mg/dl (in 2022 - 2023) * creatinine ~ 1.2 - 1.3mg/dl (in 2019) * creatinine running 2.0 - 2.4mg/dl since early December 2024 * admission creatinine 2.23mg/dl * suspect possibly related to recent findings of liver cirrhosis (and associated physiology): * decreased effective circulating volume leading to chronic prerenal azotemia worsened by ascites and need for diuretic therapy... * evaluation to date noted: * renal ultrasound without hydro but limited visualization of right kidney * CPK low * prerenal urine electrolytes * no significant proteinuria * UA suggestive of infection (but culture negative) * lisinopril and chlorthalidone on hold * off IVFs due to concern of volume overload * metabolic acidosis better s/p sodium bicarbonate * follow trend of repeat labs and UOP (2) Chronic kidney disease, stage 3b: Code(s): N18.32 - Chronic kidney disease, stage 3b Status: Chronic Assessment and Plan: * creatinine was running ~ 1.4 - 1.6mg/dl (in 2022 - 2023) and ~ 1.2 - 1.3mg/dl (in 2019) * suspect underlying CKD due to diabetes, hypertension, and age-related change * recent issues with liver disease likely contributing now as well * suspect has new baseline creatinine around 1.9 - 2.1mg/dl (3) Acute hyperkalemia: Code(s): E87.5 - Hyperkalemia Status: Acute Assessment and Plan: * resolved/resolving * as noted on admission - K+ 6.1 * s/p medical management (IVF, IV calcium, D50 + IV insulin, IV bicarb and lokelma) * follow trend of repeat K+ levels (4) Cirrhosis: Code(s): K74.60 - Unspecified cirrhosis of liver Status: Acute Assessment and Plan: * as suggested by imaging to date: * RUQ showing possible cirrhosis but can not excluding underlying mass (as noted on last hospital stay) * CT A/P (on 01/16) showing hepatomegaly with multiple hypodensities suggestive of metastatic lesions, ascites, small caliber IVC and minimal right-sided pleural effusion with adjacent atelectasis * etiology not clear * possible etiology for #1 (?) * hepatitis panel negative * GI following with recommendations noted (5) Spontaneous bacterial peritonitis: Code(s): K65.2 - Spontaneous bacterial peritonitis Status: Acute Assessment and Plan: * s/p ultrasound guided paracentesis (on 01/18): * removal of 2 L ascitic fluid * fluid was cloudy with 15K red cells and 585 WBC, 64% PMNs (374) * Gram stain showing no organisms or white blood cells * fluid cultures negative and cytology pending * remains asymptomatic * on IV antibiotics (6) Pulmonary embolism: Code(s): I26.99 - Other pulmonary embolism without acute cor pulmonale Status: Acute Assessment and Plan: * high suspicion * noted episodes of sinus tachycardia -- iniital EKG showing sinus tachycardia * venous doppler negative of DVT in the lower extremities * VQ scan showing moderate sized perfusion defect at the posterior basilar segment RLL - intermediate probability for PE Wells * Echo on 01/05/25 showing normal right sided findings; repeat limited Echo pending * on heparin gtt with eventual transition to oral anticoagulation (7) Liver mass: Code(s): R16.0 - Hepatomegaly, not elsewhere classified Status: Acute Assessment and Plan: * noted by imaging (see #4) * GI following with recommendations noted * s/p paracentesis with results noted (see #5) * since MRI not feasible, plan biopsy of hepatic masses for definitive diagnosis later today (8) Anemia: Code(s): D64.9 - Anemia, unspecified Status: Acute Assessment and Plan: * drop in H/H noted since admission (but has been stable) * partly related to due to MADY and CKD as well as acute illness * possibly related to also IVFs/dilution as well * cannot discount underlying malignancy playing a role (see #7) * previous anemia studies (last admission) with iron deficiency * follow trend of H/H (9) Essential (primary) hypertension: Code(s): I10 - Essential (primary) hypertension Status: Chronic Assessment and Plan: * reasonable control noted * KAMILA-I and chlorthalidone remains on hold * follow trend of hemodynamics (10) Type 2 diabetes mellitus: Qualifiers: Diabetes mellitus jail insulin use: without terminal superintendent use Diabetes mellitus complication status: with other specified complication Qualified Code(s): E11.69 - Type 2 diabetes mellitus with other specified complication Code(s): E11.9 - Type 2 diabetes mellitus without complications Status: Chronic Assessment and Plan: * follow accu-cheks * issues with hypoglycemia noted since hospitalization * recent medication changes noted prior to admission * glycemic control per hospitalist Not much else to add -- will continue to follow from a distance. L Subjective Date/time seen: 01/21/25 11:28 Interval history: Follow-up for acute kidney injury/acute renal failure on chronic kidney disease. Renal function/creatinine remains relatively stable along with potassium and metabolic acidosis; no new issues/events overnight or earlier this morning; no apparent distress noted; tentatively scheduled for ultasound guided biopsy of liver lesions/masses this afternoon. Exam 2 Narrative: General: elderly but WD/WN female in NAD Heart: tachycardic at times, normal S1 and S2; no rub Lungs: clear anteriorly; decrease at bases Abdomen: obese but soft, nontender, nondistended, positive bowel sounds Extremities: no cyanosis or clubbing; 1+ edema Skin: warm and dry Objective Data Vital Signs Vital Signs: Vital Signs Temp Pulse Resp BP Pulse Ox O2 Del Method 01/21/25 09:43 90 01/21/25 08:45 Room Air 01/21/25 08:00 93 01/21/25 05:19 97.9 F 90 16 137/59 L 93 01/21/25 04:00 77 01/21/25 00:00 75 01/20/25 22:00 Room Air 01/20/25 21:21 79 01/20/25 20:42 97.1 F L 79 18 115/43 L 98 01/20/25 20:00 83 Intake/Output Intake/Output: Intake & Output 01/18/25 01/19/25 01/20/25 01/21/25 23:59 23:59 23:59 23:59 Intake Total 1915.8 2750.0 2789.0 1214.2 Output Total 2450 1 1 Balance -534.2 2749.0 2788.0 1214.2 Meds/Results Medications: Active Medications Generic Name Dose Route Start Last Admin Trade Name Freq PRN Reason Stop Dose Admin Alprazolam 0.25 mg 01/16/25 21:00 01/20/25 21:21 Alprazolam (*Crx) 0.25 Mg Tablet PO 0.25 mg HS MAREK Administration Dextrose 12.5 gm 01/15/25 18:12 01/19/25 08:41 Dextrose 50% 25 Gm/50 Ml Syringe IV PUSH 12.5 gm PRN PRN Administration Hypoglycemia Protocol Glucagon 1 mg 01/15/25 18:12 Glucagon For Inj 1 Mg Vial IM PRN PRN Hypoglycemia Protocol Glucose 15 gm 01/15/25 18:12 Glucose Oral Gel 15 Gm Of Glucse In 37.5 Gm Tube PO PRN PRN Hypoglycemia Protocol Heparin Sodium (Porcine) 7,500 units 01/18/25 18:14 01/19/25 01:46 Heparin Sodium 5,000 Units/Ml Vial IV PUSH 7,500 units PRN PRN Administration aPTT less than 55 seconds Heparin Sodium (Porcine) 3,500 units 01/18/25 18:14 01/20/25 03:49 Heparin Sodium 5,000 Units/Ml Vial IV PUSH 3,500 units PRN PRN Administration aPTT 55 - 70 seconds Dextrose 1,000 mls @ 100 mls/hr 01/15/25 18:12 Dextrose 5% 1,000 Ml IVPB PRN PRN Hypoglycemia Protocol Heparin Sodium/Dextrose 25,000 units in 250 mls @ 0 mls/hr 01/18/25 18:15 01/21/25 05:41 Heparin Sodium/D5w 100 Units/Ml IV CONT 0 units/hr .Q0M MAREK 0 mls/hr Titration Protocol 0 UNITS/HR Ceftriaxone Sodium 2 gm in 100 mls @ 200 mls/hr 01/18/25 19:00 01/21/25 18:19 Rocephin 2 Gm/Ns 100 Ml IVPB 01/22/25 19:29 200 mls/hr Q24H MAREK Administration Insulin Aspart 4 - 8 units 01/16/25 08:00 01/21/25 17:03 Insulin Aspart (*Bkc) 100 Units/Ml SUB-Q Not Given TIDWM MAREK Protocol Metoprolol Tartrate 12.5 mg 01/18/25 01:35 01/21/25 09:43 Metoprolol Tartrate 12.5 Mg Tablet PO 12.5 mg Q12HR MAREK Administration Ondansetron HCl 4 mg 01/15/25 17:04 Ondansetron Inj 4 Mg/2 Ml Vial IV PUSH Q4H PRN Nausea Trazodone HCl 50 mg 01/16/25 00:01 01/16/25 20:37 Trazodone Hcl 50 Mg Tablet PO 50 mg QHS PRN Administration sleep Radiology Results: ITS Impressions Chest X-Ray 01/15/25 14:46 IMPRESSION: 1. Blunting of the posterior costophrenic angles, which may be prominent extrapleural fat or tiny pleural effusions. Renal Ultrasound 01/15/25 20:46 IMPRESSION: No hydronephrosis. Somewhat limited visualization of the right kidney. The bladder was not visualized. Heterogeneous liver, liver masses not excluded, recommend contrast CT or hepatic MRI for further characterization. Abdomen/Pelvis CT 01/16/25 23:06 IMPRESSION: 1. Hepatomegaly with multiple hypodensities suggestive of metastatic lesions. Further evaluation advised. 2. Ascites. 3. Small caliber IVC. Clinical correlation for hypotension advised. 4. Minimal right-sided pleural effusion with adjacent atelectasis. Venous Doppler Study 01/17/25 11:17 IMPRESSION: 1: No lower extremity deep venous thrombosis. Paracentesis Ultrasound 01/18/25 15:00 IMPRESSION: 1. Successful ultrasound-guided paracentesis yielding 2000 mL of ubaldo-colored fluid. Pulmonary Perfusion Imaging 01/18/25 16:03 IMPRESSION: 1. Intermediate probability for pulmonary embolism. Labs Labs: Laboratory Tests 01/21/25 07:42 01/21/25 07:42 Calcium 8.9 Total Bilirubin 5.9 H AST 64 H ALT 31 Alkaline Phosphatase 449 H Total Protein 6.0 L Albumin 3.1 L Alpha Fetoprotein Microbiology 01/18/25 14:37 Ascites Fluid Anaerobic Culture - Preliminary 01/18/25 14:37 Ascites Fluid Aerobic Culture - Preliminary
--- NOTE | 2025-01-21 11:29 | PCNFU ---
Nutrition Follow-Up Complete: Potential for inadequate oral intake related to loss of appetite as evidenced by MST2 Adequate PO intake at least 75% meals and supplements - Pt was meeting goal prior to NPO Goal: Pt current nutrition is NPO for liver biopsy. Nutrition recommendation: Resume renal diet when advanced. Nepro BID (420 kcal, 19 g protein) Last recorded weight is 142.1 kg. Bowel Motility: +1 BM 01/21/25 Labs Reviewed: Hgb 10.0, Hct 31.8, Alb 3.1, Na 135, BUN 49, Cre 2.02 Meds Noted: Novolog, Zofran, Albumin Skin: No skin issues Additional Notes: Having liver biopsy today. Resume previous orders. Intakes 90-100% on previous renal diet. Agree with orders. Monitoring intakes, weights, labs, supplement tolerance, output, plan of care Follow up in 5 days
[2025-01-21 11:56] LABS: Glucose Point of Care 125 mg/dl (65-105)
--- NOTE | 2025-01-21 12:27 | PM.IMPN ---
Progress Note: A&P Assessment and Plan (1) Liver mass: Code(s): R16.0 - Hepatomegaly, not elsewhere classified Status: Acute Assessment and Plan: RUQ showing possible cirrhosis but can not exclude underlying mass. CT without contrast showing hepatomegaly with multiple hypodensities suggestive of metastatic lesions, ascites, small caliber IVC and minimal right-sided pleural effusion with adjacent atelectasis. Small caliber IVC but doubt dehydrated since receiving IV fluids, appears fluid overload and with positive fluid balance. LE venous doppler negative for DVT. Hepatitis panel negative on 01/05/25 CEA 30. AFP 20 GI consulted and appreciate their input. Consider colonoscopy but radiology felt liver biopsy was possible despite her size. Spoke with oncology who recommended trying to get biopsy this admission and this was ordered for today. They will follow her in the clinic after discharge. (2) Pulmonary embolism: Code(s): I26.99 - Other pulmonary embolism without acute cor pulmonale Status: Acute Assessment and Plan: Patient with episodes of sinus tachycardia. EKG showing sinus tachycardia. Venous doppler negative of DVT in the lower extremity. VQ scan showing moderate sized perfusion defect at the posterior basilar segment RLL. PERC Rule can not exclude PE. Wells Score gives a moderate risk. EKG showing no S wave in I but shows Q wave and flat T wave in III. Echo 01/05/25 showing normal right sided findings but limited Echo this admission now showing mildly enlarged RV but normal systolic function. TSH normal. Heparin drip started. Transition to Coumdain today since has liver and renal dysfunction. Start low dose. (3) Spontaneous bacterial peritonitis: Code(s): K65.2 - Spontaneous bacterial peritonitis Status: Acute Assessment and Plan: Patient underwent paracentesis 01/18/2025 with removal of 2 L. The fluid was cloudy with 15K red cells and 585 WBC, 64% PMNs (374). Rocephin 2gm started for 5 days. Gram stain showing no organisms or white blood cells. Cultures are NGTD Patient remains asymptomatic. Continue IV antibiotics. (4) Acute kidney injury superimposed on stage 3b chronic kidney disease: Code(s): N17.9 - Acute kidney failure, unspecified; N18.32 - Chronic kidney disease, stage 3b Status: Acute Assessment and Plan: Patient presents with weakness and found to have MADY with Cr 2.23. Baseline Cr 1.2-1.6. Total CK normal. Pamela 26. UA consistent with UTI but UCx negative. Nephrology consulted and appreciate their input Renal US showing no hydronephrosis with somewhat limited visualization of the right kidney; bladder not seen. Holding lisinopril and chlorthalidone (have been held since 01/04) Started on IV fluids. Cr better at 2.0 but becoming fluid overloaded so fluids stopped. Metabolic acidosis noted and oral NaBicarb started. Renal function stable with creatinine 2 - possibly new baseline. Metabolic acidosis better. Monitor UOP, renal fxn and electrolytes. (5) Acute hyperkalemia: Code(s): E87.5 - Hyperkalemia Status: Acute Assessment and Plan: Potassium 6.1. In ED given: 2L bolus, calcium, insulin/dextrose, sodium bicarb, and Lokelma with benefit. Lokelma continued. Potassium normalized so Lokelma stopped Continue to trend (6) Type 2 diabetes mellitus: Qualifiers: Diabetes mellitus complication status: with other specified complication Diabetes mellitus fci insulin use: without terminologist use Qualified Code(s): E11.69 - Type 2 diabetes mellitus with other specified complication Code(s): E11.9 - Type 2 diabetes mellitus without complications Status: Acute Assessment and Plan: The patient is eating intermittently. She has glucose instability probably related to her liver disease. A1c 6.1%. Home medication of metformin and glipizide on hold The patient's blood glucose was reviewed on 01/21 and remains well controlled Continue AccuCheks covering with sliding scale. Hypoglycemia protocol available as needed. Continue to follow (7) Essential (primary) hypertension: Code(s): I10 - Essential (primary) hypertension Status: Chronic Assessment and Plan: Patient's blood pressure was reviewed on 01/21 Blood pressure remains well controlled. Will continue to monitor (8) Cirrhosis: Code(s): K74.60 - Unspecified cirrhosis of liver Status: Acute Assessment and Plan: Possible cirrhosis. Radiology felt imaging not consistent with cirrhosis. She definitely has evidence of liver dysfunction related to the multiple liver elsions. (9) Morbid (severe) obesity due to excess calories: Code(s): E66.01 - Morbid (severe) obesity due to excess calories Status: Acute Assessment and Plan: BMI 48. This is negatively contributing to her evaluation. Plan DVT Prophylaxis: Heparin gtt -> Coumadin Code Status: Full code Subjective Date/time seen: 01/21/25 12:27 Interval history: 74yo female with CHF, CKD and HTN here for fatigue and weakness. Slept well. Feels nervous. Exam Narrative: AF 97.9 137/59 90 16 93% ra Gen - NARD Chest - CTA bilaterally, nml RR CV -regular rate and rhythm. Tele showing rare events of sinus tach Abd - Soft, obese, NT, +BS, flank edema noted. Ext - 2+ pedal edema Psych - Nml mood and affect Skin - Warm and dry Objective Data Vital Signs Vital Signs: Vital Signs - 24 hr 01/20/25 14:00 01/20/25 16:00 01/20/25 20:00 Temperature Pulse Rate 102 H 87 83 Respiratory Rate 22 H Blood Pressure 120/53 L Pulse Oximetry 97 Oxygen Delivery 01/20/25 20:42 01/20/25 21:21 01/20/25 22:00 Temperature 97.1 F L Pulse Rate 79 79 Respiratory Rate 18 Blood Pressure 115/43 L Pulse Oximetry 98 Oxygen Delivery Room Air 01/21/25 00:00 01/21/25 04:00 01/21/25 05:19 Temperature 97.9 F Pulse Rate 75 77 90 Respiratory Rate 16 Blood Pressure 137/59 L Pulse Oximetry 93 Oxygen Delivery 01/21/25 08:00 01/21/25 08:45 01/21/25 09:43 Temperature Pulse Rate 93 90 Respiratory Rate Blood Pressure Pulse Oximetry Oxygen Delivery Room Air Intake/Output Intake/Output: Intake & Output 01/18/25 01/19/25 01/20/25 01/21/25 23:59 23:59 23:59 23:59 Intake Total 1915.8 2750.0 2789.0 734.2 Output Total 2450 1 1 Balance -534.2 2749.0 2788.0 734.2 Meds/Results Medications: Active Medications Generic Name Dose Route Start Last Admin Trade Name Freq PRN Reason Stop Dose Admin Alprazolam 0.25 mg 01/16/25 21:00 01/20/25 21:21 Alprazolam (*Crx) 0.25 Mg Tablet PO 0.25 mg HS MAREK Administration Dextrose 12.5 gm 01/15/25 18:12 01/19/25 08:41 Dextrose 50% 25 Gm/50 Ml Syringe IV PUSH 12.5 gm PRN PRN Administration Hypoglycemia Protocol Glucagon 1 mg 01/15/25 18:12 Glucagon For Inj 1 Mg Vial IM PRN PRN Hypoglycemia Protocol Glucose 15 gm 01/15/25 18:12 Glucose Oral Gel 15 Gm Of Glucse In 37.5 Gm Tube PO PRN PRN Hypoglycemia Protocol Heparin Sodium (Porcine) 7,500 units 01/18/25 18:14 01/19/25 01:46 Heparin Sodium 5,000 Units/Ml Vial IV PUSH 7,500 units PRN PRN Administration aPTT less than 55 seconds Heparin Sodium (Porcine) 3,500 units 01/18/25 18:14 01/20/25 03:49 Heparin Sodium 5,000 Units/Ml Vial IV PUSH 3,500 units PRN PRN Administration aPTT 55 - 70 seconds Dextrose 1,000 mls @ 100 mls/hr 01/15/25 18:12 Dextrose 5% 1,000 Ml IVPB PRN PRN Hypoglycemia Protocol Heparin Sodium/Dextrose 25,000 units in 250 mls @ 0 mls/hr 01/18/25 18:15 01/21/25 05:41 Heparin Sodium/D5w 100 Units/Ml IV CONT 0 units/hr .Q0M MAREK 0 mls/hr Titration Protocol 0 UNITS/HR Ceftriaxone Sodium 2 gm in 100 mls @ 200 mls/hr 01/18/25 19:00 01/20/25 17:49 Rocephin 2 Gm/Ns 100 Ml IVPB 01/22/25 19:29 Infused Q24H MAREK Infusion Albumin Human 400 mls @ 60 mls/hr 01/21/25 09:00 01/21/25 08:45 Albutein IVPB 01/21/25 15:39 60 mls/hr ONCE ONE Administration Insulin Aspart 4 - 8 units 01/16/25 08:00 01/21/25 11:58 Insulin Aspart (*Bkc) 100 Units/Ml SUB-Q Not Given TIDWM [facility] Protocol Metoprolol Tartrate 12.5 mg 01/18/25 01:35 01/21/25 09:43 Metoprolol Tartrate 12.5 Mg Tablet PO 12.5 mg Q12HR MAREK Administration Ondansetron HCl 4 mg 01/15/25 17:04 Ondansetron Inj 4 Mg/2 Ml Vial IV PUSH Q4H PRN Nausea Perflutren Lipid Microsphere 0 ml 01/18/25 18:16 Perflutren Lipid Microspheres 1.5 Ml Vial Diluted To 10 Ml Total Volume IV PUSH 01/21/25 18:17 ONCE PRN adequate visualization Protocol Trazodone HCl 50 mg 01/16/25 00:01 01/16/25 20:37 Trazodone Hcl 50 Mg Tablet PO 50 mg QHS PRN Administration sleep Radiology Results: ITS Impressions Chest X-Ray 01/15/25 14:46 IMPRESSION: 1. Blunting of the posterior costophrenic angles, which may be prominent extrapleural fat or tiny pleural effusions. Renal Ultrasound 01/15/25 20:46 IMPRESSION: No hydronephrosis. Somewhat limited visualization of the right kidney. The bladder was not visualized. Heterogeneous liver, liver masses not excluded, recommend contrast CT or hepatic MRI for further characterization. Abdomen/Pelvis CT 01/16/25 23:06 IMPRESSION: 1. Hepatomegaly with multiple hypodensities suggestive of metastatic lesions. Further evaluation advised. 2. Ascites. 3. Small caliber IVC. Clinical correlation for hypotension advised. 4. Minimal right-sided pleural effusion with adjacent atelectasis. Venous Doppler Study 01/17/25 11:17 IMPRESSION: 1: No lower extremity deep venous thrombosis. Paracentesis Ultrasound 01/18/25 15:00 IMPRESSION: 1. Successful ultrasound-guided paracentesis yielding 2000 mL of ubaldo-colored fluid. Pulmonary Perfusion Imaging 01/18/25 16:03 IMPRESSION: 1. Intermediate probability for pulmonary embolism. Labs Labs: Laboratory Results - last 24 hr 01/17/25 01/20/25 01/20/25 04:30 16:53 18:12 WBC RBC Hgb Hct MCV MCH MCHC RDW Plt Count MPV Immature Gran % (Auto) Neut % (Auto) Lymph % (Auto) [place] % (Auto) Eos % (Auto) Baso % (Auto) Lymph # (Auto) [place] # (Auto) Eos # (Auto) Baso # (Auto) Abs Immat Gran (auto) Absolute Neuts (auto) Absolute Nucleated RBC Band Neutrophils % Nucleated RBC % Platelet Estimate Hypochromasia Anisocytosis Target Cells Stomatocytes Schistocytes APTT 107.7 H Sodium Potassium Chloride Carbon Dioxide Anion Gap BUN Creatinine Estim Creat Clear Calc Estimated GFR Glucose POC Capillary Glucose 187 H Calcium Total Bilirubin AST ALT Alkaline Phosphatase Total Protein Albumin Alpha Fetoprotein 20.4 H 01/20/25 01/21/25 01/21/25 20:45 01:21 05:48 WBC RBC Hgb Hct MCV MCH MCHC RDW Plt Count MPV Immature Gran % (Auto) Neut % (Auto) Lymph % (Auto) [place] % (Auto) Eos % (Auto) Baso % (Auto) Lymph # (Auto) [place] # (Auto) Eos # (Auto) Baso # (Auto) Abs Immat Gran (auto) Absolute Neuts (auto) Absolute Nucleated RBC Band Neutrophils % Nucleated RBC % Platelet Estimate Hypochromasia Anisocytosis Target Cells Stomatocytes Schistocytes APTT 75.3 H Sodium Potassium Chloride Carbon Dioxide Anion Gap BUN Creatinine Estim Creat Clear Calc Estimated GFR Glucose POC Capillary Glucose 201 H 116 H Calcium Total Bilirubin AST ALT Alkaline Phosphatase Total Protein Albumin Alpha Fetoprotein 01/21/25 01/21/25 07:42 11:52 WBC 16.6 H RBC 3.67 L Hgb 10.0 L Hct 31.8 L MCV 86.6 MCH 27.2 MCHC 31.4 L RDW 23.9 H Plt Count 208 MPV 10.8 H Immature Gran % (Auto) 0.8 H Neut % (Auto) 85.1 H Lymph % (Auto) 6.8 L [place] % (Auto) 6.3 Eos % (Auto) 0.8 Baso % (Auto) 0.2 Lymph # (Auto) 1.13 [place] # (Auto) 1.1 H Eos # (Auto) 0.1 Baso # (Auto) 0.0 Abs Immat Gran (auto) 0.14 H Absolute Neuts (auto) 14.1 H Absolute Nucleated RBC 0.000 Band Neutrophils % Not Reportable Nucleated RBC % 0.0 Platelet Estimate Adequate Hypochromasia 1+ Anisocytosis 1+ Target Cells 1+ Stomatocytes 1+ Schistocytes None seen APTT 35.3 Sodium 135 L Potassium 4.3 Chloride 103 Carbon Dioxide 21 L Anion Gap 11 BUN 49 H Creatinine 2.02 H Estim Creat Clear Calc 32 Estimated GFR 24 L Glucose 125 H POC Capillary Glucose 125 H Calcium 8.9 Total Bilirubin 5.9 H AST 64 H ALT 31 Alkaline Phosphatase 449 H Total Protein 6.0 L Albumin 3.1 L Alpha Fetoprotein
--- NOTE | 2025-01-21 15:35 | PCOTNOTE ---
Attempted to see for OT evaluation. Patient declining at this time reporting she doesn't feel like it. Will continue to attempt.
--- NOTE | 2025-01-21 16:04 | P.PNGI_ITS ---
Progress Note: A&P Assessment and Plan (1) Cirrhosis: Code(s): K74.60 - Unspecified cirrhosis of liver Status: Acute Assessment and Plan: The patient is completing treatment for spontaneous bacterial peritonitis with ceftriaxone 2g daily and albumin. A liver biopsy targeting focal masses was performed today, with results pending. 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 Qbm-[id number]-[id number] heparin is the most appropriate anticoagulant according to all guidelines. Direct oral anticoagulants are contr aindicated in patients with cirrhosis Child's C. Warfarin presents a high risk of bleeding due to her coagulopathy and the difficulty in achieving therapeutic INR. The optimal treatment in her particular case may involve a trial of low- dose warfarin ( 2.5mg daily) with careful monitoring. (2) Spontaneous bacterial peritonitis: Code(s): K65.2 - Spontaneous bacterial peritonitis Status: Acute (3) Pulmonary embolism: Code(s): I26.99 - Other pulmonary embolism without acute cor pulmonale Status: Acute Subjective Date/time seen: 01/21/25 16:04 Interval history: The patient obtain her liver biopsy this morning, no complications. She feels well, no abdominal pain. No hemodynamic compromise. Exam Narrative: Physical exami Objective Data Vital Signs Vital Signs: Vital Signs - 24 hr 01/20/25 20:00 01/20/25 20:42 01/20/25 21:21 Temperature 97.1 F L Pulse Rate 83 79 79 Respiratory Rate 18 Blood Pressure 115/43 L Pulse Oximetry 98 Oxygen Delivery 01/20/25 22:00 01/21/25 00:00 01/21/25 04:00 Temperature Pulse Rate 75 77 Respiratory Rate Blood Pressure Pulse Oximetry Oxygen Delivery Room Air 01/21/25 05:19 01/21/25 08:00 01/21/25 08:45 Temperature 97.9 F Pulse Rate 90 93 Respiratory Rate 16 Blood Pressure 137/59 L Pulse Oximetry 93 Oxygen Delivery Room Air 01/21/25 09:43 01/21/25 12:00 01/21/25 14:00 Temperature 97.2 F L Pulse Rate 90 113 H 80 Respiratory Rate 18 Blood Pressure 119/44 L Pulse Oximetry 98 Oxygen Delivery Intake/Output Intake/Output: Intake & Output 01/18/25 01/19/25 01/20/25 01/21/25 23:59 23:59 23:59 23:59 Intake Total 1915.8 2750.0 2789.0 734.2 Output Total 2450 1 1 Balance -534.2 2749.0 2788.0 734.2 Meds/Results Medications: Active Medications Generic Name Dose Route Start Last Admin Trade Name Freq PRN Reason Stop Dose Admin Alprazolam 0.25 mg 01/16/25 21:00 01/20/25 21:21 Alprazolam (*Crx) 0.25 Mg Tablet PO 0.25 mg HS MAREK Administration Dextrose 12.5 gm 01/15/25 18:12 01/19/25 08:41 Dextrose 50% 25 Gm/50 Ml Syringe IV PUSH 12.5 gm PRN PRN Administration Hypoglycemia Protocol Glucagon 1 mg 01/15/25 18:12 Glucagon For Inj 1 Mg Vial IM PRN PRN Hypoglycemia Protocol Glucose 15 gm 01/15/25 18:12 Glucose Oral Gel 15 Gm Of Glucse In 37.5 Gm Tube PO PRN PRN Hypoglycemia Protocol Heparin Sodium (Porcine) 7,500 units 01/18/25 18:14 01/19/25 01:46 Heparin Sodium 5,000 Units/Ml Vial IV PUSH 7,500 units PRN PRN Administration aPTT less than 55 seconds Heparin Sodium (Porcine) 3,500 units 01/18/25 18:14 01/20/25 03:49 Heparin Sodium 5,000 Units/Ml Vial IV PUSH 3,500 units PRN PRN Administration aPTT 55 - 70 seconds Dextrose 1,000 mls @ 100 mls/hr 01/15/25 18:12 Dextrose 5% 1,000 Ml IVPB PRN PRN Hypoglycemia Protocol Heparin Sodium/Dextrose 25,000 units in 250 mls @ 0 mls/hr 01/18/25 18:15 01/21/25 05:41 Heparin Sodium/D5w 100 Units/Ml IV CONT 0 units/hr .Q0M MAREK 0 mls/hr Titration Protocol 0 UNITS/HR Ceftriaxone Sodium 2 gm in 100 mls @ 200 mls/hr 01/18/25 19:00 01/20/25 17:49 Rocephin 2 Gm/Ns 100 Ml IVPB 01/22/25 19:29 Infused Q24H MAREK Infusion Insulin Aspart 4 - 8 units 01/16/25 08:00 01/21/25 11:58 Insulin Aspart (*Bkc) 100 Units/Ml SUB-Q Not Given TIDWM [facility] Protocol Metoprolol Tartrate 12.5 mg 01/18/25 01:35 01/21/25 09:43 Metoprolol Tartrate 12.5 Mg Tablet PO 12.5 mg Q12HR MAREK Administration Ondansetron HCl 4 mg 01/15/25 17:04 Ondansetron Inj 4 Mg/2 Ml Vial IV PUSH Q4H PRN Nausea Perflutren Lipid Microsphere 0 ml 01/18/25 18:16 Perflutren Lipid Microspheres 1.5 Ml Vial Diluted To 10 Ml Total Volume IV PUSH 01/21/25 18:17 ONCE PRN adequate visualization Protocol Trazodone HCl 50 mg 01/16/25 00:01 01/16/25 20:37 Trazodone Hcl 50 Mg Tablet PO 50 mg QHS PRN Administration sleep Radiology Results: ITS Impressions Chest X-Ray 01/15/25 14:46 IMPRESSION: 1. Blunting of the posterior costophrenic angles, which may be prominent extrapleural fat or tiny pleural effusions. Renal Ultrasound 01/15/25 20:46 IMPRESSION: No hydronephrosis. Somewhat limited visualization of the right kidney. The bladder was not visualized. Heterogeneous liver, liver masses not excluded, recommend contrast CT or hepatic MRI for further characterization. Abdomen/Pelvis CT 01/16/25 23:06 IMPRESSION: 1. Hepatomegaly with multiple hypodensities suggestive of metastatic lesions. Further evaluation advised. 2. Ascites. 3. Small caliber IVC. Clinical correlation for hypotension advised. 4. Minimal right-sided pleural effusion with adjacent atelectasis. Venous Doppler Study 01/17/25 11:17 IMPRESSION: 1: No lower extremity deep venous thrombosis. Paracentesis Ultrasound 01/18/25 15:00 IMPRESSION: 1. Successful ultrasound-guided paracentesis yielding 2000 mL of ubaldo-colored fluid. Pulmonary Perfusion Imaging 01/18/25 16:03 IMPRESSION: 1. Intermediate probability for pulmonary embolism. Liver Biopsy Ultrasound 01/21/25 14:45 IMPRESSION: 1. Ultrasound-guided core needle biopsy of hypoechoic masses in left hepatic lobe. Labs Labs: Laboratory Results - last 24 hr 01/17/25 01/20/25 01/20/25 04:30 16:53 18:12 WBC RBC Hgb Hct MCV MCH MCHC RDW Plt Count MPV Immature Gran % (Auto) Neut % (Auto) Lymph % (Auto) [place] % (Auto) Eos % (Auto) Baso % (Auto) Lymph # (Auto) [place] # (Auto) Eos # (Auto) Baso # (Auto) Abs Immat Gran (auto) Absolute Neuts (auto) Absolute Nucleated RBC Band Neutrophils % Nucleated RBC % Platelet Estimate Hypochromasia Anisocytosis Target Cells Stomatocytes Schistocytes APTT 107.7 H Sodium Potassium Chloride Carbon Dioxide Anion Gap BUN Creatinine Estim Creat Clear Calc Estimated GFR Glucose POC Capillary Glucose 187 H Calcium Total Bilirubin AST ALT Alkaline Phosphatase Total Protein Albumin Alpha Fetoprotein 20.4 H 01/20/25 01/21/25 01/21/25 20:45 01:21 05:48 WBC RBC Hgb Hct MCV MCH MCHC RDW Plt Count MPV Immature Gran % (Auto) Neut % (Auto) Lymph % (Auto) [place] % (Auto) Eos % (Auto) Baso % (Auto) Lymph # (Auto) [place] # (Auto) Eos # (Auto) Baso # (Auto) Abs Immat Gran (auto) Absolute Neuts (auto) Absolute Nucleated RBC Band Neutrophils % Nucleated RBC % Platelet Estimate Hypochromasia Anisocytosis Target Cells Stomatocytes Schistocytes APTT 75.3 H Sodium Potassium Chloride Carbon Dioxide Anion Gap BUN Creatinine Estim Creat Clear Calc Estimated GFR Glucose POC Capillary Glucose 201 H 116 H Calcium Total Bilirubin AST ALT Alkaline Phosphatase Total Protein Albumin Alpha Fetoprotein 01/21/25 01/21/25 07:42 11:52 WBC 16.6 H RBC 3.67 L Hgb 10.0 L Hct 31.8 L MCV 86.6 MCH 27.2 MCHC 31.4 L RDW 23.9 H Plt Count 208 MPV 10.8 H Immature Gran % (Auto) 0.8 H Neut % (Auto) 85.1 H Lymph % (Auto) 6.8 L [place] % (Auto) 6.3 Eos % (Auto) 0.8 Baso % (Auto) 0.2 Lymph # (Auto) 1.13 [place] # (Auto) 1.1 H Eos # (Auto) 0.1 Baso # (Auto) 0.0 Abs Immat Gran (auto) 0.14 H Absolute Neuts (auto) 14.1 H Absolute Nucleated RBC 0.000 Band Neutrophils % Not Reportable Nucleated RBC % 0.0 Platelet Estimate Adequate Hypochromasia 1+ Anisocytosis 1+ Target Cells 1+ Stomatocytes 1+ Schistocytes None seen APTT 35.3 Sodium 135 L Potassium 4.3 Chloride 103 Carbon Dioxide 21 L Anion Gap 11 BUN 49 H Creatinine 2.02 H Estim Creat Clear Calc 32 Estimated GFR 24 L Glucose 125 H POC Capillary Glucose 125 H Calcium 8.9 Total Bilirubin 5.9 H AST 64 H ALT 31 Alkaline Phosphatase 449 H Total Protein 6.0 L Albumin 3.1 L Alpha Fetoprotein
[2025-01-21 17:01] LABS: Glucose Point of Care 112 mg/dl (65-105)
[2025-01-21] MEDS: cefTRIAXone 2 GM/NS 100 ML 2 GM/100 ML BAG IVPB (18:19)
[2025-01-21] MEDS: ALPRAZolam (*CRX) 0.25 MG TABLET PO (20:29)
[2025-01-21] MEDS: WARFARIN (*PBKC) 2.5 MG TABLET PO (20:29)
[2025-01-21 21:02] LABS: Glucose Point of Care 118 mg/dl (65-105)
[2025-01-22] VITALS (11 sets, daily range): BP systolic 127–135; BP diastolic 50–61; PULSE 53–130; RESP 13–20; TEMP 36.4–36.6; O2SAT 97–100
[2025-01-22 05:21] LABS: Basophils Percent Auto 0.2 % (0.2-1.2); Eosinophils Absolute Auto 0.1 K/mm3 (0-0.3); Eosinophils Percent Auto 0.7 % (0-4.4); Hematocrit 26.3 % (37.0-47.0); Hemoglobin 8.2 g/dL (12.0-15.0); Immature Granulocyte Percent A 0.8 % (0-0.5); Lymphocytes Absolute Auto 0.94 K/mm3 (0.9-3.2); Lymphocytes Percent Auto 7.3 % (18.3-44.2); Mean Corpuscular HGB Conc 31.2 g/dl (32-36); Mean Corpuscular Hemoglobin 27.2 pg (26-34); Mean Corpuscular Volume 87.4 fl (80-100); Mean Platelet Volume 11.2 fl (7.4-10.4); Monocytes Absolute Auto 0.8 K/mm3 (0.1-0.6); Monocytes Percent Auto 6.5 % (2.6-8.5); Neutrophils Absolute Auto 10.9 K/mm3 (1.3-6.7); Neutrophils Percent Auto 84.5 % (45.5-73.1); Platelet Count Result 168 k/mm3 (150-375); Red Blood Count 3.01 M/mm3 (4.2-5.4); Red Cell Distribution Width 23.9 % (11.5-14.5); White Blood Count 12.9 K/mm3 (4.5-10.0)
[2025-01-22 05:38] LABS: Alanine Aminotransferase 24 U/L (6-35); Alkaline Phosphatase 330 U/L (38-126); Anion Gap 13 mmol/L (4-12); Aspartate Amino Transferase 60 U/L (14-36); Bilirubin,Total 6.4 mg/dL (0.2-1.3); Blood Urea Nitrogen 49 mg/dL (7-17); Calcium 8.6 mg/dL (8.4-10.2); Carbon Dioxide 20 mmol/L (22-30); Chloride 104 mmol/L (98-107); Estimated CRCL calculation 36 ml/min; Estimated Glomerular Filt Rate 27; Glucose 98 mg/dL (65-110); INR 1.7; Potassium 4.1 mmol/L (3.4-5.0); Prothrombin Time 20.3 Seconds (11.1-14.7); Sodium 137 mmol/L (137-145)
[2025-01-22 05:50] LABS: Platelet Estimate Adequate (Adequate)
[2025-01-22 05:51] LABS: Anisocytosis 1+; Hypochromasia 2+; Ovalocytes 1+; Schistocytes None Seen; Target Cells 2+
[2025-01-22 07:57] LABS: Glucose Point of Care 126 mg/dl (65-105)
[2025-01-22] MEDS: METOPROLOL TARTRATE 12.5 MG TABLET PO ×2 (09:42→20:45)
[2025-01-22] MEDS: cefTRIAXone 2 GM/NS 100 ML 2 GM/100 ML BAG IVPB (09:43)
[2025-01-22 11:40] LABS: Glucose Point of Care 129 mg/dl (65-105)
--- NOTE | 2025-01-22 14:46 | P.PNIM_ITS ---
Progress Note: A&P Assessment and Plan (1) Liver mass: Code(s): R16.0 - Hepatomegaly, not elsewhere classified Status: Acute Assessment and Plan: RUQ showing possible cirrhosis but can not exclude underlying mass. CT without contrast showing hepatomegaly with multiple hypodensities suggestive of metastatic lesions, ascites, small caliber IVC and minimal right-sided pleural effusion with adjacent atelectasis. Small caliber IVC but doubt dehydrated since she was receiving IV fluids, appears fluid overload and with positive fluid balance. LE venous doppler negative for DVT. Hepatitis panel negative on 01/05/25 CEA 30. AFP 20. Paracentesis pathology negative for malignancy. GI consulted and appreciate their input. Consider colonoscopy but radiology felt liver biopsy was possible which was performed 01/21. Spoke with oncology who would like to follow her in the clinic after discharge. (2) Pulmonary embolism: Code(s): I26.99 - Other pulmonary embolism without acute cor pulmonale Status: Acute Assessment and Plan: Patient with episodes of tachycardia. EKG showing sinus tachycardia. LE Venous doppler negative of DVT. VQ scan showing moderate sized perfusion defect at the posterior basilar segment RLL. PERC Rule can not exclude PE. Wells Score gives a moderate risk. EKG showing no S wave in I but shows Q wave and flat T wave in III. Echo 01/05/25 showing normal right sided findings but limited Echo this admission now showing mildly enlarged RV but normal systolic function. TSH normal. Heparin drip started. Transitioned to Coumdain since has liver and renal dysfunction. Daily INR. (3) Spontaneous bacterial peritonitis: Code(s): K65.2 - Spontaneous bacterial peritonitis Status: Acute Assessment and Plan: Patient underwent paracentesis 01/18/25 with removal of 2 L. The fluid was cloudy with 15K red cells and 585 WBC, 64% PMNs (374). Rocephin 2gm started for 5 days. Gram stain showing no organisms or white blood cells. Cultures are NGTD Patient remains asymptomatic. Continue IV antibiotics to finish today. (4) Acute kidney injury superimposed on stage 3b chronic kidney disease: Code(s): N17.9 - Acute kidney failure, unspecified; N18.32 - Chronic kidney disease, stage 3b Status: Acute Assessment and Plan: Patient presents with weakness and found to have MADY with Cr 2.23. Baseline Cr 1.2-1.6. Total CK normal. Pamela 26. UA consistent with UTI but UCx negative. Nephrology consulted and appreciate their input Renal US showing no hydronephrosis with somewhat limited visualization of the right kidney; bladder not seen. Holding lisinopril and chlorthalidone (have been held since 01/04) Started on IV fluids. Cr better at 2.0 but becoming fluid overloaded so fluids stopped. Metabolic acidosis noted and oral NaBicarb started. Renal function stable with creatinine now down to 1.8. Metabolic acidosis better. Monitor UOP, renal fxn and electrolytes. (5) Acute hyperkalemia: Code(s): E87.5 - Hyperkalemia Status: Acute Assessment and Plan: Potassium 6.1. In ED given: 2L bolus, calcium, insulin/dextrose, sodium bicarb, and Lokelma with benefit. Lokelma continued. Potassium normalized so Lokelma stopped. Potassium remaining normal. Continue to trend (6) Type 2 diabetes mellitus: Qualifiers: Diabetes mellitus terminal make up operator insulin use: without terminal make up operator use Diabetes mellitus complication status: with other specified complication Qualified Code(s): E11.69 - Type 2 diabetes mellitus with other specified complication Code(s): E11.9 - Type 2 diabetes mellitus without complications Status: Acute Assessment and Plan: The patient is eating intermittently. She has glucose instability probably related to her liver disease. A1c 6.1%. Home medication of metformin and glipizide on hold The patient's blood glucose was reviewed and remains well controlled Continue AccuCheks covering with sliding scale. Hypoglycemia protocol available as needed. Continue to follow (7) Essential (primary) hypertension: Code(s): I10 - Essential (primary) hypertension Status: Chronic Assessment and Plan: Patient's blood pressure was reviewed Blood pressure remains well controlled. Will continue to monitor (8) Cirrhosis: Code(s): K74.60 - Unspecified cirrhosis of liver Status: Acute Assessment and Plan: Possible cirrhosis. Radiology felt imaging not consistent with cirrhosis. She definitely has evidence of liver dysfunction related to the multiple liver lesions. As above (9) Morbid (severe) obesity due to excess calories: Code(s): E66.01 - Morbid (severe) obesity due to excess calories Status: Acute Assessment and Plan: BMI 48. Plan DVT Prophylaxis: Heparin gtt -> Coumadin Code Status: Full code Subjective Date/time seen: 01/22/25 14:46 Interval history: 74yo female with CHF, CKD and HTN here for fatigue and weakness. Walking in room with therapy. +WHIPPLE. Denies significant WHIPPLE at home. No SOB or CP at rest. She lives in a basement walk out and can get to the lower level without walking. Wants now to go to a rehab facility. Exam Narrative: AF 97.8 135/59 81 20 97% ra Gen - NARD Chest - CTA bilaterally, nml RR CV -regular rate and rhythm. Tele showing occas sinus tach Abd - Soft, obese, NT, +BS, flank edema noted. No hematoma around biopsy site Ext - 2+ pedal edema Psych - Nml mood and affect Skin - Warm and dry Objective Data Vital Signs Vital Signs: Vital Signs - 24 hr 01/21/25 16:00 01/21/25 19:32 01/21/25 20:00 Temperature 98.2 F Pulse Rate 81 100 Respiratory Rate 20 Blood Pressure 122/48 L Pulse Oximetry 98 Oxygen Delivery Room Air 01/21/25 20:00 01/21/25 20:29 01/22/25 00:00 Temperature Pulse Rate 97 102 H 79 Respiratory Rate Blood Pressure Pulse Oximetry Oxygen Delivery 01/22/25 03:40 01/22/25 04:00 01/22/25 08:00 Temperature 97.8 F Pulse Rate 110 H 53 L 92 Respiratory Rate 20 Blood Pressure 135/59 L Pulse Oximetry 97 Oxygen Delivery 01/22/25 09:12 01/22/25 09:25 01/22/25 09:42 Temperature Pulse Rate 130 H Respiratory Rate Blood Pressure Pulse Oximetry Oxygen Delivery Room Air Room Air 01/22/25 09:45 01/22/25 12:00 Temperature Pulse Rate 81 Respiratory Rate Blood Pressure Pulse Oximetry Oxygen Delivery Room Air Intake/Output Intake/Output: Intake & Output 01/19/25 01/20/25 01/21/25 01/22/25 23:59 23:59 23:59 23:59 Intake Total 2750.0 2789.0 1214.2 390 Output Total 1 1 2 Balance 2749.0 2788.0 1214.2 388 Meds/Results Medications: Active Medications Generic Name Dose Route Start Last Admin Trade Name Freq PRN Reason Stop Dose Admin Alprazolam 0.25 mg 01/16/25 21:00 01/21/25 20:29 Alprazolam (*Crx) 0.25 Mg Tablet PO 0.25 mg HS MAREK Administration Dextrose 12.5 gm 01/15/25 18:12 01/19/25 08:41 Dextrose 50% 25 Gm/50 Ml Syringe IV PUSH 12.5 gm PRN PRN Administration Hypoglycemia Protocol Glucagon 1 mg 01/15/25 18:12 Glucagon For Inj 1 Mg Vial IM PRN PRN Hypoglycemia Protocol Glucose 15 gm 01/15/25 18:12 Glucose Oral Gel 15 Gm Of Glucse In 37.5 Gm Tube PO PRN PRN Hypoglycemia Protocol Dextrose 1,000 mls @ 100 mls/hr 01/15/25 18:12 Dextrose 5% 1,000 Ml IVPB PRN PRN Hypoglycemia Protocol Insulin Aspart 4 - 8 units 01/16/25 08:00 01/22/25 11:51 Insulin Aspart (*Bkc) 100 Units/Ml SUB-Q Not Given TIDWM MAREK Protocol Metoprolol Tartrate 12.5 mg 01/18/25 01:35 01/22/25 09:42 Metoprolol Tartrate 12.5 Mg Tablet PO 12.5 mg Q12HR MAREK Administration Ondansetron HCl 4 mg 01/15/25 17:04 Ondansetron Inj 4 Mg/2 Ml Vial IV PUSH Q4H PRN Nausea Trazodone HCl 50 mg 01/16/25 00:01 01/16/25 20:37 Trazodone Hcl 50 Mg Tablet PO 50 mg QHS PRN Administration sleep Warfarin Sodium 2.5 mg 01/21/25 19:35 01/21/25 20:29 Warfarin (*Pbkc) 2.5 Mg Tablet PO 2.5 mg DAILY@1700 MAREK Administration Radiology Results: ITS Impressions Chest X-Ray 01/15/25 14:46 IMPRESSION: 1. Blunting of the posterior costophrenic angles, which may be prominent extrapleural fat or tiny pleural effusions. Renal Ultrasound 01/15/25 20:46 IMPRESSION: No hydronephrosis. Somewhat limited visualization of the right kidney. The bladder was not visualized. Heterogeneous liver, liver masses not excluded, recommend contrast CT or hepatic MRI for further characterization. Abdomen/Pelvis CT 01/16/25 23:06 IMPRESSION: 1. Hepatomegaly with multiple hypodensities suggestive of metastatic lesions. Further evaluation advised. 2. Ascites. 3. Small caliber IVC. Clinical correlation for hypotension advised. 4. Minimal right-sided pleural effusion with adjacent atelectasis. Venous Doppler Study 01/17/25 11:17 IMPRESSION: 1: No lower extremity deep venous thrombosis. Paracentesis Ultrasound 01/18/25 15:00 IMPRESSION: 1. Successful ultrasound-guided paracentesis yielding 2000 mL of ubaldo-colored fluid. Pulmonary Perfusion Imaging 01/18/25 16:03 IMPRESSION: 1. Intermediate probability for pulmonary embolism. Liver Biopsy Ultrasound 01/21/25 14:45 IMPRESSION: 1. Ultrasound-guided core needle biopsy of hypoechoic masses in left hepatic lobe. Labs Labs: Laboratory Results - last 24 hr 01/21/25 01/21/25 01/22/25 16:58 19:34 05:05 WBC 12.9 H RBC 3.01 L Hgb 8.2 L Hct 26.3 L MCV 87.4 MCH 27.2 MCHC 31.2 L RDW 23.9 H Plt Count 168 MPV 11.2 H Immature Gran % (Auto) 0.8 H Neut % (Auto) 84.5 H Lymph % (Auto) 7.3 L Menard % (Auto) 6.5 Eos % (Auto) 0.7 Baso % (Auto) 0.2 Lymph # (Auto) 0.94 Menard # (Auto) 0.8 H Eos # (Auto) 0.1 Baso # (Auto) 0.0 Abs Immat Gran (auto) 0.10 H Absolute Neuts (auto) 10.9 H Absolute Nucleated RBC 0.000 Band Neutrophils % Not Reportable Nucleated RBC % 0.0 Platelet Estimate Adequate Hypochromasia 2+ Anisocytosis 1+ Target Cells 2+ Ovalocytes 1+ Schistocytes None seen PT 20.3 H INR 1.7 Sodium 137 Potassium 4.1 Chloride 104 Carbon Dioxide 20 L Anion Gap 13 H BUN 49 H Creatinine 1.80 H Estim Creat Clear Calc 36 Estimated GFR 27 L Glucose 98 POC Capillary Glucose 112 H 118 H Calcium 8.6 Total Bilirubin 6.4 H AST 60 H ALT 24 Alkaline Phosphatase 330 H Total Protein 5.0 L Albumin 3.0 L 01/22/25 01/22/25 07:55 11:36 WBC RBC Hgb Hct MCV MCH MCHC RDW Plt Count MPV Immature Gran % (Auto) Neut % (Auto) Lymph % (Auto) Menard % (Auto) Eos % (Auto) Baso % (Auto) Lymph # (Auto) Menard # (Auto) Eos # (Auto) Baso # (Auto) Abs Immat Gran (auto) Absolute Neuts (auto) Absolute Nucleated RBC Band Neutrophils % Nucleated RBC % Platelet Estimate Hypochromasia Anisocytosis Target Cells Ovalocytes Schistocytes PT INR Sodium Potassium Chloride Carbon Dioxide Anion Gap BUN Creatinine Estim Creat Clear Calc Estimated GFR Glucose POC Capillary Glucose 126 H 129 H Calcium Total Bilirubin AST ALT Alkaline Phosphatase Total Protein Albumin
[2025-01-22 16:51] LABS: Glucose Point of Care 148 mg/dl (65-105)
[2025-01-22] MEDS: WARFARIN (*PBKC) 2.5 MG TABLET PO (17:36)
[2025-01-22 20:16] LABS: Glucose Point of Care 192 mg/dl (65-105)
[2025-01-22 20:31] LABS: Glucose Point of Care 227 mg/dl (65-105)
[2025-01-22] MEDS: ALPRAZolam (*CRX) 0.25 MG TABLET PO (20:46)
[2025-01-22] MEDS: traZODone HCL 50 MG TABLET PO ×2 (20:47→20:50)
[2025-01-23] VITALS: PULSE 75
[2025-01-23 03:52] VITALS: BP 103/48; PULSE 85; RESP 20; TEMP 36.5; O2SAT 99
[2025-01-23 04:00] VITALS: PULSE 79
[2025-01-23 05:38] LABS: INR 1.9; Prothrombin Time 22.2 Seconds (11.1-14.7)
[2025-01-23 05:46] LABS: Alanine Aminotransferase 28 U/L (6-35); Alkaline Phosphatase 377 U/L (38-126); Anion Gap 13 mmol/L (4-12); Aspartate Amino Transferase 82 U/L (14-36); Bilirubin,Total 6.8 mg/dL (0.2-1.3); Blood Urea Nitrogen 53 mg/dL (7-17); Carbon Dioxide 20 mmol/L (22-30); Chloride 103 mmol/L (98-107); Estimated CRCL calculation 33 ml/min; Estimated Glomerular Filt Rate 25; Glucose 153 mg/dL (65-110); Potassium 4.4 mmol/L (3.4-5.0); Sodium 136 mmol/L (137-145)
[2025-01-23 07:59] LABS: Glucose Point of Care 172 mg/dl (65-105)
[2025-01-23 08:00] VITALS: PULSE 81
[2025-01-23 08:51] VITALS: PULSE 86
[2025-01-23] MEDS: METOPROLOL TARTRATE 12.5 MG TABLET PO (08:51)
--- NOTE | 2025-01-23 10:38 | PM.IMPN ---
Progress Note: A&P Assessment and Plan (1) Pulmonary embolism: Code(s): I26.99 - Other pulmonary embolism without acute cor pulmonale Status: Acute (2) Liver mass: Code(s): R16.0 - Hepatomegaly, not elsewhere classified Status: Acute (3) Cirrhosis: Code(s): K74.60 - Unspecified cirrhosis of liver Status: Acute Plan (1) Liver mass: Code(s): R16.0 - Hepatomegaly, not elsewhere classified Status: Acute Assessment and Plan: RUQ showing possible cirrhosis but can not exclude underlying mass. CT without contrast showing hepatomegaly with multiple hypodensities suggestive of metastatic lesions, ascites, small caliber IVC and minimal right-sided pleural effusion with adjacent atelectasis. Small caliber IVC but doubt dehydrated since she was receiving IV fluids, appears fluid overload and with positive fluid balance. LE venous doppler negative for DVT. Hepatitis panel negative on 01/05/25 CEA 30. AFP 20. Paracentesis pathology negative for malignancy. GI consulted and appreciate their input. Consider colonoscopy but radiology felt liver biopsy was possible which was performed 01/21. Spoke with oncology who would like to follow her in the clinic after discharge. (2) Pulmonary embolism: Code(s): I26.99 - Other pulmonary embolism without acute cor pulmonale Status: Acute Assessment and Plan: Patient with episodes of tachycardia. EKG showing sinus tachycardia. LE Venous doppler negative of DVT. VQ scan showing moderate sized perfusion defect at the posterior basilar segment RLL. PERC Rule can not exclude PE. Wells Score gives a moderate risk. EKG showing no S wave in I but shows Q wave and flat T wave in III. Echo 01/05/25 showing normal right sided findings but limited Echo this admission now showing mildly enlarged RV but normal systolic function. TSH normal. Heparin drip started. Transitioned to Coumdain since has liver and renal dysfunction. Daily INR. INR 1.9 today, trending up slowly, increase Coumadin to 3 mg daily from 2.5 mg daily p.o. / (3) Spontaneous bacterial peritonitis: Code(s): K65.2 - Spontaneous bacterial peritonitis Status: Acute Assessment and Plan: Patient underwent paracentesis 01/18/25 with removal of 2 L. The fluid was cloudy with 15K red cells and 585 WBC, 64% PMNs (374). Rocephin 2gm started for 5 days. Gram stain showing no organisms or white blood cells. Cultures are NGTD Patient remains asymptomatic. Continue IV antibiotics to finish today. (4) Acute kidney injury superimposed on stage 3b chronic kidney disease: Code(s): N17.9 - Acute kidney failure, unspecified; N18.32 - Chronic kidney disease, stage 3b Status: Acute Assessment and Plan: Patient presents with weakness and found to have MADY with Cr 2.23. Baseline Cr 1.2-1.6. Total CK normal. Pamela 26. UA consistent with UTI but UCx negative. Nephrology consulted and appreciate their input Renal US showing no hydronephrosis with somewhat limited visualization of the right kidney; bladder not seen. Holding lisinopril and chlorthalidone (have been held since 01/04) Started on IV fluids. Cr better at 2.0 but becoming fluid overloaded so fluids stopped. Metabolic acidosis noted and oral NaBicarb started. Renal function stable with creatinine now down to 1.8. Metabolic acidosis better. Monitor UOP, renal fxn and electrolytes. (5) Acute hyperkalemia: Code(s): E87.5 - Hyperkalemia Status: Acute Assessment and Plan: Potassium 6.1. In ED given: 2L bolus, calcium, insulin/dextrose, sodium bicarb, and Lokelma with benefit. Lokelma continued. Potassium normalized so Lokelma stopped. Potassium remaining normal. Continue to trend (6) Type 2 diabetes mellitus: Qualifiers: Diabetes mellitus chcf insulin use: without intermediate card tender use Diabetes mellitus complication status: with other specified complication Qualified Code(s): E11.69 - Type 2 diabetes mellitus with other specified complication Code(s): E11.9 - Type 2 diabetes mellitus without complications Status: Acute Assessment and Plan: The patient is eating intermittently. She has glucose instability probably related to her liver disease. A1c 6.1%. Home medication of metformin and glipizide on hold The patient's blood glucose was reviewed and remains well controlled Continue AccuCheks covering with sliding scale. Hypoglycemia protocol available as needed. Continue to follow (7) Essential (primary) hypertension: Code(s): I10 - Essential (primary) hypertension Status: Chronic Assessment and Plan: Patient's blood pressure was reviewed Blood pressure remains well controlled. Will continue to monitor (8) Cirrhosis: Code(s): K74.60 - Unspecified cirrhosis of liver Status: Acute Assessment and Plan: Possible cirrhosis. Radiology felt imaging not consistent with cirrhosis. She definitely has evidence of liver dysfunction related to the multiple liver lesions. As above (9) Morbid (severe) obesity due to excess calories: Code(s): E66.01 - Morbid (severe) obesity due to excess calories Status: Acute Assessment and Plan: BMI 48. cash applications coordinator reach out to long term regarding monitor INR. Per transitional care liaison report, long term will monitor INR after discharge I recommends long term to monitor INR daily until INR becomes stable Subjective Date/time seen: 01/23/25 10:38 Interval history: Patient feels better today, denies headache palpitation, shortness breath, chest pain abdomen pain labs reviewed, INR 1.9 Exam Narrative: GENERAL: Pleasant, in no acute distress. Well-nourished. Morbid obesity - EYES: EOMI. Anicteric. - HENT: Moist mucous membranes. - LUNGS: Clear to auscultation bilaterally, no wheezing, rhonchi, or rales. - CARDIOVASCULAR: Regular rate and rhythm. No murmur. No JVD. - ABDOMEN: Soft, non-tender and non-distended. No palpable masses. - EXTREMITIES: No edema. Peripheral pulses 2+. Non-tender. - NEUROLOGIC: No focal neurological deficits. CN II-XII grossly intact. - PSYCHIATRIC: Awake, Alert and oriented x 3. Appropriate mood and affect. - SKIN: No rashes or lesions. Warm. - LYMPH: No cervical lymphadenopathy. Objective Data Vital Signs Vital Signs: Vital Signs - 24 hr 01/22/25 12:00 01/22/25 14:00 01/22/25 16:00 Temperature 97.6 F Pulse Rate 81 84 78 Respiratory Rate 13 Blood Pressure 132/50 L Pulse Oximetry 97 Oxygen Delivery 01/22/25 19:31 01/22/25 20:00 01/22/25 20:45 Temperature 97.7 F Pulse Rate 110 H 93 95 Respiratory Rate 20 Blood Pressure 127/61 Pulse Oximetry 100 Oxygen Delivery 01/22/25 20:52 01/23/25 00:00 01/23/25 03:52 Temperature 97.7 F Pulse Rate 75 85 Respiratory Rate 20 Blood Pressure 103/48 L Pulse Oximetry 99 Oxygen Delivery Room Air 01/23/25 04:00 01/23/25 08:51 01/23/25 08:55 Temperature Pulse Rate 79 86 Respiratory Rate Blood Pressure Pulse Oximetry Oxygen Delivery Room Air Intake/Output Intake/Output: Intake & Output 01/20/25 01/21/25 01/22/25 01/23/25 23:59 23:59 23:59 23:59 Intake Total 2789.0 1214.2 1660 410 Output Total 1 2 Balance 2788.0 1214.2 1658 410 Meds/Results Medications: Active Medications Generic Name Dose Route Start Last Admin Trade Name Freq PRN Reason Stop Dose Admin Alprazolam 0.25 mg 01/16/25 21:00 01/22/25 20:46 Alprazolam (*Crx) 0.25 Mg Tablet PO 0.25 mg HS MAREK Administration Dextrose 12.5 gm 01/15/25 18:12 01/19/25 08:41 Dextrose 50% 25 Gm/50 Ml Syringe IV PUSH 12.5 gm PRN PRN Administration Hypoglycemia Protocol Glucagon 1 mg 01/15/25 18:12 Glucagon For Inj 1 Mg Vial IM PRN PRN Hypoglycemia Protocol Glucose 15 gm 01/15/25 18:12 Glucose Oral Gel 15 Gm Of Glucse In 37.5 Gm Tube PO PRN PRN Hypoglycemia Protocol Dextrose 1,000 mls @ 100 mls/hr 01/15/25 18:12 Dextrose 5% 1,000 Ml IVPB PRN PRN Hypoglycemia Protocol Insulin Aspart 4 - 8 units 01/16/25 08:00 01/23/25 08:47 Insulin Aspart (*Bkc) 100 Units/Ml SUB-Q Not Given TIDWM [facility] Protocol Metoprolol Tartrate 12.5 mg 01/18/25 01:35 01/23/25 08:51 Metoprolol Tartrate 12.5 Mg Tablet PO 12.5 mg Q12HR MAREK Administration Ondansetron HCl 4 mg 01/15/25 17:04 Ondansetron Inj 4 Mg/2 Ml Vial IV PUSH Q4H PRN Nausea Trazodone HCl 50 mg 01/16/25 00:01 01/22/25 20:50 Trazodone Hcl 50 Mg Tablet PO 50 mg QHS PRN Administration sleep Warfarin Sodium 2.5 mg 01/21/25 19:35 01/22/25 17:36 Warfarin (*Pbkc) 2.5 Mg Tablet PO 2.5 mg DAILY@1700 MAREK Administration Radiology Results: ITS Impressions Chest X-Ray 01/15/25 14:46 IMPRESSION: 1. Blunting of the posterior costophrenic angles, which may be prominent extrapleural fat or tiny pleural effusions. Renal Ultrasound 01/15/25 20:46 IMPRESSION: No hydronephrosis. Somewhat limited visualization of the right kidney. The bladder was not visualized. Heterogeneous liver, liver masses not excluded, recommend contrast CT or hepatic MRI for further characterization. Abdomen/Pelvis CT 01/16/25 23:06 IMPRESSION: 1. Hepatomegaly with multiple hypodensities suggestive of metastatic lesions. Further evaluation advised. 2. Ascites. 3. Small caliber IVC. Clinical correlation for hypotension advised. 4. Minimal right-sided pleural effusion with adjacent atelectasis. Venous Doppler Study 01/17/25 11:17 IMPRESSION: 1: No lower extremity deep venous thrombosis. Paracentesis Ultrasound 01/18/25 15:00 IMPRESSION: 1. Successful ultrasound-guided paracentesis yielding 2000 mL of ubaldo-colored fluid. Pulmonary Perfusion Imaging 01/18/25 16:03 IMPRESSION: 1. Intermediate probability for pulmonary embolism. Liver Biopsy Ultrasound 01/21/25 14:45 IMPRESSION: 1. Ultrasound-guided core needle biopsy of hypoechoic masses in left hepatic lobe. Labs Labs: Laboratory Results - last 24 hr 01/22/25 01/22/25 01/22/25 11:36 16:48 19:30 PT INR Sodium Potassium Chloride Carbon Dioxide Anion Gap BUN Creatinine Estim Creat Clear Calc Estimated GFR Glucose POC Capillary Glucose 129 H 148 H 192 H Calcium Total Bilirubin AST ALT Alkaline Phosphatase Total Protein Albumin 01/22/25 01/23/25 01/23/25 20:28 05:13 07:57 PT 22.2 H INR 1.9 Sodium 136 L Potassium 4.4 Chloride 103 Carbon Dioxide 20 L Anion Gap 13 H BUN 53 H Creatinine 1.98 H Estim Creat Clear Calc 33 Estimated GFR 25 L Glucose 153 H POC Capillary Glucose 227 H 172 H Calcium 9.0 Total Bilirubin 6.8 H AST 82 H ALT 28 Alkaline Phosphatase 377 H Total Protein 5.0 L Albumin 3.0 L
[2025-01-23 11:23] LABS: LDH Peritoneal Fluid 220 U/L (<63)
[2025-01-23 11:45] LABS: Glucose Point of Care 185 mg/dl (65-105)
[2025-01-23 11:49] LABS: INR 1.9; Prothrombin Time 22.3 Seconds (11.1-14.7)
[2025-01-23 12:00] VITALS: PULSE 83
--- NOTE | 2025-01-23 12:15 | P.DS_ITS ---
DS: Admitting Diagnosis Discharge Date 01/23/25 Admitting Diagnosis (1) Pulmonary embolism: Code(s): I26.99 - Other pulmonary embolism without acute cor pulmonale Status: Acute (2) Liver mass: Code(s): R16.0 - Hepatomegaly, not elsewhere classified Status: Acute (3) Cirrhosis: Code(s): K74.60 - Unspecified cirrhosis of liver Status: Acute DS: Discharge Diagnosis Discharge Diagnosis (1) Pulmonary embolism: Code(s): I26.99 - Other pulmonary embolism without acute cor pulmonale Status: Acute (2) Liver mass: Code(s): R16.0 - Hepatomegaly, not elsewhere classified Status: Acute (3) Cirrhosis: Code(s): K74.60 - Unspecified cirrhosis of liver Status: Acute DS: Summary Hospital Course Hospital Course: Per H&P, 74 y/o F presents here with fatigue and generalized weakness with PMH of hypertension, dyslipidemia, DM2, and CKD stage 3.The patient presents here from home for further evaluation of generalized weakness and fatigue. She reports this has been ongoing since she had diabetes medication changes in October. She was initially trialed on Wegovy but developed severe heartburn, this resolved with cessation. Then was placed on Jardiance and has developed fatigue since then. She denies accompanying chest pain, nausea, vomiting, diarrhea, dizziness, shortness of breath, dark tarry stools, abdominal pain, urinary symptoms. The patient felt she was too weak to go home. The patient was also recently admitted from 01/04/25-01/06/25 for MADY superimposed on CKD. T he patient's lisinopril and chlorthalidone were held and remain on hold. Initial VS at presentation: 97.9? F, HR 89, R 20, 85/45, and 98% on RA. ED workup showed: WBC 14.6, hemoglobin 10.6, INR 1.2, sodium 135, potassium 6.1 (repeat 5.1 post interventions), creatinine 2.23 and GFR 21, magnesium 1.9, CK less than 20, CRP 20.3, albumin 2.9, and UA equivocal for UTI given moderate epithelial cells. CXR showed blunting of the posterior costophrenic angles which may represent prominent extrapleural fat or tiny pleural effusions. The following med issues have been addressed during hospitalization Liver mass: Code(s): R16.0 - Hepatomegaly, not elsewhere classified Status: Acute Assessment and Plan: RUQ showing possible cirrhosis but can not exclude underlying mass. CT without contrast showing hepatomegaly with multiple hypodensities suggestive of metastatic lesions, ascites, small caliber IVC and minimal right-sided pleural effusion with adjacent atelectasis. Small caliber IVC but doubt dehydrated since she was receiving IV fluids, appears fluid overload and with positive fluid balance. LE venous doppler negative for DVT. Hepatitis panel negative on 01/05/25 CEA 30. AFP 20. Paracentesis pathology negative for malignancy. GI consulted and appreciate their input. Consider colonoscopy but radiology felt liver biopsy was possible which was performed 01/21. Spoke with oncology who would like to follow her in the clinic after discharge. Pulmonary embolism: Code(s): I26.99 - Other pulmonary embolism without acute cor pulmonale Status: Acute Assessment and Plan: Patient with episodes of tachycardia. EKG showing sinus tachycardia. LE Venous doppler negative of DVT. VQ scan showing moderate sized perfusion defect at the posterior basilar segment RLL. PERC Rule can not exclude PE. Wells Score gives a moderate risk. EKG showing no S wave in I but shows Q wave and flat T wave in III. Echo 01/05/25 showing normal right sided findings but limited Echo this admission now showing mildly enlarged RV but normal systolic function. TSH normal. Heparin drip started. Transitioned to Coumdain since has liver and renal dysfunction. Daily INR. INR 1.9 today, trending up slowly, increase Coumadin to 3 mg daily from 2.5 mg daily p.o. / Spontaneous bacterial peritonitis: Code(s): K65.2 - Spontaneous bacterial peritonitis Status: Acute Assessment and Plan: Patient underwent paracentesis 01/18/25 with removal of 2 L. The fluid was cloudy with 15K red cells and 585 WBC, 64% PMNs (374). Rocephin 2gm started for 5 days. Gram stain showing no organisms or white blood cells. Cultures are NGTD Patient remains asymptomatic. Continue IV antibiotics to finish today. Acute kidney injury superimposed on stage 3b chronic kidney disease: Code(s): N17.9 - Acute kidney failure, unspecified; N18.32 - Chronic kidney disease, stage 3b Status: Acute Assessment and Plan: Patient presents with weakness and found to have MADY with Cr 2.23. Baseline Cr 1.2-1.6. Total CK normal. Pamela 26. UA consistent with UTI but UCx negative. Nephrology consulted and appreciate their input Renal US showing no hydronephrosis with somewhat limited visualization of the right kidney; bladder not seen. Holding lisinopril and chlorthalidone (have been held since 01/04) Started on IV fluids. Cr better at 2.0 but becoming fluid overloaded so fluids stopped. Metabolic acidosis noted and oral NaBicarb started. Renal function stable with creatinine now down to baseline. Monitor UOP, renal fxn and electrolytee in half-way Acute hyperkalemia: Code(s): E87.5 - Hyperkalemia Status: Acute Assessment and Plan: Potassium 6.1. In ED given: 2L bolus, calcium, insulin/dextrose, sodium bicarb, and Lokelma with benefit. Lokelma continued. Potassium normalized so Lokelma stopped. Potassium remaining normal. Continue to trend corrected (6) Type 2 diabetes mellitus: Qualifiers: Diabetes mellitus skilled nursing insulin use: without skilled nursing use Diabetes mellitus complication status: with other specified complication Qualified Code(s): E11.69 - Type 2 diabetes mellitus with other specified complication Code(s): E11.9 - Type 2 diabetes mellitus without complications Status: Acute Assessment and Plan: The patient is eating intermittently. She has glucose instability probably related to her liver disease. A1c 6.1%. Home medication of metformin and glipizide on hold The patient's blood glucose was reviewed and remains well controlled Received AccuCheks covering with sliding scale. Hypoglycemia protocol available as needed. resume home meds at dc (7) Essential (primary) hypertension: Code(s): I10 - Essential (primary) hypertension Status: Chronic Assessment and Plan: Patient's blood pressure was reviewed Blood pressure remains well controlled. Continue hold lisinopril and amlodipine on discharge, resume blood pressure per primary care provider if blood pressure bumps up (8) Cirrhosis: Code(s): K74.60 - Unspecified cirrhosis of liver Status: Acute Assessment and Plan: Possible cirrhosis. Radiology felt imaging not consistent with cirrhosis. She definitely has evidence of liver dysfunction related to the multiple liver lesions. As above (9) Morbid (severe) obesity due to excess calories: Code(s): E66.01 - Morbid (severe) obesity due to excess calories Status: Acute Assessment and Plan: BMI 48. senior clinical data coordinator reach out to half-way regarding monitor INR. Per healthcare translator report, half-way will monitor INR after discharge I recommends half-way to monitor INR daily until INR becomes stable Time Spent with Patient Time attestation: Total time spent providing and/or coordinating discharge services: Exam Narrative: GENERAL: Pleasant, in no acute distress. Well-nourished. Morbid obesity - EYES: EOMI. Anicteric. - HENT: Moist mucous membranes. - LUNGS: Clear to auscultation bilateral ly, no wheezing, rhonchi, or rales. - CARDIOVASCULAR: Regular rate and rhyth m. No murmur. No JVD. - ABDOMEN: Soft, non-tender and non-dist ended. No palpable masses. - EXTREMITIES: No edema. Peripheral puls es 2+. Non-tender. - NEUROLOGIC: No focal neurological defi cits. CN II-XII grossly intact. - PSYCHIATRIC: Awake, Alert and oriented x 3. Appropriate mood and affect. - SKIN: No rashes or lesions. Warm. - LYMPH: No cervical lymphadenopathy. DS: Data Data Completed and Pending Completed studies during hospitalization: Pending at discharge 01/18/25 14:40 Cytology [PTH] Routine Labs on day of discharge: Labs from last 24 hours 01/23/25 01/23/25 01/23/25 11:42 11:23 07:57 PT 22.3 H INR 1.9 Sodium Potassium Chloride Carbon Dioxide Anion Gap BUN Creatinine Estim Creat Clear Calc Estimated GFR Glucose POC Capillary Glucose 185 H 172 H Calcium Total Bilirubin AST ALT Alkaline Phosphatase Total Protein Albumin Peritoneal LDH 01/23/25 01/22/25 01/22/25 05:13 20:28 19:30 PT 22.2 H INR 1.9 Sodium 136 L Potassium 4.4 Chloride 103 Carbon Dioxide 20 L Anion Gap 13 H BUN 53 H Creatinine 1.98 H Estim Creat Clear Calc 33 Estimated GFR 25 L Glucose 153 H POC Capillary Glucose 227 H 192 H Calcium 9.0 Total Bilirubin 6.8 H AST 82 H ALT 28 Alkaline Phosphatase 377 H Total Protein 5.0 L Albumin 3.0 L Peritoneal LDH 01/22/25 01/18/25 16:48 14:37 PT INR Sodium Potassium Chloride Carbon Dioxide Anion Gap BUN Creatinine Estim Creat Clear Calc Estimated GFR Glucose POC Capillary Glucose 148 H Calcium Total Bilirubin AST ALT Alkaline Phosphatase Total Protein Albumin Peritoneal LDH 220 H Preliminary micro results at discharge 01/18/25 14:37 Anaerobic Culture - Preliminary Ascites Fluid Discharge Plan Discharge Attending physician on discharge: Luke Garcia Consulting providers: Jose Astorga Discharging Clinician: Luke Garcia Anticipated Discharge Date/Time: 01/23/25 12:23 Patient Disposition: SNF Activity: as tolerated Diet: as tolerated and diabetic Discharge Instructions: She will need scheduled PT/INR Follow-up with Dr Cisneros to discuss liver biopsy results. Patient Instructions: Warfarin (By mouth), Heart Failure (DC), Chronic Kidney Disease (GEN), Hyperkalemia (GEN) Patient Language: Togolese Stand Alone Forms: General Discharge Information Follow-up/Referrals: Ayah Carver, C.O.D. BILLER-C [Primary Care Provider] - (see pcp in one wk) Discharge Medications: New metoprolol tartrate 25 mg tablet 12.5 mg PO BID Qty: 60 0RF warfarin 3 mg tablet 3 mg PO QHS Qty: 30 0RF Continued chlorthalidone 25 mg tablet 25 mg PO DAILY Qty: 90 3RF glipizide 5 mg tablet 10 mg PO BID 90 Days Qty: 360 3RF alprazolam 0.5 mg tablet 0.25 mg PO HS Patient Comments: pt. takes at night ondansetron HCl 4 mg tablet 4 mg PO Q8H PRN (Reason: nausea and vomiting) Qty: 20 2RF metformin 1,000 mg tablet 500 mg PO BID Qty: 90 1RF tizanidine 4 mg tablet 4 mg PO TID PRN (Reason: muscle spasticity) Qty: 30 1RF trazodone 50 mg tablet 50 mg PO QHS PRN (Reason: sleep) Qty: 60 0RF Rx Instructions: may increase to 2 tablets if needed Discontinued amlodipine 10 mg tablet 10 mg PO DAILY Qty: 90 3RF lisinopril 40 mg tablet 40 mg PO DAILY Qty: 90 3RF Date of admission: 01/15/25 17:04 Primary Care Provider: Ayah Carver Admitting Provider: Luke Garcia Attending physician on admission: Luke Garcia Condition: Stable
[2025-01-23 21:23] LABS: Albumin Peritoneal Fluid 1.4 g/dL; Glucose Peritoneal Fluid 105 mg/dL; Total Protein Peritoneal Fluid <3.0 g/dL
== END 2025-01-23 14:15 | DRG 682 ==
LOC: ANHED 14:33 → ANHIMU 18:21 → ANH2MED 01-18 04:48
PROVIDERS: Internal Medicine; Internal Medicine Nephrology; Nurse Practitioner Acute Care; Registered Nurse; Student in an Organized Health Care Education/Training Program; Admitting Provider Hospitalist; Emergency Provider Student in an Organized Health Care Education/Training Program; PCP Nurse Practitioner Family; Visit Provider Hospitalist
DX: N17.9 Acute kidney failure, unspecified (principal); I26.99 Other pulmonary embolism without acute cor pulmonale; K65.2 Spontaneous bacterial peritonitis; C24.0 Malignant neoplasm of extrahepatic bile duct; Z68.42 Body mass index [BMI] 45.0-49.9, adult; I13.0 Hypertensive heart and chronic kidney disease with heart failure and stage 1 through stage 4 chronic kidney disease, or unspecified chronic kidney disease; I50.9 Heart failure, unspecified; K74.60 Unspecified cirrhosis of liver; N18.32 Chronic kidney disease, stage 3b; E87.5 Hyperkalemia; E11.22 Type 2 diabetes mellitus with diabetic chronic kidney disease; E11.649 Type 2 diabetes mellitus with hypoglycemia without coma; E78.5 Hyperlipidemia, unspecified; E55.9 Vitamin D deficiency, unspecified; E66.01 Morbid (severe) obesity due to excess calories; R00.0 Tachycardia, unspecified; H35.30 Unspecified macular degeneration
CPT/HCPCS: 36415; 47000; 49083; 71046; 74176; 76775; 76942; 78582; 80048; 80053; 81001; 82042; 82105; 82140; 82378; 82533; 82550; 82570; 82607; 82945; 82948; 83615; 83735; 83880; 84100; 84156; 84157; 84300; 84484; 85025; 85610; 85730; 85999; 86140; 87070; 87075; 87086; 87205; 88108; 88305; 88307; 88342; 89051; 93005; 93308; 93970; 96361; 96365; 96375; 97110; 97161; 97165; 97530; 99291; A9270; A9540; A9558; J0612; J0696; J1644; J1650; J1815; J7120; P9047

== ENCOUNTER 2025-01-26 15:58 | Inpatient (IN) | payer MEDICARE, SELFPAY ==
[2025-01-26] VITALS (29 sets, daily range): BP systolic 78–106; BP diastolic 32–68; PULSE 77–104; RESP 13–24; TEMP 35.9–36.4; O2SAT 96–100; BMI 48.9
--- NOTE | ~2025-01-26 | US_ITS ---
Renal-Bladder ultrasound Clinical History: Acute renal insufficiency Technique: Real-time sonographic imaging of the kidneys and urinary bladder was performed. Findings: The right kidney measures 10.1 cm in length and the left kidney measures 11.2 cm. There is no hydronephrosis or renal calculus identified. Renal cortical echogenicity is within normal limits. No renal mass lesion is identified. The urinary bladder is not clearly visualized, presumably collapsed with Arnold catheter in place. Incidental note is made of heterogeneous appearing liver with possible multiple hypoechoic masses. Th ere is abdominal pelvic ascites. Impression: No significant renal abnormality. Multiple hypoechoic hepatic masses are compatible with hepatic metastatic disease. Abdominopelvic ascites. Reviewed, dictated and finalized at location . Impression: No significant renal abnormality. Multiple hypoechoic hepatic masses are compatible with hepatic metastatic disea se. Abdominopelvic ascites.
--- NOTE | ~2025-01-26 | XR_ITS ---
EXAMINATION: XR chest 1V portable Exam Date/Time: 01/26/2025 18:10 CDT HISTORY: sob Comparison: 01/15/2025. RESULT: Lines, tubes, and devices: None. Lungs and pleura: Lordotic positioning, low volumes, and rightward rotation. Right hemidiaphragm carla vation. Mild graded opacity in the right lung base. Right costophrenic angle blunting. Lateral displa cement of the peak of the diaphragm. Cardiomediastinal silhouette: Partially obscured, grossly stable. Other: No acute osseous or upper abdominal finding. IMPRESSION: Likely small to moderate subpulmonic right pleural effusion with right basilar atelectasis. Reviewed, dictated and finalized at location K.
--- NOTE | ~2025-01-26 | XR_ITS ---
XR chest PICC line Ordering provider: Hamida Ndiaye MD History: 74 years Female with . picc placement . Comparison: January 26, 2025 FINDINGS: MEDIASTINUM: The cardiac silhouette is slightly enlarged. Right PICC line with the tip overlying the superior vena cava. LUNGS: No pneumothorax. Opacification in the right lung base with minimal pleural effusion. OTHER: No free air under the diaphragm. IMPRESSION: Right basal atelectasis versus pneumonia with mild to moderate pleural effusion. Reviewed, dictated and finalized at location A. IMPRESSION: Right basal atelectasis versus pneumonia with mild to moderate pleural effusion .
--- NOTE | 2025-01-26 17:02 | ECG_ITS ---
Test Date: 2025-01-26 18:36:04 Measurements Intervals [place] Rate: 80 P: -58 [place]: 104 QRS: 50 QRSD: 80 T: 50 QT: 389 QTc: 449 Interpretive Statements SINUS OR ECTOPIC ATRIAL RHYTHM WITH OCCASIONAL SUPRAVENTRICULAR PREMATURE COMPLEXES LOW QRS VOLTAGE IN PRECORDIAL LEADS BASELINE ARTIFACT- I, III, AVR, AVL ABNORMAL ECG Compared to ECG 01/17/2025 23:17:11 HEART RATE HAS DECREASED Electronically Signed On 01-26-2025 20:25:33 CDT by Erick Garcia D.O.
[2025-01-26 17:45] LABS: Add Urine Microscopic? YES; Appearance Urine Turbid (Clear); Bacteria Urine None Seen /hpf; Bilirubin Urine 2+ (Negative); Blood Urine Negative (Negative); Color Urine Dark Yellow (Yellow); Glucose Urine UA Negative (Negative); Ketones Urine Trace mg/dL (Negative); Leukocyte Esterase Ur Trace LEU/UL (Negative); Need Manual Microscopic Reviewed; Nitrate Urine Positive (Negative); Protein Urine 2+ mg/dL (Negative); RBC Urine 21-50 /hpf (0-2); Specific Grav Ur 1.021 (1.001-1.035); Squamous Epithelial Cell Urine Many /hpf (Few); WBC Urine 0-5 /hpf (0-3)
[2025-01-26 18:09] LABS: Basophils Percent Auto 0.2 % (0.2-1.2); Eosinophils Absolute Auto 0.1 K/mm3 (0-0.3); Eosinophils Percent Auto 0.3 % (0-4.4); Hematocrit 29.4 % (37.0-47.0); Hemoglobin 8.9 g/dL (12.0-15.0); Immature Granulocyte Absolute 0.13 K/mm3 (0.00-0.031); Immature Granulocyte Percent A 0.7 % (0-0.5); Lymphocytes Absolute Auto 0.74 K/mm3 (0.9-3.2); Mean Corpuscular HGB Conc 30.3 g/dl (32-36); Mean Corpuscular Hemoglobin 28.3 pg (26-34); Mean Corpuscular Volume 93.3 fl (80-100); Mean Platelet Volume 12.5 fl (7.4-10.4); Monocytes Absolute Auto 0.9 K/mm3 (0.1-0.6); Monocytes Percent Auto 4.7 % (2.6-8.5); Neutrophils Absolute Auto 16.6 K/mm3 (1.3-6.7); Neutrophils Percent Auto 90.1 % (45.5-73.1); Platelet Count Result 173 k/mm3 (150-375); Red Blood Count 3.15 M/mm3 (4.2-5.4); Red Cell Distribution Width 24.8 % (11.5-14.5); White Blood Count 18.4 K/mm3 (4.5-10.0)
[2025-01-26 18:18] LABS: Alanine Aminotransferase 37 U/L (6-35); Albumin Level 2.9 g/dL (3.5-5.1); Alkaline Phosphatase 563 U/L (38-126); Anion Gap 12 mmol/L (4-12); Aspartate Amino Transferase 104 U/L (14-36); Bilirubin,Total 7.6 mg/dL (0.2-1.3); Blood Urea Nitrogen 76 mg/dL (7-17); Calcium 8.6 mg/dL (8.4-10.2); Carbon Dioxide 19 mmol/L (22-30); Chloride 104 mmol/L (98-107); Estimated Glomerular Filt Rate 14; Glucose 67 mg/dL (65-110); Potassium 4.2 mmol/L (3.4-5.0); Sodium 135 mmol/L (137-145)
[2025-01-26 18:28] LABS: NT Pro B Type Natriuretic Pept 2320 pg/mL (19.9-100); Troponin I < 0.012 ng/mL (0.000-0.034)
--- NOTE | 2025-01-26 18:28 | ED_ITS ---
HPI - General Adult General Chief complaint: Shortness of Breath/Dyspnea Stated complaint: dyspnea Time Seen by Provider: 01/26/25 16:58 Source: patient and family Limitations: no limitations History of Present Illness HPI narrative: 74-year-old with a history of hypertension, diabetes, hyperlipidemia, P, was brought in from a [place] with a complains of generalized weakness for past few days. Patient states that she has been in the ER and was admitted to the hospital several times in the last 1 month for the same illness. She presently denies having any cough fever, abdominal pain, nausea vomiting. She states that she is too weak to even to sit up OR to in take few steps. Patient states that she was extremely upset this morning she was unable to walk and got extremely anxious. Related Data Home Medications ?Medication ?Instructions ?Recorded ?Confirmed ?Last Taken ?Type alprazolam 0.5 mg tablet 0.25 mg PO HS insomnia 01/04/25 01/15/25 01/03/25 History Allergies Allergy/AdvReac Type Severity Reaction Status Date / Time No Known Allergies Allergy Verified 01/15/25 13:38 Review of Systems 2 Review of Systems: All systems reviewed & are unremarkable except as noted in HPI and below Constitutional: Constitutional: Reports no additional constitutional complaints Eyes: Eyes: Reports no additional eye complaints ENT: Reports system reviewed and no additional complaints, except as documented Cardiovascular: Cardiovascular: Reports no additional cardiovascular complaints Respiratory: Respiratory: Reports no additional respiratory complaints Gastrointestinal: Gastrointestinal: Reports no additional gastrointestinal complaints Musculoskeletal: Musculoskeletal: Reports no additional musculoskeletal complaints Neurologic: Reports system reviewed and no additional complaints, except as documented [facility] Past Medical History Medical History Vitamin D deficiency, unspecified CHF (congestive heart failure) Dyslipidemia CKD (chronic kidney disease) Type 2 diabetes mellitus Age-related macular degeneration Essential (primary) hypertension Psychophysiological insomnia Surgical History Surgical History History of tonsillectomy Status post cataract extraction of both eyes with insertion of intraocular lens Hx of cholecystectomy H/O hysterectomy for benign disease Family History Family History Mother Hypertension Family history of Alzheimer's disease Family history of type 1 diabetes mellitus Diabetes mellitus Father Family history of lymphoma History of kidney disease Hypertension Grandparent Breast cancer Social History Social History Social History: She is . She recently saw older home of 50 or 50 years to her granddaughter and grandson in law. But she now lives with them and takes care of her [id number] great grandchild 5 days a week. She states she will drink 1 beer about every other month. She is a lifelong nonsmoker and does not use illicit substances. She ambulates with a walker. She was employed at the [employer] office for over 40 years prior to retiring. Code status: Full code Surrogate decision maker: Jenn France (daughter) Smoking status: Never smoker Second hand tobacco smoke exposure: No Alcohol intake: never Drinks per week: 1 Substance use: never Substance use type: does not use Do You Feel Safe in your Home?: Yes Lack of Transportation: No Lack of Food: Never True Current Housing: I Have Housing Concerned About Future Housing: No Difficulty Paying Gas/Electric Bills: No Difficulty Paying for Meds: No Currently Unemployed: No Education: High School Diploma/GED Difficulty w/ Childcare or Family Care: No Living arrangements: with family Additional living arrangements comments: pt lives with granddaughter and granddaughter Occupation/Education: retired Gender identity (if verbalized by the patient): Female Sexual Orientation (if Verbalized by the Patient): Straight or Heterosexual Spiritual care concerns: No Exam 2 Narrative: GENERAL: Well-appearing, obese, and in no acute distress. HEAD: Normocephalic, atraumatic. EYES: PERRLA and EOMI. ENT: Nares clear, no rhinorrhea or epistaxis. Mucous membranes moist. NECK: Supple. CHEST: Clear to auscultation. No respiratory distress. HEART: Regular rate and rhythm. No murmur heard. Normal peripheral pulses. ABDOMEN: Soft, nontender, nondistended, normal active bowel sounds. EXTREMITIES: Normal range of motion. No edema. SKIN: Warm, dry, no rash. NEURO: No focal deficits. Alert and oriented x3. PSYCH: Normal mood and affect. Course Vital Signs Vital signs: Vital Signs Temperature 35.9 C L 01/26/25 16:13 Pulse Rate 79 01/26/25 16:13 Respiratory Rate 20 01/26/25 16:13 Blood Pressure 92/47 L 01/26/25 16:13 Pulse Oximetry 100 01/26/25 16:13 Oxygen Delivery Room Air 01/26/25 16:13 Temperature 35.9 C L 01/26/25 16:13 Pulse Rate 78 01/26/25 16:38 Respiratory Rate 20 01/26/25 16:13 Blood Pressure 92/47 L 01/26/25 16:13 Pulse Oximetry 100 01/26/25 16:13 Oxygen Delivery Room Air 01/26/25 16:13 Medical Decision Making Differential Diagnosis Differential Diagnosis: MADY, CHF, Medical Records Medical records reviewed: Yes I reviewed the external patient's medical records. Vital Signs Vital Signs: Vital Signs Temperature 35.9 C L 01/26/25 16:13 Pulse Rate 79 01/26/25 16:13 Respiratory Rate 20 01/26/25 16:13 Blood Pressure 92/47 L 01/26/25 16:13 Pulse Oximetry 100 01/26/25 16:13 Oxygen Delivery Room Air 01/26/25 16:13 Temperature 35.9 C L 01/26/25 16:13 Pulse Rate 78 01/26/25 16:38 Respiratory Rate 20 01/26/25 16:13 Blood Pressure 92/47 L 01/26/25 16:13 Pulse Oximetry 100 01/26/25 16:13 Oxygen Delivery Room Air 01/26/25 16:13 Lab Data Lab results reviewed: Yes I reviewed the patient's lab results. 01/26/25 18:01 01/26/25 18:01 Labs: Lab Results 01/26/25 01/26/25 Range/Units 17:15 18:01 WBC 18.4 H (4.5-10.0) K/mm3 RBC 3.15 L (4.2-5.4) M/mm3 Hgb 8.9 L (12.0-15.0) g/dL Hct 29.4 L (37.0-47.0) % MCV 93.3 D (80-100) fl MCH 28.3 (26-34) pg MCHC 30.3 L (32-36) g/dl RDW 24.8 H (11.5-14.5) % Plt Count 173 (150-375) k/mm3 MPV 12.5 H (7.4-10.4) fl Immature Gran % (Auto) 0.7 H (0-0.5) % Neut % (Auto) 90.1 H (45.5-73.1) % Lymph % (Auto) 4.0 L (18.3-44.2) % [place] % (Auto) 4.7 (2.6-8.5) % Eos % (Auto) 0.3 (0-4.4) % Baso % (Auto) 0.2 (0.2-1.2) % Lymph # (Auto) 0.74 L (0.9-3.2) K/mm3 [place] # (Auto) 0.9 H (0.1-0.6) K/mm3 Eos # (Auto) 0.1 (0-0.3) K/mm3 Baso # (Auto) 0.0 (0.0-0.1) K/mm3 Abs Immat Gran (auto) 0.13 H (0.00-0.031) K/mm3 Absolute Neuts (auto) 16.6 H (1.3-6.7) K/mm3 Absolute Nucleated RBC 0.000 (0.0-0.012) K/mm3 Band Neutrophils % Not Reportable Nucleated RBC % 0.0 (0.0-0.2) % Platelet Estimate Adequate (Adequate) Hypochromasia 1+ Anisocytosis 2+ Target Cells 1+ Schistocytes None seen PT 71.8 H D (11.1-14.7) Seconds INR 8.8 H* Sodium 135 L (137-145) mmol/L Potassium 4.2 (3.4-5.0) mmol/L Chloride 104 (98-107) mmol/L Carbon Dioxide 19 L (22-30) mmol/L Anion Gap 12 (4-12) mmol/L BUN 76 H D (7-17) mg/dL Creatinine 3.29 H (0.7-1.0) mg/dL Estim Creat Clear Calc Not Reportable Estimated GFR 14 L (59 - ) Glucose 67 (65-110) mg/dL Calcium 8.6 (8.4-10.2) mg/dL Total Bilirubin 7.6 H (0.2-1.3) mg/dL AST 104 H (14-36) U/L ALT 37 H (6-35) U/L Alkaline Phosphatase 563 H (38-126) U/L Troponin I < 0.012 (0.000-0.034) ng/mL NT-Pro-B Natriuret Pep 2320 H (19.9-100) pg/mL Total Protein 6.0 L (6.3-8.2) g/dL Albumin 2.9 L (3.5-5.1) g/dL Urine Color Dark yellow (Yellow) Urine Appearance Turbid H (Clear) Urine pH 5.0 (5.0-9.0) Ur Specific [place] 1.021 (1.001-1.035) Urine Protein 2+ H (Negative) mg/dL Urine Glucose (UA) Negative (Negative) mg/dL Urine Ketones Trace H (Negative) mg/dL Ur Blood (Man) Negative (Negative) Urine Nitrate Positive H (Negative) Urine Bilirubin 2+ H (Negative) Urine Urobilinogen 1.0 (<2.0) mg/dL Add Ur Microanalysis Reviewed Leukocyte Esterase Rfl Trace H (Negative) ABE/UL Urine RBC 21-50 H (0-2) /hpf Urine WBC 0-5 (0-3) /hpf Ur Squamous Epith Cells Many H (Few) /hpf Urine Bacteria None seen /hpf Urine Casts 6-10 Discharge Plan Discharge Clinical Impression: Acute kidney injury, Weakness, Jaundice, Elevated protime Patient Disposition: Still a Patient Condition: Stable Patient Language: Guinean Prescriptions: No Action chlorthalidone 25 mg tablet 25 mg PO DAILY Qty: 90 3RF glipizide 5 mg tablet 10 mg PO BID 90 Days Qty: 360 3RF alprazolam 0.5 mg tablet 0.25 mg PO HS Patient Comments: pt. takes at night ondansetron HCl 4 mg tablet 4 mg PO Q8H PRN (Reason: nausea and vomiting) Qty: 20 2RF metformin 1,000 mg tablet 500 mg PO BID Qty: 90 1RF tizanidine 4 mg tablet 4 mg PO TID PRN (Reason: muscle spasticity) Qty: 30 1RF trazodone 50 mg tablet 50 mg PO QHS PRN (Reason: sleep) Qty: 60 0RF Rx Instructions: may increase to 2 tablets if needed warfarin 3 mg tablet 3 mg PO QHS Qty: 30 0RF metoprolol tartrate 25 mg tablet 12.5 mg PO BID Qty: 90 1RF Follow-up/Referrals: Ayah Carver, EXPERIMENTAL WORKER-C [Primary Care Provider] - Time of Disposition: 18:43
[2025-01-26 18:33] LABS: Prothrombin Time 71.8 Seconds (11.1-14.7)
[2025-01-26 18:34] LABS: Anisocytosis 2+; Hypochromasia 1+; Platelet Estimate Adequate (Adequate); Target Cells 1+
[2025-01-26 18:35] LABS: Schistocytes None Seen
[2025-01-26 18:38] LABS: INR 8.8
[2025-01-26] MEDS: SODIUM CHLORIDE 0.9% IV 1,000 ML 125 ML IV CONT (20:45)
--- NOTE | 2025-01-26 20:48 | PC.NURSE ---
Family requesed Vitamin K meds to be held at this time d/t need for repeat INR/PT to confirm value. Pt states she had normal blood work this morning at nursing facility.
--- NOTE | 2025-01-26 21:11 | ADMGEN ---
This patient, Nikki Don, was admitted to IMU Room 202-. Patient/family oriented to hospital policies and general routines including ID bracelet, bed and alarms, visiting hours, pain management, procedures, bathroom and other care routines, personal items, smoking policy, room service/diet, and visiting hours. Information on how to activate the Rapid Response Team has been discussed. Patient/Family are encouraged to report perceived risks to care and to ask questions if they do not understand what they are told or what they should do.
[2025-01-26 21:59] LABS: Procalcitonin 4.6 ng/mL
[2025-01-26 22:02] LABS: Prothrombin Time 71.4 Seconds (11.1-14.7)
[2025-01-26 22:16] LABS: INR 8.7
[2025-01-26] MEDS: PHYTONADIONE ADULT INJ 10 MG in DEXTROSE 5% IN WATER 50 ML 100 MG IVPB (22:42)
[2025-01-27] VITALS (13 sets, daily range): BP systolic 100–118; BP diastolic 39–61; PULSE 78–127; RESP 16–20; TEMP 36.3–36.6; O2SAT 96–100
--- NOTE | 2025-01-27 00:43 | PM.IMHP ---
H&P: HPI History of Present Illness Date/Time: 01/27/25 00:43 Chief Complaint: Weakness Narrative: A 74-year-old female with PMH CKD, CHF, hypertension, morbid obesity with BMI 49, [id number] diabetes mellitus, vitamin-D deficiency, possible cirrhosis, suspected PE, history of SBP, presents weakness. The patient was recently discharged from [facility] 01/23/2025 a multitude of issues including weakness as her presenting complaint. She was discharged to custodial for half-way and rehab were as she was previously living at home. Patient reports she was doing well for a few days on the day of admission 01/27/2024 the patient became increasingly weak where she then returned to [facility]. ER revealed presenting vital signs of temperature 96.6? F, respiratory rate 20, heart rate 79, 100% SpO2 on room air, blood pressure 92/47. Daughter reports the patient had large volume fluid resuscitation during last admission to wear the patient developed lower extremity edema and at the same time the low blood pressure is new. Albumin is 3.0. White count chronically elevated but this admission presenting with 18.4 with a hemoglobin 8.9 which is her usual, platelets 173, INR 8.8 patient reports it was normal at 2.3 last checked by the custodial. Patient denies any overt bleeding or black stool. BUN 76, serum creatinine 3.29, last discharge was serum creatinine 1.98. Patient reports voiding twice a day. Total bilirubin 7.6, AST 104, ALT 37 high, alkaline phosphatase 563, troponin 0.012, BNP 2320, albumin 2.9. Urinalysis grossly abnormal indicating infection although many squamous cells. A repeat INR was drawn which confirmed supratherapeutic INR, patient given vitamin K 10 mg IV x1, started on normal saline at 125 cc/hour. Review of Systems Review of Systems: All systems reviewed & are unremarkable except as noted in HPI and below (HPI) [facility] Past Medical History Medical History Vitamin D deficiency, unspecified CHF (congestive heart failure) Dyslipidemia CKD (chronic kidney disease) Type 2 diabetes mellitus Age-related macular degeneration Essential (primary) hypertension Psychophysiological insomnia Surgical History Surgical History History of tonsillectomy Status post cataract extraction of both eyes with insertion of intraocular lens Hx of cholecystectomy H/O hysterectomy for benign disease Family History Family History Mother Hypertension Family history of Alzheimer's disease Family history of type 1 diabetes mellitus Diabetes mellitus Father Family history of lymphoma History of kidney disease Hypertension Grandparent Breast cancer Social History Social History Social History: She is . She recently saw older home of 50 or 50 years to her granddaughter and grandson in law. But she now lives with them and takes care of her [id number] great grandchild 5 days a week. She states she will drink 1 beer about every other month. She is a lifelong nonsmoker and does not use illicit substances. She ambulates with a walker. 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 Code status: Full code Surrogate decision maker: Jenn France (daughter) Smoking status: Never smoker Second hand tobacco smoke exposure: No Alcohol intake: never Drinks per week: 1 Substance use: current Substance use type: does not use Other substance usage details: once every 3-4 months Do You Feel Safe in your Home?: Yes Lack of Transportation: No Lack of Food: Never True Current Housing: I Have Housing Concerned About Future Housing: No Difficulty Paying Gas/Electric Bills: No Difficulty Paying for Meds: No Currently Unemployed: No Education: High School Diploma/GED Difficulty w/ Childcare or Family Care: No Living arrangements: with family Additional living arrangements comments: pt lives with granddaughter and granddaughter Occupation/Education: retired Gender identity (if verbalized by the patient): Female Sexual Orientation (if Verbalized by the Patient): Straight or Heterosexual Spiritual care concerns: No Meds Home Medications and Allergies Home Medications ?Medication ?Instructions ?Recorded ?Confirmed ?Type chlorthalidone 25 mg tablet 25 mg PO DAILY #90 tabs 05/29/24 01/26/25 Rx glipizide 5 mg tablet 10 mg (2 x 5 mg) PO BID 90 days 05/29/24 01/26/25 Rx #360 tabs ondansetron HCl 4 mg tablet 4 mg PO Q8H PRN nausea and 10/22/24 01/26/25 Rx vomiting #20 tabs metformin 1,000 mg tablet 500 mg (1/2 x 1,000 mg) PO BID #90 11/15/24 01/26/25 Rx tabs tizanidine 4 mg tablet 4 mg PO TID PRN muscle spasticity 12/28/24 01/26/25 Rx #30 tabs alprazolam 0.5 mg tablet 0.25 mg PO HS insomnia 01/04/25 01/26/25 History trazodone 50 mg tablet 50 mg PO QHS PRN sleep #60 tabs 01/09/25 01/26/25 Rx metoprolol tartrate 25 mg tablet 12.5 mg (1/2 x 25 mg) PO BID #90 01/24/25 01/26/25 Rx tabs docusate sodium 100 mg capsule 100 mg PO DAILY 01/26/25 01/26/25 History ergocalciferol (vitamin D2) 1,250 1,250 mcg PO WEEKLY 01/26/25 01/26/25 History mcg (50,000 unit) capsule (Vitamin D2) polyethylene glycol 3350 17 gram 17 g PO DAILY PRN constipation 01/26/25 01/26/25 History oral powder packet (Miralax) warfarin 3 mg tablet 3 mg PO QPM 01/26/25 01/26/25 History Allergies Allergy/AdvReac Type Severity Reaction Status Date / Time No Known Allergies Allergy Verified 01/15/25 13:38 Vital Signs Vital Signs - 24 hr 01/26/25 16:13 01/26/25 16:17 01/26/25 16:18 Temperature 96.6 F L Pulse Rate 79 83 79 Respiratory Rate 20 18 Blood Pressure 92/47 L 92/47 L Pulse Oximetry 100 100 Oxygen Delivery Room Air 01/26/25 16:20 01/26/25 16:23 01/26/25 16:28 Temperature Pulse Rate 80 83 Respiratory Rate 20 21 H Blood Pressure 81/45 L 81/46 L Pulse Oximetry 99 98 Oxygen Delivery Room Air 01/26/25 16:31 01/26/25 16:38 01/26/25 16:45 Temperature Pulse Rate 82 78 85 Respiratory Rate 24 H 16 Blood Pressure 78/50 L Pulse Oximetry Oxygen Delivery 01/26/25 16:46 01/26/25 17:00 01/26/25 17:03 Temperature Pulse Rate 84 93 81 Respiratory Rate 18 15 17 Blood Pressure 96/61 L 87/52 L Pulse Oximetry Oxygen Delivery 01/26/25 17:16 01/26/25 17:30 01/26/25 17:45 Temperature Pulse Rate 83 79 80 Respiratory Rate 18 18 Blood Pressure Pulse Oximetry Oxygen Delivery 01/26/25 18:00 01/26/25 18:01 01/26/25 18:15 Temperature Pulse Rate 89 82 81 Respiratory Rate 14 19 15 Blood Pressure 98/43 L Pulse Oximetry 100 100 96 Oxygen Delivery 01/26/25 18:16 01/26/25 18:30 01/26/25 18:31 Temperature Pulse Rate 80 79 79 Respiratory Rate 17 21 H 18 Blood Pressure 105/32 L 102/47 L Pulse Oximetry 99 Oxygen Delivery 01/26/25 18:45 01/26/25 18:45 01/26/25 18:46 Temperature Pulse Rate 79 80 79 Respiratory Rate 20 17 Blood Pressure 102/47 L 92/48 L Pulse Oximetry 100 Oxygen Delivery 01/26/25 19:00 01/26/25 19:16 01/26/25 19:31 Temperature Pulse Rate 77 104 H 104 H Respiratory Rate 13 17 19 Blood Pressure 91/41 L 106/68 Pulse Oximetry Oxygen Delivery 01/26/25 21:18 01/26/25 21:30 01/27/25 00:00 Temperature 97.6 F 97.4 F L Pulse Rate 101 H 91 Respiratory Rate 20 20 Blood Pressure 95/40 L 103/61 Pulse Oximetry 97 100 Oxygen Delivery Room Air Exam Const: General: comfortable and no acute distress Other: A&O x3 HENMT: Mouth: Yes moist mucous membranes Eyes: Pupils: Equal, round and reactive pupils present Resp: Effort & Inspection: normal respiratory effort Auscultation: clear to auscultation bilaterally Cardio: Rate: regular rate Rhythm: regular rhythm Skin: Other: Jaundice Extrem: General: edema H&P: Results Labs Labs: Short CBC 01/26/25 Range/Units 18:01 WBC 18.4 H (4.5-10.0) K/mm3 Hgb 8.9 L (12.0-15.0) g/dL Hct 29.4 L (37.0-47.0) % Plt Count 173 (150-375) k/mm3 BMP 01/26/25 18:01 Sodium 135 L Potassium 4.2 Chloride 104 Carbon Dioxide 19 L BUN 76 H D Creatinine 3.29 H Glucose 67 Calcium 8.6 Cardiac Enzymes 01/26/25 Range/Units 18:01 Troponin I < 0.012 (0.000-0.034) ng/mL Liver Function 01/26/25 Range/Units 18:01 Total Bilirubin 7.6 H (0.2-1.3) mg/dL AST 104 H (14-36) U/L ALT 37 H (6-35) U/L Alkaline Phosphatase 563 H (38-126) U/L Albumin 2.9 L (3.5-5.1) g/dL Urine 01/26/25 Range/Units 17:15 Urine Color Dark yellow (Yellow) Urine Appearance Turbid H (Clear) Urine pH 5.0 (5.0-9.0) Ur Specific [place] 1.021 (1.001-1.035) Urine Protein 2+ H (Negative) mg/dL Urine Glucose (UA) Negative (Negative) mg/dL Assessment and Plan Assessment and plan (1) Transaminitis: Code(s): R74.01 - Elevation of levels of liver transaminase levels Status: Acute (2) Jaundice: Code(s): R17 - Unspecified jaundice Status: Acute (3) Acute kidney injury: Code(s): N17.9 - Acute kidney failure, unspecified Status: Acute (4) Supratherapeutic INR: Code(s): R79.1 - Abnormal coagulation profile Status: Acute (5) 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 The patient was recently discharged from [facility] 01/23/2025 a multitude of issues including weakness as her presenting complaint. She was discharged to custodial for half-way and rehab were as she was previously living at home. Patient reports she was doing well for a few days on the day of admission 01/27/2024 the patient became increasingly weak where she then returned to [facility]. ER revealed presenting vital signs of temperature 96.6? F, respiratory rate 20, heart rate 79, 100% SpO2 on room air, blood pressure 92/47. Daughter reports the patient had large volume fluid resuscitation during last admission to wear the patient developed lower extremity edema and at the same time the low blood pressure is new. Albumin is 3.0. White count chronically elevated but this admission presenting with 18.4 with a hemoglobin 8.9 which is her usual, platelets 173, INR 8.8 patient reports it was normal at 2.3 last checked by the custodial. Patient denies any overt bleeding or black stool. BUN 76, serum creatinine 3.29, last discharge was serum creatinine 1.98. Patient reports voiding twice a day. Total bilirubin 7.6, AST 104, ALT 37 high, alkaline phosphatase 563, troponin 0.012, BNP 2320, albumin 2.9. Urinalysis grossly abnormal indicating infection although many squamous cells. A repeat INR was drawn which confirmed supratherapeutic INR, patient given vitamin K 10 mg IV x1, started on normal saline at 125 cc/hour. ----- Unclear etiology to her progressive weakness although liver biopsy performed on 01/21 demonstrating cholangiocarcinoma with extensive scarring in necrosis. Patient notified. Oncology consultation. PT OT evaluations. Ambulate with assistance and fall precautions. Holding [employer] trazodone and tizanidine and Xanax. Received volume resuscitation. Blood pressure improved. Trend renal function. Monitor urine output. Daily weights. Consult Nephrology. Bladder scan. Renal ultrasound. Repeat UA. Holding [employer] chlorthalidone. Treat presumed UTI with ceftriaxone follow urine culture. Procalcitonin elevated at 4. Trend leukocytosis. For supratherapeutic INR patient received vitamin K 10 mg IV x1. No evidence of overt bleeding. Her anemia stable. Trend INR. After admission developed an episode of hypoglycemia. Resolved status post protocol. Continue Accu-Cheks a.c. HS. ----- SCDs. Full code. Diabetic heart healthy diet. Hospitalist [facility] Advance Care Plan I have confirmed that the patient's Advanced Care Plan is present, code status is documented, or surrogate decision maker is listed in patient medical record.: Yes Medication Reconciliation I have utilized all available resources to obtain, update and review the patients current medications (includes all prescriptions, OTC, herbals, cannabis, and nutritional supplements).: Yes
[2025-01-27 00:46] LABS: Glucose Point of Care 39 mg/dl (65-105)
[2025-01-27] MEDS: DEXTROSE 50% 25 GM/50 ML SYRINGE (00:46)
[2025-01-27 01:12] LABS: Glucose Point of Care 101 mg/dl (65-105)
[2025-01-27 01:41] LABS: Glucose Point of Care 68 mg/dl (65-105)
[2025-01-27] MEDS: DEXTROSE 10% 1,000 ML 25 ML IV CONT (01:54)
[2025-01-27] MEDS: GLUCOSE ORAL GEL 15 GM OF GLUCSE IN 37.5 GM TUBE PO ×3 (01:58→16:14)
[2025-01-27 02:18] LABS: Glucose Point of Care 56 mg/dl (65-105)
[2025-01-27 02:34] LABS: Glucose Point of Care 72 mg/dl (65-105)
[2025-01-27 03:08] LABS: Glucose Point of Care 113 mg/dl (65-105)
[2025-01-27 04:37] LABS: Basophils Percent Auto 0.2 % (0.2-1.2); Eosinophils Absolute Auto 0.1 K/mm3 (0-0.3); Eosinophils Percent Auto 0.4 % (0-4.4); Hematocrit 27.2 % (37.0-47.0); Hemoglobin 8.6 g/dL (12.0-15.0); Immature Granulocyte Absolute 0.13 K/mm3 (0.00-0.031); Immature Granulocyte Percent A 0.8 % (0-0.5); Lymphocytes Absolute Auto 0.91 K/mm3 (0.9-3.2); Lymphocytes Percent Auto 5.6 % (18.3-44.2); Mean Corpuscular HGB Conc 31.6 g/dl (32-36); Mean Corpuscular Hemoglobin 28.5 pg (26-34); Mean Corpuscular Volume 90.1 fl (80-100); Mean Platelet Volume 11.6 fl (7.4-10.4); Monocytes Absolute Auto 0.6 K/mm3 (0.1-0.6); Monocytes Percent Auto 3.7 % (2.6-8.5); Neutrophils Absolute Auto 14.6 K/mm3 (1.3-6.7); Neutrophils Percent Auto 89.3 % (45.5-73.1); Platelet Count Result 151 k/mm3 (150-375); Red Blood Count 3.02 M/mm3 (4.2-5.4); Red Cell Distribution Width 24.9 % (11.5-14.5); White Blood Count 16.3 K/mm3 (4.5-10.0)
[2025-01-27 04:47] LABS: Alanine Aminotransferase 34 U/L (6-35); Albumin Level 2.6 g/dL (3.5-5.1); Alkaline Phosphatase 501 U/L (38-126); Anion Gap 15 mmol/L (4-12); Aspartate Amino Transferase 97 U/L (14-36); Bilirubin,Total 6.9 mg/dL (0.2-1.3); Blood Urea Nitrogen 75 mg/dL (7-17); Calcium 8.2 mg/dL (8.4-10.2); Carbon Dioxide 15 mmol/L (22-30); Chloride 106 mmol/L (98-107); Estimated CRCL calculation 21 ml/min; Estimated Glomerular Filt Rate 15; Glucose 73 mg/dL (65-110); Magnesium 1.8 mg/dL (1.6-2.3); Phosphorus 4.6 mg/dL (2.5-4.5); Potassium 3.9 mmol/L (3.4-5.0); Sodium 136 mmol/L (137-145)
[2025-01-27 04:48] LABS: Prothrombin Time 64.8 Seconds (11.1-14.7)
[2025-01-27 04:54] LABS: INR 7.7
[2025-01-27 04:56] LABS: Anisocytosis 1+; Band Neutrophils Percent 0 % (0-6); Hypochromasia 2+; Platelet Estimate Adequate (Adequate); Schistocytes Rare; Smudge Cells PRESENT; Target Cells 1+
[2025-01-27 05:14] LABS: Procalcitonin 4.3 ng/mL
[2025-01-27 08:03] LABS: Glucose Point of Care 54 mg/dl (65-105)
[2025-01-27 08:28] LABS: Glucose Point of Care 55 mg/dl (65-105)
[2025-01-27] MEDS: DEXTROSE 10% 1,000 ML 75 ML IV CONT ×2 (09:06→19:45)
[2025-01-27 10:12] LABS: Glucose Point of Care 103 mg/dl (65-105)
--- NOTE | 2025-01-27 11:20 | P.CONNP_ITS ---
Assessment and Plan Assessment and plan (1) Chronic kidney disease, stage 3b: Code(s): N18.32 - Chronic kidney disease, stage 3b Status: Acute Assessment and Plan: the patient has chronic kidney disease. Her GFR had been ranging in the 30s throughout 2022 and 2023. In the last couple of months it has been ranging in the 20s and now is only 15. Most likely the patient has chronic kidney disease is due to diabetes and hypertension. she has not been evaluated for this. Will do so with serology, immuno fix, and renal ultrasound. (2) Acute kidney failure, unspecified: Code(s): N17.9 - Acute kidney failure, unspecified Status: Acute Assessment and Plan: The patient has acute kidney injury on top of chronic kidney disease. There are several things that could contribute to this. The patient probably is dehydrated. Will check urine electrolytes. She was not eating or drinking at the outpatient rehab facility and continued to take chlorthalidone and so could have dehydration on that basis. the patient had low blood pressure on admission. Usually her blood pressure is higher according to the patient and her daughter, Grecia. The patient has possible cirrhosis with ascites and so could have some pre renal azotemia although I doubt if this is hepatorenal syndrome. The patient did receive antibiotics while here last admission and so could have allergic interstitial nephritis, although she does not have a rash or peripheral eosinophilia. She has not received contrast or other medications that might damage the kidneys. Will see with the ultrasound and electrolytes show. 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 Hematology consult is ordered. (4) Pulmonary embolism: Code(s): I26.99 - Other pulmonary embolism without acute cor pulmonale Status: Acute Assessment and Plan: The patient is on Coumadin for this. (5) Acute hyperkalemia: Code(s): E87.5 - Hyperkalemia Status: Acute Assessment and Plan: This is probably related to her high creatinine. (6) Type 2 diabetes mellitus: Qualifiers: Diabetes mellitus skilled nursing insulin use: without skilled nursing use Diabetes mellitus complication status: with other specified complication Qualified Code(s): E11.69 - Type 2 diabetes mellitus with other specified complication Code(s): E11.9 - Type 2 diabetes mellitus without complications Status: Acute Assessment and Plan: Management per hospitalists (7) Anemia: Code(s): D64.9 - Anemia, unspecified Status: Acute Assessment and Plan: hemoglobin chronically runs in the 8s. The renal insufficiency does not help. Consider Epogen if it starts to drift down words (8) Essential (primary) hypertension: Code(s): I10 - Essential (primary) hypertension Status: Chronic Assessment and Plan: Blood pressure meds are on History of Present Illness Reason for Consult Consult date: 01/27/25 Chief Complaint Chief complaint: MADY, Weakness, Jaundice History of Present Illness Narrative: Nikki is a very pleasant 74-year-old lady who has multiple medical problems including a liver mass which was recently biopsied and found to have cholangiocarcinoma, possible cirrhosis, congestive heart failure, hyperlipidemia, vitamin-D deficiency, hypertension, Recent pulmonary embolism, recent spontaneous bacterial peritonitis, and chronic kidney disease with a baseline creatinine of 1.5-2.0. the patient was admitted to the hospital in late December and discharged on the . There she was found to have a liver mass which was biopsied which is what showed the cholangiocarcinoma. She also had spontaneous bacterial peritonitis and was treated with antibiotics and improved. The patient also had acute kidney injury on admission and was given IV fluids and this improved. Her potassium was high as well and she was treated for this. She was discharged from the hospital on the and went to outpatient rehab to get stronger. However she was not eating and was not drinking at the rehab facility. She continued her diuretics and her other blood pressure pills she then felt poorly and so was brought back to the ER. Here she was evaluated. Her blood pressure was low and her creatinine was higher than before so the patient was admitted. She has been getting some IV fluids. The patient says that she has not had any bloody urine, foamy urine, kidney stones, or bladder infections She has not had any contrast. She denies any diarrhea. No skin rash. Upon discharge on the , her only new medications were metoprolol and warfarin. Review of Systems 2 Constitutional: Constitutional: Reports no additional constitutional complaints Eyes: Eyes: Reports no additional eye complaints ENT: Reports system reviewed and no additional complaints, except as documented Cardiovascular: Cardiovascular: Reports no additional cardiovascular complaints Respiratory: Respiratory: Reports no additional respiratory complaints Gastrointestinal: Gastrointestinal: Reports no additional gastrointestinal complaints Genitourinary: Genitourinary: Reports no additional female genitourinary complaints Musculoskeletal: Musculoskeletal: Reports no additional musculoskeletal complaints Integumentary/Breasts: Skin/Breast: Reports system reviewed and no additional complaints, except as docu Neurologic: Reports system reviewed and no additional complaints, except as documented Psychiatric: Psychiatric: Reports no additional psychiatric complaints Endocrine: Endocrine: Reports no additional endocrine complaints [facility] Past Medical History Medical History CHF (congestive heart failure) Dyslipidemia Type 2 diabetes mellitus CKD (chronic kidney disease) Age-related macular degeneration Essential (primary) hypertension Psychophysiological insomnia Vitamin D deficiency, unspecified Surgical History Surgical History History of tonsillectomy Status post cataract extraction of both eyes with insertion of intraocular lens Hx of cholecystectomy H/O hysterectomy for benign disease Family History Family History Mother Hypertension Family history of Alzheimer's disease Family history of type 1 diabetes mellitus Diabetes mellitus Father Family history of lymphoma History of kidney disease Hypertension Grandparent Breast cancer Social History Social History Social History: She is . She recently saw older home of 50 or 50 years to her granddaughter and grandson in law. But she now lives with them and takes care of her [id number] great grandchild 5 days a week. She states she will drink 1 beer about every other month. She is a lifelong nonsmoker and does not use illicit substances. She ambulates with a walker. 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 Code status: Full code Surrogate decision maker: Jenn France (daughter) Smoking status: Never smoker Second hand tobacco smoke exposure: No Alcohol intake: never Drinks per week: 1 Substance use: current Substance use type: does not use Other substance usage details: once every 3-4 months Do You Feel Safe in your Home?: Yes Lack of Transportation: No Lack of Food: Never True Current Housing: I Have Housing Concerned About Future Housing: No Difficulty Paying Gas/Electric Bills: No Difficulty Paying for Meds: No Currently Unemployed: No Education: High School Diploma/GED Difficulty w/ Childcare or Family Care: No Living arrangements: with family Additional living arrangements comments: pt lives with granddaughter and granddaughter Occupation/Education: retired Gender identity (if verbalized by the patient): Female Sexual Orientation (if Verbalized by the Patient): Straight or Heterosexual Spiritual care concerns: No Meds Home Medications and Allergies Home Medications ?Medication ?Instructions ?Recorded ?Confirmed ?Type chlorthalidone 25 mg tablet 25 mg PO DAILY #90 tabs 05/29/24 01/26/25 Rx glipizide 5 mg tablet 10 mg (2 x 5 mg) PO BID 90 days 05/29/24 01/26/25 Rx #360 tabs ondansetron HCl 4 mg tablet 4 mg PO Q8H PRN nausea and 10/22/24 01/26/25 Rx vomiting #20 tabs metformin 1,000 mg tablet 500 mg (1/2 x 1,000 mg) PO BID #90 11/15/24 01/26/25 Rx tabs tizanidine 4 mg tablet 4 mg PO TID PRN muscle spasticity 12/28/24 01/26/25 Rx #30 tabs alprazolam 0.5 mg tablet 0.25 mg PO HS insomnia 01/04/25 01/26/25 History trazodone 50 mg tablet 50 mg PO QHS PRN sleep #60 tabs 01/09/25 01/26/25 Rx metoprolol tartrate 25 mg tablet 12.5 mg (1/2 x 25 mg) PO BID #90 01/24/25 01/26/25 Rx tabs docusate sodium 100 mg capsule 100 mg PO DAILY 01/26/25 01/26/25 History ergocalciferol (vitamin D2) 1,250 1,250 mcg PO WEEKLY 01/26/25 01/26/25 History mcg (50,000 unit) capsule (Vitamin D2) polyethylene glycol 3350 17 gram 17 g PO DAILY PRN constipation 01/26/25 01/26/25 History oral powder packet (Miralax) warfarin 3 mg tablet 3 mg PO QPM 01/26/25 01/26/25 History Allergies Allergy/AdvReac Type Severity Reaction Status Date / Time No Known Allergies Allergy Verified 01/15/25 13:38 Vital Signs Vital Signs - 24 hr 01/26/25 16:13 01/26/25 16:17 01/26/25 16:18 Temperature 96.6 F L Pulse Rate 79 83 79 Respiratory Rate 20 18 Blood Pressure 92/47 L 92/47 L Pulse Oximetry 100 100 Oxygen Delivery Room Air 01/26/25 16:20 01/26/25 16:23 01/26/25 16:28 Temperature Pulse Rate 80 83 Respiratory Rate 20 21 H Blood Pressure 81/45 L 81/46 L Pulse Oximetry 99 98 Oxygen Delivery Room Air 01/26/25 16:31 01/26/25 16:38 01/26/25 16:45 Temperature Pulse Rate 82 78 85 Respiratory Rate 24 H 16 Blood Pressure 78/50 L Pulse Oximetry Oxygen Delivery 01/26/25 16:46 01/26/25 17:00 01/26/25 17:03 Temperature Pulse Rate 84 93 81 Respiratory Rate 18 15 17 Blood Pressure 96/61 L 87/52 L Pulse Oximetry Oxygen Delivery 01/26/25 17:16 01/26/25 17:30 01/26/25 17:45 Temperature Pulse Rate 83 79 80 Respiratory Rate 18 18 Blood Pressure Pulse Oximetry Oxygen Delivery 01/26/25 18:00 01/26/25 18:01 01/26/25 18:15 Temperature Pulse Rate 89 82 81 Respiratory Rate 14 19 15 Blood Pressure 98/43 L Pulse Oximetry 100 100 96 Oxygen Delivery 01/26/25 18:16 01/26/25 18:30 01/26/25 18:31 Temperature Pulse Rate 80 79 79 Respiratory Rate 17 21 H 18 Blood Pressure 105/32 L 102/47 L Pulse Oximetry 99 Oxygen Delivery 01/26/25 18:45 01/26/25 18:45 01/26/25 18:46 Temperature Pulse Rate 79 80 79 Respiratory Rate 20 17 Blood Pressure 102/47 L 92/48 L Pulse Oximetry 100 Oxygen Delivery 01/26/25 19:00 01/26/25 19:16 01/26/25 19:31 Temperature Pulse Rate 77 104 H 104 H Respiratory Rate 13 17 19 Blood Pressure 91/41 L 106/68 Pulse Oximetry Oxygen Delivery 01/26/25 21:15 01/26/25 21:18 01/26/25 21:30 Temperature 97.6 F Pulse Rate 100 101 H Respiratory Rate 20 Blood Pressure 95/40 L Pulse Oximetry 97 Oxygen Delivery Room Air 01/26/25 22:00 01/27/25 00:00 01/27/25 00:00 Temperature 97.4 F L Pulse Rate 103 H 91 Respiratory Rate 20 Blood Pressure 103/61 Pulse Oximetry 100 Oxygen Delivery Room Air 01/27/25 00:00 01/27/25 02:00 01/27/25 04:00 Temperature 97.9 F Pulse Rate 78 80 92 Respiratory Rate 20 Blood Pressure 100/59 L Pulse Oximetry 96 Oxygen Delivery 01/27/25 04:00 01/27/25 04:00 01/27/25 08:00 Temperature 97.5 F L Pulse Rate 94 127 H Respiratory Rate 18 Blood Pressure 104/52 L Pulse Oximetry 98 Oxygen Delivery Room Air 01/27/25 08:00 01/27/25 08:00 01/27/25 10:00 Temperature Pulse Rate 95 95 Respiratory Rate Blood Pressure Pulse Oximetry Oxygen Delivery Room Air 01/27/25 10:46 Temperature Pulse Rate Respiratory Rate Blood Pressure Pulse Oximetry 98 Oxygen Delivery Room Air Exam 2 Narrative: Exam Narrative: Well developed well-nourished female in no acute distress Skin is warm and dry without rash. She does have some jaundice. Head normocephalic atraumatic Eyes normal sclerae and conjunctivae Mouth normal lips teeth and gums Neck no nodes no thyromegaly no carotid bruits Axillae no nodes Back no CVA tenderness Lungs symmetric and clear to auscultation and percussion Heart regular rate and rhythm without rub or gallop Abdomen bowel sounds positive soft nontender, somewhat large with ascites, no HSM, masses, or bruits. Extremities no cyanosis, clubbing, but 1+ bilateral edema Pulses 2+ equal in radial arteries Psychological not anxious or depressed Neuro alert and oriented x3 motor 5/5 cranial nerves 2-12 intact reflexes 2+ and equal in the biceps and patellar tendons cerebellar normal rapid alternating movements. no asterixis. Results Lab Results 01/27/25 04:01 01/27/25 04:01 Lab results: Most recent lab results Calcium 8.2 mg/dL (8.4-10.2) L 01/27/25 04:01 Phosphorus 4.6 mg/dL (2.5-4.5) H 01/27/25 04:01 Magnesium 1.8 mg/dL (1.6-2.3) 01/27/25 04:01
[2025-01-27 11:42] LABS: Glucose Point of Care 101 mg/dl (65-105)
[2025-01-27 11:57] LABS: Reticulocyte Hemoglobin Conten 31.6 pg (28.2-36.6); Reticulocyte Percent 4.64 % (0.7-4.3); Reticulocytes Absolute 0.14 10^6/uL (0.02-0.10)
[2025-01-27 12:12] LABS: Iron 28 ug/dL (37-170)
[2025-01-27 12:13] LABS: Creatine Kinase < 20 U/L (30-135)
[2025-01-27 12:21] LABS: Complement C3 71 mg/dL (88-165)
[2025-01-27 12:22] LABS: Percent Iron Saturation 23 % (20-50)
[2025-01-27 13:06] LABS: Vitamin B12 > 1000.0 pg/mL (239-931)
[2025-01-27 13:13] LABS: Total Protein Urine Random 62 mg/dL; Ur Ttl Prot Creatinine Ratio 0.34 mg/mg (0-0.20)
[2025-01-27 13:15] LABS: Urea Random Urine 542 MG/DL
[2025-01-27 13:16] LABS: Add Urine Microscopic? YES; Appearance Urine Cloudy (Clear); Bacteria Urine None Seen /hpf; Bilirubin Urine 2+ (Negative); Blood Urine Negative (Negative); Color Urine Dark Yellow (Yellow); Glucose Urine UA Negative (Negative); Ketones Urine Trace mg/dL (Negative); Leukocyte Esterase Ur 1+ LEU/UL (Negative); Mucus Urine Present /lpf; Need Manual Microscopic Reviewed; Nitrate Urine Negative (Negative); Protein Urine 2+ mg/dL (Negative); Specific Grav Ur 1.017 (1.001-1.035); Squamous Epithelial Cell Urine Moderate /hpf (Few)
[2025-01-27 13:18] LABS: Potassium Urine Random 22.7 meq/L; Sodium Urine Random 16 meq/L
--- NOTE | 2025-01-27 13:51 | P.PNIM_ITS ---
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 Ambulate with assistance and fall precautions Liver failure, cirrhosis liver biopsy performed on 01/21 demonstrating cholangiocarcinoma with extensive scarring in necrosis. Oncology consultation. Raymond on CKD: Dehydration Received IV fluid Bladder scan. Renal ultrasound. Repeat UA. Holding [employer] chlorthalidone. Blood pressure improved. Trend renal function. Monitor urine output. Daily weights. Consult Nephrology. Plan for serology, immuno fix, and renal ultrasound, urine electrolytes Hyperkalemia In setting of echo and CKD Improving Continue to monitor Treat presumed UTI with ceftriaxone follow urine culture. supratherapeutic INR patient received vitamin K 10 mg IV x1. No evidence of overt bleeding. Her anemia stable. Trend INR. After admission developed an episode of hypoglycemia. On D 10 W Continue Accu-Cheks a.c. HS. ----- SCDs. Full code. Diabetic heart healthy diet. Subjective Date/time seen: 01/27/25 13:51 Interval history: per hPI: A 74-year-old female with PMH CKD, CHF, hypertension, morbid obesity with BMI 49, cxh-fruactu-caveymffc diabetes mellitus, vitamin-D deficiency, possible cirrhosis, suspected PE, history of SBP, presents weakness. The patient was recently discharged from [facility] 01/23/2025 a multitude of issues including weakness as her presenting complaint. She was discharged to [facility]-way and rehab were as she was previously living at home. Patient reports she was doing well for a few days on the day of admission 01/27/2024 the patient became increasingly weak where she then returned to [facility]. ER revealed presenting vital signs of temperature 96.6? F, respiratory rate 20, heart rate 79, 100% SpO2 on room air, blood pressure 92/47. Daughter reports the patient had large volume fluid resuscitation during last admission to wear the patient developed lower extremity edema and at the same time the low blood pressure is new. Albumin is 3.0. White count chronically elevated but this admission presenting with 18.4 with a hemoglobin 8.9 which is her usual, platelets 173, INR 8.8 patient reports it was normal at 2.3 last checked by the [facility]. Patient denies any overt bleeding or black stool. BUN 76, serum creatinine 3.29, last discharge was serum creatinine 1.98. Patient reports voiding twice a day. Total bilirubin 7.6, AST 104, ALT 37 high, alkaline phosphatase 563, troponin 0.012, BNP 2320, albumin 2.9. Urinalysis grossly abnormal indicating infection although many squamous cells. A repeat INR was drawn which confirmed supratherapeutic INR, patient given vitamin K 10 mg IV x1, started on normal saline at 125 cc/hour. 01/27/25 Patient was seen examined. Complained of Arnold catheter and asking to discontinue that. Denies any chest pain, shortness the braeth. last BM yesterday and was nonbloody. Patient has been diagnosed with cholangiocarcinoma. Oncology team on board. Has worsening kidney function. Nephrology team on board Elevated INR. Received vitamin K. Monitor INR level. No bleeding reported. Hypoglycemia. Continue with D10 W. Patient wanted to be full code Review of Systems Review of Systems: All systems reviewed & are unremarkable except as noted in HPI and below (HPI) Exam Const: General: comfortable and no acute distress Other: A&O x3 HENMT: Mouth: Yes moist mucous membranes Eyes: Pupils: Equal, round and reactive pupils present Resp: Effort & Inspection: normal respiratory effort Auscultation: clear to auscultation bilaterally Cardio: Rate: regular rate Rhythm: regular rhythm Skin: Other: Jaundice Neuro: Cranial nerves: Yes Equal, round and reactive pupils present Extrem: General: edema Objective Data Vital Signs Vital Signs: Vital Signs - 24 hr 01/26/25 16:13 01/26/25 16:17 01/26/25 16:18 Temperature 96.6 F L Pulse Rate 79 83 79 Respiratory Rate 20 18 Blood Pressure 92/47 L 92/47 L Pulse Oximetry 100 100 Oxygen Delivery Room Air 01/26/25 16:20 01/26/25 16:23 01/26/25 16:28 Temperature Pulse Rate 80 83 Respiratory Rate 20 21 H Blood Pressure 81/45 L 81/46 L Pulse Oximetry 99 98 Oxygen Delivery Room Air 01/26/25 16:31 01/26/25 16:38 01/26/25 16:45 Temperature Pulse Rate 82 78 85 Respiratory Rate 24 H 16 Blood Pressure 78/50 L Pulse Oximetry Oxygen Delivery 01/26/25 16:46 01/26/25 17:00 01/26/25 17:03 Temperature Pulse Rate 84 93 81 Respiratory Rate 18 15 17 Blood Pressure 96/61 L 87/52 L Pulse Oximetry Oxygen Delivery 01/26/25 17:16 01/26/25 17:30 01/26/25 17:45 Temperature Pulse Rate 83 79 80 Respiratory Rate 18 18 Blood Pressure Pulse Oximetry Oxygen Delivery 01/26/25 18:00 01/26/25 18:01 01/26/25 18:15 Temperature Pulse Rate 89 82 81 Respiratory Rate 14 19 15 Blood Pressure 98/43 L Pulse Oximetry 100 100 96 Oxygen Delivery 01/26/25 18:16 01/26/25 18:30 01/26/25 18:31 Temperature Pulse Rate 80 79 79 Respiratory Rate 17 21 H 18 Blood Pressure 105/32 L 102/47 L Pulse Oximetry 99 Oxygen Delivery 01/26/25 18:45 01/26/25 18:45 01/26/25 18:46 Temperature Pulse Rate 79 80 79 Respiratory Rate 20 17 Blood Pressure 102/47 L 92/48 L Pulse Oximetry 100 Oxygen Delivery 01/26/25 19:00 01/26/25 19:16 01/26/25 19:31 Temperature Pulse Rate 77 104 H 104 H Respiratory Rate 13 17 19 Blood Pressure 91/41 L 106/68 Pulse Oximetry Oxygen Delivery 01/26/25 21:15 01/26/25 21:18 01/26/25 21:30 Temperature 97.6 F Pulse Rate 100 101 H Respiratory Rate 20 Blood Pressure 95/40 L Pulse Oximetry 97 Oxygen Delivery Room Air 01/26/25 22:00 01/27/25 00:00 01/27/25 00:00 Temperature 97.4 F L Pulse Rate 103 H 91 Respiratory Rate 20 Blood Pressure 103/61 Pulse Oximetry 100 Oxygen Delivery Room Air 01/27/25 00:00 01/27/25 02:00 01/27/25 04:00 Temperature 97.9 F Pulse Rate 78 80 92 Respiratory Rate 20 Blood Pressure 100/59 L Pulse Oximetry 96 Oxygen Delivery 01/27/25 04:00 01/27/25 04:00 01/27/25 08:00 Temperature 97.5 F L Pulse Rate 94 127 H Respiratory Rate 18 Blood Pressure 104/52 L Pulse Oximetry 98 Oxygen Delivery Room Air 01/27/25 08:00 01/27/25 08:00 01/27/25 10:00 Temperature Pulse Rate 95 95 Respiratory Rate Blood Pressure Pulse Oximetry Oxygen Delivery Room Air 01/27/25 10:46 01/27/25 12:00 01/27/25 12:00 Temperature 97.8 F Pulse Rate 96 100 Respiratory Rate 20 Blood Pressure 118/47 L Pulse Oximetry 98 100 Oxygen Delivery Room Air 01/27/25 12:00 Temperature Pulse Rate Respiratory Rate Blood Pressure Pulse Oximetry Oxygen Delivery Room Air Intake/Output Intake/Output: Intake & Output 01/24/25 01/25/25 01/26/25 01/27/25 23:59 23:59 23:59 23:59 Intake Total 575 Output Total 241 Balance 334 Meds/Results Medications: Active Medications Generic Name Dose Route Start Last Admin Trade Name Freq PRN Reason Stop Dose Admin Dextrose 12.5 gm 01/27/25 00:48 Dextrose 50% 25 Gm/50 Ml Syringe IV PUSH PRN PRN Hypoglycemia Protocol Docusate Sodium 100 mg 01/27/25 09:00 01/27/25 09:06 Docusate Sodium 100 Mg Capsule PO Not Given DAILY MAREK Glucose 15 gm 01/27/25 00:48 01/27/25 09:06 Glucose Oral Gel 15 Gm Of Glucse In 37.5 Gm Tube PO 15 gm PRN PRN Administration Hypoglycemia Protocol Ceftriaxone Sodium 1 gm in 50 mls @ 100 mls/hr 01/27/25 01:00 01/27/25 01:16 Rocephin 1 Gm/Ns 50 Ml IVPB Infused Q24H MAREK Infusion Dextrose 1,000 mls @ 100 mls/hr 01/27/25 00:48 Dextrose 5% 1,000 Ml IVPB PRN PRN Hypoglycemia Protocol Dextrose 1,000 mls @ 75 mls/hr 01/27/25 01:45 01/27/25 09:06 Dextrose 10% IV CONT 75 mls/hr .[id number] MAREK Administration Insulin Aspart 2 - 5 units 01/27/25 08:00 01/27/25 11:47 Insulin Aspart (*Bkc) 100 Units/Ml SUB-Q Not Given TIDWM [facility] Protocol Insulin Aspart 1 - 2 units 01/27/25 21:00 Insulin Aspart (*Bkc) 100 Units/Ml SUB-Q HS [facility] Protocol Ondansetron HCl 4 mg 01/26/25 18:49 Ondansetron Inj 4 Mg/2 Ml Vial IV PUSH Q4H PRN Nausea Polyethylene Glycol 17 gm 01/27/25 00:28 Polyethylene Glycol 3350 17 Gm Powd.Pack PO DAILY PRN constipation Sodium Chloride 10 ml 01/27/25 14:00 Central Line Flush IV PUSH Q8HR MAERK Sodium Chloride 10 ml 01/27/25 09:41 Central Line Flush IV PUSH PRN PRN with TPN bag changes Sodium Chloride 20 ml 01/27/25 09:41 Central Line Flush IV PUSH PRN PRN after blood draws Radiology Results: ITS Impressions Chest X-Ray 01/27/25 09:38 IMPRESSION: Right basal atelectasis versus pneumonia with mild to moderate pleural effusion. Renal Ultrasound 01/27/25 12:33 Impression: No significant renal abnormality. Multiple hypoechoic hepatic masses are compatible with hepatic metastatic disease. Abdominopelvic ascites. Labs Labs: Laboratory Results - last 24 hr 01/26/25 01/26/25 01/26/25 17:15 18:00 18:01 WBC 18.4 H RBC 3.15 L Hgb 8.9 L Hct 29.4 L MCV 93.3 D MCH 28.3 MCHC 30.3 L RDW 24.8 H Plt Count 173 MPV 12.5 H Immature Gran % (Auto) 0.7 H Neut % (Auto) 90.1 H Lymph % (Auto) 4.0 L [place] % (Auto) 4.7 Eos % (Auto) 0.3 Baso % (Auto) 0.2 Lymph # (Auto) 0.74 L [place] # (Auto) 0.9 H Eos # (Auto) 0.1 Baso # (Auto) 0.0 Abs Immat Gran (auto) 0.13 H Absolute Neuts (auto) 16.6 H Absolute Nucleated RBC 0.000 Band Neutrophils % Not Reportable Nucleated RBC % 0.0 Smudge Cells Platelet Estimate Adequate Hypochromasia 1+ Anisocytosis 2+ Target Cells 1+ Schistocytes None seen Absolute Retic Percent Retic Immature Retic Fraction Retic Hgb Content PT 71.8 H D INR 8.8 H* Sodium 135 L Potassium 4.2 Chloride 104 Carbon Dioxide 19 L Anion Gap 12 BUN 76 H D Creatinine 3.29 H Estim Creat Clear Calc Not Reportable Estimated GFR 14 L Glucose 67 POC Capillary Glucose Calcium 8.6 Phosphorus Magnesium Iron TIBC % Saturation Ferritin Total Bilirubin 7.6 H AST 104 H ALT 37 H Alkaline Phosphatase 563 H Total Creatine Kinase Troponin I < 0.012 NT-Pro-B Natriuret Pep 2320 H Total Protein 6.0 L Albumin 2.9 L Vitamin B12 Folate Procalcitonin 4.6 Urine Color Dark yellow Urine Appearance Turbid H Urine pH 5.0 Ur Specific [place] 1.021 Urine Protein 2+ H Urine Glucose (UA) Negative Urine Ketones Trace H Ur Blood (Man) Negative Urine Nitrate Positive H Urine Bilirubin 2+ H Urine Urobilinogen 1.0 Ur Leukocyte Esterase Add Ur Microanalysis Reviewed Leukocyte Esterase Rfl Trace H Urine RBC 21-50 H Urine WBC 0-5 Ur Squamous Epith Cells Many H Urine Bacteria None seen Urine Casts 6-10 Hyaline Casts Urine Mucus U Random Total Protein Ur Random Sodium Ur Random Potassium Ur Random Urea Urine Creatinine Protein/Creat Ratio 2 Complement C3 Complement C4 01/26/25 01/27/25 01/27/25 21:45 00:42 01:09 WBC RBC Hgb Hct MCV MCH MCHC RDW Plt Count MPV Immature Gran % (Auto) Neut % (Auto) Lymph % (Auto) [place] % (Auto) Eos % (Auto) Baso % (Auto) Lymph # (Auto) [place] # (Auto) Eos # (Auto) Baso # (Auto) Abs Immat Gran (auto) Absolute Neuts (auto) Absolute Nucleated RBC Band Neutrophils % Nucleated RBC % Smudge Cells Platelet Estimate Hypochromasia Anisocytosis Target Cells Schistocytes Absolute Retic Percent Retic Immature Retic Fraction Retic Hgb Content PT 71.4 H INR 8.7 H* Sodium Potassium Chloride Carbon Dioxide Anion Gap BUN Creatinine Estim Creat Clear Calc Estimated GFR Glucose POC Capillary Glucose 39 L* 101 Calcium Phosphorus Magnesium Iron TIBC % Saturation Ferritin Total Bilirubin AST ALT Alkaline Phosphatase Total Creatine Kinase Troponin I NT-Pro-B Natriuret Pep Total Protein Albumin Vitamin B12 Folate Procalcitonin Urine Color Urine Appearance Urine pH Ur Specific [place] Urine Protein Urine Glucose (UA) Urine Ketones Ur Blood (Man) Urine Nitrate Urine Bilirubin Urine Urobilinogen Ur Leukocyte Esterase Add Ur Microanalysis Leukocyte Esterase Rfl Urine RBC Urine WBC Ur Squamous Epith Cells Urine Bacteria Urine Casts Hyaline Casts Urine Mucus U Random Total Protein Ur Random Sodium Ur Random Potassium Ur Random Urea Urine Creatinine Protein/Creat Ratio 2 Complement C3 Complement C4 01/27/25 01/27/25 01/27/25 01:39 02:15 02:32 WBC RBC Hgb Hct MCV MCH MCHC RDW Plt Count MPV Immature Gran % (Auto) Neut % (Auto) Lymph % (Auto) [place] % (Auto) Eos % (Auto) Baso % (Auto) Lymph # (Auto) [place] # (Auto) Eos # (Auto) Baso # (Auto) Abs Immat Gran (auto) Absolute Neuts (auto) Absolute Nucleated RBC Band Neutrophils % Nucleated RBC % Smudge Cells Platelet Estimate Hypochromasia Anisocytosis Target Cells Schistocytes Absolute Retic Percent Retic Immature Retic Fraction Retic Hgb Content PT INR Sodium Potassium Chloride Carbon Dioxide Anion Gap BUN Creatinine Estim Creat Clear Calc Estimated GFR Glucose POC Capillary Glucose 68 56 L* 72 Calcium Phosphorus Magnesium Iron TIBC % Saturation Ferritin Total Bilirubin AST ALT Alkaline Phosphatase Total Creatine Kinase Troponin I NT-Pro-B Natriuret Pep Total Protein Albumin Vitamin B12 Folate Procalcitonin Urine Color Urine Appearance Urine pH Ur Specific [place] Urine Protein Urine Glucose (UA) Urine Ketones Ur Blood (Man) Urine Nitrate Urine Bilirubin Urine Urobilinogen Ur Leukocyte Esterase Add Ur Microanalysis Leukocyte Esterase Rfl Urine RBC Urine WBC Ur Squamous Epith Cells Urine Bacteria Urine Casts Hyaline Casts Urine Mucus U Random Total Protein Ur Random Sodium Ur Random Potassium Ur Random Urea Urine Creatinine Protein/Creat Ratio 2 Complement C3 Complement C4 01/27/25 01/27/25 01/27/25 03:04 04:01 04:01 WBC 16.3 H RBC 3.02 L Hgb 8.6 L Hct 27.2 L MCV 90.1 MCH 28.5 MCHC 31.6 L RDW 24.9 H Plt Count 151 MPV 11.6 H Immature Gran % (Auto) 0.8 H Neut % (Auto) 89.3 H Lymph % (Auto) 5.6 L [place] % (Auto) 3.7 Eos % (Auto) 0.4 Baso % (Auto) 0.2 Lymph # (Auto) 0.91 [place] # (Auto) 0.6 Eos # (Auto) 0.1 Baso # (Auto) 0.0 Abs Immat Gran (auto) 0.13 H Absolute Neuts (auto) 14.6 H Absolute Nucleated RBC 0.000 Band Neutrophils % 0 Nucleated RBC % 0.0 Smudge Cells Present Platelet Estimate Adequate Hypochromasia 2+ Anisocytosis 1+ Target Cells 1+ Schistocytes Rare Absolute Retic 0.14 H Percent Retic 4.64 H Immature Retic Fraction 33.0 H Retic Hgb Content 31.6 PT 64.8 H INR 7.7 H* Sodium 136 L Potassium 3.9 Chloride 106 Carbon Dioxide 15 L Anion Gap 15 H BUN 75 H Creatinine 3.10 H Estim Creat Clear Calc 21 Estimated GFR 15 L Glucose 73 POC Capillary Glucose 113 H Calcium 8.2 L Phosphorus 4.6 H Magnesium 1.8 Iron 28 L TIBC 123 L % Saturation 23 Ferritin Cancelled 384.00 H Total Bilirubin 6.9 H AST 97 H ALT 34 Alkaline Phosphatase 501 H Total Creatine Kinase < 20 L Troponin I NT-Pro-B Natriuret Pep Total Protein 5.0 L Albumin 2.6 L Vitamin B12 > 1000.0 H Folate Procalcitonin Urine Color Urine Appearance Urine pH Ur Specific [place] Urine Protein Urine Glucose (UA) Urine Ketones Ur Blood (Man) Urine Nitrate Urine Bilirubin Urine Urobilinogen Ur Leukocyte Esterase Add Ur Microanalysis Leukocyte Esterase Rfl Urine RBC Urine WBC Ur Squamous Epith Cells Urine Bacteria Urine Casts Hyaline Casts Urine Mucus U Random Total Protein Ur Random Sodium Ur Random Potassium Ur Random Urea Urine Creatinine Protein/Creat Ratio 2 Complement C3 Complement C4 01/27/25 01/27/25 01/27/25 04:01 07:38 08:21 WBC RBC Hgb Hct MCV MCH MCHC RDW Plt Count MPV Immature Gran % (Auto) Neut % (Auto) Lymph % (Auto) [place] % (Auto) Eos % (Auto) Baso % (Auto) Lymph # (Auto) [place] # (Auto) Eos # (Auto) Baso # (Auto) Abs Immat Gran (auto) Absolute Neuts (auto) Absolute Nucleated RBC Band Neutrophils % Nucleated RBC % Smudge Cells Platelet Estimate Hypochromasia Anisocytosis Target Cells Schistocytes Absolute Retic Percent Retic Immature Retic Fraction Retic Hgb Content PT INR Sodium Potassium Chloride Carbon Dioxide Anion Gap BUN Creatinine Estim Creat Clear Calc Estimated GFR Glucose POC Capillary Glucose 54 L* 55 L* Calcium Phosphorus Magnesium Iron TIBC % Saturation Ferritin Total Bilirubin AST ALT Alkaline Phosphatase Total Creatine Kinase Troponin I NT-Pro-B Natriuret Pep Total Protein Albumin Vitamin B12 Cancelled Folate Cancelled Procalcitonin 4.3 Urine Color Urine Appearance Urine pH Ur Specific [place] Urine Protein Urine Glucose (UA) Urine Ketones Ur Blood (Man) Urine Nitrate Urine Bilirubin Urine Urobilinogen Ur Leukocyte Esterase Add Ur Microanalysis Leukocyte Esterase Rfl Urine RBC Urine WBC Ur Squamous Epith Cells Urine Bacteria Urine Casts Hyaline Casts Urine Mucus U Random Total Protein Ur Random Sodium Ur Random Potassium Ur Random Urea Urine Creatinine Protein/Creat Ratio 2 Complement C3 71 L Complement C4 26.0 01/27/25 01/27/25 01/27/25 10:07 11:32 12:52 WBC RBC Hgb Hct MCV MCH MCHC RDW Plt Count MPV Immature Gran % (Auto) Neut % (Auto) Lymph % (Auto) [place] % (Auto) Eos % (Auto) Baso % (Auto) Lymph # (Auto) [place] # (Auto) Eos # (Auto) Baso # (Auto) Abs Immat Gran (auto) Absolute Neuts (auto) Absolute Nucleated RBC Band Neutrophils % Nucleated RBC % Smudge Cells Platelet Estimate Hypochromasia Anisocytosis Target Cells Schistocytes Absolute Retic Percent Retic Immature Retic Fraction Retic Hgb Content PT INR Sodium Potassium Chloride Carbon Dioxide Anion Gap BUN Creatinine Estim Creat Clear Calc Estimated GFR Glucose POC Capillary Glucose 103 101 Calcium Phosphorus Magnesium Iron TIBC % Saturation Ferritin Total Bilirubin AST ALT Alkaline Phosphatase Total Creatine Kinase Troponin I NT-Pro-B Natriuret Pep Total Protein Albumin Vitamin B12 Folate Procalcitonin Urine Color Dark yellow Urine Appearance Cloudy H Urine pH 5.0 Ur Specific [place] 1.017 Urine Protein 2+ H Urine Glucose (UA) Negative Urine Ketones Trace H Ur Blood (Man) Negative Urine Nitrate Negative Urine Bilirubin 2+ H Urine Urobilinogen 1.0 Ur Leukocyte Esterase 1+ H Add Ur Microanalysis Reviewed Leukocyte Esterase Rfl Urine RBC 11-20 H Urine WBC 6-10 H Ur Squamous Epith Cells Moderate Urine Bacteria None seen Urine Casts 11-20 Hyaline Casts 3-4 H Urine Mucus Present U Random Total Protein 62 Ur Random Sodium 16 Ur Random Potassium 22.7 Ur Random Urea 542 Urine Creatinine 181.0 Protein/Creat Ratio 2 0.34 H Complement C3 Complement C4
[2025-01-27 13:58] LABS: Erythrocyte Sedimentation Rate 38 mm/hr (0-20)
[2025-01-27 15:42] LABS: Folic Acid 7.2 ng/mL (2.76->20)
[2025-01-27 16:01] LABS: Glucose Point of Care 67 mg/dl (65-105)
[2025-01-27] MEDS: CENTRAL LINE FLUSH 10 ML IV PUSH ×2 (16:15→21:17)
[2025-01-27] MEDS: LIDOCAINE 1% PF INJ 5 ML VIAL INFILTRATE (16:16)
[2025-01-27] MEDS: ALPRAZolam (*CRX) 0.25 MG TABLET PO (17:25)
[2025-01-27 21:05] LABS: Glucose Point of Care 65 mg/dl (65-105)
[2025-01-27 21:05] LABS: Glucose Point of Care 65 mg/dl (65-105)
[2025-01-27] MEDS: DEXTROSE 50% 25 GM/50 ML SYRINGE IV PUSH (21:17)
[2025-01-27 21:50] LABS: Glucose Point of Care 139 mg/dl (65-105)
[2025-01-27 22:22] LABS: Glucose Point of Care 105 mg/dl (65-105)
[2025-01-27] MEDS: ACETAMINOPHEN 500 MG TABLET PO (22:46)
[2025-01-27] MEDS: PANTOPRAZOLE SODIUM IV 40 MG VIAL IV PUSH (22:46)
[2025-01-28] VITALS (17 sets, daily range): BP systolic 85–132; BP diastolic 34–78; PULSE 87–103; RESP 14–22; TEMP 36.3–36.8; O2SAT 92–100
[2025-01-28] MEDS: ALPRAZolam (*CRX) 0.25 MG TABLET PO ×2 (00:33→18:13)
[2025-01-28 00:34] LABS: Glucose Point of Care 77 mg/dl (65-105)
[2025-01-28 04:33] LABS: Hematocrit 26.3 % (37.0-47.0); Hemoglobin 8.1 g/dL (12.0-15.0); Immature Platelet Fraction Pct 4.4 % (0.9-11.2); Mean Corpuscular HGB Conc 30.8 g/dl (32-36); Mean Corpuscular Hemoglobin 28.4 pg (26-34); Mean Corpuscular Volume 92.3 fl (80-100); Mean Platelet Volume 11.5 fl (7.4-10.4); Platelet Count Result 138 k/mm3 (150-375); Red Blood Count 2.85 M/mm3 (4.2-5.4); Red Cell Distribution Width 24.4 % (11.5-14.5); White Blood Count 16.2 K/mm3 (4.5-10.0)
[2025-01-28 04:44] LABS: INR 2.3; Prothrombin Time 25.3 Seconds (11.1-14.7)
[2025-01-28 04:53] LABS: Alanine Aminotransferase 34 U/L (6-35); Albumin Level 2.4 g/dL (3.5-5.1); Alkaline Phosphatase 523 U/L (38-126); Anion Gap 10 mmol/L (4-12); Aspartate Amino Transferase 101 U/L (14-36); Bilirubin,Total 8.6 mg/dL (0.2-1.3); Blood Urea Nitrogen 72 mg/dL (7-17); Calcium 7.9 mg/dL (8.4-10.2); Carbon Dioxide 18 mmol/L (22-30); Chloride 102 mmol/L (98-107); Estimated CRCL calculation 21 ml/min; Estimated Glomerular Filt Rate 14; Glucose 35 mg/dL (65-110); Magnesium 1.7 mg/dL (1.6-2.3); Potassium 3.9 mmol/L (3.4-5.0); Sodium 130 mmol/L (137-145)
[2025-01-28] MEDS: DEXTROSE 50% 25 GM/50 ML SYRINGE IV PUSH ×2 (04:55→06:44)
[2025-01-28] MEDS: CENTRAL LINE FLUSH 10 ML IV PUSH ×3 (05:01→20:20)
[2025-01-28 05:03] LABS: Glucose Point of Care 33 mg/dl (65-105)
[2025-01-28 05:52] LABS: Glucose Point of Care 93 mg/dl (65-105)
[2025-01-28 06:05] LABS: Glucose Point of Care 63 mg/dl (65-105)
[2025-01-28 06:10] LABS: Glucose Point of Care 70 mg/dl (65-105)
[2025-01-28] MEDS: GLUCOSE ORAL GEL 15 GM OF GLUCSE IN 37.5 GM TUBE PO (06:12)
[2025-01-28] MEDS: DEXTROSE 10% 1,000 ML 100 ML IV CONT (06:18)
[2025-01-28 06:38] LABS: Glucose Point of Care 61 mg/dl (65-105)
[2025-01-28 07:15] LABS: Glucose Point of Care 126 mg/dl (65-105)
[2025-01-28 07:39] LABS: Glucose Point of Care 124 mg/dl (65-105)
[2025-01-28 08:10] LABS: Glucose Point of Care 137 mg/dl (65-105)
[2025-01-28] MEDS: DOCUSATE SODIUM 100 MG CAPSULE PO (09:01)
[2025-01-28] MEDS: PANTOPRAZOLE SODIUM IV 40 MG VIAL IV PUSH ×2 (09:01→20:19)
--- NOTE | 2025-01-28 09:01 | P.PNNP_ITS ---
Progress Note: A&P Assessment and Plan (1) Acute kidney injury: Code(s): N17.9 - Acute kidney failure, unspecified Status: Acute Assessment and Plan: * no significant change since admission * as noted this year... * creatinine running ~ 1.4 - 1.6mg/dl (in 2022 - 2023) * creatinine ~ 1.2 - 1.3mg/dl (in 2019 - 2020) * creatinine running 2.0 - 2.4mg/dl since early December 2024 * see #2 * admission creatinine 3.29mg/dl * evaluation on this hospitalization (and on previous hospitalization on 01/15 - 01/23) noted: * renal ultrasound without obstruction * CPK low * urine eosinophils negative * prerenal urine electrolytes * mild proteinuria * UA suggestive of infection * serologies pending * suspect possibly related to recent findings of liver cirrhosis (and associated physiology): * decreased effective circulating volume leading to chronic prerenal azotemia worsened by ascites and need for diuretic therapy... * possibly progressing to hepatorenal syndrome(?) * other contributing factors include: * relative hypotension * chlorthalidone use * poor oral intake * follow trend of repeat labs and UOP (2) Chronic kidney disease, stage IV (severe): Code(s): N18.4 - Chronic kidney disease, stage 4 (severe) Status: Chronic Assessment and Plan: * creatinine was running ~ 1.4 - 1.6mg/dl (in 2022 - 2023) and ~ 1.2 - 1.3mg/dl (in 2019) * suspect underlying CKD due to diabetes, hypertension, and age-related change * recent issues with liver disease likely contributing now as well * suspected new baseline creatinine around 1.9 - 2.1mg/dl based on last hospitalization (01/15 - 01/23) (3) Cirrhosis: Code(s): K74.60 - Unspecified cirrhosis of liver Status: Acute Assessment and Plan: * as noted by imaging studies to date over last several hospitalizations: * RUQ showing possible cirrhosis but can not excluding underlying mass * CT A/P (on 01/16) showing hepatomegaly with multiple hypodensities suggestive of metastatic lesions, ascites, small caliber IVC and minimal right-sided pleural effusion with adjacent atelectasis * possible etiology for #1 (?) * previous hepatitis panel negative * noted to be associated with ascites (4) Pulmonary embolism: Code(s): I26.99 - Other pulmonary embolism without acute cor pulmonale Status: Acute Assessment and Plan: * high index of suspicion 0n last hospitalization (from 01/15 - 01/23): * noted episodes of sinus tachycardia -- initial EKG showing sinus tachycardia * venous doppler negative of DVT in the lower extremities * VQ scan showing moderate sized perfusion defect at the posterior basilar segment RLL - intermediate probability for PE * Echo on 01/05/25 showing normal right sided findings; repeat limited Echo (on 01/19) with mildly enlarged RV but normal systolic function * was on coumadin but on hold * elevated INR on admission noted (5) Anemia: Code(s): D64.9 - Anemia, unspecified Status: Acute Assessment and Plan: * related to due to MADY and CKD as well as acute illness * cannot discount underlying malignancy playing a role (see #7) * previous anemia studies (last admission) with iron deficiency * follow trend of H/H (6) 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 Status: Acute Assessment and Plan: * biopsy proven * s/p ultrasound guided biopsy of hepatic mass (on 01/21) * Hem/Onc consulted (7) Essential (primary) hypertension: Code(s): I10 - Essential (primary) hypertension Status: Chronic Assessment and Plan: * not an issue * perhaps too well controlled * follow trend of hemodynamics (8) Type 2 diabetes mellitus: Qualifiers: Diabetes mellitus complication status: with other specified complication Diabetes mellitus fci insulin use: without fci use Qualified Code(s): E11.69 - Type 2 diabetes mellitus with other specified complication Code(s): E11.9 - Type 2 diabetes mellitus without complications Status: Chronic Assessment and Plan: * follow accu-cheks * issues with hypoglycemia noted since hospitalization * glycemic control per hospitalist Will continue to follow. L Subjective Date/time seen: 01/28/25 09:01 Interval history: Follow-up for acute kidney injury/acute renal failure on chronic kidney disease. Major complaint remains to be weakness/fatigue at this time -- renal function/creatinine remains about the same; ongoing issues with hypoglycemia noted requiring dextrose IVFs; blood pressure remains on the soft side; no other acute issues/events noted. Exam 2 Narrative: General: elderly but WD/WN female in NAD Heart: tachycardic at times, normal S1 and S2; no rub Lungs: clear anteriorly; decrease at bases Abdomen: obese but soft, nontender, nondistended, positive bowel sounds Extremities: no cyanosis or clubbing; 1+ edema Skin: warm and dry; + jaundice Objective Data Vital Signs Vital Signs: Vital Signs Temp Pulse Resp BP Pulse Ox O2 Del Method 01/28/25 08:00 98 Room Air 01/28/25 07:30 97.7 F 93 18 108/40 L 98 01/28/25 06:00 87 01/28/25 04:10 97.3 F L 88 22 H 93/46 L 98 01/28/25 04:00 89 01/28/25 04:00 Room Air 01/28/25 02:00 88 01/28/25 00:00 87 01/28/25 00:00 98.1 F 91 18 102/44 L 98 01/27/25 23:23 Room Air 01/27/25 22:00 90 01/27/25 20:00 97 01/27/25 20:00 97.7 F 96 20 101/43 L 98 01/27/25 20:00 Room Air 01/27/25 18:00 93 01/27/25 16:00 Room Air 01/27/25 16:00 94 01/27/25 15:50 97.8 F 93 16 100/39 L 97 01/27/25 14:00 96 Intake/Output Intake/Output: Intake & Output 01/25/25 01/26/25 01/27/25 01/28/25 23:59 23:59 23:59 23:59 Intake Total 2365 1145 Output Total 241 230 Balance 2124 915 Meds/Results Medications: Active Medications Generic Name Dose Route Start Last Admin Trade Name Freq PRN Reason Stop Dose Admin Acetaminophen 500 mg 01/27/25 22:37 01/27/25 22:46 Acetaminophen 500 Mg Tablet PO 500 mg Q6H PRN Administration Mild Pain (1-3) or Fever Alprazolam 0.25 mg 01/27/25 17:14 01/28/25 00:33 Alprazolam (*Crx) 0.25 Mg Tablet PO 0.25 mg Q8HR PRN Administration Anxiety Dextrose 12.5 gm 01/27/25 00:48 01/28/25 06:44 Dextrose 50% 25 Gm/50 Ml Syringe IV PUSH 12.5 gm PRN PRN Administration Hypoglycemia Protocol Docusate Sodium 100 mg 01/27/25 09:00 01/28/25 09:01 Docusate Sodium 100 Mg Capsule PO 100 mg DAILY MAREK Administration Glucose 15 gm 01/27/25 00:48 01/28/25 06:12 Glucose Oral Gel 15 Gm Of Glucse In 37.5 Gm Tube PO 15 gm PRN PRN Administration Hypoglycemia Protocol Ceftriaxone Sodium 1 gm in 50 mls @ 100 mls/hr 01/27/25 01:00 01/28/25 00:57 Rocephin 1 Gm/Ns 50 Ml IVPB Infused Q24H MAREK Infusion Dextrose 500 mls @ 100 mls/hr 01/28/25 11:45 IV CONT .Q5H MAREK Albumin Human 100 mls @ 60 mls/hr 01/28/25 12:00 Albutein IVPB Q6HR [facility] Piperacillin/Tazobactam/Dextrose 3.375 gm in 50 mls @ 100 mls/hr 01/28/25 11:50 Zosyn 3.375 Gm/Ns 50 Ml IVPB Q6H [facility] Ondansetron HCl 4 mg 01/26/25 18:49 Ondansetron Inj 4 Mg/2 Ml Vial IV PUSH Q4H PRN Nausea Pantoprazole Sodium 40 mg 01/28/25 09:00 01/28/25 09:01 Pantoprazole Sodium Iv 40 Mg Vial IV PUSH 40 mg Q12HR MAREK Administration Polyethylene Glycol 17 gm 01/27/25 00:28 Polyethylene Glycol 3350 17 Gm Powd.Pack PO DAILY PRN constipation Sodium Chloride 10 ml 01/27/25 14:00 01/28/25 05:01 Central Line Flush IV PUSH 10 ml Q8HR MAREK Administration Sodium Chloride 10 ml 01/27/25 09:41 Central Line Flush IV PUSH PRN PRN with TPN bag changes Sodium Chloride 20 ml 01/27/25 09:41 Central Line Flush IV PUSH PRN PRN after blood draws Vancomycin HCl 1 each 01/28/25 11:50 Vancomycin Pharmacist To Dose IVPB PER PROTOCOL [facility] Radiology Results: ITS Impressions Chest X-Ray 01/27/25 09:38 IMPRESSION: Right basal atelectasis versus pneumonia with mild to moderate pleural effusion. Renal Ultrasound 01/27/25 12:33 Impression: No significant renal abnormality. Multiple hypoechoic hepatic masses are compatible with hepatic metastatic disease. Abdominopelvic ascites. Labs Labs: Laboratory Tests 01/28/25 04:20 01/28/25 04:20 PT 25.3 H D INR 2.3 Calcium 7.9 L Magnesium 1.7 Total Bilirubin 8.6 H AST 101 H ALT 34 Alkaline Phosphatase 523 H Total Creatine Kinase < 20 Total Protein 5.0 L Albumin 2.4 L
--- NOTE | 2025-01-28 09:37 | PCPTNOTE ---
Attempted PT evaluation, pt refused stating i am tired. Pt went on to say she would like to speak with her doctor first before doing therapy. Nursing aware. Will follow.
[2025-01-28 10:06] LABS: Glucose Point of Care 104 mg/dl (65-105)
--- NOTE | 2025-01-28 11:23 | P.PNIM_ITS ---
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 Ambulate with assistance and fall precautions Liver failure, cirrhosis liver biopsy performed on 01/21 demonstrating cholangiocarcinoma with extensive scarring in necrosis. Oncology consultation. Raymond on CKD: Dehydration Received IV fluid Bladder scan. Renal ultrasound unremarkable. Repeat UA. Holding [employer] chlorthalidone. Blood pressure improved. Trend renal function. Monitor urine output. Daily weights. Consult Nephrology. Plan for serology, immuno fix, and renal ultrasound, urine electrolytes Hyperkalemia In setting of RAYMOND and CKD Improving Continue to monitor Treat presumed UTI with ceftriaxone follow urine culture. supratherapeutic INR improved patient received vitamin K 10 mg IV x1. No evidence of overt bleeding. Her anemia stable. Trend INR. hypoglycemia. On D 10 W Continue Accu-Cheks a.c. HS. Continued to have hypoglycemia. on 10 W. recheck cortisol test, thyroid function. We will consult dietitian. Will consider transfering to ICU if not improving and needs frequent checks ----- SCDs. Full code. Diabetic heart healthy diet. Subjective Date/time seen: 01/28/25 11:23 Interval history: per hPI: A 74-year-old female with PMH CKD, CHF, hypertension, morbid obesity w ith BMI 49, set-ejegyfq-[id number] diabetes mellitus, vitamin-D deficiency, possible cirrhosis, suspected PE, history of SBP, presents weakness. The p atfabien was recently discharged from [facility] 01/23/2025 a multitude of issues including weakness as her presenting complaint. She was discharged to half-way for halfway and rehab were as she was previously living at home. Patient reports she was doing well for a few days on the day of admission 01/27/2024 the patient became increasingly weak where she then returned to [place] [facility]. ER revealed presenting vital signs of temperature 96.6? F, respiratory rate 20, heart rate 79, 100% SpO2 on room air, blood pressure 92/47. Daughter reports the patient had large volume fluid resuscitation during last admission to wear the patient developed lower extremity edema and at the same time the low blood p ressure is new. Albumin is 3.0. White count chronically elevated but this admission presenting with 18.4 with a hemoglobin 8.9 which is her usual, platelets 173, INR 8.8 patient reports it was normal at 2.3 last checked by the half-way. Patient denies any overt bleeding or black stool. BUN 76, serum creatinine 3.29, last discharge was serum creatinine 1.98. Patient reports voiding twice a day. Total bilirubin 7.6, AST 104, ALT 37 high, alkaline phosphatase 563, troponin 0.012, BNP 2320, albumin 2.9. Urinalysis grossly abnormal indicating infection although many squamous cells. A repeat INR was drawn which confirmed supratherapeutic INR, patient given vitamin K 10 mg IV x1, started on normal saline at 125 cc/hour. 01/27/25 Patient was seen examined. Complained of Arnold catheter and asking to discontinue that. Denies any chest pain, shortness the braeth. last BM yesterday and was nonbloody. Patient has been diagnosed with cholangiocarcinoma. Oncology team on board. Has worsening kidney function. Nephrology team on board Elevated INR. Received vitamin K. Monitor INR level. No bleeding reported. Hypoglycemia. Continue with D10 W. Patient wanted to be full code 01/28/25 Patient was seen and examined at bedside. She is feeling tired. Denies any chest pain, abdominal pain, nausea vomiting. Worsening kidney function. Ultrasound today showed an abnormality. Follow Nephrology team accommodation. INR improved to2.3 Continued to have hypoglycemia. on 10 W. recheck cortisol test, thyroid function. We will consult dietitian. Will consider transfering to ICU if not improving and needs frequent checks Chest x-ray showed [id number] pleural effusion Review of Systems Review of Systems: All systems reviewed & are unremarkable except as noted in HPI and below (HPI) Exam Const: General: comfortable and no acute distress Other: A&O x3 HENMT: Mouth: Yes moist mucous membranes Eyes: Pupils: Equal, round and reactive pupils present Resp: Effort & Inspection: normal respiratory effort Auscultation: clear to auscultation bilaterally Cardio: Rate: regular rate Rhythm: regular rhythm Skin: Other: Jaundice Neuro: Cranial nerves: Yes Equal, round and reactive pupils present Extrem: General: edema Objective Data Vital Signs Vital Signs: Vital Signs - 24 hr 01/27/25 12:00 01/27/25 12:00 01/27/25 12:00 Temperature 97.8 F Pulse Rate 96 100 Respiratory Rate 20 Blood Pressure 118/47 L Pulse Oximetry 100 Oxygen Delivery Room Air 01/27/25 14:00 01/27/25 15:50 01/27/25 16:00 Temperature 97.8 F Pulse Rate 96 93 94 Respiratory Rate 16 Blood Pressure 100/39 L Pulse Oximetry 97 Oxygen Delivery 01/27/25 16:00 01/27/25 18:00 01/27/25 20:00 Temperature Pulse Rate 93 Respiratory Rate Blood Pressure Pulse Oximetry Oxygen Delivery Room Air Room Air 01/27/25 20:00 01/27/25 20:00 01/27/25 22:00 Temperature 97.7 F Pulse Rate 96 97 90 Respiratory Rate 20 Blood Pressure 101/43 L Pulse Oximetry 98 Oxygen Delivery 01/27/25 23:23 01/28/25 00:00 01/28/25 00:00 Temperature 98.1 F Pulse Rate 91 87 Respiratory Rate 18 Blood Pressure 102/44 L Pulse Oximetry 98 Oxygen Delivery Room Air 01/28/25 02:00 01/28/25 04:00 01/28/25 04:00 Temperature Pulse Rate 88 89 Respiratory Rate Blood Pressure Pulse Oximetry Oxygen Delivery Room Air 01/28/25 04:10 01/28/25 06:00 01/28/25 07:30 Temperature 97.3 F L 97.7 F Pulse Rate 88 87 93 Respiratory Rate 22 H 18 Blood Pressure 93/46 L 108/40 L Pulse Oximetry 98 98 Oxygen Delivery 01/28/25 08:00 01/28/25 08:00 01/28/25 10:00 Temperature Pulse Rate 98 90 Respiratory Rate Blood Pressure Pulse Oximetry Oxygen Delivery Room Air Intake/Output Intake/Output: Intake & Output 01/25/25 01/26/25 01/27/25 01/28/25 23:59 23:59 23:59 23:59 Intake Total 2365 1145 Output Total 241 230 Balance 2128 915 Meds/Results Medications: Active Medications Generic Name Dose Route Start Last Admin Trade Name Freq PRN Reason Stop Dose Admin Acetaminophen 500 mg 01/27/25 22:37 01/27/25 22:46 Acetaminophen 500 Mg Tablet PO 500 mg Q6H PRN Administration Mild Pain (1-3) or Fever Alprazolam 0.25 mg 01/27/25 17:14 01/28/25 00:33 Alprazolam (*Crx) 0.25 Mg Tablet PO 0.25 mg Q8HR PRN Administration Anxiety Dextrose 12.5 gm 01/27/25 00:48 01/28/25 06:44 Dextrose 50% 25 Gm/50 Ml Syringe IV PUSH 12.5 gm PRN PRN Administration Hypoglycemia Protocol Docusate Sodium 100 mg 01/27/25 09:00 01/28/25 09:01 Docusate Sodium 100 Mg Capsule PO 100 mg DAILY MAREK Administration Glucose 15 gm 01/27/25 00:48 01/28/25 06:12 Glucose Oral Gel 15 Gm Of Glucse In 37.5 Gm Tube PO 15 gm PRN PRN Administration Hypoglycemia Protocol Ceftriaxone Sodium 1 gm in 50 mls @ 100 mls/hr 01/27/25 01:00 01/28/25 00:57 Rocephin 1 Gm/Ns 50 Ml IVPB Infused Q24H MAREK Infusion Dextrose 1,000 mls @ 100 mls/hr 01/27/25 00:48 Dextrose 5% 1,000 Ml IVPB PRN PRN Hypoglycemia Protocol Dextrose 1,000 mls @ 150 mls/hr 01/27/25 01:45 01/28/25 06:18 Dextrose 10% IV CONT 100 mls/hr .Q6H40M MAREK Administration Insulin Aspart 2 - 5 units 01/27/25 08:00 01/28/25 08:27 Insulin Aspart (*Bkc) 100 Units/Ml SUB-Q Not Given TIDWM [facility] Protocol Insulin Aspart 1 - 2 units 01/27/25 21:00 01/27/25 19:58 Insulin Aspart (*Bkc) 100 Units/Ml SUB-Q Not Given HS [facility] Protocol Ondansetron HCl 4 mg 01/26/25 18:49 Ondansetron Inj 4 Mg/2 Ml Vial IV PUSH Q4H PRN Nausea Pantoprazole Sodium 40 mg 01/28/25 09:00 01/28/25 09:01 Pantoprazole Sodium Iv 40 Mg Vial IV PUSH 40 mg Q12HR MAREK Administration Polyethylene Glycol 17 gm 01/27/25 00:28 Polyethylene Glycol 3350 17 Gm Powd.Pack PO DAILY PRN constipation Sodium Chloride 10 ml 01/27/25 14:00 01/28/25 05:01 Central Line Flush IV PUSH 10 ml Q8HR MAREK Administration Sodium Chloride 10 ml 01/27/25 09:41 Central Line Flush IV PUSH PRN PRN with TPN bag changes Sodium Chloride 20 ml 01/27/25 09:41 Central Line Flush IV PUSH PRN PRN after blood draws Radiology Results: ITS Impressions Chest X-Ray 01/27/25 09:38 IMPRESSION: Right basal atelectasis versus pneumonia with mild to moderate pleural effusion. Renal Ultrasound 01/27/25 12:33 Impression: No significant renal abnormality. Multiple hypoechoic hepatic masses are compatible with hepatic metastatic disease. Abdominopelvic ascites. Labs Labs: Laboratory Results - last 24 hr 01/27/25 01/27/25 01/27/25 04:01 04:01 04:01 WBC RBC Hgb Hct MCV MCH MCHC RDW Plt Count MPV % Immature Plt Fraction ESR Absolute Retic 0.14 H Percent Retic 4.64 H Immature Retic Fraction 33.0 H Retic Hgb Content 31.6 PT INR Sodium Potassium Chloride Carbon Dioxide Anion Gap BUN Creatinine Estim Creat Clear Calc Estimated GFR Glucose POC Capillary Glucose Calcium Magnesium Iron 28 L TIBC 123 L % Saturation 23 Ferritin Cancelled 384.00 H Total Bilirubin AST ALT Alkaline Phosphatase Total Creatine Kinase < 20 L Total Protein Albumin Vitamin B12 > 1000.0 H Cancelled Folate 7.2 Random Cortisol Urine Color Urine Appearance Urine pH Ur Specific [place] Urine Protein Urine Glucose (UA) Urine Ketones Ur Blood (Man) Urine Nitrate Urine Bilirubin Urine Urobilinogen Ur Leukocyte Esterase Add Ur Microanalysis Urine RBC Urine WBC Ur Squamous Epith Cells Urine Bacteria Urine Casts Hyaline Casts Urine Mucus U Random Total Protein Ur Random Sodium Ur Random Potassium Ur Random Urea Urine Creatinine Protein/Creat Ratio 2 Complement C3 Complement C4 01/27/25 01/27/25 01/27/25 04:01 11:32 12:52 WBC RBC Hgb Hct MCV MCH MCHC RDW Plt Count MPV % Immature Plt Fraction ESR 38 H Absolute Retic Percent Retic Immature Retic Fraction Retic Hgb Content PT INR Sodium Potassium Chloride Carbon Dioxide Anion Gap BUN Creatinine Estim Creat Clear Calc Estimated GFR Glucose POC Capillary Glucose 101 Calcium Magnesium Iron TIBC % Saturation Ferritin Total Bilirubin AST ALT Alkaline Phosphatase Total Creatine Kinase Total Protein Albumin Vitamin B12 Folate Cancelled Random Cortisol 34.40 Urine Color Dark yellow Urine Appearance Cloudy H Urine pH 5.0 Ur Specific [place] 1.017 Urine Protein 2+ H Urine Glucose (UA) Negative Urine Ketones Trace H Ur Blood (Man) Negative Urine Nitrate Negative Urine Bilirubin 2+ H Urine Urobilinogen 1.0 Ur Leukocyte Esterase 1+ H Add Ur Microanalysis Reviewed Urine RBC 11-20 H Urine WBC 6-10 H Ur Squamous Epith Cells Moderate Urine Bacteria None seen Urine Casts 11-20 Hyaline Casts 3-4 H Urine Mucus Present U Random Total Protein 62 Ur Random Sodium 16 Ur Random Potassium 22.7 Ur Random Urea 542 Urine Creatinine 181.0 Protein/Creat Ratio 2 0.34 H Complement C3 71 L Complement C4 26.0 01/27/25 01/27/25 01/27/25 15:41 19:49 20:56 WBC RBC Hgb Hct MCV MCH MCHC RDW Plt Count MPV % Immature Plt Fraction ESR Absolute Retic Percent Retic Immature Retic Fraction Retic Hgb Content PT INR Sodium Potassium Chloride Carbon Dioxide Anion Gap BUN Creatinine Estim Creat Clear Calc Estimated GFR Glucose POC Capillary Glucose 67 65 65 Calcium Magnesium Iron TIBC % Saturation Ferritin Total Bilirubin AST ALT Alkaline Phosphatase Total Creatine Kinase Total Protein Albumin Vitamin B12 Folate Random Cortisol Urine Color Urine Appearance Urine pH Ur Specific [place] Urine Protein Urine Glucose (UA) Urine Ketones Ur Blood (Man) Urine Nitrate Urine Bilirubin Urine Urobilinogen Ur Leukocyte Esterase Add Ur Microanalysis Urine RBC Urine WBC Ur Squamous Epith Cells Urine Bacteria Urine Casts Hyaline Casts Urine Mucus U Random Total Protein Ur Random Sodium Ur Random Potassium Ur Random Urea Urine Creatinine Protein/Creat Ratio 2 Complement C3 Complement C4 01/27/25 01/27/25 01/27/25 21:45 22:11 23:29 WBC RBC Hgb Hct MCV MCH MCHC RDW Plt Count MPV % Immature Plt Fraction ESR Absolute Retic Percent Retic Immature Retic Fraction Retic Hgb Content PT INR Sodium Potassium Chloride Carbon Dioxide Anion Gap BUN Creatinine Estim Creat Clear Calc Estimated GFR Glucose POC Capillary Glucose 139 H 105 77 Calcium Magnesium Iron TIBC % Saturation Ferritin Total Bilirubin AST ALT Alkaline Phosphatase Total Creatine Kinase Total Protein Albumin Vitamin B12 Folate Random Cortisol Urine Color Urine Appearance Urine pH Ur Specific [place] Urine Protein Urine Glucose (UA) Urine Ketones Ur Blood (Man) Urine Nitrate Urine Bilirubin Urine Urobilinogen Ur Leukocyte Esterase Add Ur Microanalysis Urine RBC Urine WBC Ur Squamous Epith Cells Urine Bacteria Urine Casts Hyaline Casts Urine Mucus U Random Total Protein Ur Random Sodium Ur Random Potassium Ur Random Urea Urine Creatinine Protein/Creat Ratio 2 Complement C3 Complement C4 01/28/25 01/28/25 01/28/25 04:20 04:55 05:17 WBC 16.2 H RBC 2.85 L Hgb 8.1 L Hct 26.3 L MCV 92.3 MCH 28.4 MCHC 30.8 L RDW 24.4 H Plt Count 138 L MPV 11.5 H % Immature Plt Fraction 4.4 ESR Absolute Retic Percent Retic Immature Retic Fraction Retic Hgb Content PT 25.3 H D INR 2.3 Sodium 130 L Potassium 3.9 Chloride 102 Carbon Dioxide 18 L Anion Gap 10 BUN 72 H Creatinine 3.20 H Estim Creat Clear Calc 21 Estimated GFR 14 L Glucose 35 L* POC Capillary Glucose 33 L* 93 Calcium 7.9 L Magnesium 1.7 Iron TIBC % Saturation Ferritin Total Bilirubin 8.6 H AST 101 H ALT 34 Alkaline Phosphatase 523 H Total Creatine Kinase Total Protein 5.0 L Albumin 2.4 L Vitamin B12 Folate Random Cortisol Urine Color Urine Appearance Urine pH Ur Specific [place] Urine Protein Urine Glucose (UA) Urine Ketones Ur Blood (Man) Urine Nitrate Urine Bilirubin Urine Urobilinogen Ur Leukocyte Esterase Add Ur Microanalysis Urine RBC Urine WBC Ur Squamous Epith Cells Urine Bacteria Urine Casts Hyaline Casts Urine Mucus U Random Total Protein Ur Random Sodium Ur Random Potassium Ur Random Urea Urine Creatinine Protein/Creat Ratio 2 Complement C3 Complement C4 01/28/25 01/28/25 01/28/25 05:36 06:00 06:36 WBC RBC Hgb Hct MCV MCH MCHC RDW Plt Count MPV % Immature Plt Fraction ESR Absolute Retic Percent Retic Immature Retic Fraction Retic Hgb Content PT INR Sodium Potassium Chloride Carbon Dioxide Anion Gap BUN Creatinine Estim Creat Clear Calc Estimated GFR Glucose POC Capillary Glucose 70 63 L 61 L Calcium Magnesium Iron TIBC % Saturation Ferritin Total Bilirubin AST ALT Alkaline Phosphatase Total Creatine Kinase Total Protein Albumin Vitamin B12 Folate Random Cortisol Urine Color Urine Appearance Urine pH Ur Specific [place] Urine Protein Urine Glucose (UA) Urine Ketones Ur Blood (Man) Urine Nitrate Urine Bilirubin Urine Urobilinogen Ur Leukocyte Esterase Add Ur Microanalysis Urine RBC Urine WBC Ur Squamous Epith Cells Urine Bacteria Urine Casts Hyaline Casts Urine Mucus U Random Total Protein Ur Random Sodium Ur Random Potassium Ur Random Urea Urine Creatinine Protein/Creat Ratio 2 Complement C3 Complement C4 01/28/25 01/28/25 01/28/25 07:11 07:36 08:05 WBC RBC Hgb Hct MCV MCH MCHC RDW Plt Count MPV % Immature Plt Fraction ESR Absolute Retic Percent Retic Immature Retic Fraction Retic Hgb Content PT INR Sodium Potassium Chloride Carbon Dioxide Anion Gap BUN Creatinine Estim Creat Clear Calc Estimated GFR Glucose POC Capillary Glucose 126 H 124 H 137 H Calcium Magnesium Iron TIBC % Saturation Ferritin Total Bilirubin AST ALT Alkaline Phosphatase Total Creatine Kinase Total Protein Albumin Vitamin B12 Folate Random Cortisol Urine Color Urine Appearance Urine pH Ur Specific [place] Urine Protein Urine Glucose (UA) Urine Ketones Ur Blood (Man) Urine Nitrate Urine Bilirubin Urine Urobilinogen Ur Leukocyte Esterase Add Ur Microanalysis Urine RBC Urine WBC Ur Squamous Epith Cells Urine Bacteria Urine Casts Hyaline Casts Urine Mucus U Random Total Protein Ur Random Sodium Ur Random Potassium Ur Random Urea Urine Creatinine Protein/Creat Ratio 2 Complement C3 Complement C4 01/28/25 10:04 WBC RBC Hgb Hct MCV MCH MCHC RDW Plt Count MPV % Immature Plt Fraction ESR Absolute Retic Percent Retic Immature Retic Fraction Retic Hgb Content PT INR Sodium Potassium Chloride Carbon Dioxide Anion Gap BUN Creatinine Estim Creat Clear Calc Estimated GFR Glucose POC Capillary Glucose 104 Calcium Magnesium Iron TIBC % Saturation Ferritin Total Bilirubin AST ALT Alkaline Phosphatase Total Creatine Kinase Total Protein Albumin Vitamin B12 Folate Random Cortisol Urine Color Urine Appearance Urine pH Ur Specific [place] Urine Protein Urine Glucose (UA) Urine Ketones Ur Blood (Man) Urine Nitrate Urine Bilirubin Urine Urobilinogen Ur Leukocyte Esterase Add Ur Microanalysis Urine RBC Urine WBC Ur Squamous Epith Cells Urine Bacteria Urine Casts Hyaline Casts Urine Mucus U Random Total Protein Ur Random Sodium Ur Random Potassium Ur Random Urea Urine Creatinine Protein/Creat Ratio 2 Complement C3 Complement C4
[2025-01-28 11:45] LABS: Glucose Point of Care 93 mg/dl (65-105)
--- NOTE | 2025-01-28 11:46 | PC.NURSE ---
Notified Dr Ndiaye of BP 85/34. Also notified MD of patients most recent POC glucose. MD to come see the patient.
[2025-01-28 12:41] LABS: Lactic Acid Reflex 3.3 mmol/L (0.7-2.0)
[2025-01-28] MEDS: COSYNTROPIN 0.25 MG/ML VIAL IV PUSH (12:50)
[2025-01-28] MEDS: DEXTROSE 20% 500 ML 100 ML IV CONT (12:54)
[2025-01-28] MEDS: PIPERACILLIN/TAZ 2.25G/NS 50ML 2.25 GM/50 ML BAG IVPB ×3 (13:07→23:31)
--- NOTE | 2025-01-28 13:28 | P.CONIN_ITS ---
Assessment and Plan Assessment and plan (1) Supratherapeutic INR: Code(s): R79.1 - Abnormal coagulation profile Status: Acute Assessment and Plan: Patient presented with supratherapeutic INR which is a combination of liver dysfunction and warfarin. Patient was treated with vitamin K and her INR has decreased to 2.3 Monitor Anticoagulation is going to be very difficult in this patient with coagulopathy from liver dysfunction (2) Pulmonary embolism: Code(s): I26.99 - Other pulmonary embolism without acute cor pulmonale Status: Acute Assessment and Plan: Patient was suspected to be having pulmonary embolism due to intermediate perfusion scan and history of malignancy. Patient was started on anticoagulation but anticoagulation session had to be stopped due to significantly elevated INR peer (3) Type 2 diabetes mellitus: Qualifiers: Diabetes mellitus fdc insulin use: without medical terminologist use Diabetes mellitus complication status: with other specified complication Qualified Code(s): E11.69 - Type 2 diabetes mellitus with other specified complication Code(s): E11.9 - Type 2 diabetes mellitus without complications Status: Chronic Assessment and Plan: At this point patient is hyperglycemic (4) Hypoglycemia: Code(s): E16.2 - Hypoglycemia, unspecified Status: Acute Assessment and Plan: Patient has hypoglycemia since presentation this is likely combination of poor liver function patient was on glipizide with worsening renal function Patient will be started on D20 infusion. Will monitor sugars will q.1 hour and try to wean off fluids I have spoken to patient and I encouraged her to eat as much as she wants. I have requested family to bring food from home with possible to see patient like. Consult dietitian for dietary supplement Her anorexia is likely secondary to liver disease and cancer (5) Spontaneous bacterial peritonitis: Code(s): K65.2 - Spontaneous bacterial peritonitis Status: Acute Assessment and Plan: Patient was diagnosed with SBP on last hospitalization and is currently on broad-spectrum antibiotic (6) Jaundice: Code(s): R17 - Unspecified jaundice Status: Acute Assessment and Plan: Jaundice secondary to cholangiocarcinoma which could be obstruction of the biliary tract versus intrahepatic cholestasis from extensive metastatic GI consult CT scan (7) Cirrhosis: Code(s): K74.60 - Unspecified cirrhosis of liver Status: Acute Assessment and Plan: And patient has evidence of cirrhosis Check ammonia level (8) Acute kidney injury: Code(s): N17.9 - Acute kidney failure, unspecified Status: Acute Assessment and Plan: Patient has chronic kidney disease and now has worsening kidney function which appears to be multifactorial. Sepsis leading to hypovolemia and hypotension, cirrhosis leading to intravascular volume depletion and possible combination of hepatorenal syndrome Nephrology follow-up Monitor urine output electrolytes and creatinine IV albumin and Levophed infusion to maintain mean arterial pressure (9) Hepatorenal failure: Code(s): K76.7 - Hepatorenal syndrome Status: Acute Assessment and Plan: See above (10) Chronic kidney disease, stage 3b: Code(s): N18.32 - Chronic kidney disease, stage 3b Status: Chronic Assessment and Plan: See above (11) 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 Status: Acute Assessment and Plan: Patient was recently diagnosed with cholangiocarcinoma after biopsy Oncology consult pending (12) Sepsis: Code(s): A41.9 - Sepsis, unspecified organism Status: Acute Assessment and Plan: Sepsis likely secondary to UTI and recent SBP. Will obtain CT scan of abdomen pelvis and chest to further evaluate Check urine culture Blood cultures have been sent and pain Empiric vancomycin and Zosyn (13) Shock: Code(s): R57.9 - Shock, unspecified Status: Acute Assessment and Plan: Shock likely a combination sepsis and vasodilation from liver dysfunction Continue albumin Hold further crystalloids as patient is overall volume overload Transferred to ICU and start Levophed infusion (14) Urinary tract infection: Code(s): N39.0 - Urinary tract infection, site not specified Status: Inactive Assessment and Plan: See above Plan DVT prophylaxis -SCDs Stress ulcer prophylaxis -PPI Nutrition -diet is ordered, dietitian consult, nutritional supplements Code Status -DNI with 1 round of CPR I had extensive discussion with patient and her family at bedside regarding goals of care and code status. She states that she does not want intubation and on mechanical ventilation even if that means she would . She states that she would like to have 1 round of CPR and 1 electric shock if indicated in case of cardiac arrest to see if she can be revived. She states that if it is not successful then she does not want further resuscitation measures to continued. Patient is currently in light of underlying metastatic cholangiocarcinoma has overall poor prognosis. I answered their questions. Total Critical Care Time - 45 minutes Due to a high probability of clinically significant, life threatening deterioration, the patient required my highest level of preparedness to intervene emergently and I personally spent this critical care time directly and personally managing the patient. This critical care time included obtaining a history; examining the patient; pulse oximetry; ordering and review of studies; arranging urgent treatment with development of a management plan; evaluation of patient's response to treatment; frequent reassessment; and discussions with other providers. It was exclusive of separately billable procedures and treating other patients and teaching time. Please see Assessment and Plan section and the rest of the note for further information on patient assessment and treatment Geospatial Technician Consult Note Consult date: 01/28/25 Reason for consult: Hypoglycemia, hypotension, MADY, metastatic cholangiocarcinoma HPI: Nikki Don is a 74 year old female with PMH off CKD, CHF, hypertension, morbid obesity with BMI 49, [id number] diabetes mellitus, vitamin-D deficiency, possible cirrhosis, suspected PE, recent history of SBP, and recently diagnosed metastatic cholangiocarcinoma was readmitted on 01/27 with chief complaint of weakness Patient was recently admitted to [facility] on 01/15 with chief complaint of feet Ryan fatigue and was diagnosed with MADY superimposed on CKD, she was also found to be having UTI, large amount of ascites paracentesis was done and fluid suggestive of spontaneous bacterial peritonitis, CT scan showed metastatic lesions in liver. . Trend underwent biopsy which has not come back positive for cholangiocarcinoma. Patient had intermediate perfusion scan of her lungs and was diagnosed with a pulmonary embolism. CTA could not be performed due to elevated creatinine. In light of malignancy and intermediate perfusion scan patient was started on warfarin with this suspected diagnosis of PE. Patient was treated with IV fluids. Oncology was planning to have patient follow-up as an outpatient. Creatinine at the time of discharge was 2.0 Patient was discharged to [facility]. A and readmitted on 01/26 Her WBC elevated at 18.4, hemoglobin stable, platelet count in normal range. Her INR was 8.8. Creatinine elevated at 3.29 and blood sugars low. Patient was started on IV fluid with dextrose and her blood sugars had remained low and patient was switched to D20 this morning. Per blood pressure was low this morning. Her creatinine remains elevated at 3.1. I was asked to evaluate patient due to multiple abnormality and low blood pressure BNP 2 320 Procalcitonin 4.3 Bilirubin has been gradually worsening and on readmission was 7.6 When I evaluated the patient she abuse resistant and answering questions but denied any complaint. Patient has had poor appetite and has not been eating much. Her skin is jaundiced. Patient denies fever, chest pain, shortness of breath, cough, nausea vomiting, abdominal pain,, diarrhea, headache or constipation. All other systems were reviewed and were negative Review of Systems 2 Review of Systems: All systems reviewed & are unremarkable except as noted in HPI and below (HPI) [facility] Past Medical History Medical History Vitamin D deficiency, unspecified CHF (congestive heart failure) Dyslipidemia CKD (chronic kidney disease) Type 2 diabetes mellitus Age-related macular degeneration Essential (primary) hypertension Psychophysiological insomnia Surgical History Surgical History History of tonsillectomy Status post cataract extraction of both eyes with insertion of intraocular lens Hx of cholecystectomy H/O hysterectomy for benign disease Family History Family History Mother Hypertension Family history of Alzheimer's disease Family history of type 1 diabetes mellitus Diabetes mellitus Father Family history of lymphoma History of kidney disease Hypertension Grandparent Breast cancer Social History Social History Social History: She is . She recently saw older home of 50 or 50 years to her granddaughter and grandson in law. But she now lives with them and takes care of her [id number] great grandchild 5 days a week. She states she will drink 1 beer about every other month. She is a lifelong nonsmoker and does not use illicit substances. She ambulates with a walker. 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 Code status: Full code Surrogate decision maker: Jenn France (daughter) Smoking status: Never smoker Second hand tobacco smoke exposure: No Alcohol intake: never Drinks per week: 1 Substance use: current Substance use type: does not use Other substance usage details: once every 3-4 months Do You Feel Safe in your Home?: Yes Lack of Transportation: No Lack of Food: Never True Current Housing: I Have Housing Concerned About Future Housing: No Difficulty Paying Gas/Electric Bills: No Difficulty Paying for Meds: No Currently Unemployed: No Education: High School Diploma/GED Difficulty w/ Childcare or Family Care: No Living arrangements: with family Additional living arrangements comments: pt lives with granddaughter and granddaughter Occupation/Education: retired Gender identity (if verbalized by the patient): Female Sexual Orientation (if Verbalized by the Patient): Straight or Heterosexual Spiritual care concerns: No Meds Home Medications and Allergies Home Medications ?Medication ?Instructions ?Recorded ?Confirmed ?Type chlorthalidone 25 mg tablet 25 mg PO DAILY #90 tabs 05/29/24 01/26/25 Rx glipizide 5 mg tablet 10 mg (2 x 5 mg) PO BID 90 days 05/29/24 01/26/25 Rx #360 tabs ondansetron HCl 4 mg tablet 4 mg PO Q8H PRN nausea and 10/22/24 01/26/25 Rx vomiting #20 tabs metformin 1,000 mg tablet 500 mg (1/2 x 1,000 mg) PO BID #90 11/15/24 01/26/25 Rx tabs tizanidine 4 mg tablet 4 mg PO TID PRN muscle spasticity 12/28/24 01/26/25 Rx #30 tabs alprazolam 0.5 mg tablet 0.25 mg PO HS insomnia 01/04/25 01/26/25 History trazodone 50 mg tablet 50 mg PO QHS PRN sleep #60 tabs 01/09/25 01/26/25 Rx metoprolol tartrate 25 mg tablet 12.5 mg (1/2 x 25 mg) PO BID #90 01/24/25 01/26/25 Rx tabs docusate sodium 100 mg capsule 100 mg PO DAILY 01/26/25 01/26/25 History ergocalciferol (vitamin D2) 1,250 1,250 mcg PO WEEKLY 01/26/25 01/26/25 History mcg (50,000 unit) capsule (Vitamin D2) polyethylene glycol 3350 17 gram 17 g PO DAILY PRN constipation 01/26/25 01/26/25 History oral powder packet (Miralax) warfarin 3 mg tablet 3 mg PO QPM 01/26/25 01/26/25 History Allergies Allergy/AdvReac Type Severity Reaction Status Date / Time No Known Allergies Allergy Verified 01/15/25 13:38 Vital Signs Vital Signs - 24 hr 01/27/25 14:00 01/27/25 15:50 01/27/25 16:00 Temperature 36.6 C Pulse Rate 96 93 94 Respiratory Rate 16 Blood Pressure 100/39 L Pulse Oximetry 97 Oxygen Delivery 01/27/25 16:00 01/27/25 18:00 01/27/25 20:00 Temperature Pulse Rate 93 Respiratory Rate Blood Pressure Pulse Oximetry Oxygen Delivery Room Air Room Air 01/27/25 20:00 01/27/25 20:00 01/27/25 22:00 Temperature 36.5 C Pulse Rate 96 97 90 Respiratory Rate 20 Blood Pressure 101/43 L Pulse Oximetry 98 Oxygen Delivery 01/27/25 23:23 01/28/25 00:00 01/28/25 00:00 Temperature 36.7 C Pulse Rate 91 87 Respiratory Rate 18 Blood Pressure 102/44 L Pulse Oximetry 98 Oxygen Delivery Room Air 01/28/25 02:00 01/28/25 04:00 01/28/25 04:00 Temperature Pulse Rate 88 89 Respiratory Rate Blood Pressure Pulse Oximetry Oxygen Delivery Room Air 01/28/25 04:10 01/28/25 06:00 01/28/25 07:30 Temperature 36.3 C L 36.5 C Pulse Rate 88 87 93 Respiratory Rate 22 H 18 Blood Pressure 93/46 L 108/40 L Pulse Oximetry 98 98 Oxygen Delivery 01/28/25 08:00 01/28/25 08:00 01/28/25 10:00 Temperature Pulse Rate 98 90 Respiratory Rate Blood Pressure Pulse Oximetry Oxygen Delivery Room Air 01/28/25 11:46 Temperature 36.3 C L Pulse Rate 89 Respiratory Rate 20 Blood Pressure 85/34 L Pulse Oximetry 99 Oxygen Delivery Exam 2 Narrative: General: Pt is alert awake and in NAD Lungs/Chest: Trachea central Clear BS B/L, No crackles or wheezing. Breath sounds are decreased on bases Cardiac: RRR. Normal S1 S2. No murmurs Circulation: 6 ft are warm Abdomen: Morbidly obese, soft. Distended NT. ND. Extremities: Bilateral pitting edema present : Arnold in place Neurologic: Follows commands. Moves all 4 extremities PERRL AO x3 Skin: Jaundiced skin Results Labs 01/28/25 04:20 01/28/25 04:20 Labs: Short CBC 01/28/25 Range/Units 04:20 WBC 16.2 H (4.5-10.0) K/mm3 Hgb 8.1 L (12.0-15.0) g/dL Hct 26.3 L (37.0-47.0) % Plt Count 138 L (150-375) k/mm3 BMP 01/28/25 04:20 Sodium 130 L Potassium 3.9 Chloride 102 Carbon Dioxide 18 L BUN 72 H Creatinine 3.20 H Glucose 35 L* Calcium 7.9 L Liver Function 01/28/25 Range/Units 04:20 Total Bilirubin 8.6 H (0.2-1.3) mg/dL AST 101 H (14-36) U/L ALT 34 (6-35) U/L Alkaline Phosphatase 523 H (38-126) U/L Albumin 2.4 L (3.5-5.1) g/dL Hospitalist MIPS Advance Care Plan I have confirmed that the patient's Advanced Care Plan is present, code status is documented, or surrogate decision maker is listed in patient medical record.: Yes Medication Reconciliation I have utilized all available resources to obtain, update and review the patients current medications (includes all prescriptions, OTC, herbals, cannabis, and nutritional supplements).: Yes
--- NOTE | 2025-01-28 13:43 | PC.NURSE ---
This patient, Nkiki Don, was received from [[id number]] on 01/28/25 at 1332. Patient/family oriented to unit policies and routines. Bedside report received from Agatha Lacey RN.
[2025-01-28] MEDS: ALBUMIN HUMAN 25% 25 GM/100 ML 100 ML IVPB ×2 (13:44→17:45)
[2025-01-28] MEDS: NOREPINEPHRINE 8 MG/D5W 250 ML 8 MG/250 ML BAG 9.38 MG IV CONT (13:49)
[2025-01-28 13:56] LABS: Glucose Point of Care 94 mg/dl (65-105)
[2025-01-28 14:03] LABS: Lactic Acid Reflex 2.6 mmol/L (0.7-2.0)
--- NOTE | 2025-01-28 14:10 | PCOTNOTE ---
Attempted to see pt at 9:30 this am. Pt states she does not feel like getting up at this time and wants to wait to see a doctor. Later in the day, pt was transferred to the ICU due to sepsis/shock. Will continue to follow to see if pt is appropriate for therapy.
[2025-01-28] MEDS: VANCOMYCIN 2,000 MG/NS 500 ML 2,000 MG/500 ML BAG 250 MG IVPB (14:22)
[2025-01-28 14:25] LABS: Reflex Lactic Acid Yes or No Add Lactic
[2025-01-28 14:42] LABS: Ammonia 39 umol/L (9-30)
[2025-01-28 14:54] LABS: Complement Total CH50 29 U/mL (31-60)
[2025-01-28 15:11] LABS: Glucose Point of Care 111 mg/dl (65-105)
[2025-01-28] MEDS: LACTULOSE 20 GM/30 ML UDC PO ×2 (15:55→20:19)
[2025-01-28] MEDS: DEXTROSE 20% 500 ML 90 ML IV CONT (15:59)
[2025-01-28 16:08] LABS: Glucose Point of Care 153 mg/dl (65-105)
[2025-01-28 16:20] LABS: MRSA (PCR) NOT DETECTED (NOT DETECTE)
[2025-01-28 16:57] LABS: Glucose Point of Care 131 mg/dl (65-105)
[2025-01-28 18:07] LABS: Glucose Point of Care 143 mg/dl (65-105)
--- NOTE | 2025-01-28 18:22 | WPDONCCN ---
Assessment and Plan Assessment and plan (1) 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 Status: Acute Assessment and Plan: Metastatic cholangiocarcinoma status post biopsy of the left liver mass done on January 21, 2025. Patient has no previous history of malignancy. She denies any history of liver disease and heavy alcohol intake. CT abdomen and pelvis showed hepatomegaly with multiple hypodensities status of metastatic disease with ascites and minimal right-sided pleural effusion. Patient had paracentesis done and cytology came back negative for malignancy. She is currently being admitted to the hospital with hypotension and currently on Levophed. She was diagnosed with subacute bacterial peritonitis as well and getting triple antibiotics. I have discussed the diagnosis of cholangiocarcinoma prognosis and treatment with patient and the daughter in detail. Given her current performance status and renal insufficiency she will not be a candidate for any form of systemic chemotherapy. I have provided patient and the daughter my office information for follow-up. We also briefly discussed comfort care and hospice if she fails to recover from this acute illness. I have answered all the questions to patient's satisfaction. (2) Anemia: Code(s): D64.9 - Anemia, unspecified Status: Acute Assessment and Plan: Anemia is likely multifactorial secondary to malignancy, liver cirrhosis and renal insufficiency. Iron level was also slightly low. I would recommend iron replacement and supportive blood transfusion on as-needed basis. HPI Data of Consult Date/Time: 01/28/25 18:22 Requesting Physician: Hamida Ndiaye MD Primary Care Provider: GLENN John-Long Consult Narrative Narrative: Nikki Don is a 74 year old female PCT, congestive heart failure, chronic kidney disease, type 2 diabetes and possible liver cirrhosis came into the hospital with generalized weakness. She was recently discharge from the hospital. She also has history of subacute bacterial peritonitis. Patient is not able to provide the history. History was obtained to discussion with patient daughters Edna in the room. She has no previous history of malignancy. According to her patient was reasonably active 2 months prior to admission. She denies any history of heavy alcohol intake. CT abdomen and pelvis showed hepatomegaly with multiple hypodensity suggestive off metastatic disease along with ascites and minimal right-sided pleural effusion. Liver biopsy was performed that came back positive for cholangiocarcinoma. Other labs showed anemia with hemoglobin of 8.1 and elevated WBC count of 16.2. Review of Systems Review of Systems: Review of system as per HPI otherwise negative [facility] Past Medical History Medical History Vitamin D deficiency, unspecified CHF (congestive heart failure) Dyslipidemia CKD (chronic kidney disease) Type 2 diabetes mellitus Age-related macular degeneration Essential (primary) hypertension Psychophysiological insomnia Surgical History Surgical History History of tonsillectomy Status post cataract extraction of both eyes with insertion of intraocular lens Hx of cholecystectomy H/O hysterectomy for benign disease Family History Family History Mother Hypertension Family history of Alzheimer's disease Family history of type 1 diabetes mellitus Diabetes mellitus Father Family history of lymphoma History of kidney disease Hypertension Grandparent Breast cancer Social History Social History Social History: She is . She recently saw older home of 50 or 50 years to her granddaughter and grandson in law. But she now lives with them and takes care of her [id number] great grandchild 5 days a week. She states she will drink 1 beer about every other month. She is a lifelong nonsmoker and does not use illicit substances. She ambulates with a walker. 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 Code status: Full code Surrogate decision maker: Jenn France (daughter) Smoking status: Never smoker Second hand tobacco smoke exposure: No Alcohol intake: never Drinks per week: 1 Substance use: current Substance use type: does not use Other substance usage details: once every 3-4 months Do You Feel Safe in your Home?: Yes Lack of Transportation: No Lack of Food: Never True Current Housing: I Have Housing Concerned About Future Housing: No Difficulty Paying Gas/Electric Bills: No Difficulty Paying for Meds: No Currently Unemployed: No Education: High School Diploma/GED Difficulty w/ Childcare or Family Care: No Living arrangements: with family Additional living arrangements comments: pt lives with granddaughter and granddaughter Occupation/Education: retired Gender identity (if verbalized by the patient): Female Sexual Orientation (if Verbalized by the Patient): Straight or Heterosexual Spiritual care concerns: No Meds Home Medications and Allergies Home Medications ?Medication ?Instructions ?Recorded ?Confirmed ?Type chlorthalidone 25 mg tablet 25 mg PO DAILY #90 tabs 05/29/24 01/26/25 Rx glipizide 5 mg tablet 10 mg (2 x 5 mg) PO BID 90 days 05/29/24 01/26/25 Rx #360 tabs ondansetron HCl 4 mg tablet 4 mg PO Q8H PRN nausea and 10/22/24 01/26/25 Rx vomiting #20 tabs metformin 1,000 mg tablet 500 mg (1/2 x 1,000 mg) PO BID #90 11/15/24 01/26/25 Rx tabs tizanidine 4 mg tablet 4 mg PO TID PRN muscle spasticity 12/28/24 01/26/25 Rx #30 tabs alprazolam 0.5 mg tablet 0.25 mg PO HS insomnia 01/04/25 01/26/25 History trazodone 50 mg tablet 50 mg PO QHS PRN sleep #60 tabs 01/09/25 01/26/25 Rx metoprolol tartrate 25 mg tablet 12.5 mg (1/2 x 25 mg) PO BID #90 01/24/25 01/26/25 Rx tabs docusate sodium 100 mg capsule 100 mg PO DAILY 01/26/25 01/26/25 History ergocalciferol (vitamin D2) 1,250 1,250 mcg PO WEEKLY 01/26/25 01/26/25 History mcg (50,000 unit) capsule (Vitamin D2) polyethylene glycol 3350 17 gram 17 g PO DAILY PRN constipation 01/26/25 01/26/25 History oral powder packet (Miralax) warfarin 3 mg tablet 3 mg PO QPM 01/26/25 01/26/25 History Allergies Allergy/AdvReac Type Severity Reaction Status Date / Time No Known Allergies Allergy Verified 01/15/25 13:38 Vital Signs Vital Signs - 24 hr 01/27/25 20:00 01/27/25 20:00 01/27/25 20:00 Temperature 36.5 C Pulse Rate 96 97 Respiratory Rate 20 Blood Pressure 101/43 L Pulse Oximetry 98 Oxygen Delivery Room Air 01/27/25 22:00 01/27/25 23:23 01/28/25 00:00 Temperature 36.7 C Pulse Rate 90 91 Respiratory Rate 18 Blood Pressure 102/44 L Pulse Oximetry 98 Oxygen Delivery Room Air 01/28/25 00:00 01/28/25 02:00 01/28/25 04:00 Temperature Pulse Rate 87 88 Respiratory Rate Blood Pressure Pulse Oximetry Oxygen Delivery Room Air 01/28/25 04:00 01/28/25 04:10 01/28/25 06:00 Temperature 36.3 C L Pulse Rate 89 88 87 Respiratory Rate 22 H Blood Pressure 93/46 L Pulse Oximetry 98 Oxygen Delivery 01/28/25 07:30 01/28/25 08:00 01/28/25 08:00 Temperature 36.5 C Pulse Rate 93 98 Respiratory Rate 18 Blood Pressure 108/40 L Pulse Oximetry 98 Oxygen Delivery Room Air 01/28/25 10:00 01/28/25 11:46 01/28/25 12:00 Temperature 36.3 C L Pulse Rate 90 89 Respiratory Rate 20 Blood Pressure 85/34 L Pulse Oximetry 99 Oxygen Delivery Room Air 01/28/25 12:00 01/28/25 13:42 01/28/25 13:49 Temperature 36.7 C Pulse Rate 93 91 91 Respiratory Rate 21 H Blood Pressure 106/46 L 97/49 L Pulse Oximetry 97 Oxygen Delivery 01/28/25 14:00 01/28/25 14:00 01/28/25 16:00 Temperature 36.7 C Pulse Rate 92 92 Respiratory Rate 15 Blood Pressure 122/45 L Pulse Oximetry 100 Oxygen Delivery Room Air 01/28/25 16:00 01/28/25 16:00 Temperature 36.8 C Pulse Rate 95 95 Respiratory Rate 19 Blood Pressure 114/78 Pulse Oximetry 97 Oxygen Delivery Exam Narrative: Lungs are clear to auscultation bilaterally Cardiovascular regular rate rhythm no murmurs Abdomen distended nontender bowel sounds are positive Extremities no edema Results Labs 01/28/25 04:20 01/28/25 04:20 Labs: Short CBC 01/28/25 Range/Units 04:20 WBC 16.2 H (4.5-10.0) K/mm3 Hgb 8.1 L (12.0-15.0) g/dL Hct 26.3 L (37.0-47.0) % Plt Count 138 L (150-375) k/mm3 BMP 01/28/25 04:20 Sodium 130 L Potassium 3.9 Chloride 102 Carbon Dioxide 18 L BUN 72 H Creatinine 3.20 H Glucose 35 L* Calcium 7.9 L Liver Function 01/28/25 Range/Units 04:20 Total Bilirubin 8.6 H (0.2-1.3) mg/dL AST 101 H (14-36) U/L ALT 34 (6-35) U/L Alkaline Phosphatase 523 H (38-126) U/L Albumin 2.4 L (3.5-5.1) g/dL
[2025-01-28 20:34] LABS: Glucose Point of Care 165 mg/dl (65-105)
[2025-01-28] MEDS: HYDROcodone/acetaminophen (*CRX) 5-325 MG TABLET 1 TAB PO (20:40)
[2025-01-28 22:07] LABS: Lactic Acid 3.5 mmol/L (0.7-2.0)
[2025-01-28 22:32] LABS: Glucose Point of Care 209 mg/dl (65-105)
[2025-01-28 22:38] LABS: Anion Gap 15 mmol/L (4-12); Blood Urea Nitrogen 74 mg/dL (7-17); Calcium 8.1 mg/dL (8.4-10.2); Carbon Dioxide 14 mmol/L (22-30); Chloride 99 mmol/L (98-107); Estimated CRCL calculation 22 ml/min; Estimated Glomerular Filt Rate 14; Glucose 157 mg/dL (65-110); Sodium 128 mmol/L (137-145)
[2025-01-28] MEDS: DEXTROSE 20% 500 ML 40 ML IV CONT (22:54)
[2025-01-28 23:35] LABS: Glucose Point of Care 166 mg/dl (65-105)
[2025-01-29] VITALS (22 sets, daily range): BP systolic 81–126; BP diastolic 37–82; PULSE 76–101; RESP 14–19; TEMP 36.3–36.8; O2SAT 91–100; BMI 51.2
[2025-01-29] MEDS: ALBUMIN HUMAN 25% 25 GM/100 ML 100 ML IVPB ×4 (00:06→17:04)
[2025-01-29] MEDS: OLANZapine 10 MG, WATER, STERILE FOR INJECTION 2.1 ML IM (00:10)
[2025-01-29 00:37] LABS: Glucose Point of Care 167 mg/dl (65-105)
[2025-01-29 01:54] LABS: Glucose Point of Care 163 mg/dl (65-105)
[2025-01-29 02:43] LABS: Glucose Point of Care 152 mg/dl (65-105)
[2025-01-29 04:26] LABS: Glucose Point of Care 145 mg/dl (65-105)
[2025-01-29 04:55] LABS: Hematocrit 25.8 % (37.0-47.0); Immature Platelet Fraction Pct 4.2 % (0.9-11.2); Mean Corpuscular Volume 93.5 fl (80-100); Platelet Count Result 119 k/mm3 (150-375); Red Blood Count 2.76 M/mm3 (4.2-5.4); Red Cell Distribution Width 24.4 % (11.5-14.5); White Blood Count 18.4 K/mm3 (4.5-10.0)
[2025-01-29 05:14] LABS: Alanine Aminotransferase 31 U/L (6-35); Alkaline Phosphatase 422 U/L (38-126); Anion Gap 15 mmol/L (4-12); Aspartate Amino Transferase 75 U/L (14-36); Bilirubin,Total 12.5 mg/dL (0.2-1.3); Blood Urea Nitrogen 75 mg/dL (7-17); Carbon Dioxide 15 mmol/L (22-30); Chloride 100 mmol/L (98-107); Estimated CRCL calculation 23 ml/min; Estimated Glomerular Filt Rate 15; Glucose 144 mg/dL (65-110); Magnesium 1.6 mg/dL (1.6-2.3); Phosphorus 4.6 mg/dL (2.5-4.5); Potassium 3.9 mmol/L (3.4-5.0); Sodium 130 mmol/L (137-145)
[2025-01-29 05:21] LABS: INR 2.7; Prothrombin Time 29.1 Seconds (11.1-14.7)
[2025-01-29] MEDS: PIPERACILLIN/TAZ 2.25G/NS 50ML 2.25 GM/50 ML BAG IVPB ×3 (05:45→17:04)
[2025-01-29 05:53] LABS: Glucose Point of Care 150 mg/dl (65-105)
[2025-01-29] MEDS: CENTRAL LINE FLUSH 10 ML IV PUSH ×3 (06:03→20:50)
[2025-01-29 06:29] LABS: Glucose Point of Care 162 mg/dl (65-105)
[2025-01-29] MEDS: PANTOPRAZOLE SODIUM IV 40 MG VIAL IV PUSH ×2 (08:12→20:50)
[2025-01-29] MEDS: LACTULOSE 20 GM/30 ML UDC PO (08:12)
[2025-01-29] MEDS: MAGNESIUM SULF 2 GM/WATER 50ML 2 GM/50 ML BAG IVPB (08:18)
[2025-01-29] MEDS: SODIUM BICARBONATE TAB 650 MG TABLET PO ×2 (08:19→17:04)
[2025-01-29] MEDS: FERROUS SULFATE 325 MG TABLET DR PO (08:19)
--- NOTE | 2025-01-29 08:21 | PCPTNOTE ---
Attempted PT evaluation, Pt on medication that currently limits safe OOB activity at this time. Will follow
--- NOTE | 2025-01-29 08:31 | PCOTNOTE ---
Per PT, pt on medication that currently limits safe OOB activity at this time. Will follow
--- NOTE | 2025-01-29 09:00 | P.PNNP_ITS ---
Progress Note: A&P Assessment and Plan (1) Acute kidney injury: Code(s): N17.9 - Acute kidney failure, unspecified Status: Acute Assessment and Plan: * no real significant change since admission * as noted this year... * creatinine running ~ 1.4 - 1.6mg/dl (in 2022 - 2023) * creatinine ~ 1.2 - 1.3mg/dl (in 2019) * creatinine running 2.0 - 2.4mg/dl since early December 2024 * see #2 * admission creatinine 3.29mg/dl * evaluation on this hospitalization (and on previous hospitalization on 01/15 - 01/23) noted: * renal ultrasound without obstruction * CPK low * urine eosinophils negative * prerenal urine electrolytes * mild proteinuria * UA suggestive of infection * serologies pending * suspect multifactorial etiology: * possibly related to recent findings of liver cirrhosis (and associated physiology): decreased effective circulating volume leading to chronic prerenal azotemia worsened by ascites and need for diuretic therapy... 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 * follow trend of repeat labs and UOP (2) Chronic kidney disease, stage IV (severe): Code(s): N18.4 - Chronic kidney disease, stage 4 (severe) Status: Chronic Assessment and Plan: * creatinine was running ~ 1.4 - 1.6mg/dl (in 2022 - 2023) and ~ 1.2 - 1.3mg/dl (in 2019) * suspect underlying CKD due to diabetes, hypertension, and age-related change * recent issues with liver disease likely contributing now as well * suspected new baseline creatinine around 1.9 - 2.1mg/dl based on last hospitalization (01/15) (3) Sepsis: Code(s): A41.9 - Sepsis, unspecified organism Status: Acute Assessment and Plan: * due to UTI and/or previous spontaneous bacterial peritonitis * follow culture data * on antibiotics (4) Shock: Code(s): R57.9 - Shock, unspecified Status: Acute Assessment and Plan: * due to chronic hypotension due to liver disease/physiology in conjunction with possible sepsis * continue albumin for volume expansion * holding off on IVF resuscitation due to volume overloaded status * on vasopressor therapy - wean as tolerated (5) Hypoglycemia: Code(s): E16.2 - Hypoglycemia, unspecified Status: Acute Assessment and Plan: * issues with hypoglycemia noted since admission * likely precipitated by oral hypoglycemics in conjunction decline in renal function + liver dysfunction * on D20 IVFs with improvement in blood sugars -- wean off as tolerated * liberalize diet since she is not eating very much (6) Cirrhosis: Code(s): K74.60 - Unspecified cirrhosis of liver Status: Acute Assessment and Plan: * as noted by imaging studies to date over last several hospitalizations: * RUQ showing possible cirrhosis but can not excluding underlying mass * CT A/P (on 01/16) showing hepatomegaly with multiple hypodensities suggestive of metastatic lesions, ascites, small caliber IVC and minimal right-sided pleural effusion with adjacent atelectasis * possible etiology for #1 (?) * previous hepatitis panel negative * noted to be associated with ascites (7) Pulmonary embolism: Code(s): I26.99 - Other pulmonary embolism without acute cor pulmonale Status: Acute Assessment and Plan: * high index of suspicion 0n last hospitalization (from 01/15 - 01/23): * noted episodes of sinus tachycardia -- initial EKG showing sinus tachycardia * venous doppler negative of DVT in the lower extremities * VQ scan showing moderate sized perfusion defect at the posterior basilar segment RLL - intermediate probability for PE * Echo on 01/05/25 showing normal right sided findings; repeat limited Echo (on 01/19) with mildly enlarged RV but normal systolic function * was on coumadin but on hold * elevated INR on admission noted (8) Anemia: Code(s): D64.9 - Anemia, unspecified Status: Acute Assessment and Plan: * related to due to MADY and CKD as well as acute illness * cannot discount underlying malignancy playing a role (see #7) * previous anemia studies (last admission) with iron deficiency * follow trend of H/H (9) 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 Estrella. Will continue to follow. L Subjective Date/time seen: 01/29/25 09:00 Interval history: Follow-up for acute kidney injury/acute renal failure on chronic kidney disease. Events noted yesterday afternoon -- ongoing issues with hypolycemia and hypotension leading to transfer to ICU for further monitoring; continued on D20 IVFs with improvement in blood sugars and initiated on vasopressor therapy (levophed) for blood pressure support; renal function/creatinine slightly better with better urine output in the last 24 hours; no acute distress voiced at the time of my visit. Exam 2 Narrative: General: elderly but WD/WN female in NAD Heart: normal S1 and S2; no rub Lungs: clear anteriorly; decrease at bases Abdomen: obese but soft, nontender, nondistended, positive bowel sounds Extremities: no cyanosis or clubbing; 1 - 2+ edema Skin: jaundice noted; dry and intact Objective Data Vital Signs Vital Signs: Vital Signs Temp Pulse Resp BP Pulse Ox O2 Del Method 01/29/25 09:00 84 81/71 L 01/29/25 08:45 84 108/37 L 01/29/25 08:30 85 103/48 L 01/29/25 08:12 87 118/45 L 01/29/25 08:00 80 01/29/25 08:00 92 16 93 Room Air 01/29/25 08:00 97.4 F L 92 18 118/45 L 93 01/29/25 07:59 86 126/46 L 01/29/25 06:00 80 125/56 L 01/29/25 06:00 80 01/29/25 06:00 83 14 112/43 L 100 01/29/25 04:00 95 01/29/25 04:00 87 119/82 01/29/25 04:00 97.6 F 87 19 119/82 100 01/29/25 04:00 100 Room Air 01/29/25 02:00 92 107/65 01/29/25 02:00 92 18 107/65 100 04/08/25 02:00 92 01/29/25 00:00 98.2 F 84 17 125/50 L 98 01/29/25 00:00 84 01/29/25 00:00 98 Room Air 01/29/25 00:00 84 95/42 L 01/28/25 22:00 103 H 01/28/25 22:00 103 H 14 113/47 L 92 01/28/25 22:00 103 H 113/47 L 01/28/25 20:00 96 01/28/25 20:00 97.6 F 103 H 17 132/53 L 98 01/28/25 20:00 98 Room Air 01/28/25 20:00 103 H 132/53 L 01/28/25 18:00 95 18 129/50 L 100 01/28/25 18:00 95 01/28/25 16:00 98.2 F 95 19 114/78 97 01/28/25 16:00 95 01/28/25 16:00 Room Air 01/28/25 14:00 98.1 F 92 15 122/45 L 100 01/28/25 14:00 92 01/28/25 13:49 91 97/49 L 01/28/25 13:42 98.0 F 91 21 H 106/46 L 97 01/28/25 12:00 93 01/28/25 12:00 Room Air Intake/Output Intake/Output: Intake & Output 01/26/25 01/27/25 01/28/25 01/29/25 23:59 23:59 23:59 23:59 Intake Total 2365 2121.8 968.3 Output Total 241 680 550 Balance 2124 1441.8 418.3 Meds/Results Medications: Active Medications Generic Name Dose Route Start Last Admin Trade Name Freq PRN Reason Stop Dose Admin Hydrocodone Bitart/Acetaminophen 1 tab 01/28/25 13:52 01/28/25 20:40 Hydrocodone/Acetaminophen (*Crx) 5-325 Mg Tablet PO 1 tab Q4H PRN Administration Pain Rated 4-6 Alprazolam 0.25 mg 01/27/25 17:14 01/28/25 18:13 Alprazolam (*Crx) 0.25 Mg Tablet PO 0.25 mg Q8HR PRN Administration Anxiety Docusate Sodium 100 mg 01/27/25 09:00 01/29/25 08:12 Docusate Sodium 100 Mg Capsule PO Not Given DAILY MAREK Ferrous Sulfate 325 mg 01/29/25 09:00 01/29/25 08:19 Ferrous Sulfate [address] PO 325 mg DAILY MAREK Administration Glucose 15 gm 01/27/25 00:48 01/28/25 06:12 Glucose Oral Gel 15 Gm Of Glucse In 37.5 Gm Tube PO 15 gm PRN PRN Administration Hypoglycemia Protocol Albumin Human 100 mls @ 60 mls/hr 01/28/25 12:00 01/29/25 07:58 Albutein IVPB Infused Q6HR MAREK Infusion Piperacillin Sod/Tazobactam Sod 2.25 gm in 50 mls @ 100 mls/hr 01/28/25 12:00 01/29/25 06:15 Zosyn 2.25 Gm/Ns 50 Ml IVPB Infused Q6HR MAREK Infusion Norepinephrine Bitartrate 8 mg in 250 mls @ 0 mls/hr 01/28/25 13:30 01/29/25 10:00 Levophed 8 Mg/D5w 250 Ml IV CONT 0 mcg/min .Q0M MAREK 0 mls/hr Titration Protocol 0 MCG/MIN Lactulose 20 gm 01/30/25 09:00 Lactulose 20 Gm/30 Ml Udc PO QAM MAREK Ondansetron HCl 4 mg 01/26/25 18:49 Ondansetron Inj 4 Mg/2 Ml Vial IV PUSH Q4H PRN Nausea Pantoprazole Sodium 40 mg 01/28/25 09:00 01/29/25 08:12 Pantoprazole Sodium Iv 40 Mg Vial IV PUSH 40 mg Q12HR MAREK Administration Polyethylene Glycol 17 gm 01/27/25 00:28 Polyethylene Glycol 3350 17 Gm Powd.Pack PO DAILY PRN constipation Sodium Bicarbonate 650 mg 01/29/25 09:00 01/29/25 08:19 Sodium Bicarbonate Tab 650 Mg Tablet PO 02/01/25 08:59 650 mg BID MAREK Administration Sodium Chloride 10 ml 01/27/25 14:00 01/29/25 06:03 Central Line Flush IV PUSH 10 ml Q8HR MAREK Administration Sodium Chloride 10 ml 01/27/25 09:41 Central Line Flush IV PUSH PRN PRN with TPN bag changes Sodium Chloride 20 ml 01/27/25 09:41 Central Line Flush IV PUSH PRN PRN after blood draws Radiology Results: ITS Impressions Chest X-Ray 01/27/25 09:38 IMPRESSION: Right basal atelectasis versus pneumonia with mild to moderate pleural effusion. Renal Ultrasound 01/27/25 12:33 Impression: No significant renal abnormality. Multiple hypoechoic hepatic masses are compatible with hepatic metastatic disease. Abdominopelvic ascites. Labs Labs: Laboratory Tests 01/29/25 04:46 01/29/25 04:46 PT 29.1 H INR 2.7 Calcium 8.0 L Phosphorus 4.6 H Magnesium 1.6 Total Bilirubin 12.5 H AST 75 H ALT 31 Alkaline Phosphatase 422 H Total Protein 5.0 L Albumin 3.0 L Microbiology 01/28/25 12:21 Blood Blood Culture - Preliminary 01/28/25 12:10 Blood Blood Culture - Preliminary
--- NOTE | 2025-01-29 09:24 | WPDINTPN ---
Progress Note: A&P Assessment and Plan (1) Acute kidney injury: Code(s): N17.9 - Acute kidney failure, unspecified Status: Acute Assessment and Plan: Patient has chronic kidney disease and now has worsening kidney function which appears to be multifactorial. Sepsis leading to hypovolemia and hypotension, cirrhosis leading to intravascular volume depletion and possible combination of hepatorenal syndrome Nephrology f follow-up Creatinine stable at 3.03. Urine output is improved but still overall low Monitor urine output electrolytes and creatinine Continue IV albumin and Levophed infusion to maintain mean arterial pressure (2) Hypoglycemia: Code(s): E16.2 - Hypoglycemia, unspecified Status: Acute Assessment and Plan: Patient has hypoglycemia since presentation this is likely combination of poor liver function patient was on glipizide with worsening renal function Patient will be started on D20 infusion. Blood glucose is is being monitored q.1 hour Blood glucose is improved and patient is down to 15 mL/hour on D20 and I plan to wean it off today if the blood glucose levels allow Patient is off of glipizide I have requested family to bring food from home if that will make patient eat as she is not eating the hospital food Dietitian has been consulted and nutritional supplements are ordered (3) Sepsis: Code(s): A41.9 - Sepsis, unspecified organism Status: Acute Assessment and Plan: Sepsis likely secondary to UTI and recent SBP. 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 Patient was told that she is currently not a candidate for any treatment due to her performance status and multiple other morbidities. He also had discussion regarding hospice and comfort care with her. (5) Shock: Code(s): R57.9 - Shock, unspecified Status: Acute Assessment and Plan: Shock likely a combination sepsis and vasodilation from liver dysfunction Continue albumin Hold further crystalloids as patient is overall volume overload Continue Levophed infusion (6) Supratherapeutic INR: Code(s): R79.1 - Abnormal coagulation profile Status: Acute Assessment and Plan: Patient presented with supratherapeutic INR which is a combination of liver dysfunction and warfarin. Patient was treated with vitamin K and her INR has decreased to 2.3 INR is 2.7 today. Monitor Anticoagulation is going to be very difficult in this patient with coagulopathy from liver dysfunction (7) Pulmonary embolism: Code(s): I26.99 - Other pulmonary embolism without acute cor pulmonale Status: Acute Assessment and Plan: Patient was suspected to be having pulmonary embolism due to intermediate perfusion scan and history of malignancy. Patient was started on anticoagulation but anticoagulation had to be stopped due to significantly elevated INR. (8) Type 2 diabetes mellitus: Qualifiers: Diabetes mellitus complication status: with other specified complication Diabetes mellitus ferry terminal agent insulin use: without prison use Qualified Code(s): E11.69 - Type 2 diabetes mellitus with other specified complication Code(s): E11.9 - Type 2 diabetes mellitus without complications Status: Chronic Assessment and Plan: At this point patient is hypoglycemic (9) Spontaneous bacterial peritonitis: Code(s): K65.2 - Spontaneous bacterial peritonitis Status: Acute Assessment and Plan: Patient was diagnosed with SBP on last hospitalization and is currently on broad-spectrum antibiotic (10) Jaundice: Code(s): R17 - Unspecified jaundice Status: Acute Assessment and Plan: Jaundice secondary to cholangiocarcinoma which could be obstruction of the biliary tract versus intrahepatic cholestasis from extensive metastatic GI consult CT scan ordered and (11) Cirrhosis: Code(s): K74.60 - Unspecified cirrhosis of liver Status: Acute Assessment and Plan: Patient has evidence of cirrhosis Ammonia level was elevated and patient has been started on lactulose (12) Hepatorenal failure: Code(s): K76.7 - Hepatorenal syndrome Status: Acute Assessment and Plan: See above (13) Chronic kidney disease, stage 3b: Code(s): N18.32 - Chronic kidney disease, stage 3b Status: Chronic Assessment and Plan: See above (14) Urinary tract infection: Code(s): N39.0 - Urinary tract infection, site not specified Status: Inactive Assessment and Plan: See above Plan DVT prophylaxis -SCDs Stress ulcer prophylaxis -PPI Nutrition -diet is ordered, dietitian consult, nutritional supplements Code Status -DNI with request for 1 round of CPR I had extensive discussion with patient and her family at bedside regarding goals of care and code status. She states that she does not want intubation and on mechanical ventilation even if that means she would . She states that she would like to have 1 round of CPR and 1 electric shock if indicated in case of cardiac arrest to see if she can be revived. She states that if it is not successful then she does not want further resuscitation measures to continued. Patient is currently in light of underlying metastatic cholangiocarcinoma has overall poor prognosis. I answered their questions. Total Critical Care Time - 30 minutes Due to a high probability of clinically significant, life threatening deterioration, the patient required my highest level of preparedness to intervene emergently and I personally spent this critical care time directly and personally managing the patient. This critical care time included obtaining a history; examining the patient; pulse oximetry; ordering and review of studies; arranging urgent treatment with development of a management plan; evaluation of patient's response to treatment; frequent reassessment; and discussions with other providers. It was exclusive of separately billable procedures and treating other patients and teaching time. Please see Assessment and Plan section and the rest of the note for further information on patient assessment and treatment Subjective Date/time seen: 01/29/25 Overnight events reviewed. Afebrile. She ate cheese burger that was brought by her family yesterday. She denies any complaints this morning and states that she has back ache from staying in bed. She is having bowel movement. Hypoglycemia has improved and patient is down to 15 mL/hour of D 20 She remains on room air She is on 3 mics of Levophed Urine output has improved to an extent is still overall Review of Systems Review of Systems: All systems reviewed & are unremarkable except as noted in HPI and below (HPI) Exam Narrative: General: Pt is alert awake and in NAD Lungs/Chest: Trachea central Clear BS B/L, No crackles or wheezing. Breath sounds are decreased on bases Cardiac: RRR. Normal S1 S2. No murmurs Circulation: 6 ft are warm Abdomen: Morbidly obese, soft. Distended NT. ND. Extremities: Bilateral pitting edema present : Arnold in place Neurologic: Follows commands. Moves all 4 extremities PERRL AO x3 Skin: Jaundiced skin Objective Data Vital Signs Vital Signs: Vital Signs - 24 hr 01/28/25 10:00 01/28/25 11:46 01/28/25 12:00 Temperature 36.3 C L Pulse Rate 90 89 Respiratory Rate 20 Blood Pressure 85/34 L Pulse Oximetry 99 Oxygen Delivery Room Air 01/28/25 12:00 01/28/25 13:42 01/28/25 13:49 Temperature 36.7 C Pulse Rate 93 91 91 Respiratory Rate 21 H Blood Pressure 106/46 L 97/49 L Pulse Oximetry 97 Oxygen Delivery 01/28/25 14:00 01/28/25 14:00 01/28/25 16:00 Temperature 36.7 C Pulse Rate 92 92 Respiratory Rate 15 Blood Pressure 122/45 L Pulse Oximetry 100 Oxygen Delivery Room Air 01/28/25 16:00 01/28/25 16:00 01/28/25 18:00 Temperature 36.8 C Pulse Rate 95 95 95 Respiratory Rate 19 Blood Pressure 114/78 Pulse Oximetry 97 Oxygen Delivery 01/28/25 18:00 01/28/25 20:00 01/28/25 20:00 Temperature Pulse Rate 95 103 H Respiratory Rate 18 Blood Pressure 129/50 L 132/53 L Pulse Oximetry 100 98 Oxygen Delivery Room Air 01/28/25 20:00 01/28/25 20:00 01/28/25 22:00 Temperature 36.4 C Pulse Rate 103 H 96 103 H Respiratory Rate 17 Blood Pressure 132/53 L 113/47 L Pulse Oximetry 98 Oxygen Delivery 01/28/25 22:00 01/28/25 22:00 01/29/25 00:00 Temperature Pulse Rate 103 H 103 H 84 Respiratory Rate 14 Blood Pressure 113/47 L 95/42 L Pulse Oximetry 92 Oxygen Delivery 01/29/25 00:00 01/29/25 00:00 01/29/25 00:00 Temperature 36.8 C Pulse Rate 84 84 Respiratory Rate 17 Blood Pressure 125/50 L Pulse Oximetry 98 98 Oxygen Delivery Room Air 01/29/25 02:00 01/29/25 02:00 01/29/25 02:00 Temperature Pulse Rate 92 92 92 Respiratory Rate 18 Blood Pressure 107/65 107/65 Pulse Oximetry 100 Oxygen Delivery 01/29/25 04:00 01/29/25 04:00 01/29/25 04:00 Temperature 36.4 C Pulse Rate 87 87 Respiratory Rate 19 Blood Pressure 119/82 119/82 Pulse Oximetry 100 100 Oxygen Delivery Room Air 01/29/25 04:00 01/29/25 06:00 01/29/25 06:00 Temperature Pulse Rate 95 83 80 Respiratory Rate 14 Blood Pressure 112/43 L Pulse Oximetry 100 Oxygen Delivery 01/29/25 06:00 01/29/25 07:59 01/29/25 08:00 Temperature 36.3 C L Pulse Rate 80 86 92 Respiratory Rate 18 Blood Pressure 125/56 L 126/46 L 118/45 L Pulse Oximetry 93 Oxygen Delivery 01/29/25 08:12 Temperature Pulse Rate 87 Respiratory Rate Blood Pressure 118/45 L Pulse Oximetry Oxygen Delivery Intake/Output Intake/Output: Intake & Output 01/26/25 01/27/25 01/28/25 01/29/25 23:59 23:59 23:59 23:59 Intake Total 2365 2121.8 898.4 Output Total 241 680 550 Balance 2124 1441.8 348.4 Meds/Results Medications: Active Medications Generic Name Dose Route Start Last Admin Trade Name Freq PRN Reason Stop Dose Admin Hydrocodone Bitart/Acetaminophen 1 tab 01/28/25 13:52 01/28/25 20:40 Hydrocodone/Acetaminophen (*Crx) 5-325 Mg Tablet PO 1 tab Q4H PRN Administration Pain Rated 4-6 Alprazolam 0.25 mg 01/27/25 17:14 01/28/25 18:13 Alprazolam (*Crx) 0.25 Mg Tablet PO 0.25 mg Q8HR PRN Administration Anxiety Docusate Sodium 100 mg 01/27/25 09:00 01/29/25 08:12 Docusate Sodium 100 Mg Capsule PO Not Given DAILY MAREK Ferrous Sulfate 325 mg 01/29/25 09:00 01/29/25 08:19 Ferrous Sulfate [address] PO 325 mg DAILY MAREK Administration Glucose 15 gm 01/27/25 00:48 01/28/25 06:12 Glucose Oral Gel 15 Gm Of Glucse In 37.5 Gm Tube PO 15 gm PRN PRN Administration Hypoglycemia Protocol Albumin Human 100 mls @ 60 mls/hr 01/28/25 12:00 01/29/25 07:58 Albutein IVPB Infused Q6HR MAREK Infusion Piperacillin Sod/Tazobactam Sod 2.25 gm in 50 mls @ 100 mls/hr 01/28/25 12:00 01/29/25 06:15 Zosyn 2.25 Gm/Ns 50 Ml IVPB Infused Q6HR MAREK Infusion Norepinephrine Bitartrate 8 mg in 250 mls @ 5.625 mls/hr 01/28/25 13:30 01/29/25 08:12 Levophed 8 Mg/D5w 250 Ml IV CONT 3 mcg/min .Q24H MAREK 5.63 mls/hr Titration Protocol 3 MCG/MIN Dextrose 500 mls @ 15 mls/hr 01/29/25 02:58 IV CONT .Q24H MAREK Magnesium Sulfate 2 gm in 50 mls @ 25 mls/hr 01/29/25 08:15 01/29/25 08:18 Magnesium Sulf 2 Gm/Water 50ml IVPB 01/29/25 10:14 25 mls/hr ONCE ONE Administration Lactulose 20 gm 01/28/25 15:25 01/29/25 08:12 Lactulose 20 Gm/30 Ml Udc PO 20 gm Q12HR MAREK Administration Ondansetron HCl 4 mg 01/26/25 18:49 Ondansetron Inj 4 Mg/2 Ml Vial IV PUSH Q4H PRN Nausea Pantoprazole Sodium 40 mg 01/28/25 09:00 01/29/25 08:12 Pantoprazole Sodium Iv 40 Mg Vial IV PUSH 40 mg Q12HR MAREK Administration Polyethylene Glycol 17 gm 01/27/25 00:28 Polyethylene Glycol 3350 17 Gm Powd.Pack PO DAILY PRN constipation Sodium Bicarbonate 650 mg 01/29/25 09:00 01/29/25 08:19 Sodium Bicarbonate Tab 650 Mg Tablet PO 02/01/25 08:59 650 mg BID MAREK Administration Sodium Chloride 10 ml 01/27/25 14:00 01/29/25 06:03 Central Line Flush IV PUSH 10 ml Q8HR MAREK Administration Sodium Chloride 10 ml 01/27/25 09:41 Central Line Flush IV PUSH PRN PRN with TPN bag changes Sodium Chloride 20 ml 01/27/25 09:41 Central Line Flush IV PUSH PRN PRN after blood draws Vancomycin HCl 1 each 01/28/25 12:38 Vancomycin For Acute Kidney Injury IVPB PRN PRN Vancomycin Protocol Radiology Results: ITS Impressions Chest X-Ray 01/27/25 09:38 IMPRESSION: Right basal atelectasis versus pneumonia with mild to moderate pleural effusion. Renal Ultrasound 01/27/25 12:33 Impression: No significant renal abnormality. Multiple hypoechoic hepatic masses are compatible with hepatic metastatic disease. Abdominopelvic ascites. Labs Labs: Laboratory Results - last 24 hr 01/27/25 01/28/25 01/28/25 12:52 10:04 11:30 WBC RBC Hgb Hct MCV MCH MCHC RDW Plt Count MPV % Immature Plt Fraction PT INR Sodium Potassium Chloride Carbon Dioxide Anion Gap BUN Creatinine Estim Creat Clear Calc Estimated GFR Glucose POC Capillary Glucose 104 93 Lactic Acid Calcium Phosphorus Magnesium Total Bilirubin AST ALT Alkaline Phosphatase Ammonia Total Protein Albumin Cortisol Baseline Cortisol Resp 30 Min Cortisol Resp 60 Min Nasal MRSA (PCR) Tot Complement (CH50) 29 L 01/28/25 01/28/25 01/28/25 12:10 12:54 13:45 WBC RBC Hgb Hct MCV MCH MCHC RDW Plt Count MPV % Immature Plt Fraction PT INR Sodium Potassium Chloride Carbon Dioxide Anion Gap BUN Creatinine Estim Creat Clear Calc Estimated GFR Glucose POC Capillary Glucose Lactic Acid 3.3 H 2.6 H Calcium Phosphorus Magnesium Total Bilirubin AST ALT Alkaline Phosphatase Ammonia Total Protein Albumin Cortisol Baseline 34.50 Cortisol Resp 30 Min 43.40 Cortisol Resp 60 Min Nasal MRSA (PCR) Tot Complement (CH50) 01/28/25 01/28/25 01/28/25 13:51 14:18 15:02 WBC RBC Hgb Hct MCV MCH MCHC RDW Plt Count MPV % Immature Plt Fraction PT INR Sodium Potassium Chloride Carbon Dioxide Anion Gap BUN Creatinine Estim Creat Clear Calc Estimated GFR Glucose POC Capillary Glucose 94 Lactic Acid Calcium Phosphorus Magnesium Total Bilirubin AST ALT Alkaline Phosphatase Ammonia 39 H Total Protein Albumin Cortisol Baseline Cortisol Resp 30 Min Cortisol Resp 60 Min 46.40 Nasal MRSA (PCR) Not detected Tot Complement (CH50) 01/28/25 01/28/25 01/28/25 15:10 16:06 16:54 WBC RBC Hgb Hct MCV MCH MCHC RDW Plt Count MPV % Immature Plt Fraction PT INR Sodium Potassium Chloride Carbon Dioxide Anion Gap BUN Creatinine Estim Creat Clear Calc Estimated GFR Glucose POC Capillary Glucose 111 H 153 H 131 H Lactic Acid Calcium Phosphorus Magnesium Total Bilirubin AST ALT Alkaline Phosphatase Ammonia Total Protein Albumin Cortisol Baseline Cortisol Resp 30 Min Cortisol Resp 60 Min Nasal MRSA (PCR) Tot Complement (CH50) 01/28/25 01/28/25 01/28/25 18:05 20:29 21:21 WBC RBC Hgb Hct MCV MCH MCHC RDW Plt Count MPV % Immature Plt Fraction PT INR Sodium 128 L Potassium 4.0 Chloride 99 Carbon Dioxide 14 L Anion Gap 15 H BUN 74 H Creatinine 3.17 H Estim Creat Clear Calc 22 Estimated GFR 14 L Glucose 157 H POC Capillary Glucose 143 H 165 H Lactic Acid 3.5 H Calcium 8.1 L Phosphorus Magnesium Total Bilirubin AST ALT Alkaline Phosphatase Ammonia Total Protein Albumin Cortisol Baseline Cortisol Resp 30 Min Cortisol Resp 60 Min Nasal MRSA (PCR) Tot Complement (CH50) 01/28/25 01/28/25 01/29/25 22:30 23:33 00:35 WBC RBC Hgb Hct MCV MCH MCHC RDW Plt Count MPV % Immature Plt Fraction PT INR Sodium Potassium Chloride Carbon Dioxide Anion Gap BUN Creatinine Estim Creat Clear Calc Estimated GFR Glucose POC Capillary Glucose 209 H 166 H 167 H Lactic Acid Calcium Phosphorus Magnesium Total Bilirubin AST ALT Alkaline Phosphatase Ammonia Total Protein Albumin Cortisol Baseline Cortisol Resp 30 Min Cortisol Resp 60 Min Nasal MRSA (PCR) Tot Complement (CH50) 01/29/25 01/29/25 01/29/25 01:51 02:39 04:24 WBC RBC Hgb Hct MCV MCH MCHC RDW Plt Count MPV % Immature Plt Fraction PT INR Sodium Potassium Chloride Carbon Dioxide Anion Gap BUN Creatinine Estim Creat Clear Calc Estimated GFR Glucose POC Capillary Glucose 163 H 152 H 145 H Lactic Acid Calcium Phosphorus Magnesium Total Bilirubin AST ALT Alkaline Phosphatase Ammonia Total Protein Albumin Cortisol Baseline Cortisol Resp 30 Min Cortisol Resp 60 Min Nasal MRSA (PCR) Tot Complement (CH50) 01/29/25 01/29/25 01/29/25 04:46 05:51 06:28 WBC 18.4 H RBC 2.76 L Hgb 8.0 L Hct 25.8 L MCV 93.5 MCH 29.0 MCHC 31.0 L RDW 24.4 H Plt Count 119 L MPV 11.0 H % Immature Plt Fraction 4.2 PT 29.1 H INR 2.7 Sodium 130 L Potassium 3.9 Chloride 100 Carbon Dioxide 15 L Anion Gap 15 H BUN 75 H Creatinine 3.03 H Estim Creat Clear Calc 23 Estimated GFR 15 L Glucose 144 H POC Capillary Glucose 150 H 162 H Lactic Acid Calcium 8.0 L Phosphorus 4.6 H Magnesium 1.6 Total Bilirubin 12.5 H AST 75 H ALT 31 Alkaline Phosphatase 422 H Ammonia Total Protein 5.0 L Albumin 3.0 L Cortisol Baseline Cortisol Resp 30 Min Cortisol Resp 60 Min Nasal MRSA (PCR) Tot Complement (CH50)
[2025-01-29 10:07] LABS: Hepatitis B Surface Antigen Negative (Negative)
[2025-01-29 10:11] LABS: Glucose Point of Care 136 mg/dl (65-105)
[2025-01-29 10:11] LABS: Glucose Point of Care 152 mg/dl (65-105)
[2025-01-29 10:11] LABS: Glucose Point of Care 149 mg/dl (65-105)
[2025-01-29 10:34] LABS: Hepatitis B Surface Anti Res Positive
[2025-01-29 11:23] LABS: Glucose Point of Care 138 mg/dl (65-105)
[2025-01-29 12:23] LABS: Glucose Point of Care 169 mg/dl (65-105)
--- NOTE | 2025-01-29 12:27 | P.CONGI_ITS ---
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 She is currently in the ICU with septic shock requiring vasopressor support and has developed [id number] renal failure, now being treated with intravenous albumin. Despite over 48 hours of maximal albumin administration, her creatinine has not improved, strongly suggesting hepatorenal syndrome as the etiology of her renal failure, a common complication of advanced liver disease. The recurrence of SBP is a significant concern and a likely contributing factor to her current sepsis and subsequent renal impairment. The persistently elevated white blood cell count, despite ongoing antibiotic coverage, warrants further investigation with a diagnostic paracentesis to assess for recurrent infection. Due to her advanced liver disease and associated coagulopathy, she is only a candidate for Lovenox prophylaxis; warfarin and direct oral anticoagulants are contraindicated. In the management of suspected HRS, the use of vasoconstrictors such as vasopressin or norepinephrine, in addition to octreotide, should be considered to improve renal perfusion. Unfortunately, given the combination of her advanced cirrhosis and aggressive multifocal cholangiocarcinoma, her overall prognosis is very poor. GI Consult Note Consult date/time: 01/29/25 12:27 HPI: This is a consultation for the general management and prognosis of Nikki Don, a 74-year-old female currently admitted to the ICU for sepsis requiring norepinephrine for blood pressure support. Her history is significant for decompensated cirrhosis, which recently led to hospitalization complicated by spontaneous bacterial peritonitis . During that admission, ascites was noted, and paracentesis confirmed SBP with increased polymorphonuclear cells, treated successfully with a 5-day course of antibiotics. Of critical importance, a liver biopsy during the prior admission revealed multifocal cholangiocarcinoma. Additionally, she developed acute shortness of breath and tachycardia, leading to an intermediate probability assessment for pulmonary embolus and initiation of low-dose warfarin therapy. Her current ICU presentation includes an elevated white blood cell count and a supratherapeutic INR, for which vitamin K has been administered. We are consulted for guidance on her overall management and prognosis. Her most relevant laboratory data include: White count 18.4, unchanged from admission, hemoglobin 8, total bilirubin 8.6, albumin 2.4, creatinine 3.2 ( increased from January 22: 1.8 ). Review of Systems 2 Review of Systems: All systems reviewed & are unremarkable except as noted in HPI and below PMFSH Past Medical History Medical History Vitamin D deficiency, unspecified CHF (congestive heart failure) Dyslipidemia CKD (chronic kidney disease) Type 2 diabetes mellitus Age-related macular degeneration Essential (primary) hypertension Psychophysiological insomnia Surgical History Surgical History History of tonsillectomy Status post cataract extraction of both eyes with insertion of intraocular lens Hx of cholecystectomy H/O hysterectomy for benign disease Family History Family History Mother Hypertension Family history of Alzheimer's disease Family history of type 1 diabetes mellitus Diabetes mellitus Father Family history of lymphoma History of kidney disease Hypertension Grandparent Breast cancer Social History Social History Social History: She is . She recently saw older home of 50 or 50 years to her granddaughter and grandson in law. But she now lives with them and takes care of her [id number] great grandchild 5 days a week. She states she will drink 1 beer about every other month. She is a lifelong nonsmoker and does not use illicit substances. She ambulates with a walker. 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 Code status: Full code Surrogate decision maker: Jenn France (daughter) Smoking status: Never smoker Second hand tobacco smoke exposure: No Alcohol intake: never Drinks per week: 1 Substance use: current Substance use type: does not use Other substance usage details: once every 3-4 months Do You Feel Safe in your Home?: Yes Lack of Transportation: No Lack of Food: Never True Current Housing: I Have Housing Concerned About Future Housing: No Difficulty Paying Gas/Electric Bills: No Difficulty Paying for Meds: No Currently Unemployed: No Education: High School Diploma/GED Difficulty w/ Childcare or Family Care: No Living arrangements: with family Additional living arrangements comments: pt lives with granddaughter and granddaughter Occupation/Education: retired Gender identity (if verbalized by the patient): Female Sexual Orientation (if Verbalized by the Patient): Straight or Heterosexual Spiritual care concerns: No Meds Home Medications and Allergies Home Medications ?Medication ?Instructions ?Recorded ?Confirmed ?Type chlorthalidone 25 mg tablet 25 mg PO DAILY #90 tabs 05/29/24 01/26/25 Rx glipizide 5 mg tablet 10 mg (2 x 5 mg) PO BID 90 days 05/29/24 01/26/25 Rx #360 tabs ondansetron HCl 4 mg tablet 4 mg PO Q8H PRN nausea and 10/22/24 01/26/25 Rx vomiting #20 tabs metformin 1,000 mg tablet 500 mg (1/2 x 1,000 mg) PO BID #90 11/15/24 01/26/25 Rx tabs tizanidine 4 mg tablet 4 mg PO TID PRN muscle spasticity 12/28/24 01/26/25 Rx #30 tabs alprazolam 0.5 mg tablet 0.25 mg PO HS insomnia 01/04/25 01/26/25 History trazodone 50 mg tablet 50 mg PO QHS PRN sleep #60 tabs 01/09/25 01/26/25 Rx metoprolol tartrate 25 mg tablet 12.5 mg (1/2 x 25 mg) PO BID #90 01/24/25 01/26/25 Rx tabs docusate sodium 100 mg capsule 100 mg PO DAILY 01/26/25 01/26/25 History ergocalciferol (vitamin D2) 1,250 1,250 mcg PO WEEKLY 01/26/25 01/26/25 History mcg (50,000 unit) capsule (Vitamin D2) polyethylene glycol 3350 17 gram 17 g PO DAILY PRN constipation 01/26/25 01/26/25 History oral powder packet (Miralax) warfarin 3 mg tablet 3 mg PO QPM 01/26/25 01/26/25 History Allergies Allergy/AdvReac Type Severity Reaction Status Date / Time No Known Allergies Allergy Verified 01/15/25 13:38 Vital Signs Vital Signs - 24 hr 01/28/25 13:42 01/28/25 13:49 01/28/25 14:00 Temperature 98.0 F Pulse Rate 91 91 92 Respiratory Rate 21 H Blood Pressure 106/46 L 97/49 L Pulse Oximetry 97 Oxygen Delivery 01/28/25 14:00 01/28/25 16:00 01/28/25 16:00 Temperature 98.1 F Pulse Rate 92 95 Respiratory Rate 15 Blood Pressure 122/45 L Pulse Oximetry 100 Oxygen Delivery Room Air 01/28/25 16:00 01/28/25 18:00 01/28/25 18:00 Temperature 98.2 F Pulse Rate 95 95 95 Respiratory Rate 19 18 Blood Pressure 114/78 129/50 L Pulse Oximetry 97 100 Oxygen Delivery 01/28/25 20:00 01/28/25 20:00 01/28/25 20:00 Temperature 97.6 F Pulse Rate 103 H 103 H Respiratory Rate 17 Blood Pressure 132/53 L 132/53 L Pulse Oximetry 98 98 Oxygen Delivery Room Air 01/28/25 20:00 01/28/25 22:00 01/28/25 22:00 Temperature Pulse Rate 96 103 H 103 H Respiratory Rate 14 Blood Pressure 113/47 L 113/47 L Pulse Oximetry 92 Oxygen Delivery 01/28/25 22:00 01/29/25 00:00 01/29/25 00:00 Temperature Pulse Rate 103 H 84 Respiratory Rate Blood Pressure 95/42 L Pulse Oximetry 98 Oxygen Delivery Room Air 01/29/25 00:00 01/29/25 00:00 01/29/25 02:00 Temperature 98.2 F Pulse Rate 84 84 92 Respiratory Rate 17 Blood Pressure 125/50 L Pulse Oximetry 98 Oxygen Delivery 01/29/25 02:00 01/29/25 02:00 01/29/25 04:00 Temperature Pulse Rate 92 92 Respiratory Rate 18 Blood Pressure 107/65 107/65 Pulse Oximetry 100 100 Oxygen Delivery Room Air 01/29/25 04:00 01/29/25 04:00 01/29/25 04:00 Temperature 97.6 F Pulse Rate 87 87 95 Respiratory Rate 19 Blood Pressure 119/82 119/82 Pulse Oximetry 100 Oxygen Delivery 01/29/25 06:00 01/29/25 06:00 01/29/25 06:00 Temperature Pulse Rate 83 80 80 Respiratory Rate 14 Blood Pressure 112/43 L 125/56 L Pulse Oximetry 100 Oxygen Delivery 01/29/25 07:59 01/29/25 08:00 01/29/25 08:00 Temperature 97.4 F L Pulse Rate 86 92 92 Respiratory Rate 18 16 Blood Pressure 126/46 L 118/45 L Pulse Oximetry 93 93 Oxygen Delivery Room Air 01/29/25 08:00 01/29/25 08:12 01/29/25 08:30 Temperature Pulse Rate 80 87 85 Respiratory Rate Blood Pressure 118/45 L 103/48 L Pulse Oximetry Oxygen Delivery 01/29/25 08:45 01/29/25 09:00 01/29/25 09:15 Temperature Pulse Rate 84 84 92 Respiratory Rate Blood Pressure 108/37 L 81/71 L 103/51 L Pulse Oximetry Oxygen Delivery 01/29/25 09:30 01/29/25 09:45 01/29/25 10:00 Temperature Pulse Rate 92 91 92 Respiratory Rate Blood Pressure 103/51 L 87/76 L 101/45 L Pulse Oximetry Oxygen Delivery 01/29/25 10:00 01/29/25 10:00 01/29/25 12:00 Temperature 97.4 F L Pulse Rate 89 101 H 92 Respiratory Rate 17 18 Blood Pressure 101/45 L 107/44 L Pulse Oximetry 97 99 Oxygen Delivery Exam 2 Narrative: General: elderly but WD/WN female in NAD, modereately jaundiced Heart: normal S1 and S2; no rub Lungs: clear anteriorly; decrease at bases Abdomen: obese but soft, nontender, distended, difficult to evaluate fluid wave sign, positive bowel sounds Extremities: no cyanosis or clubbing; 1 - 2+ edema Skin: jaundice noted; dry and intact Results Labs 01/29/25 04:46 01/29/25 04:46 Labs: Short CBC 01/29/25 Range/Units 04:46 WBC 18.4 H (4.5-10.0) K/mm3 Hgb 8.0 L (12.0-15.0) g/dL Hct 25.8 L (37.0-47.0) % Plt Count 119 L (150-375) k/mm3 BMP 01/28/25 01/29/25 21:21 04:46 Sodium 128 L 130 L Potassium 4.0 3.9 Chloride 99 100 Carbon Dioxide 14 L 15 L BUN 74 H 75 H Creatinine 3.17 H 3.03 H Glucose 157 H 144 H Calcium 8.1 L 8.0 L Liver Function 01/29/25 Range/Units 04:46 Total Bilirubin 12.5 H (0.2-1.3) mg/dL AST 75 H (14-36) U/L ALT 31 (6-35) U/L Alkaline Phosphatase 422 H (38-126) U/L Albumin 3.0 L (3.5-5.1) g/dL
--- NOTE | 2025-01-29 13:10 | PM.IMPN ---
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 Ambulate with assistance and fall precautions Liver failure, cirrhosis liver biopsy performed on 01/21 demonstrating cholangiocarcinoma with extensive scarring in necrosis. Oncology consultation jaundice Secondary to cholangiocarcinoma oncology team on board Raymond on CKD: Dehydration versus hepatorenal Received IV fluid Bladder scan. Renal ultrasound unremarkable. Repeat UA. Holding CASING TRIMMER chlorthalidone. Blood pressure improved after getting levophed Received albumin Trend renal function. Monitor urine output. Daily weights. Nephrology team on board. Hyperkalemia In setting of RAYMOND and CKD Continue to monitor severe sepsis Treat presumed UTI/SBP zosyn/ vanc follow culture results supratherapeutic INR improved patient received vitamin K 10 mg IV x1 on admission. No evidence of overt bleeding. Her anemia stable. hypoglycemia. On D20 W Continue Accu-Cheks a.c. HS. ----- SCDs. DNR/DNIcode. Diabetic heart healthy diet. Subjective Date/time seen: 01/29/25 13:10 Interval history: per hPI: A 74-year-old female with PMH CKD, CHF, hypertension, morbid obesity with BMI 49, [id number] diabetes mellitus, vitamin-D deficiency, possible cirrhosis, suspected PE, history of SBP, presents weakness. The patient was recently discharged from [facility] 01/23/2025 a multitude of issues including weakness as her presenting complaint. [facility] as she was previously living at home. Patient reports she was doing well for a few days on the day of admission 01/27/2024 the patient became increasingly weak where she then returned to [place] [facility]. ER revealed presenting vital signs of temperature 96.6? F, respiratory rate 20, heart rate 79, 100% SpO2 on room air, blood pressure 92/47. Daughter reports the patient had large volume fluid resuscitation during last admission to wear the patient developed lower extremity edema and at the same time the low blood pressure is new. Albumin is 3.0. White count chronically elevated but this admission presenting with 18.4 with a hemoglobin 8.9 which is her usual, platelets 173, INR 8.8 patient reports it was normal at 2.3 last checked by the [facility]. Patient denies any overt bleeding or black stool. BUN 76, serum creatinine 3.29, last discharge was serum creatinine 1.98. Patient reports voiding twice a day. Total bilirubin 7.6, AST 104, ALT 37 high, alkaline phosphatase 563, troponin 0.012, BNP 2320, albumin 2.9. Urinalysis grossly abnormal indicating infection although many squamous cells. A repeat INR was drawn which confirmed supratherapeutic INR, patient given vitamin K 10 mg IV x1, started on normal saline at 125 cc/hour. 01/27/25 Patient was seen examined. Complained of Arnold catheter and asking to discontinue that. Denies any chest pain, shortness the braeth. last BM yesterday and was nonbloody. Patient has been diagnosed with cholangiocarcinoma. Oncology team on board. Has worsening kidney function. Nephrology team on board Elevated INR. Received vitamin K. Monitor INR level. No bleeding reported. Hypoglycemia. Continue with D10 W. Patient wanted to be full code 01/28/25 Patient was seen and examined at bedside. She is feeling tired. Denies any chest pain, abdominal pain, nausea vomiting. Worsening kidney function. Ultrasound today showed an abnormality. Follow Nephrology team accommodation. INR improved to2.3 Continued to have hypoglycemia. on 10 W. recheck cortisol test, thyroid function. We will consult dietitian. Chest x-ray showed [id number] pleural effusion Patient was transferred to ICU with hyperglycemia, hypotension. Continue D20. Started on levophed. Discussed with patient's family at bedside 01/29/25 Patient was seen and examined at bedside. she is sleepy , feeling fine denies chest pain, abdominal pain, nausea vomiting. skin is more icterus today. Blood sugar under better control d20W. On Levophed, blood pressure improving. Kidney function slightly better. Received albumin plan for paracentesis when able to rule out SBP, continue Abx Review of Systems Review of Systems: All systems reviewed & are unremarkable except as noted in HPI and below (HPI) Exam Const: General: comfortable and no acute distress Other: A&O x3 HENMT: Mouth: Yes moist mucous membranes Eyes: Pupils: Equal, round and reactive pupils present Resp: Effort & Inspection: normal respiratory effort Auscultation: clear to auscultation bilaterally Cardio: Rate: regular rate Rhythm: regular rhythm Skin: Other: Jaundice Neuro: Cranial nerves: Yes Equal, round and reactive pupils present Extrem: General: edema Objective Data Vital Signs Vital Signs: Vital Signs - 24 hr 01/28/25 13:42 01/28/25 13:49 01/28/25 14:00 Temperature 98.0 F Pulse Rate 91 91 92 Respiratory Rate 21 H Blood Pressure 106/46 L 97/49 L Pulse Oximetry 97 Oxygen Delivery 01/28/25 14:00 01/28/25 16:00 01/28/25 16:00 Temperature 98.1 F Pulse Rate 92 95 Respiratory Rate 15 Blood Pressure 122/45 L Pulse Oximetry 100 Oxygen Delivery Room Air 01/28/25 16:00 01/28/25 18:00 01/28/25 18:00 Temperature 98.2 F Pulse Rate 95 95 95 Respiratory Rate 19 18 Blood Pressure 114/78 129/50 L Pulse Oximetry 97 100 Oxygen Delivery 01/28/25 20:00 01/28/25 20:00 01/28/25 20:00 Temperature 97.6 F Pulse Rate 103 H 103 H Respiratory Rate 17 Blood Pressure 132/53 L 132/53 L Pulse Oximetry 98 98 Oxygen Delivery Room Air 01/28/25 20:00 01/28/25 22:00 01/28/25 22:00 Temperature Pulse Rate 96 103 H 103 H Respiratory Rate 14 Blood Pressure 113/47 L 113/47 L Pulse Oximetry 92 Oxygen Delivery 01/28/25 22:00 01/29/25 00:00 01/29/25 00:00 Temperature Pulse Rate 103 H 84 Respiratory Rate Blood Pressure 95/42 L Pulse Oximetry 98 Oxygen Delivery Room Air 01/29/25 00:00 01/29/25 00:00 01/29/25 02:00 Temperature 98.2 F Pulse Rate 84 84 92 Respiratory Rate 17 Blood Pressure 125/50 L Pulse Oximetry 98 Oxygen Delivery 01/29/25 02:00 01/29/25 02:00 01/29/25 04:00 Temperature Pulse Rate 92 92 Respiratory Rate 18 Blood Pressure 107/65 107/65 Pulse Oximetry 100 100 Oxygen Delivery Room Air 01/29/25 04:00 01/29/25 04:00 01/29/25 04:00 Temperature 97.6 F Pulse Rate 87 87 95 Respiratory Rate 19 Blood Pressure 119/82 119/82 Pulse Oximetry 100 Oxygen Delivery 01/29/25 06:00 01/29/25 06:00 01/29/25 06:00 Temperature Pulse Rate 83 80 80 Respiratory Rate 14 Blood Pressure 112/43 L 125/56 L Pulse Oximetry 100 Oxygen Delivery 01/29/25 07:59 01/29/25 08:00 01/29/25 08:00 Temperature 97.4 F L Pulse Rate 86 92 92 Respiratory Rate 18 16 Blood Pressure 126/46 L 118/45 L Pulse Oximetry 93 93 Oxygen Delivery Room Air 01/29/25 08:00 01/29/25 08:12 01/29/25 08:30 Temperature Pulse Rate 80 87 85 Respiratory Rate Blood Pressure 118/45 L 103/48 L Pulse Oximetry Oxygen Delivery 01/29/25 08:45 01/29/25 09:00 01/29/25 09:15 Temperature Pulse Rate 84 84 92 Respiratory Rate Blood Pressure 108/37 L 81/71 L 103/51 L Pulse Oximetry Oxygen Delivery 01/29/25 09:30 01/29/25 09:45 01/29/25 10:00 Temperature Pulse Rate 92 91 92 Respiratory Rate Blood Pressure 103/51 L 87/76 L 101/45 L Pulse Oximetry Oxygen Delivery 01/29/25 10:00 01/29/25 10:00 01/29/25 12:00 Temperature 97.4 F L Pulse Rate 89 101 H 92 Respiratory Rate 17 18 Blood Pressure 101/45 L 107/44 L Pulse Oximetry 97 99 Oxygen Delivery Intake/Output Intake/Output: Intake & Output 01/26/25 01/27/25 01/28/25 01/29/25 23:59 23:59 23:59 23:59 Intake Total 2365 2121.8 968.3 Output Total 241 680 550 Balance 2124 1441.8 418.3 Meds/Results Medications: Active Medications Generic Name Dose Route Start Last Admin Trade Name Freq PRN Reason Stop Dose Admin Hydrocodone Bitart/Acetaminophen 1 tab 01/28/25 13:52 01/28/25 20:40 Hydrocodone/Acetaminophen (*Crx) 5-325 Mg Tablet PO 1 tab Q4H PRN Administration Pain Rated 4-6 Alprazolam 0.25 mg 01/27/25 17:14 01/28/25 18:13 Alprazolam (*Crx) 0.25 Mg Tablet PO 0.25 mg Q8HR PRN Administration Anxiety Docusate Sodium 100 mg 01/27/25 09:00 01/29/25 08:12 Docusate Sodium 100 Mg Capsule PO Not Given DAILY MAREK Ferrous Sulfate 325 mg 01/29/25 09:00 01/29/25 08:19 Ferrous Sulfate [address] PO 325 mg DAILY MAREK Administration Glucose 15 gm 01/27/25 00:48 01/28/25 06:12 Glucose Oral Gel 15 Gm Of Glucse In 37.5 Gm Tube PO 15 gm PRN PRN Administration Hypoglycemia Protocol Albumin Human 100 mls @ 60 mls/hr 01/28/25 12:00 01/29/25 12:18 Albutein IVPB 60 mls/hr Q6HR MAREK Administration Piperacillin Sod/Tazobactam Sod 2.25 gm in 50 mls @ 100 mls/hr 01/28/25 12:00 01/29/25 12:17 Zosyn 2.25 Gm/Ns 50 Ml IVPB 100 mls/hr Q6HR MAREK Administration Norepinephrine Bitartrate 8 mg in 250 mls @ 0 mls/hr 01/28/25 13:30 01/29/25 10:00 Levophed 8 Mg/D5w 250 Ml IV CONT 0 mcg/min .Q0M MAREK 0 mls/hr Titration Protocol 0 MCG/MIN Lactulose 20 gm 01/30/25 09:00 Lactulose 20 Gm/30 Ml Udc PO QAM MAREK Ondansetron HCl 4 mg 01/26/25 18:49 Ondansetron Inj 4 Mg/2 Ml Vial IV PUSH Q4H PRN Nausea Pantoprazole Sodium 40 mg 01/28/25 09:00 01/29/25 08:12 Pantoprazole Sodium Iv 40 Mg Vial IV PUSH 40 mg Q12HR MAREK Administration Polyethylene Glycol 17 gm 01/27/25 00:28 Polyethylene Glycol 3350 17 Gm Powd.Pack PO DAILY PRN constipation Sodium Bicarbonate 650 mg 01/29/25 09:00 01/29/25 08:19 Sodium Bicarbonate Tab 650 Mg Tablet PO 02/01/25 08:59 650 mg BID MAREK Administration Sodium Chloride 10 ml 01/27/25 14:00 01/29/25 06:03 Central Line Flush IV PUSH 10 ml Q8HR MAREK Administration Sodium Chloride 10 ml 01/27/25 09:41 Central Line Flush IV PUSH PRN PRN with TPN bag changes Sodium Chloride 20 ml 01/27/25 09:41 Central Line Flush IV PUSH PRN PRN after blood draws Radiology Results: ITS Impressions Chest X-Ray 01/27/25 09:38 IMPRESSION: Right basal atelectasis versus pneumonia with mild to moderate pleural effusion. Renal Ultrasound 01/27/25 12:33 Impression: No significant renal abnormality. Multiple hypoechoic hepatic masses are compatible with hepatic metastatic disease. Abdominopelvic ascites. Labs Labs: Laboratory Results - last 24 hr 01/27/25 01/28/25 01/28/25 12:52 12:54 13:45 WBC RBC Hgb Hct MCV MCH MCHC RDW Plt Count MPV % Immature Plt Fraction PT INR Sodium Potassium Chloride Carbon Dioxide Anion Gap BUN Creatinine Estim Creat Clear Calc Estimated GFR Glucose POC Capillary Glucose Lactic Acid 2.6 H Calcium Phosphorus Magnesium Total Bilirubin AST ALT Alkaline Phosphatase Ammonia Total Protein Albumin Cortisol Baseline 34.50 Cortisol Resp 30 Min 43.40 Cortisol Resp 60 Min Nasal MRSA (PCR) Tot Complement (CH50) 29 L Hep Bs Antigen Hep Bs Antibody 01/28/25 01/28/25 01/28/25 13:51 14:18 15:02 WBC RBC Hgb Hct MCV MCH MCHC RDW Plt Count MPV % Immature Plt Fraction PT INR Sodium Potassium Chloride Carbon Dioxide Anion Gap BUN Creatinine Estim Creat Clear Calc Estimated GFR Glucose POC Capillary Glucose 94 Lactic Acid Calcium Phosphorus Magnesium Total Bilirubin AST ALT Alkaline Phosphatase Ammonia 39 H Total Protein Albumin Cortisol Baseline Cortisol Resp 30 Min Cortisol Resp 60 Min 46.40 Nasal MRSA (PCR) Not detected Tot Complement (CH50) Hep Bs Antigen Hep Bs Antibody 01/28/25 01/28/25 01/28/25 15:10 16:06 16:54 WBC RBC Hgb Hct MCV MCH MCHC RDW Plt Count MPV % Immature Plt Fraction PT INR Sodium Potassium Chloride Carbon Dioxide Anion Gap BUN Creatinine Estim Creat Clear Calc Estimated GFR Glucose POC Capillary Glucose 111 H 153 H 131 H Lactic Acid Calcium Phosphorus Magnesium Total Bilirubin AST ALT Alkaline Phosphatase Ammonia Total Protein Albumin Cortisol Baseline Cortisol Resp 30 Min Cortisol Resp 60 Min Nasal MRSA (PCR) Tot Complement (CH50) Hep Bs Antigen Hep Bs Antibody 01/28/25 01/28/25 01/28/25 18:05 20:29 21:21 WBC RBC Hgb Hct MCV MCH MCHC RDW Plt Count MPV % Immature Plt Fraction PT INR Sodium 128 L Potassium 4.0 Chloride 99 Carbon Dioxide 14 L Anion Gap 15 H BUN 74 H Creatinine 3.17 H Estim Creat Clear Calc 22 Estimated GFR 14 L Glucose 157 H POC Capillary Glucose 143 H 165 H Lactic Acid 3.5 H Calcium 8.1 L Phosphorus Magnesium Total Bilirubin AST ALT Alkaline Phosphatase Ammonia Total Protein Albumin Cortisol Baseline Cortisol Resp 30 Min Cortisol Resp 60 Min Nasal MRSA (PCR) Tot Complement (CH50) Hep Bs Antigen Hep Bs Antibody 01/28/25 01/28/25 01/29/25 22:30 23:33 00:35 WBC RBC Hgb Hct MCV MCH MCHC RDW Plt Count MPV % Immature Plt Fraction PT INR Sodium Potassium Chloride Carbon Dioxide Anion Gap BUN Creatinine Estim Creat Clear Calc Estimated GFR Glucose POC Capillary Glucose 209 H 166 H 167 H Lactic Acid Calcium Phosphorus Magnesium Total Bilirubin AST ALT Alkaline Phosphatase Ammonia Total Protein Albumin Cortisol Baseline Cortisol Resp 30 Min Cortisol Resp 60 Min Nasal MRSA (PCR) Tot Complement (CH50) Hep Bs Antigen Hep Bs Antibody 01/29/25 01/29/25 01/29/25 01:51 02:39 04:24 WBC RBC Hgb Hct MCV MCH MCHC RDW Plt Count MPV % Immature Plt Fraction PT INR Sodium Potassium Chloride Carbon Dioxide Anion Gap BUN Creatinine Estim Creat Clear Calc Estimated GFR Glucose POC Capillary Glucose 163 H 152 H 145 H Lactic Acid Calcium Phosphorus Magnesium Total Bilirubin AST ALT Alkaline Phosphatase Ammonia Total Protein Albumin Cortisol Baseline Cortisol Resp 30 Min Cortisol Resp 60 Min Nasal MRSA (PCR) Tot Complement (CH50) Hep Bs Antigen Hep Bs Antibody 01/29/25 01/29/25 01/29/25 04:46 05:51 06:28 WBC 18.4 H RBC 2.76 L Hgb 8.0 L Hct 25.8 L MCV 93.5 MCH 29.0 MCHC 31.0 L RDW 24.4 H Plt Count 119 L MPV 11.0 H % Immature Plt Fraction 4.2 PT 29.1 H INR 2.7 Sodium 130 L Potassium 3.9 Chloride 100 Carbon Dioxide 15 L Anion Gap 15 H BUN 75 H Creatinine 3.03 H Estim Creat Clear Calc 23 Estimated GFR 15 L Glucose 144 H POC Capillary Glucose 150 H 162 H Lactic Acid Calcium 8.0 L Phosphorus 4.6 H Magnesium 1.6 Total Bilirubin 12.5 H AST 75 H ALT 31 Alkaline Phosphatase 422 H Ammonia Total Protein 5.0 L Albumin 3.0 L Cortisol Baseline Cortisol Resp 30 Min Cortisol Resp 60 Min Nasal MRSA (PCR) Tot Complement (CH50) Hep Bs Antigen Hep Bs Antibody 01/29/25 01/29/25 01/29/25 07:21 08:11 08:59 WBC RBC Hgb Hct MCV MCH MCHC RDW Plt Count MPV % Immature Plt Fraction PT INR Sodium Potassium Chloride Carbon Dioxide Anion Gap BUN Creatinine Estim Creat Clear Calc Estimated GFR Glucose POC Capillary Glucose 152 H 149 H Lactic Acid Calcium Phosphorus Magnesium Total Bilirubin AST ALT Alkaline Phosphatase Ammonia Total Protein Albumin Cortisol Baseline Cortisol Resp 30 Min Cortisol Resp 60 Min Nasal MRSA (PCR) Tot Complement (CH50) Hep Bs Antigen Negative Hep Bs Antibody Positive 01/29/25 01/29/25 01/29/25 10:04 11:22 12:16 WBC RBC Hgb Hct MCV MCH MCHC RDW Plt Count MPV % Immature Plt Fraction PT INR Sodium Potassium Chloride Carbon Dioxide Anion Gap BUN Creatinine Estim Creat Clear Calc Estimated GFR Glucose POC Capillary Glucose 136 H 138 H 169 H Lactic Acid Calcium Phosphorus Magnesium Total Bilirubin AST ALT Alkaline Phosphatase Ammonia Total Protein Albumin Cortisol Baseline Cortisol Resp 30 Min Cortisol Resp 60 Min Nasal MRSA (PCR) Tot Complement (CH50) Hep Bs Antigen Hep Bs Antibody
[2025-01-29 13:23] LABS: Glucose Point of Care 122 mg/dl (65-105)
[2025-01-29 13:34] LABS: Kappa\\Lambda Light Chains 1.64 (0.26-1.65); Lambda Light Chain 69.4 mg/L (5.7-26.3)
[2025-01-29 14:01] LABS: Glucose Point of Care 138 mg/dl (65-105)
[2025-01-29] MEDS: PHYTONADIONE INJ 10 MG/ML AMP IM (14:20)
[2025-01-29 17:11] LABS: Glucose Point of Care 134 mg/dl (65-105)
--- NOTE | 2025-01-29 17:56 | PC.NURSE ---
This patient, Nikki Don, was transferred to [ [id number]] on 01/29/25 at 1757. Personal belongings sent with patient. Report given to [WHIT Snider @ [phone] ]. Appropriate documentation sent with patient.
[2025-01-29 20:16] LABS: Glucose Point of Care 94 mg/dl (65-105)
[2025-01-30] VITALS (10 sets, daily range): BP systolic 90–130; BP diastolic 34–51; PULSE 68–93; RESP 16–20; TEMP 36.3–36.7; O2SAT 96–100
[2025-01-30 00:06] LABS: Glucose Point of Care 47 mg/dl (65-105)
[2025-01-30] MEDS: GLUCOSE ORAL GEL 15 GM OF GLUCSE IN 37.5 GM TUBE PO (00:29)
[2025-01-30] MEDS: PIPERACILLIN/TAZ 2.25G/NS 50ML 2.25 GM/50 ML BAG IVPB ×3 (00:35→11:30)
[2025-01-30] MEDS: ALBUMIN HUMAN 25% 25 GM/100 ML 100 ML IVPB ×3 (00:35→12:04)
[2025-01-30 01:04] LABS: Glucose Point of Care 52 mg/dl (65-105)
[2025-01-30 01:04] LABS: Glucose Point of Care 60 mg/dl (65-105)
[2025-01-30 01:28] LABS: Glucose Point of Care 84 mg/dl (65-105)
[2025-01-30] MEDS: ALPRAZolam (*CRX) 0.25 MG TABLET PO (03:20)
[2025-01-30] MEDS: HYDROcodone/acetaminophen (*CRX) 5-325 MG TABLET 1 TAB PO (03:57)
[2025-01-30] MEDS: DEXTROSE 50% 25 GM/50 ML SYRINGE IV PUSH ×4 (04:05→12:03)
[2025-01-30] MEDS: SODIUM CHLORIDE 0.9% IV 250 ML 100 ML IV CONT (04:20)
[2025-01-30] MEDS: CENTRAL LINE FLUSH 10 ML IV PUSH (05:07)
[2025-01-30 05:18] LABS: Glucose Point of Care 68 mg/dl (65-105)
[2025-01-30 05:18] LABS: Glucose Point of Care 99 mg/dl (65-105)
[2025-01-30 05:18] LABS: Glucose Point of Care 31 mg/dl (65-105)
[2025-01-30 05:26] LABS: Hematocrit 23.1 % (37.0-47.0); Hemoglobin 7.2 g/dL (12.0-15.0); Mean Corpuscular HGB Conc 31.2 g/dl (32-36); Mean Corpuscular Hemoglobin 28.9 pg (26-34); Mean Corpuscular Volume 92.8 fl (80-100); Mean Platelet Volume 12.4 fl (7.4-10.4); Platelet Count Result 101 k/mm3 (150-375); Red Blood Count 2.49 M/mm3 (4.2-5.4); Red Cell Distribution Width 24.1 % (11.5-14.5); White Blood Count 13.1 K/mm3 (4.5-10.0)
[2025-01-30 05:27] LABS: Ammonia 20 umol/L (9-30)
[2025-01-30 05:30] LABS: Alanine Aminotransferase 27 U/L (6-35); Alkaline Phosphatase 323 U/L (38-126); Anion Gap 16 mmol/L (4-12); Aspartate Amino Transferase 78 U/L (14-36); Bilirubin,Total 12.2 mg/dL (0.2-1.3); Blood Urea Nitrogen 76 mg/dL (7-17); Calcium 8.1 mg/dL (8.4-10.2); Carbon Dioxide 15 mmol/L (22-30); Chloride 100 mmol/L (98-107); Estimated CRCL calculation 20 ml/min; Estimated Glomerular Filt Rate 13; Glucose 85 mg/dL (65-110); Magnesium 1.9 mg/dL (1.6-2.3); Phosphorus 4.7 mg/dL (2.5-4.5); Potassium 3.7 mmol/L (3.4-5.0); Sodium 131 mmol/L (137-145)
[2025-01-30 05:35] LABS: INR 3.3; Prothrombin Time 34.5 Seconds (11.1-14.7)
[2025-01-30] MEDS: PANTOPRAZOLE SODIUM IV 40 MG VIAL IV PUSH (08:58)
[2025-01-30] MEDS: LACTULOSE 20 GM/30 ML UDC PO (08:59)
[2025-01-30] MEDS: DOCUSATE SODIUM 100 MG CAPSULE PO (08:59)
[2025-01-30] MEDS: FERROUS SULFATE 325 MG TABLET DR PO (08:59)
[2025-01-30] MEDS: SODIUM BICARBONATE TAB 650 MG TABLET PO ×2 (08:59→16:33)
[2025-01-30] MEDS: DEXTROSE 10% 1,000 ML 50 ML IV CONT (09:26)
[2025-01-30 09:31] LABS: Glucose Point of Care 108 mg/dl (65-105)
[2025-01-30 09:31] LABS: Glucose Point of Care 21 mg/dl (65-105)
--- NOTE | 2025-01-30 10:08 | PCPTNOTE ---
Attempted evaluation 1007, per RN hold therapy for today.
[2025-01-30 11:55] LABS: Glucose Point of Care 62 mg/dl (65-105)
[2025-01-30 11:55] LABS: Glucose Point of Care 76 mg/dl (65-105)
--- NOTE | 2025-01-30 12:25 | P.PNNP_ITS ---
Progress Note: A&P Assessment and Plan (1) Acute kidney injury: Code(s): N17.9 - Acute kidney failure, unspecified Status: Acute Assessment and Plan: * no real significant change since admission * as noted this year... * creatinine running ~ 1.4 - 1.6mg/dl (in 2022 - 2023) * creatinine ~ 1.2 - 1.3mg/dl (in 2019) * creatinine running 2.0 - 2.4mg/dl since early December 2024 * see #2 * admission creatinine 3.29mg/dl * evaluation on this hospitalization (and on previous hospitalization on 01/15 - 01/23) noted: * renal ultrasound without obstruction * CPK low * urine eosinophils negative * prerenal urine electrolytes * mild proteinuria * UA suggestive of infection * serologies pending * suspect multifactorial etiology: * possibly related to recent findings of liver cirrhosis (and associated physiology): decreased effective circulating volume leading to chronic prerenal azotemia worsened by ascites and need for diuretic therapy... * possibly progressing to hepatorenal syndrome(?) * infection/sepsis * hypotension/shock * prerenal factors (poor oral intake) * diuretic use (chlorthalidone) prior to admission * remains at risk for ECD/dialysis * however, suspect she would not tolerate such an intervention... * follow trend of repeat labs and UOP (2) Chronic kidney disease, stage IV (severe): Code(s): N18.4 - Chronic kidney disease, stage 4 (severe) Status: Chronic Assessment and Plan: * creatinine was running ~ 1.4 - 1.6mg/dl (in 2022) and ~ 1.2 - 1.3mg/dl (in 2019) * suspect underlying CKD due to diabetes, hypertension, and age-related change * recent issues with liver disease likely contributing now as well * suspected new baseline creatinine around 1.9 - 2.1mg/dl based on last hospitalization (01/15) (3) Sepsis: Code(s): A41.9 - Sepsis, unspecified organism Status: Acute Assessment and Plan: * due to UTI and/or previous (recurrent?) spontaneous bacterial peritonitis * follow culture data * possible repeat therapeutic/diagnostic paracentesis * on antibiotics (4) Shock: Code(s): R57.9 - Shock, unspecified Status: Acute Assessment and Plan: * due to chronic hypotension due to liver disease/physiology in conjunction with possible sepsis * continue albumin for volume expansion * holding off on IVF resuscitation due to volume overloaded status * off vasopressor therapy (5) Hypoglycemia: Code(s): E16.2 - Hypoglycemia, unspecified Status: Acute Assessment and Plan: * issues with hypoglycemia noted since admission * likely precipitated by oral hypoglycemics in conjunction decline in renal function + liver dysfunction * on D20 IVFs with improvement in blood sugars * liberalize diet since she is not eating very much (6) Cirrhosis: Code(s): K74.60 - Unspecified cirrhosis of liver Status: Acute Assessment and Plan: * as noted by imaging studies to date over last several hospitalizations: * RUQ showing possible cirrhosis but can not excluding underlying mass * CT A/P (on 01/16) showing hepatomegaly with multiple hypodensities suggestive of metastatic lesions, ascites, small caliber IVC and minimal right-sided pleural effusion with adjacent atelectasis * possible etiology for #1 (?) * previous hepatitis panel negative * noted to be associated with ascites (7) Pulmonary embolism: Code(s): I26.99 - Other pulmonary embolism without acute cor pulmonale Status: Acute Assessment and Plan: * high index of suspicion 0n last hospitalization (from 01/15 - 01/23): * noted episodes of sinus tachycardia -- initial EKG showing sinus tachycardia * venous doppler negative of DVT in the lower extremities * VQ scan showing moderate sized perfusion defect at the posterior basilar segment RLL - intermediate probability for PE * Echo on 01/05/25 showing normal right sided findings; repeat limited Echo (on 01/19) with mildly enlarged RV but normal systolic function * was on coumadin but on hold * elevated INR on admission noted (8) Anemia: Code(s): D64.9 - Anemia, unspecified Status: Acute Assessment and Plan: * related to due to MADY and CKD as well as acute illness * cannot discount underlying malignancy playing a role (see #7) * previous anemia studies (last admission) with iron deficiency * follow trend of H/H (9) 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 Status: Acute Assessment and Plan: * biopsy proven * s/p ultrasound guided biopsy of hepatic mass (on 01/21) * Hem/Onc recommendations noted (10) Type 2 diabetes mellitus: Qualifiers: Diabetes mellitus senior care insulin use: without senior care use Diabetes mellitus complication status: with other specified complication Qualified Code(s): E11.69 - Type 2 diabetes mellitus with other specified complication Code(s): E11.9 - Type 2 diabetes mellitus without complications Status: Chronic Assessment and Plan: * follow accu-cheks * glycemic control per corrosion control technician/hospitalist Will continue to follow. L Subjective Date/time seen: 01/30/25 12:25 Interval history: Follow-up for acute kidney injury/acute renal failure on chronic kidney disease. Transferred out of ICU yesterday afternoon -- weaned off vasopressor therapy with stable hemodynamics but continues to require dextrose IVFs to maintain blood sugar; per nursing, ongoing family discussion regarding level of care/goals of therapy being done given progressive decline since admission and in the last month in association with metastatic cholangiocarcinma diagnosis, liver failure, and progressive decline in renal function; no significant improvement in renal function/creatinine although did make a bit more urine in the last 24 hours. Exam 2 Narrative: General: elderly but WD/WN female in NAD; somnolent/lethargic Heart: normal S1 and S2; no rub Lungs: clear anteriorly; decrease at bases Abdomen: obese but soft, nontender, nondistended, positive bowel sounds Extremities: no cyanosis or clubbing; 1 - 2+ edema Skin: jaundice noted; no rash Objective Data Vital Signs Vital Signs: Vital Signs Temp Pulse Resp BP Pulse Ox O2 Del Method 01/30/25 12:00 72 01/30/25 11:39 97.3 F L 93 16 101/34 L 100 01/30/25 10:00 78 01/30/25 08:00 Room Air 01/30/25 08:00 93 01/30/25 08:00 98.1 F 84 20 112/39 L 100 01/30/25 06:00 80 01/30/25 04:00 85 01/30/25 04:00 Room Air 01/30/25 04:00 97.8 F 85 16 105/37 L 96 01/30/25 02:00 83 01/30/25 00:00 83 01/30/25 00:00 Room Air 01/30/25 00:00 97.5 F L 79 18 90/38 L 100 01/29/25 22:00 82 01/29/25 20:00 79 01/29/25 20:00 Room Air 01/29/25 19:10 97.6 F 77 18 112/38 L 95 01/29/25 18:00 76 Intake/Output Intake/Output: Intake & Output 01/27/25 01/28/25 01/29/25 01/30/25 23:59 23:59 23:59 23:59 Intake Total 2365 2121.8 1588.3 992.3 Output Total 241 680 825 Balance 2124 1441.8 763.3 992.3 Meds/Results Medications: Active Medications Generic Name Dose Route Start Last Admin Trade Name Freq PRN Reason Stop Dose Admin Hydrocodone Bitart/Acetaminophen 1 tab 01/28/25 13:52 01/30/25 03:57 Hydrocodone/Acetaminophen (*Crx) 5-325 Mg Tablet PO 1 tab Q4H PRN Administration Pain Rated 4-6 Alprazolam 0.25 mg 01/27/25 17:14 01/30/25 03:20 Alprazolam (*Crx) 0.25 Mg Tablet PO 0.25 mg Q8HR PRN Administration Anxiety Dextrose 12.5 gm 01/30/25 01:12 01/30/25 12:03 Dextrose 50% 25 Gm/50 Ml Syringe IV PUSH 12.5 gm PRN PRN Administration Hypoglycemia Protocol Docusate Sodium 100 mg 01/27/25 09:00 01/30/25 08:59 Docusate Sodium 100 Mg Capsule PO 100 mg DAILY MAREK Administration Ferrous Sulfate 325 mg 01/29/25 09:00 01/30/25 08:59 Ferrous Sulfate [address] PO 325 mg DAILY MAREK Administration Glucagon 1 mg 01/30/25 01:12 Glucagon For Inj 1 Mg Vial IM PRN PRN Hypoglycemia Protocol Glucose 15 gm 01/30/25 01:12 Glucose Oral Gel 15 Gm Of Glucse In 37.5 Gm Tube PO PRN PRN Hypoglycemia Protocol Albumin Human 100 mls @ 60 mls/hr 01/28/25 12:00 01/30/25 12:04 Albutein IVPB 60 mls/hr Q6HR MAREK Administration Piperacillin Sod/Tazobactam Sod 2.25 gm in 50 mls @ 100 mls/hr 01/28/25 12:00 01/30/25 11:30 Zosyn 2.25 Gm/Ns 50 Ml IVPB 50 mls/hr Q6HR MAREK Administration Dextrose 1,000 mls @ 100 mls/hr 01/30/25 01:12 Dextrose 5% 1,000 Ml IVPB PRN PRN Hypoglycemia Protocol Sodium Chloride 38.4 meq/ 1,009.6 mls @ 120 mls/hr 01/30/25 16:30 Dextrose IV CONT .Q8H25M MAREK Lactulose 20 gm 01/30/25 09:00 01/30/25 08:59 Lactulose 20 Gm/30 Ml Udc PO 20 gm QAM MAREK Administration Ondansetron HCl 4 mg 01/26/25 18:49 Ondansetron Inj 4 Mg/2 Ml Vial IV PUSH Q4H PRN Nausea Pantoprazole Sodium 40 mg 01/28/25 09:00 01/30/25 08:58 Pantoprazole Sodium Iv 40 Mg Vial IV PUSH 40 mg Q12HR MAREK Administration Polyethylene Glycol 17 gm 01/27/25 00:28 Polyethylene Glycol 3350 17 Gm Powd.Pack PO DAILY PRN constipation Sodium Bicarbonate 650 mg 01/29/25 09:00 01/30/25 08:59 Sodium Bicarbonate Tab 650 Mg Tablet PO 02/01/25 08:59 650 mg BID MAREK Administration Sodium Chloride 10 ml 01/27/25 14:00 01/30/25 05:07 Central Line Flush IV PUSH 10 ml Q8HR MAREK Administration Sodium Chloride 10 ml 01/27/25 09:41 Central Line Flush IV PUSH PRN PRN with TPN bag changes Sodium Chloride 20 ml 01/27/25 09:41 Central Line Flush IV PUSH PRN PRN after blood draws Radiology Results: ITS Impressions Chest X-Ray 01/27/25 09:38 IMPRESSION: Right basal atelectasis versus pneumonia with mild to moderate pleural effusion. Renal Ultrasound 01/27/25 12:33 Impression: No significant renal abnormality. Multiple hypoechoic hepatic masses are compatible with hepatic metastatic disease. Abdominopelvic ascites. Labs Labs: Laboratory Tests 01/30/25 05:05 01/30/25 05:05 Calcium 8.1 L Phosphorus 4.7 H Magnesium 1.9 Total Bilirubin 12.2 H AST 78 H ALT 27 Alkaline Phosphatase 323 H Ammonia 20 Total Protein 5.0 L Albumin 3.0 L Microbiology 01/29/25 01:39 Urine Catheterized Urine Culture - Final 01/28/25 12:21 Blood Blood Culture - Preliminary 01/28/25 12:10 Blood Blood Culture - Preliminary
[2025-01-30 12:48] LABS: Glucose Point of Care 93 mg/dl (65-105)
--- NOTE | 2025-01-30 12:53 | P.PNIM_ITS ---
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 Ambulate with assistance and fall precautions Liver failure, cirrhosis liver biopsy performed on 01/21 demonstrating cholangiocarcinoma with extensive scarring in necrosis. Oncology consultation jaundice Secondary to cholangiocarcinoma oncology team on board Raymond on CKD: Dehydration versus hepatorenal Received IV fluid Bladder scan. Renal ultrasound unremarkable. Repeat UA. 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 Blood pressure improved after getting levophed Received albumin Trend renal function. Monitor urine output. Daily weights. Nephrology team on board. Hyperkalemia In setting of RAYMOND and CKD Continue to monitor severe sepsis Treat presumed UTI/SBP zosyn/ vanc follow culture results supratherapeutic INR improved patient received vitamin K 10 mg IV x1 on admission. No evidence of overt bleeding. Her anemia stable. hypoglycemia. On D20 W Continue Accu-Cheks a.c. HS. ----- SCDs. DNR/DNIcode. Diabetic heart healthy diet. Subjective Date/time seen: 01/30/25 12:53 Interval history: per hPI: A 74-year-old female with PMH CKD, CHF, hypertension, morbid obesity with BMI 49, [id number] diabetes mellitus, vitamin-D deficiency, possible cirrhosis, suspected PE, history of SBP, presents weakness. The patient was recently [facility] 01[facility]25 a multitude of issues including weakness as her presenting complaint. [facility] as she was previously living at home. Patient reports she was doing well for a few days on the day of admission 01/27/2024 the patient became increasingly weak where she then returned to [facility]. ER revealed presenting vital signs of temperature 96.6? F, respiratory rate 20, heart rate 79, 100% SpO2 on room air, blood pressure 92/47. Daughter reports the patient had large volume fluid resuscitation during last admission to wear the patient developed lower extremity edema and at the same time the low blood pressure is new. Albumin is 3.0. White count chronically elevated but this admission presenting with 18.4 with a hemoglobin 8.9 which is her usual, platelets 173, INR 8.8 patient reports it was normal at 2.3 last checked by the [facility]. Patient denies any overt bleeding or black stool. BUN 76, serum creatinine 3.29, last discharge was serum creatinine 1.98. Patient reports voiding twice a day. Total bilirubin 7.6, AST 104, ALT 37 high, alkaline phosphatase 563, troponin 0.012, BNP 2320, albumin 2.9. Urinalysis grossly abnormal indicating infection although many squamous cells. A repeat INR was drawn which confirmed supratherapeutic INR, patient given vitamin K 10 mg IV x1, started on normal saline at 125 cc/hour. 01/27/25 Patient was seen examined. Complained of Arnold catheter and asking to discontinue that. Denies any chest pain, shortness the braeth. last BM yesterday and was nonbloody. Patient has been diagnosed with cholangiocarcinoma. Oncology team on board. Has worsening kidney function. Nephrology team on board Elevated INR. Received vitamin K. Monitor INR level. No bleeding reported. Hypoglycemia. Continue with D10 W. Patient wanted to be full code 01/28/25 Patient was seen and examined at bedside. She is feeling tired. Denies any chest pain, abdominal pain, nausea vomiting. Worsening kidney function. Ultrasound today showed an abnormality. Follow Nephrology team accommodation. INR improved to2.3 Continued to have hypoglycemia. on 10 W. recheck cortisol test, thyroid function. We will consult dietitian. Chest x-ray showed [id number] pleural effusion Patient was transferred to ICU with hyperglycemia, hypotension. Continue D20. Started on levophed. Discussed with patient's family at bedside 01/29/25 Patient was seen and examined at bedside. she is sleepy , feeling fine denies chest pain, abdominal pain, nausea vomiting. skin is more icterus today. Blood sugar under better control d20W. On Levophed, blood pressure improving. Kidney function slightly better. Received albumin plan for paracentesis when able to rule out SBP, continue Abx Review of Systems Review of Systems: ROS unobtainable: Yes unobtainable due to mental status Exam Narrative: AF 97.3 101/34 72 16 100% ra General: Pt is alert awake and in NAD Lungs/Chest: Trachea central Clear BS B/L, No crackles or wheezing. Breath sounds are decreased on bases Cardiac: RRR. Normal S1 S2. No murmurs Circulation: 6 ft are warm Abdomen: Morbidly obese, soft. Distended NT. ND. Extremities: Bilateral pitting edema present : Arnold in place Neurologic: Follows commands. Moves all 4 extremities PERRL AO x3 Skin: Jaundiced skin Objective Data Vital Signs Vital Signs: Vital Signs - 24 hr 01/29/25 14:00 01/29/25 14:00 01/29/25 14:00 Temperature Pulse Rate 89 89 89 Respiratory Rate 17 Blood Pressure 124/51 L 124/51 L Pulse Oximetry 91 Oxygen Delivery 01/29/25 16:00 01/29/25 16:00 01/29/25 16:00 Temperature 97.4 F L Pulse Rate 82 82 77 Respiratory Rate 18 18 Blood Pressure 109/49 L Pulse Oximetry 94 94 Oxygen Delivery Room Air 01/29/25 16:13 01/29/25 18:00 01/29/25 19:10 Temperature 97.6 F Pulse Rate 82 76 77 Respiratory Rate 18 Blood Pressure 109/49 L 112/38 L Pulse Oximetry 95 Oxygen Delivery 01/29/25 20:00 01/29/25 20:00 01/29/25 22:00 Temperature Pulse Rate 79 82 Respiratory Rate Blood Pressure Pulse Oximetry Oxygen Delivery Room Air 01/30/25 00:00 01/30/25 00:00 01/30/25 00:00 Temperature 97.5 F L Pulse Rate 79 83 Respiratory Rate 18 Blood Pressure 90/38 L Pulse Oximetry 100 Oxygen Delivery Room Air 01/30/25 02:00 01/30/25 04:00 01/30/25 04:00 Temperature 97.8 F Pulse Rate 83 85 Respiratory Rate 16 Blood Pressure 105/37 L Pulse Oximetry 96 Oxygen Delivery Room Air 01/30/25 04:00 01/30/25 06:00 01/30/25 08:00 Temperature 98.1 F Pulse Rate 85 80 84 Respiratory Rate 20 Blood Pressure 112/39 L Pulse Oximetry 100 Oxygen Delivery 01/30/25 08:00 01/30/25 08:00 01/30/25 10:00 Temperature Pulse Rate 93 78 Respiratory Rate Blood Pressure Pulse Oximetry Oxygen Delivery Room Air 01/30/25 11:39 01/30/25 12:00 01/30/25 12:00 Temperature 97.3 F L Pulse Rate 93 72 Respiratory Rate 16 Blood Pressure 101/34 L Pulse Oximetry 100 Oxygen Delivery Room Air Intake/Output Intake/Output: Intake & Output 01/27/25 01/28/25 01/29/25 01/30/25 23:59 23:59 23:59 23:59 Intake Total 2365 2121.8 1588.3 707.3 Output Total 241 680 825 Balance 2124 1441.8 763.3 707.3 Meds/Results Medications: Active Medications Generic Name Dose Route Start Last Admin Trade Name Freq PRN Reason Stop Dose Admin Hydrocodone Bitart/Acetaminophen 1 tab 01/28/25 13:52 01/30/25 03:57 Hydrocodone/Acetaminophen (*Crx) 5-325 Mg Tablet PO 1 tab Q4H PRN Administration Pain Rated 4-6 Alprazolam 0.25 mg 01/27/25 17:14 01/30/25 03:20 Alprazolam (*Crx) 0.25 Mg Tablet PO 0.25 mg Q8HR PRN Administration Anxiety Dextrose 12.5 gm 01/30/25 01:12 01/30/25 12:03 Dextrose 50% 25 Gm/50 Ml Syringe IV PUSH 12.5 gm PRN PRN Administration Hypoglycemia Protocol Docusate Sodium 100 mg 01/27/25 09:00 01/30/25 08:59 Docusate Sodium 100 Mg Capsule PO 100 mg DAILY MAREK Administration Ferrous Sulfate 325 mg 01/29/25 09:00 01/30/25 08:59 Ferrous Sulfate [address] PO 325 mg DAILY MAREK Administration Glucagon 1 mg 01/30/25 01:12 Glucagon For Inj 1 Mg Vial IM PRN PRN Hypoglycemia Protocol Glucose 15 gm 01/30/25 01:12 Glucose Oral Gel 15 Gm Of Glucse In 37.5 Gm Tube PO PRN PRN Hypoglycemia Protocol Albumin Human 100 mls @ 60 mls/hr 01/28/25 12:00 01/30/25 12:04 Albutein IVPB 60 mls/hr Q6HR MAREK Administration Piperacillin Sod/Tazobactam Sod 2.25 gm in 50 mls @ 100 mls/hr 01/28/25 12:00 01/30/25 11:30 Zosyn 2.25 Gm/Ns 50 Ml IVPB 50 mls/hr Q6HR MAREK Administration Dextrose 1,000 mls @ 100 mls/hr 01/30/25 01:12 Dextrose 5% 1,000 Ml IVPB PRN PRN Hypoglycemia Protocol Dextrose 1,000 mls @ 100 mls/hr 01/30/25 09:15 01/30/25 12:04 Dextrose 10% IV CONT 100 mls/hr .Q10H MAREK Infusion Lactulose 20 gm 01/30/25 09:00 01/30/25 08:59 Lactulose 20 Gm/30 Ml Udc PO 20 gm QAM MAREK Administration Ondansetron HCl 4 mg 01/26/25 18:49 Ondansetron Inj 4 Mg/2 Ml Vial IV PUSH Q4H PRN Nausea Pantoprazole Sodium 40 mg 01/28/25 09:00 01/30/25 08:58 Pantoprazole Sodium Iv 40 Mg Vial IV PUSH 40 mg Q12HR MAREK Administration Polyethylene Glycol 17 gm 01/27/25 00:28 Polyethylene Glycol 3350 17 Gm Powd.Pack PO DAILY PRN constipation Sodium Bicarbonate 650 mg 01/29/25 09:00 01/30/25 08:59 Sodium Bicarbonate Tab 650 Mg Tablet PO 02/01/25 08:59 650 mg BID MAREK Administration Sodium Chloride 10 ml 01/27/25 14:00 01/30/25 05:07 Central Line Flush IV PUSH 10 ml Q8HR MAREK Administration Sodium Chloride 10 ml 01/27/25 09:41 Central Line Flush IV PUSH PRN PRN with TPN bag changes Sodium Chloride 20 ml 01/27/25 09:41 Central Line Flush IV PUSH PRN PRN after blood draws Radiology Results: ITS Impressions Chest X-Ray 01/27/25 09:38 IMPRESSION: Right basal atelectasis versus pneumonia with mild to moderate pleural effusion. Renal Ultrasound 01/27/25 12:33 Impression: No significant renal abnormality. Multiple hypoechoic hepatic masses are compatible with hepatic metastatic disease. Abdominopelvic ascites. Labs Labs: Laboratory Results - last 24 hr 04/04/1701/28/25 01/29/25 12:52 04:20 13:17 WBC RBC Hgb Hct MCV MCH MCHC RDW Plt Count MPV PT INR Sodium Potassium Chloride Carbon Dioxide Anion Gap BUN Creatinine Estim Creat Clear Calc Estimated GFR Glucose POC Capillary Glucose 122 H Calcium Phosphorus Magnesium Total Bilirubin AST ALT Alkaline Phosphatase Ammonia Total Protein Albumin Urine Immunofixation See note Kinder/Lambda Ratio 1.64 Free Kinder Light Chains 113.9 H Free Lambda Light Chain 69.4 H 01/29/25 01/29/25 01/29/25 13:57 17:04 20:12 WBC RBC Hgb Hct MCV MCH MCHC RDW Plt Count MPV PT INR Sodium Potassium Chloride Carbon Dioxide Anion Gap BUN Creatinine Estim Creat Clear Calc Estimated GFR Glucose POC Capillary Glucose 138 H 134 H 94 Calcium Phosphorus Magnesium Total Bilirubin AST ALT Alkaline Phosphatase Ammonia Total Protein Albumin Urine Immunofixation Kinder/Lambda Ratio Free Kinder Light Chains Free Lambda Light Chain 01/29/25 01/30/25 01/30/25 23:48 00:27 00:47 WBC RBC Hgb Hct MCV MCH MCHC RDW Plt Count MPV PT INR Sodium Potassium Chloride Carbon Dioxide Anion Gap BUN Creatinine Estim Creat Clear Calc Estimated GFR Glucose POC Capillary Glucose 47 L* 52 L* 60 L Calcium Phosphorus Magnesium Total Bilirubin AST ALT Alkaline Phosphatase Ammonia Total Protein Albumin Urine Immunofixation Kinder/Lambda Ratio Free Kinder Light Chains Free Lambda Light Chain 01/30/25 01/30/25 01/30/25 01:25 04:05 04:27 WBC RBC Hgb Hct MCV MCH MCHC RDW Plt Count MPV PT INR Sodium Potassium Chloride Carbon Dioxide Anion Gap BUN Creatinine Estim Creat Clear Calc Estimated GFR Glucose POC Capillary Glucose 84 31 L* 68 Calcium Phosphorus Magnesium Total Bilirubin AST ALT Alkaline Phosphatase Ammonia Total Protein Albumin Urine Immunofixation Kinder/Lambda Ratio Free Kinder Light Chains Free Lambda Light Chain 01/30/25 01/30/25 01/30/25 04:56 05:05 09:12 WBC 13.1 H RBC 2.49 L Hgb 7.2 L Hct 23.1 L MCV 92.8 MCH 28.9 MCHC 31.2 L RDW 24.1 H Plt Count 101 L MPV 12.4 H PT 34.5 H INR 3.3 Sodium 131 L Potassium 3.7 Chloride 100 Carbon Dioxide 15 L Anion Gap 16 H BUN 76 H Creatinine 3.37 H Estim Creat Clear Calc 20 Estimated GFR 13 L Glucose 85 POC Capillary Glucose 99 21 L* Calcium 8.1 L Phosphorus 4.7 H Magnesium 1.9 Total Bilirubin 12.2 H AST 78 H ALT 27 Alkaline Phosphatase 323 H Ammonia 20 Total Protein 5.0 L Albumin 3.0 L Urine Immunofixation Kinder/Lambda Ratio Free Kinder Light Chains Free Lambda Light Chain 01/30/25 01/30/25 01/30/25 09:24 10:21 11:53 WBC RBC Hgb Hct MCV MCH MCHC RDW Plt Count MPV PT INR Sodium Potassium Chloride Carbon Dioxide Anion Gap BUN Creatinine Estim Creat Clear Calc Estimated GFR Glucose POC Capillary Glucose 108 H 76 62 L Calcium Phosphorus Magnesium Total Bilirubin AST ALT Alkaline Phosphatase Ammonia Total Protein Albumin Urine Immunofixation Kinder/Lambda Ratio Free Kinder Light Chains Free Lambda Light Chain 01/30/25 12:45 WBC RBC Hgb Hct MCV MCH MCHC RDW Plt Count MPV PT INR Sodium Potassium Chloride Carbon Dioxide Anion Gap BUN Creatinine Estim Creat Clear Calc Estimated GFR Glucose POC Capillary Glucose 93 Calcium Phosphorus Magnesium Total Bilirubin AST ALT Alkaline Phosphatase Ammonia Total Protein Albumin Urine Immunofixation Kinder/Lambda Ratio Free Kinder Light Chains Free Lambda Light Chain
[2025-01-30 14:23] LABS: Anti Glomerular Basement Memb <1.0 AI
--- NOTE | 2025-01-30 14:42 | WPDGIPROGNO ---
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 She has received appropriate albumin doses, with continuous administration for over 72 hours . In the absence of obstructive uropathy, her developing kidney failure is therefore attributed to hepatorenal syndrome in the context of her significant ascites and terminal cirrhosis. Furthermore, the severe hypoglycemic episodes are a clear manifestation of end-stage liver dysfunction. Based on the presence of coagulation, cerebral, liver, and kidney failure, this patient fulfills the criteria for Dclie-bq-Mxmodic Liver Failure (ACLF) grade 3. This, coupled with a very high MELD 3.0 score of 43 and an aggressive multifocal cholangiocarcinoma, suggests that further active intervention (even monitoring serial labs) is unlikely to alter the disease course. We recommend a sensitive discussion with the family regarding hospice care. (2) Cirrhosis: Code(s): K74.60 - Unspecified cirrhosis of liver Status: Acute Subjective Date/time seen: 01/30/25 14:42 Interval history: Patient not easily arousable. Had severe hypoglycemia. Kidney function still stationary, creatinine > 3.0 consistently. Exam Narrative: Markedly jaundice, not very responsive to verbal stimuli, deep breathing with pauses. Rest of the examination within normal limits. Objective Data Vital Signs Vital Signs: Vital Signs - 24 hr 01/29/25 16:00 01/29/25 16:00 01/29/25 16:00 Temperature 97.4 F L Pulse Rate 82 82 77 Respiratory Rate 18 18 Blood Pressure 109/49 L Pulse Oximetry 94 94 Oxygen Delivery Room Air 01/29/25 16:13 01/29/25 18:00 01/29/25 19:10 Temperature 97.6 F Pulse Rate 82 76 77 Respiratory Rate 18 Blood Pressure 109/49 L 112/38 L Pulse Oximetry 95 Oxygen Delivery 01/29/25 20:00 01/29/25 20:00 01/29/25 22:00 Temperature Pulse Rate 79 82 Respiratory Rate Blood Pressure Pulse Oximetry Oxygen Delivery Room Air 01/30/25 00:00 01/30/25 00:00 01/30/25 00:00 Temperature 97.5 F L Pulse Rate 79 83 Respiratory Rate 18 Blood Pressure 90/38 L Pulse Oximetry 100 Oxygen Delivery Room Air 01/30/25 02:00 01/30/25 04:00 01/30/25 04:00 Temperature 97.8 F Pulse Rate 83 85 Respiratory Rate 16 Blood Pressure 105/37 L Pulse Oximetry 96 Oxygen Delivery Room Air 01/30/25 04:00 01/30/25 06:00 01/30/25 08:00 Temperature 98.1 F Pulse Rate 85 80 84 Respiratory Rate 20 Blood Pressure 112/39 L Pulse Oximetry 100 Oxygen Delivery 01/30/25 08:00 01/30/25 08:00 01/30/25 10:00 Temperature Pulse Rate 93 78 Respiratory Rate Blood Pressure Pulse Oximetry Oxygen Delivery Room Air 01/30/25 11:39 01/30/25 12:00 01/30/25 12:00 Temperature 97.3 F L Pulse Rate 93 72 Respiratory Rate 16 Blood Pressure 101/34 L Pulse Oximetry 100 Oxygen Delivery Room Air Intake/Output Intake/Output: Intake & Output 01/27/25 01/28/25 01/29/25 01/30/25 23:59 23:59 23:59 23:59 Intake Total 2365 2121.8 1588.3 707.3 Output Total 241 680 825 Balance 2124 1441.8 763.3 707.3 Meds/Results Medications: Active Medications Generic Name Dose Route Start Last Admin Trade Name Freq PRN Reason Stop Dose Admin Hydrocodone Bitart/Acetaminophen 1 tab 01/28/25 13:52 01/30/25 03:57 Hydrocodone/Acetaminophen (*Crx) 5-325 Mg Tablet PO 1 tab Q4H PRN Administration Pain Rated 4-6 Alprazolam 0.25 mg 01/27/25 17:14 01/30/25 03:20 Alprazolam (*Crx) 0.25 Mg Tablet PO 0.25 mg Q8HR PRN Administration Anxiety Dextrose 12.5 gm 01/30/25 01:12 01/30/25 12:03 Dextrose 50% 25 Gm/50 Ml Syringe IV PUSH 12.5 gm PRN PRN Administration Hypoglycemia Protocol Docusate Sodium 100 mg 01/27/25 09:00 01/30/25 08:59 Docusate Sodium 100 Mg Capsule PO 100 mg DAILY MAREK Administration Ferrous Sulfate 325 mg 01/29/25 09:00 01/30/25 08:59 Ferrous Sulfate [address] PO 325 mg DAILY MAREK Administration Glucagon 1 mg 01/30/25 01:12 Glucagon For Inj 1 Mg Vial IM PRN PRN Hypoglycemia Protocol Glucose 15 gm 01/30/25 01:12 Glucose Oral Gel 15 Gm Of Glucse In 37.5 Gm Tube PO PRN PRN Hypoglycemia Protocol Albumin Human 100 mls @ 60 mls/hr 01/28/25 12:00 01/30/25 12:04 Albutein IVPB 60 mls/hr Q6HR MAREK Administration Piperacillin Sod/Tazobactam Sod 2.25 gm in 50 mls @ 100 mls/hr 01/28/25 12:00 01/30/25 11:30 Zosyn 2.25 Gm/Ns 50 Ml IVPB 50 mls/hr Q6HR MAREK Administration Dextrose 1,000 mls @ 100 mls/hr 01/30/25 01:12 Dextrose 5% 1,000 Ml IVPB PRN PRN Hypoglycemia Protocol Dextrose 1,000 mls @ 100 mls/hr 01/30/25 09:15 01/30/25 12:04 Dextrose 10% IV CONT 100 mls/hr .Q10H MAREK Infusion Lactulose 20 gm 01/30/25 09:00 01/30/25 08:59 Lactulose 20 Gm/30 Ml Udc PO 20 gm QAM MAREK Administration Ondansetron HCl 4 mg 01/26/25 18:49 Ondansetron Inj 4 Mg/2 Ml Vial IV PUSH Q4H PRN Nausea Pantoprazole Sodium 40 mg 01/28/25 09:00 01/30/25 08:58 Pantoprazole Sodium Iv 40 Mg Vial IV PUSH 40 mg Q12HR MAREK Administration Polyethylene Glycol 17 gm 01/27/25 00:28 Polyethylene Glycol 3350 17 Gm Powd.Pack PO DAILY PRN constipation Sodium Bicarbonate 650 mg 01/29/25 09:00 01/30/25 08:59 Sodium Bicarbonate Tab 650 Mg Tablet PO 02/01/25 08:59 650 mg BID MAREK Administration Sodium Chloride 10 ml 01/27/25 14:00 01/30/25 05:07 Central Line Flush IV PUSH 10 ml Q8HR MAREK Administration Sodium Chloride 10 ml 01/27/25 09:41 Central Line Flush IV PUSH PRN PRN with TPN bag changes Sodium Chloride 20 ml 01/27/25 09:41 Central Line Flush IV PUSH PRN PRN after blood draws Radiology Results: ITS Impressions Chest X-Ray 01/27/25 09:38 IMPRESSION: Right basal atelectasis versus pneumonia with mild to moderate pleural effusion. Renal Ultrasound 01/27/25 12:33 Impression: No significant renal abnormality. Multiple hypoechoic hepatic masses are compatible with hepatic metastatic disease. Abdominopelvic ascites. Labs Labs: Laboratory Results - last 24 hr 01/27/25 01/29/25 01/29/25 12:52 17:04 20:12 WBC RBC Hgb Hct MCV MCH MCHC RDW Plt Count MPV PT INR Sodium Potassium Chloride Carbon Dioxide Anion Gap BUN Creatinine Estim Creat Clear Calc Estimated GFR Glucose POC Capillary Glucose 134 H 94 Calcium Phosphorus Magnesium Total Bilirubin AST ALT Alkaline Phosphatase Ammonia Total Protein Albumin Urine Immunofixation See note Glomerular Base Memb Ab <1.0 01/29/25 01/30/25 01/30/25 23:48 00:27 00:47 WBC RBC Hgb Hct MCV MCH MCHC RDW Plt Count MPV PT INR Sodium Potassium Chloride Carbon Dioxide Anion Gap BUN Creatinine Estim Creat Clear Calc Estimated GFR Glucose POC Capillary Glucose 47 L* 52 L* 60 L Calcium Phosphorus Magnesium Total Bilirubin AST ALT Alkaline Phosphatase Ammonia Total Protein Albumin Urine Immunofixation Glomerular Base Memb Ab 01/30/25 01/30/25 01/30/25 01:25 04:05 04:27 WBC RBC Hgb Hct MCV MCH MCHC RDW Plt Count MPV PT INR Sodium Potassium Chloride Carbon Dioxide Anion Gap BUN Creatinine Estim Creat Clear Calc Estimated GFR Glucose POC Capillary Glucose 84 31 L* 68 Calcium Phosphorus Magnesium Total Bilirubin AST ALT Alkaline Phosphatase Ammonia Total Protein Albumin Urine Immunofixation Glomerular Base Memb Ab 01/30/25 01/30/25 01/30/25 04:56 05:05 09:12 WBC 13.1 H RBC 2.49 L Hgb 7.2 L Hct 23.1 L MCV 92.8 MCH 28.9 MCHC 31.2 L RDW 24.1 H Plt Count 101 L MPV 12.4 H PT 34.5 H INR 3.3 Sodium 131 L Potassium 3.7 Chloride 100 Carbon Dioxide 15 L Anion Gap 16 H BUN 76 H Creatinine 3.37 H Estim Creat Clear Calc 20 Estimated GFR 13 L Glucose 85 POC Capillary Glucose 99 21 L* Calcium 8.1 L Phosphorus 4.7 H Magnesium 1.9 Total Bilirubin 12.2 H AST 78 H ALT 27 Alkaline Phosphatase 323 H Ammonia 20 Total Protein 5.0 L Albumin 3.0 L Urine Immunofixation Glomerular Base Memb Ab 01/30/25 01/30/25 01/30/25 09:24 10:21 11:53 WBC RBC Hgb Hct MCV MCH MCHC RDW Plt Count MPV PT INR Sodium Potassium Chloride Carbon Dioxide Anion Gap BUN Creatinine Estim Creat Clear Calc Estimated GFR Glucose POC Capillary Glucose 108 H 76 62 L Calcium Phosphorus Magnesium Total Bilirubin AST ALT Alkaline Phosphatase Ammonia Total Protein Albumin Urine Immunofixation Glomerular Base Memb Ab 01/30/25 12:45 WBC RBC Hgb Hct MCV MCH MCHC RDW Plt Count MPV PT INR Sodium Potassium Chloride Carbon Dioxide Anion Gap BUN Creatinine Estim Creat Clear Calc Estimated GFR Glucose POC Capillary Glucose 93 Calcium Phosphorus Magnesium Total Bilirubin AST ALT Alkaline Phosphatase Ammonia Total Protein Albumin Urine Immunofixation Glomerular Base Memb Ab
--- NOTE | 2025-01-30 15:04 | PCOTNOTE ---
Per PT,pt. still on hold per nursing. following
[2025-01-30 15:21] LABS: Glucose Point of Care 81 mg/dl (65-105)
[2025-01-30 15:53] LABS: Glucose Point of Care 77 mg/dl (65-105)
[2025-01-30] MEDS: DEXTROSE 10% IV CONT (16:32)
[2025-01-30] MEDS: SODIUM CHLORIDE IV CONT (16:32)
[2025-01-30 17:03] LABS: Glucose Point of Care 65 mg/dl (65-105)
--- NOTE | 2025-01-30 17:19 | P.DS_ITS ---
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 Please see H&P for details. Hospital Course: ER revealed presenting vital signs of temperature 96.6? F, respiratory rate 20, heart rate 79, 100% SpO2 on room air, blood pressure 92/47. Daughter reports the patient had large volume fluid resuscitation during last admission to wear the patient developed lower extremity edema and at the same time the low blood pressure is new. Albumin is 3.0. White count chronically elevated but this admission presenting with 18.4 with a hemoglobin 8.9 which is her usual, platelets 173, INR 8.8 patient reports it was normal at 2.3 [facility] Patient denies any overt bleeding or black stool. BUN 76, serum creatinine 3.29, last discharge was serum creatinine 1.98. Patient reports voiding twice a day. Total bilirubin 7.6, AST 104, ALT 37 high, alkaline phosphatase 563, troponin 0.012, BNP 2320, albumin 2.9. Urinalysis grossly abnormal indicating infection although many squamous cells. A repeat INR was drawn which confirmed supratherapeutic INR, patient given vitamin K 10 mg IV x1, started on normal saline at 125 cc/hour. Status at Discharge Cognitive/behavioral status at discharge: unstable Time Spent with Patient Time attestation: Total time spent providing and/or coordinating discharge services: 50 minutes Time spent: Greater than 30 minutes Specific discharge activities: Long discussion with family and patient about end-of-life care Exam Narrative: AF 97.3 101/34 72 16 100% ra Gen - NARD resting quietly Chest - clear to quiet respirations CV - RRR Abd -soft, obese, no apparent tenderness Ext - 2++ pitting edema Neuro - arouses but mostly obtunded. She was seen multiple times during the day and she did become more lucid at one point Skin - Jaundiced skin DS: Data Data Completed and Pending Pending studies at discharge: Pending at discharge 01/29/25 12:21 Cytology [PTH] Routine Labs on day of discharge: Labs from last 24 hours 01/30/25 01/30/25 01/30/25 16:57 15:46 14:48 WBC RBC Hgb Hct MCV MCH MCHC RDW Plt Count MPV PT INR Sodium Potassium Chloride Carbon Dioxide Anion Gap BUN Creatinine Estim Creat Clear Calc Estimated GFR Glucose POC Capillary Glucose 65 77 81 Calcium Phosphorus Magnesium Total Bilirubin AST ALT Alkaline Phosphatase Ammonia Total Protein Albumin Glomerular Base Memb Ab 01/30/25 01/30/25 01/30/25 12:45 11:53 10:21 WBC RBC Hgb Hct MCV MCH MCHC RDW Plt Count MPV PT INR Sodium Potassium Chloride Carbon Dioxide Anion Gap BUN Creatinine Estim Creat Clear Calc Estimated GFR Glucose POC Capillary Glucose 93 62 L 76 Calcium Phosphorus Magnesium Total Bilirubin AST ALT Alkaline Phosphatase Ammonia Total Protein Albumin Glomerular Base Memb Ab 01/30/25 01/30/25 01/30/25 09:24 09:12 05:05 WBC 13.1 H RBC 2.49 L Hgb 7.2 L Hct 23.1 L MCV 92.8 MCH 28.9 MCHC 31.2 L RDW 24.1 H Plt Count 101 L MPV 12.4 H PT 34.5 H INR 3.3 Sodium 131 L Potassium 3.7 Chloride 100 Carbon Dioxide 15 L Anion Gap 16 H BUN 76 H Creatinine 3.37 H Estim Creat Clear Calc 20 Estimated GFR 13 L Glucose 85 POC Capillary Glucose 108 H 21 L* Calcium 8.1 L Phosphorus 4.7 H Magnesium 1.9 Total Bilirubin 12.2 H AST 78 H ALT 27 Alkaline Phosphatase 323 H Ammonia 20 Total Protein 5.0 L Albumin 3.0 L Glomerular Base Memb Ab 01/30/25 01/30/25 01/30/25 04:56 04:27 04:05 WBC RBC Hgb Hct MCV MCH MCHC RDW Plt Count MPV PT INR Sodium Potassium Chloride Carbon Dioxide Anion Gap BUN Creatinine Estim Creat Clear Calc Estimated GFR Glucose POC Capillary Glucose 99 68 31 L* Calcium Phosphorus Magnesium Total Bilirubin AST ALT Alkaline Phosphatase Ammonia Total Protein Albumin Glomerular Base Memb Ab 01/30/25 01/30/25 01/30/25 01:25 00:47 00:27 WBC RBC Hgb Hct MCV MCH MCHC RDW Plt Count MPV PT INR Sodium Potassium Chloride Carbon Dioxide Anion Gap BUN Creatinine Estim Creat Clear Calc Estimated GFR Glucose POC Capillary Glucose 84 60 L 52 L* Calcium Phosphorus Magnesium Total Bilirubin AST ALT Alkaline Phosphatase Ammonia Total Protein Albumin Glomerular Base Memb Ab 01/29/25 01/29/25 01/27/25 23:48 20:12 12:52 WBC RBC Hgb Hct MCV MCH MCHC RDW Plt Count MPV PT INR Sodium Potassium Chloride Carbon Dioxide Anion Gap BUN Creatinine Estim Creat Clear Calc Estimated GFR Glucose POC Capillary Glucose 47 L* 94 Calcium Phosphorus Magnesium Total Bilirubin AST ALT Alkaline Phosphatase Ammonia Total Protein Albumin Glomerular Base Memb Ab <1.0 Preliminary micro results at discharge 01/28/25 12:21 Blood Culture - Preliminary Blood 01/28/25 12:10 Blood Culture - Preliminary Blood Discharge Plan Discharge Attending physician on discharge: Bib Dumont Consulting providers: Spike Cerda; Adán Cisneros; Onofre Estrella Discharging Clinician: Bib Dumont Anticipated Discharge Date/Time: 01/30/25 17:25 Patient Disposition: Hospice - Medical Facility Activity: as tolerated Diet: as tolerated Patient Instructions: Warfarin (By mouth), Heart Failure (DC) Patient Language: Kiswahili Stand Alone Forms: General Discharge Information Discharge Medications: No Action chlorthalidone 25 mg tablet 25 mg PO DAILY Qty: 90 3RF glipizide 5 mg tablet 10 mg PO BID 90 Days Qty: 360 3RF docusate sodium 100 mg capsule 100 mg PO DAILY polyethylene glycol 3350 [Miralax] 17 gram powder in packet 17 g PO DAILY PRN (Reason: constipation) ergocalciferol (vitamin D2) [Vitamin D2] 1,250 mcg (50,000 unit) capsule 1,250 mcg PO WEEKLY Rx Instructions: on Mondays warfarin 3 mg tablet 3 mg PO QPM alprazolam 0.5 mg tablet 0.25 mg PO HS Patient Comments: pt. takes at night ondansetron HCl 4 mg tablet 4 mg PO Q8H PRN (Reason: nausea and vomiting) Qty: 20 2RF metformin 1,000 mg tablet 500 mg PO BID Qty: 90 1RF tizanidine 4 mg tablet 4 mg PO TID PRN (Reason: muscle spasticity) Qty: 30 1RF trazodone 50 mg tablet 50 mg PO QHS PRN (Reason: sleep) Qty: 60 0RF Rx Instructions: may increase to 2 tablets if needed metoprolol tartrate 25 mg tablet 12.5 mg PO BID Qty: 90 1RF Date of admission: 01/26/25 18:49 Primary Care Provider: Ayah Carver Admitting Provider: Trae Sevilla Attending physician on admission: Hamida Ndiaye Condition: Stable Hospitalist MIPS Heart Failure (Exclusion) Patient has history of Heart Transplant or Left Ventricular Assistive Device?: No IF YES, STOP HERE Heart Failure (Qualifier) Patient has current or prior documentation of LVEF less than or equal to 40%, or mod/servere depressed LVSF?: No IF NO, STOP HERE
--- NOTE | 2025-01-31 07:52 | P.CDI_ITS ---
CDI Query Clarification Request Sepsis and shock have been documented, please clarify if sepsis has been ruled in or ruled out If ruled in, please clarify if present on admission The medical chart reflects the following: ER documented on 01/26: Clinical Impression: Acute kidney injury, Weakness, Jaundice, Elevated protime H&P on 01/27: (1) Transaminitis: Code(s): R74.01 - Elevation of levels of liver transaminase levels Status: Acute (2) Jaundice: Code(s): R17 - Unspecified jaundice Status: Acute (3) Acute kidney injury: Code(s): N17.9 - Acute kidney failure, unspecified Status: Acute (4) Supratherapeutic INR: Code(s): R79.1 - Abnormal coagulation profile Status: Acute (5) 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 Status: Acute (6) Weakness: Code(s): R53.1 - Weakness Status: Acute Progress note documented by director surgical on 01/28: (12) Sepsis: Code(s): A41.9 - Sepsis, unspecified organism Status: Acute Assessment and Plan: Sepsis likely secondary to UTI and recent SBP. Will obtain CT scan of abdomen pelvis and chest to further evaluate Check urine culture Blood cultures have been sent and pain Empiric vancomycin and Zosyn (13) Shock: Code(s): R57.9 - Shock, unspecified Status: Acute Assessment and Plan: Shock likely a combination sepsis and vasodilation from liver dysfunction Continue albumin Hold further crystalloids as patient is overall volume overload Transferred to ICU and start Levophed infusion (14) Urinary tract infection: Code(s): N39.0 - Urinary tract infection, site not specified Status: Inactive Assessment and Plan: See above Discharge summary does not mention sepsis WBC: 01/26- 18.4, 01/27- 16.3 Lactic: 01/28- 3.3, 2.6, 3.5 IV abx
[2025-01-31 08:47] LABS: ANCA Screen NEGATIVE (NEGATIVE)
[2025-02-04 12:29] LABS: Anti Nuclear Antibody Pattern Nuclear, Homogeneous; Anti Nuclear Antibody Titer 1:40 titer
== END 2025-01-30 17:47 | disposition hospice, inpatient (51) | DRG 871 ==
LOC: ANHED 18:35 → ANHIMU 19:48 → ANHICU 01-28 13:12 → ANHIMU 01-29 18:03
PROVIDERS: General Practice; Internal Medicine; Internal Medicine Nephrology; Admitting Provider Internal Medicine; Emergency Provider Family Medicine; PCP Nurse Practitioner Family; Visit Provider Internal Medicine
DX: A41.9 Sepsis, unspecified organism (principal); K65.2 Spontaneous bacterial peritonitis; I13.0 Hypertensive heart and chronic kidney disease with heart failure and stage 1 through stage 4 chronic kidney disease, or unspecified chronic kidney disease; Z68.42 Body mass index [BMI] 45.0-49.9, adult; N17.9 Acute kidney failure, unspecified; C22.1 Intrahepatic bile duct carcinoma; R57.9 Shock, unspecified; N39.0 Urinary tract infection, site not specified; C79.9 Secondary malignant neoplasm of unspecified site; D63.1 Anemia in chronic kidney disease; E78.5 Hyperlipidemia, unspecified; E87.5 Hyperkalemia; E11.649 Type 2 diabetes mellitus with hypoglycemia without coma; E66.01 Morbid (severe) obesity due to excess calories; E55.9 Vitamin D deficiency, unspecified; E11.65 Type 2 diabetes mellitus with hyperglycemia; E11.22 Type 2 diabetes mellitus with diabetic chronic kidney disease; H35.30 Unspecified macular degeneration; I50.9 Heart failure, unspecified; K74.60 Unspecified cirrhosis of liver; N18.32 Chronic kidney disease, stage 3b; R79.1 Abnormal coagulation profile; Z98.41 Cataract extraction status, right eye; Z98.42 Cataract extraction status, left eye; Z96.1 Presence of intraocular lens; Z90.49 Acquired absence of other specified parts of digestive tract; Z79.84 Long term (current) use of oral hypoglycemic drugs; Z79.01 Long term (current) use of anticoagulants
CPT/HCPCS: 36415; 36569; 71045; 76775; 80048; 80053; 81001; 82140; 82533; 82550; 82570; 82607; 82728; 82746; 82948; 83520; 83540; 83550; 83605; 83735; 83880; 83883; 84100; 84133; 84145; 84156; 84300; 84484; 84540; 85025; 85027; 85046; 85055; 85610; 85652; 86036; 86038; 86039; 86160; 86162; 86334; 86335; 86706; 87040; 87086; 87340; 87641; 93005; 96372; 96374; 99285; A9270; C1751; J0696; J0834; J2003; J2359; J2470; J2543; J3370; J3430; J3475; J7030; J7050; P9047

== ENCOUNTER 2025-01-30 17:48 | HOS | payer OTHER, MEDICARE, SELFPAY ==
[2025-01-30] MEDS: MORPHINE SULFATE (*CRX) 2 MG/ML INJ IV PUSH ×2 (18:46→20:05)
[2025-01-30 19:00] VITALS: BMI 51.0
[2025-01-30] MEDS: LORazepam INJ (*CRX) 2 MG/ML VIAL IV PUSH ×2 (19:25→21:37)
--- NOTE | 2025-01-30 19:53 | PC.NURSE ---
Family notified this nurse that they would like to remove the D10 drip at this time. asbestos cement sheet supervisor, charge nurse and hospice made aware.
--- NOTE | 2025-01-30 19:55 | PC.NURSE ---
D10 removed at this time per family request.
--- NOTE | 2025-01-30 20:03 | PC.NURSE ---
Report given to Grecia SHERMAN to transfer patient to room 318.
--- NOTE | 2025-01-30 20:15 | PC.NURSE ---
This patient, Nikki Don, was transferred to [ 318] on 01/30/25 at 2015. Personal belongings sent with patient. Report given to [ Grecia SHERMAN]. Appropriate documentation sent with patient.
[2025-01-30 20:21] VITALS: PULSE 90
[2025-01-30] MEDS: MORPHINE 50 MG/NS 100ML (*CRX) 50 MG/100 ML BAG IV CONT (20:21)
--- NOTE | 2025-01-31 07:29 | PM.IMHP ---
H&P: HPI History of Present Illness Date/Time: 01/31/25 07:29 Chief Complaint: Hospice care Narrative: 74yo female with metastatic cholangiocarcinoma, MADY and acute on chronic liver failure admitted for comfort measures and hospice care. Patient is unresponsive. Family at bedside. Review of Systems Review of Systems: ROS unobtainable: Yes unobtainable due to mental status PMFSH Past Medical History Medical History Vitamin D deficiency, unspecified CHF (congestive heart failure) Dyslipidemia CKD (chronic kidney disease) Type 2 diabetes mellitus Age-related macular degeneration Essential (primary) hypertension Psychophysiological insomnia Surgical History Surgical History History of tonsillectomy Status post cataract extraction of both eyes with insertion of intraocular lens Hx of cholecystectomy H/O hysterectomy for benign disease Family History Family History Mother Hypertension Family history of Alzheimer's disease Family history of type 1 diabetes mellitus Diabetes mellitus Father Family history of lymphoma History of kidney disease Hypertension Grandparent Breast cancer Social History Social History Social History: She is . She recently saw older home of 50 or 50 years to her granddaughter and grandson in law. But she now lives with them and takes care of her [id number]-[id number] great grandchild 5 days a week. She states she will drink 1 beer about every other month. She is a lifelong nonsmoker and does not use illicit substances. She ambulates with a walker. 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 Code status: Full code Surrogate decision maker: Jenn France (daughter) Smoking status: Never smoker Second hand tobacco smoke exposure: No Alcohol intake: never Drinks per week: 1 Substance use: current Substance use type: does not use Other substance usage details: once every 3-4 months Do You Feel Safe in your Home?: Yes Lack of Transportation: No Lack of Food: Never True Current Housing: I Have Housing Concerned About Future Housing: No Difficulty Paying Gas/Electric Bills: No Difficulty Paying for Meds: No Currently Unemployed: No Education: High School Diploma/GED Difficulty w/ Childcare or Family Care: No Living arrangements: with family Additional living arrangements comments: pt lives with granddaughter and granddaughter Occupation/Education: retired Gender identity (if verbalized by the patient): Female Sexual Orientation (if Verbalized by the Patient): Straight or Heterosexual Spiritual care concerns: No Meds Home Medications and Allergies Home Medications ?Medication ?Instructions ?Recorded ?Confirmed ?Type chlorthalidone 25 mg tablet 25 mg PO DAILY #90 tabs 05/29/24 01/26/25 Rx glipizide 5 mg tablet 10 mg (2 x 5 mg) PO BID 90 days 05/29/24 01/26/25 Rx #360 tabs ondansetron HCl 4 mg tablet 4 mg PO Q8H PRN nausea and 10/22/24 01/26/25 Rx vomiting #20 tabs metformin 1,000 mg tablet 500 mg (1/2 x 1,000 mg) PO BID #90 11/15/24 01/26/25 Rx tabs tizanidine 4 mg tablet 4 mg PO TID PRN muscle spasticity 12/28/24 01/26/25 Rx #30 tabs alprazolam 0.5 mg tablet 0.25 mg PO HS insomnia 01/04/25 01/26/25 History trazodone 50 mg tablet 50 mg PO QHS PRN sleep #60 tabs 01/09/25 01/26/25 Rx metoprolol tartrate 25 mg tablet 12.5 mg (1/2 x 25 mg) PO BID #90 01/24/25 01/26/25 Rx tabs docusate sodium 100 mg capsule 100 mg PO DAILY 01/26/25 01/26/25 History ergocalciferol (vitamin D2) 1,250 1,250 mcg PO WEEKLY 01/26/25 01/26/25 History mcg (50,000 unit) capsule (Vitamin D2) polyethylene glycol 3350 17 gram 17 g PO DAILY PRN constipation 01/26/25 01/26/25 History oral powder packet (Miralax) warfarin 3 mg tablet 3 mg PO QPM 01/26/25 01/26/25 History Allergies Allergy/AdvReac Type Severity Reaction Status Date / Time No Known Allergies Allergy Verified 01/15/25 13:38 Vital Signs Vital Signs - 24 hr 01/30/25 20:20 04/09/25 20:21 Pulse Rate 90 Oxygen Delivery Room Air Exam Narrative: AF 97.5 130/51 90 20 100% ra Gen - ill appearing female who is unresponsive with Margarito-Gary breathing; she apprears comfortable HEENT - dry MM Chest - lungs are coarse CV - S1-S2. Abd - abdomen was soft. Ext - LE edema Neuro - unresponsive. Psych - unable to assess Skin - jaundice Assessment and Plan Assessment and plan (1) Hypoglycemia: Code(s): E16.2 - Hypoglycemia, unspecified Status: Acute (2) Cirrhosis: Code(s): K74.60 - Unspecified cirrhosis of liver Status: Acute (3) Acute kidney injury superimposed on stage 3b chronic kidney disease: Code(s): N17.9 - Acute kidney failure, unspecified; N18.32 - Chronic kidney disease, stage 3b Status: Acute (4) Hepatorenal failure: Code(s): K76.7 - Hepatorenal syndrome Status: Acute (5) 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 Status: Acute (6) Jaundice: Code(s): R17 - Unspecified jaundice Status: Acute Plan Plan to continue morphine drip. She has Ativan and Morphine available prm as well. She appears comfortable. Family updated and all questions answered. Hospitalist MIPS Advance Care Plan I have confirmed that the patient's Advanced Care Plan is present, code status is documented, or surrogate decision maker is listed in patient medical record.: Yes Medication Reconciliation I have utilized all available resources to obtain, update and review the patients current medications (includes all prescriptions, OTC, herbals, cannabis, and nutritional supplements).: Yes
[2025-01-31 15:18] VITALS: O2SAT 98
[2025-01-31 17:44] VITALS: PULSE 90; O2SAT 98
--- NOTE | 2025-01-31 19:45 | PM.DDS ---
Discharge Summary Date and Time Date of : 01/31/25 Time of : 17:20 Provider Pronounced By: 2 RNs Name of First RN That Pronounced: Meryl Garcia Name of Second RN That Pronounced: Nivia Elizabeth Additional Data Confirmation of as documented by pronouncing clinician: Pupillary Reflex, Palpable Pulses, Response to Stimuli, Heart Tones and Breath Sounds Name of Provider Notified: Julia Time Provider Notified: 17:44 Provider Requests Autopsy: No Family Requests Autopsy: No [employer] Notified: Yes Date [facility] Notified of : 01/31/25 Time [facility] Notified of : 17:26
== END 2025-01-31 17:20 | disposition expired | DRG 951 ==
LOC: ANHIMU 18:07 → ANH3MEDSUR 20:28
PROVIDERS: Admitting Provider Internal Medicine; PCP Nurse Practitioner Family; Visit Provider Internal Medicine
DX: Z51.5 Encounter for palliative care (principal); C22.1 Intrahepatic bile duct carcinoma; C79.9 Secondary malignant neoplasm of unspecified site; N17.9 Acute kidney failure, unspecified; I13.0 Hypertensive heart and chronic kidney disease with heart failure and stage 1 through stage 4 chronic kidney disease, or unspecified chronic kidney disease; I50.9 Heart failure, unspecified; E11.22 Type 2 diabetes mellitus with diabetic chronic kidney disease; N18.32 Chronic kidney disease, stage 3b; K72.10 Chronic hepatic failure without coma
CPT/HCPCS: J2060; J2270